=== PATIENT | male | born 1950 ===

== ENCOUNTER 2016-09-16 12:04 | Observation (INO) | payer MEDICARE ==
--- NOTE | 2016-09-16 12:36 | C.PDOC ---
History Of Present Illness 66 y/o male with Hx of HTN and valvular heart disease presents to ER with complaints of Hematuria and patient states blood in urine since a "few hours ago ". Patient denies pain, tenderness or blood in stool. Patient was seen in [facility] for similar. No further complaints at this time. Time Seen by Provider: 09/16/16 12:33 Chief Complaint (Nursing): Male Genitourinary History Per: Patient History/Exam Limitations: no limitations Onset/Duration Of Symptoms: Days Current Symptoms Are (Timing): Still Present Severity: Mild Associated Symptoms: Urinary Symptoms (blood in urine). denies: Fever, Nausea, Vomiting, Diarrhea Past Medical History Reviewed: Historical Data, Nursing Documentation, Vital Signs Vital Signs: Last Vital Signs Temp 97.8 F 09/16/16 23:35 Pulse 59 L 09/17/16 00:20 Resp 20 09/16/16 23:35 BP 119/64 09/16/16 23:35 Pulse Ox 97 09/16/16 23:35 - Medical History PMH: Atrial Fibrillation, CAD, Depression, Diabetes, HTN Surgical History: CABG (1997) - [facility] Procedures DRAINAGE OF ANUS, EXTERNAL APPROACH (05/01/15) Family History: States: Unknown Family Hx, Hypertension - Social History Hx Alcohol Use: No Hx Substance Use: No - Immunization History Hx Tetanus Toxoid Vaccination: Yes Hx Influenza Vaccination: No Hx Pneumococcal Vaccination: No Review Of Systems Except As Marked, All Systems Reviewed And Found Negative. Constitutional: Negative for: Fever, Chills, Sweats Cardiovascular: Negative for: Chest Pain Respiratory: Negative for: Cough, Shortness of Breath Gastrointestinal: Negative for: Nausea, Vomiting, Diarrhea Genitourinary: Positive for: Hematuria. Negative for: Dysuria Neurological: Negative for: Weakness, Numbness Physical Exam - Physical Exam Appears: Well, Non-toxic Skin: Normal Color, Warm Head: Atraumatic, Normacephalic Oral Mucosa: Moist Throat: Normal Neck: Normal ROM Cardiovascular: Rhythm Regular, No Murmur Respiratory: Normal Breath Sounds, No Rales, No Rhonchi, No Wheezing Neurological/Psych: Oriented x3, Normal Speech, Normal Cognition ED Course And Treatment - Laboratory Results Result Diagrams: 09/17/16 08:02 09/16/16 12:53 O2 Sat by Pulse Oximetry: 96 Medical Decision Making Medical Decision Making: gross hematuria. noted similar presentation in dec, where pt had drop in h/h, needed icu, and emergent tranfusion at that time 250: unable to reach dr cummings. called dr cheek, brain surgeon urology, recommends reversal of inr, no bladder irrigation at this time. case discussed with dr mendoza, hospitalist. accepts for admission 345 : received call from dr killian, accepts to his service. hospitalist notified ekg afib 50 known h/o of afib Disposition - Disposition Disposition: HOSPITALIZED Disposition Time: 14:49 Condition: STABLE - Clinical Impression Clinical Impression: Hematuria, Supratherapeutic INR - PA / MEASURING CLERK / Resident Statement MD/DO has reviewed & agrees with the documentation as recorded. MD/DO has examined the patient and agrees with the treatment plan. - Scribe Statement The provider has reviewed the documentation as recorded by the Shayneibmaged [place] All medical record entries made by the Shayneibmaged were at my direction and personally dictated by me. I have reviewed the chart and agree that the record accurately reflects my personal performance of the history, physical exam, medical decision making, and the department course for this patient. I have also personally directed, reviewed, and agree with the discharge instructions and disposition. Decision To Admit - Pt Status Changed To: Hospital Disposition Of: Inpatient - Admit Certification Admit to Inpatient:: After my assessment, the patient will require hospitalization for at least two midnights. This is because of the severity of symptoms shown, intensity of services needed, and/or the medical risk in this patient being treated as an outpatient. - InPatient: Physician Admission Certification: I certify that this patient requires 2 or more midnights of care for the following reason:: pt with supratherpeutic inr, with gross bleeding, needs reversal, h/h monitoring. - . Bed Request Type: Telemetry Admitting Physician: Markus Mendoza Patient Diagnosis: Hematuria, Supratherapeutic INR
[2016-09-16 12:58] LABS: BASO % 0.7 % (0.0-2.0); EOS # 0.1 K/uL (0.0-0.7); EOS % 1.2 % (0.0-4.0); HEMATOCRIT 39.9 % (35.0-51.0); LYMPH % 16.9 % (20.0-40.0); MEAN CELL VOLUME 93.1 fL (80.0-94.0); MEAN CORPUSCULAR HEMOGLOBIN 29.8 pg (27.0-31.0); MEAN PLATELET VOLUME 9.1 fL (7.2-11.7); MONO # 0.6 K/uL (0.0-0.8); RED CELL DISTRIBUTION WIDTH 15.1 % (11.5-14.5)
[2016-09-16 13:07] LABS: CHLORIDE 94 mmol/L (98-107)
[2016-09-16 13:08] LABS: POTASSIUM 3.6 mmol/L (3.6-5.2); SODIUM 139 mmol/L (132-148)
[2016-09-16 13:09] LABS: INR 3.4
[2016-09-16 13:10] LABS: ALB/GLOB RATIO 1.6 (1.0-2.1); AST/SGOT 22 U/L (17-59); BILIRUBIN,TOTAL 0.6 mg/dL (0.2-1.3); BLOOD UREA NITROGEN 40 mg/dL (9-20); CARBON DIOXIDE 35 mmol/L (22-30); GFR AFRICAN-AMERICAN > 60; TOTAL PROTEIN 7.7 g/dL (6.3-8.3)
[2016-09-16 13:11] LABS: ALKALINE PHOSPHATASE 106 U/L (38-126); ALT/SGPT 25 U/L (21-72); CALCIUM 8.9 mg/dl (8.6-10.4); GLUCOSE,RANDOM 112 mg/dL (75-110)
[2016-09-16] MEDS ORDERED: Sodium Chloride 0.9% 500 ML IV ONE (13:15)
[2016-09-16 13:39] LABS: RBC URINE 5862 /hpf (0-3); URINE BILIRUBIN NEGATIVE (NEGATIVE); URINE BLOOD 2+ (NEGATIVE); URINE COLOR Red (YELLOW); URINE GLUCOSE (UA) NORMAL (Normal); URINE KETONE NEGATIVE (NEGATIVE); URINE LEUKOCYTE ESTERASE NEG Leu/uL (Negative); URINE PROTEIN 2+ mg/dL (NEGATIVE); URINE UROBILINOGEN NORMAL mg/dL (0.2-1.0)
[2016-09-16] MEDS ORDERED: Phytonadione 2.5 MG/0.5 TAB TAB PO STA (14:42)
[2016-09-16] MEDS: (Novolin R) Insulin Human Regular 100 units/ml vial SC SCH (21:31)
[2016-09-17] MEDS: (Novolin R) Insulin Human Regular 100 units/ml vial SC SCH ×4 (07:47→23:27)
[2016-09-17 08:12] LABS: BASO % 0.6 % (0.0-2.0); EOS # 0.1 K/uL (0.0-0.7); EOS % 1.6 % (0.0-4.0); HEMATOCRIT 33.7 % (35.0-51.0); LYMPH # 0.9 K/uL (1.0-4.3); LYMPH % 17.3 % (20.0-40.0); MEAN CELL VOLUME 92.1 fL (80.0-94.0); MEAN CORPUSCULAR HEMOGLOBIN 29.9 pg (27.0-31.0); MEAN CORPUSCULAR HGB CONC 32.4 g/dL (33.0-37.0); MEAN PLATELET VOLUME 9.7 fL (7.2-11.7); MONO # 0.7 K/uL (0.0-0.8); MONO % 12.8 % (0.0-10.0); NRBC % 0.1 % (0.0-2.0); RED CELL DISTRIBUTION WIDTH 14.8 % (11.5-14.5); WHITE BLOOD COUNT 5.1 K/uL (4.8-10.8)
[2016-09-17 08:16] LABS: INR 2.1
[2016-09-17] MEDS: Potassium Chloride 10 mEq ER Tab PO SCH (09:25)
[2016-09-17] MEDS: metOLazone 2.5 MG TAB PO SCH (09:25)
[2016-09-17 13:53] LABS: RBC URINE 1 /hpf (0-3); URINE BILIRUBIN NEGATIVE (NEGATIVE); URINE BLOOD NEGATIVE (NEGATIVE); URINE COLOR Yellow (YELLOW); URINE GLUCOSE (UA) NORMAL (Normal); URINE KETONE NEGATIVE (NEGATIVE); URINE LEUKOCYTE ESTERASE 2+ Leu/uL (Negative); URINE PROTEIN NEGATIVE (NEGATIVE); URINE UROBILINOGEN NORMAL mg/dL (0.2-1.0); WBC URINE 42 /hpf (0-5)
[2016-09-17 18:27] VITALS: RESP 20
--- NOTE | 2016-09-17 18:30 | CP.PCM.CON ---
History of Present Illness - History of Present Illness History of Present Illness: Discussed case with ER doc. Pt with second empisode of gross hematuria while on anticoagulation. 1st empisode in May was worked up hematuria resolved after stoping anticoagulation on present admisson PT abnormal Suggest stopping anticoagulation if hematuria fails to stop further workup indicated, [place] Past Patient History - Past Medical History & Family History Past Medical History?: Yes - Past Social History Smoking Status: Light Smoker < 10 Cigarettes Daily - CARDIAC Hx Atrial Fibrillation: Yes Hx Hypertension: Yes - PULMONARY Hx Respiratory Disorders: No - NEUROLOGICAL Hx Neurological Disorder: No - HEENT Hx HEENT Problems: Yes Hx Cataracts: Yes - RENAL Hx Chronic Kidney Disease: No - ENDOCRINE/METABOLIC Hx Endocrine Disorders: Yes Hx Diabetes Mellitus Type 2: Yes - HEMATOLOGICAL/ONCOLOGICAL Hx Blood Disorders: No - INTEGUMENTARY Hx Dermatological Problems: No Other/Comment: Hx Ulcer to right calf (healed) - MUSCULOSKELETAL/RHEUMATOLOGICAL Hx Musculoskeletal Disorders: Yes Hx Falls: Yes - GASTROINTESTINAL Hx Gastrointestinal Disorders: No - GENITOURINARY/GYNECOLOGICAL Hx Genitourinary Disorders: Yes Hx Hematuria: Yes - PSYCHIATRIC Hx Depression: Yes Hx Substance Use: No - SURGICAL HISTORY Hx Coronary Artery Bypass Graft: Yes (1997) - ANESTHESIA Hx Anesthesia: Yes Hx Anesthesia Reactions: No Hx Malignant Hyperthermia: No Meds Allergies/Adverse Reactions: Allergies Allergy/AdvReac Type Severity Reaction Status Date / Time clams Allergy Uncoded 09/16/16 12:09 - Medications Medications: Current Medications Clonazepam (Klonopin) 2 mg PO HS [facility] Last Admin: 09/16/16 21:33 Dose: 2 mg Docusate Sodium (Colace) 100 mg PO DAILY [facility] Last Admin: 09/17/16 09:25 Dose: 100 mg Insulin Human Regular (Novolin R) 0 unit SC [facility] PRN Reason: Protocol Last Admin: 09/17/16 17:29 Dose: Not Given Losartan Potassium (Cozaar) 100 mg PO DAILY [facility] Last Admin: 09/17/16 09:25 Dose: 100 mg Metformin HCl (Glucophage) 500 mg PO DAILY [facility] Last Admin: 09/17/16 09:25 Dose: 500 mg Metolazone (Zaroxolyn) 2.5 mg PO DAILY [facility] Last Admin: 09/17/16 09:25 Dose: 2.5 mg Potassium Chloride (Klor-Con 10) 10 meq PO DAILY [facility] Last Admin: 09/17/16 09:25 Dose: 10 meq Results - Vital Signs Recent Vital Signs: Last Vital Signs Temp 97.6 F 09/17/16 08:00 Pulse 57 L 09/17/16 16:00 Resp 18 09/17/16 08:00 BP 110/63 09/17/16 08:00 Pulse Ox 96 09/17/16 09:55 - Labs Result Diagrams: 09/17/16 08:02 09/16/16 12:53 Labs: Laboratory Results - last 24 hr 09/16/16 09/17/16 09/17/16 21:07 06:28 08:02 WBC 5.1 RBC 3.66 L Hgb 10.9 L Hct 33.7 L MCV 92.1 MCH 29.9 MCHC 32.4 L RDW 14.8 H Plt Count 167 MPV 9.7 Neut % (Auto) 67.7 Lymph % (Auto) 17.3 L [place] % (Auto) 12.8 H Eos % (Auto) 1.6 Baso % (Auto) 0.6 Neut # 3.5 Lymph # 0.9 L [place] # 0.7 Eos # 0.1 Baso # 0.0 PT INR APTT POC Glucose (mg/dL) 197 H 119 H Urine Color Urine Clarity Urine pH Ur Specific [place] Urine Protein Urine Glucose (UA) Urine Ketones Urine Blood Urine Nitrate Urine Bilirubin Urine Urobilinogen Ur Leukocyte Esterase Urine WBC (Auto) Urine RBC (Auto) Ur Squamous Epith Cells Hyaline Casts 09/17/16 09/17/16 09/17/16 08:02 11:38 13:36 WBC RBC Hgb Hct MCV MCH MCHC RDW Plt Count MPV Neut % (Auto) Lymph % (Auto) [place] % (Auto) Eos % (Auto) Baso % (Auto) Neut # Lymph # [place] # Eos # Baso # PT 23.8 H D INR 2.1 D APTT 48 H D POC Glucose (mg/dL) 146 H Urine Color Yellow Urine Clarity Hazy Urine pH 6.0 Ur Specific [place] 1.013 Urine Protein Negative Urine Glucose (UA) Normal Urine Ketones Negative Urine Blood Negative Urine Nitrate Negative Urine Bilirubin Negative Urine Urobilinogen Normal Ur Leukocyte Esterase 2+ H Urine WBC (Auto) 42 H Urine RBC (Auto) 1 Ur Squamous Epith Cells 1 Hyaline Casts 6-10 H 09/17/16 17:21 WBC RBC Hgb Hct MCV MCH MCHC RDW Plt Count MPV Neut % (Auto) Lymph % (Auto) [place] % (Auto) Eos % (Auto) Baso % (Auto) Neut # Lymph # [place] # Eos # Baso # PT INR APTT POC Glucose (mg/dL) 145 H Urine Color Urine Clarity Urine pH Ur Specific [place] Urine Protein Urine Glucose (UA) Urine Ketones Urine Blood Urine Nitrate Urine Bilirubin Urine Urobilinogen Ur Leukocyte Esterase Urine WBC (Auto) Urine RBC (Auto) Ur Squamous Epith Cells Hyaline Casts
--- NOTE | 2016-09-17 18:33 | CP.PCM.HP ---
History of Present Illness - History of Present Illness History of Present Illness: Chief complaint: Hematuria History present illness: 66-year-old male with history of mitral valve replacement, hypertension, depression, anxiety, CAD, diabetes, hypercholesteremia came to the office with the complaining of sudden onset of blood in the urine. Patient is taking Coumadin for his mitral valve mechanical. He was doing well. Currently he started having bright red color urine this morning, and at least 2 more episodes were noted. Patient came to the emergency room because of that. He was having no abdominal pain, no flank pain. He did not have any other major active symptoms. In the past patient was hospitalized because of the coagulopathy secondary to Coumadin toxicity Past medical history: Atrial fibrillation, coronary artery disease, hypertension, diabetes Surgical history: In 1997 patient had a mitral valve replacement, coronary artery bypass grafting , cataract surgery patient also had a history of endocarditis Family history: Father had a history of diabetes, mother diabetes and hypertension, significant family history of diabetes noted. Social history: Findings SOCIALLY, patient continues to smoke 4-5 cigarettes daily. Seen by voice engineer. Also seeing psychiatrist Review of system: Denies any chest pain, but complaining of urinary discomfort, and blood in the urine, no flank pain, denies any vomiting, no fever, no chills On examination: Vital signs reviewed in Chest good air entry bilaterally regular heart sound nontender abdomen CANCER REGISTRY COORDINATOR alert awake oriented 3 no functional neurological deficit Labs reviewed Elevated INR noted. Patient was given vitamin K and FFP in the emergency room. Still having minimal redness in the urine Assessment and recommendation: 64-year-old male with a history of hypertension mitral valve replacement, depression anxiety CAD atrial fibrillation hypercholesterolemia coagulopathy admitted now with the hematuria. We'll continue to monitor the patient. INR to be maintained. Urology evaluation if needed. Discussed with the patient and will follow the patient Present on Admission - Present on Admission Any Indicators Present on Admission: No History of DVT/PE: No History of Uncontrolled Diabetes: No Urinary Catheter: No Decubitus Ulcer Present: No Past Patient History - Past Medical History & Family History Past Medical History?: Yes - Past Social History Smoking Status: Light Smoker < 10 Cigarettes Daily - CARDIAC Hx Atrial Fibrillation: Yes Hx Hypertension: Yes - PULMONARY Hx Respiratory Disorders: No - NEUROLOGICAL Hx Neurological Disorder: No - HEENT Hx HEENT Problems: Yes Hx Cataracts: Yes - RENAL Hx Chronic Kidney Disease: No - ENDOCRINE/METABOLIC Hx Endocrine Disorders: Yes Hx Diabetes Mellitus Type 2: Yes - HEMATOLOGICAL/ONCOLOGICAL Hx Blood Disorders: No - INTEGUMENTARY Hx Dermatological Problems: No Other/Comment: Hx Ulcer to right calf (healed) - MUSCULOSKELETAL/RHEUMATOLOGICAL Hx Musculoskeletal Disorders: Yes Hx Falls: Yes - GASTROINTESTINAL Hx Gastrointestinal Disorders: No - GENITOURINARY/GYNECOLOGICAL Hx Genitourinary Disorders: Yes Hx Hematuria: Yes - PSYCHIATRIC Hx Depression: Yes Hx Substance Use: No - SURGICAL HISTORY Hx Coronary Artery Bypass Graft: Yes (1997) - ANESTHESIA Hx Anesthesia: Yes Hx Anesthesia Reactions: No Hx Malignant Hyperthermia: No Meds Allergies/Adverse Reactions: Allergies Allergy/AdvReac Type Severity Reaction Status Date / Time clams Allergy Uncoded 09/16/16 12:09 Results - Vital Signs Recent Vital Signs: Last Vital Signs Temp 97.8 F 09/17/16 16:00 Pulse 62 09/17/16 16:00 Resp 20 09/17/16 16:00 BP 111/57 L 09/17/16 16:00 Pulse Ox 98 09/17/16 16:00 - Labs Result Diagrams: 09/17/16 08:02 09/16/16 12:53 Labs: Laboratory Results - last 24 hr 09/16/16 09/17/16 09/17/16 21:07 06:28 08:02 WBC 5.1 RBC 3.66 L Hgb 10.9 L Hct 33.7 L MCV 92.1 MCH 29.9 MCHC 32.4 L RDW 14.8 H Plt Count 167 MPV 9.7 Neut % (Auto) 67.7 Lymph % (Auto) 17.3 L Wirt % (Auto) 12.8 H Eos % (Auto) 1.6 Baso % (Auto) 0.6 Neut # 3.5 Lymph # 0.9 L Wirt # 0.7 Eos # 0.1 Baso # 0.0 PT INR APTT POC Glucose (mg/dL) 197 H 119 H Urine Color Urine Clarity Urine pH Ur Specific [place] Urine Protein Urine Glucose (UA) Urine Ketones Urine Blood Urine Nitrate Urine Bilirubin Urine Urobilinogen Ur Leukocyte Esterase Urine WBC (Auto) Urine RBC (Auto) Ur Squamous Epith Cells Hyaline Casts 09/17/16 09/17/16 09/17/16 08:02 11:38 13:36 WBC RBC Hgb Hct MCV MCH MCHC RDW Plt Count MPV Neut % (Auto) Lymph % (Auto) [place]irt % (Auto) Eos % (Auto) Baso % (Auto) Neut # Lymph # [place]irt # Eos # Baso # PT 23.8 H D INR 2.1 D APTT 48 H D POC Glucose (mg/dL) 146 H Urine Color Yellow Urine Clarity Hazy Urine pH 6.0 Ur Specific [place] 1.013 Urine Protein Negative Urine Glucose (UA) Normal Urine Ketones Negative Urine Blood Negative Urine Nitrate Negative Urine Bilirubin Negative Urine Urobilinogen Normal Ur Leukocyte Esterase 2+ H Urine WBC (Auto) 42 H Urine RBC (Auto) 1 Ur Squamous Epith Cells 1 Hyaline Casts 6-10 H 09/17/16 17:21 WBC RBC Hgb Hct MCV MCH MCHC RDW Plt Count MPV Neut % (Auto) Lymph % (Auto) [place] % (Auto) Eos % (Auto) Baso % (Auto) Neut # Lymph # [place] # Eos # Baso # PT INR APTT POC Glucose (mg/dL) 145 H Urine Color Urine Clarity Urine pH Ur Specific [place] Urine Protein Urine Glucose (UA) Urine Ketones Urine Blood Urine Nitrate Urine Bilirubin Urine Urobilinogen Ur Leukocyte Esterase Urine WBC (Auto) Urine RBC (Auto) Ur Squamous Epith Cells Hyaline Casts
[2016-09-18 07:28] LABS: INR 1.8
[2016-09-18] MEDS: (Novolin R) Insulin Human Regular 100 units/ml vial SC SCH ×2 (08:31→12:24)
[2016-09-18 08:59] VITALS: BP 112/68; TEMP 97.7; O2SAT 98
[2016-09-18] MEDS: Potassium Chloride 10 mEq ER Tab PO SCH (09:14)
[2016-09-18] MEDS: metOLazone 2.5 MG TAB PO SCH (09:14)
[2016-09-18 11:44] VITALS: PULSE 70
[2016-09-18 13:31] LABS: RBC URINE 3 /hpf (0-3); URINE BACTERIA FEW (<OCC); URINE BILIRUBIN NEGATIVE (NEGATIVE); URINE BLOOD NEGATIVE (NEGATIVE); URINE COLOR Yellow (YELLOW); URINE GLUCOSE (UA) NORMAL (Normal); URINE KETONE NEGATIVE (NEGATIVE); URINE LEUKOCYTE ESTERASE 3+ Leu/uL (Negative); URINE PROTEIN NEGATIVE (NEGATIVE); URINE UROBILINOGEN NORMAL mg/dL (0.2-1.0); WBC URINE 45 /hpf (0-5)
--- NOTE | 2016-09-18 13:59 | CP.PCM.PN ---
Subjective - Date & Time of Evaluation Date of Evaluation: 09/18/16 Time of Evaluation: 13:57 - Subjective Subjective: Hematuria has abated,voiding clear urine. Suggest no further intervention on this admission pt should have follow up on discharge. Shen Hogan Objective - Vital Signs/Intake and Output Vital Signs (last 24 hours): Temp Pulse Resp BP Pulse Ox 97.7 F 70 20 112/68 98 09/18/16 08:57 09/18/16 10:00 09/18/16 08:57 09/18/16 08:57 09/18/16 08:57 Intake and Output: 09/18/16 09/18/16 06:59 18:59 Intake Total 500 Balance 500 - Medications Medications: Current Medications Clonazepam (Klonopin) 2 mg PO HS [facility] Last Admin: 09/17/16 22:03 Dose: 2 mg Docusate Sodium (Colace) 100 mg PO DAILY [facility] Last Admin: 09/18/16 09:14 Dose: 100 mg Insulin Human Regular (Novolin R) 0 unit SC [facility] PRN Reason: Protocol Last Admin: 09/18/16 12:24 Dose: Not Given Losartan Potassium (Cozaar) 100 mg PO DAILY [facility] Last Admin: 09/18/16 09:14 Dose: 100 mg Metformin HCl (Glucophage) 500 mg PO DAILY [facility] Last Admin: 09/18/16 09:14 Dose: 500 mg Metolazone (Zaroxolyn) 2.5 mg PO DAILY [facility] Last Admin: 09/18/16 09:14 Dose: 2.5 mg Potassium Chloride (Klor-Con 10) 10 meq PO DAILY [facility] Last Admin: 09/18/16 09:14 Dose: 10 meq - Labs Labs: 09/17/16 08:02 PT 20.2 SECONDS (9.7-12.2) H 09/18/16 07:12 INR 1.8 09/18/16 07:12 APTT 45 SECONDS (21-34) H 09/18/16 07:12
--- NOTE | 2016-09-19 13:53 | CON ---
DATE: 09/18/2016 CHIEF COMPLAINT: Hematuria. HISTORY OF PRESENT ILLNESS: The patient had hematuria at home. He is on anticoagulation, began pass ing blood painlessly. He has a history of having hematuria in the past, which was found to be due to aberrant anticoagulation, which he is on because of mitral valve disease. At that time, he was krunal luann conservatively and improved. Now, he returns to the hospital. His coagulation numbers are abnor mal and he is bleeding again. He denies any difficulty in urination, any dysuria or any frequency. REVIEW OF SYSTEMS: RESPIRATORY: The patient has no shortness of breath. CARDIAC: The patient has a murmur due to his artificial valve. He has no cardiomegaly and he is not complaining of any palpitations. LUNGS: Clear bilaterally. There are no rales or rhonchi. HEART: Normal sinus rhythm. There is a murmur due to the valve. GASTROINTESTINAL: The patient has no change in bowel habits. No constipation or diarrhea. GENITOURINARY: The patient has had gross hematuria, but that gross hematuria subsided since his anti coagulation is stopped. He is voiding well with clear yellow urine. EXTREMITIES: Normal. VASCULAR: Normal. NEUROLOGIC: Normal. I have also reviewed the patient's lab work and the progress notes from other practitioners. PHYSICAL EXAMINATION: VITAL SIGNS: Within normal limits. HEENT: Within normal limits. NECK: Supple. There are no bruits, nodes, or masses. CHEST: Clear bilaterally. There are no rales or rhonchi. HEART: Normal sinus rhythm. There is no murmur. ABDOMEN: Soft, nontender. The bladder is not distended. RECTAL: The patient refuses. GENITAL: Testicles, epididymis, and cord are normal. My impression is hematuria secondary to anticoagulation. SUGGEST: The patient should be monitored. If hematuria continues, further workup is indicated. The patient should be referred for urological followup on discharge. Irving Hogan MD cc: [phone] TT: 09/19/2016 13:45:43 Confirmation # [id number] Dictation # [id number]
--- NOTE | 2016-09-21 15:05 | CARD ---
APPROVED REPORT EKG Measurement Heart [id number] <Conclusion> Atrial fibrillation with slow ventricular response Abnormal ECG
== END 2016-09-18 14:08 | disposition home or self-care (01) ==
LOC: C.ER 12:04 → INTOOBSV 14:50 → C.9E 14:50 → C.6T 15:39
PROVIDERS: ADMIT Internal Medicine; ATTEND Internal Medicine
PROC: 30233K1 Transfusion of Nonautologous Frozen Plasma into Peripheral Vein, Percutaneous Approach (ICD-10-PCS; principal; 2016-09-16)
DX: R31.0 Gross hematuria (principal); I48.91 Unspecified atrial fibrillation; I10 Essential (primary) hypertension; T45.515A Adverse effect of anticoagulants, initial encounter; I25.10 Atherosclerotic heart disease of native coronary artery without angina pectoris; E11.9 Type 2 diabetes mellitus without complications; F32.9 Major depressive disorder, single episode, unspecified; Z95.1 Presence of aortocoronary bypass graft; F41.9 Anxiety disorder, unspecified; E78.00 Pure hypercholesterolemia, unspecified; Z95.2 Presence of prosthetic heart valve; Z79.01 Long term (current) use of anticoagulants; F17.210 Nicotine dependence, cigarettes, uncomplicated; Z79.4 Long term (current) use of insulin
CPT/HCPCS: 36415; 36430; 80053; 81001; 82948; 85025; 85610; 85730; 86850; 86900; 93005; 99285; G0378; J7040; P9017

== ENCOUNTER 2016-11-01 06:09 | Day surgery (SDC) | payer MEDICARE ==
[2016-11-01 06:50] VITALS: BMI 28.4
[2016-11-01 07:00] VITALS: O2SAT 100
[2016-11-01] MEDS ORDERED: Propofol 10 mg/ml Inj (20 ML) ONE (07:51)
[2016-11-01] MEDS ORDERED: Lidocaine Hydrochloride 5 ML INJ ONE (07:51)
[2016-11-01] MEDS ORDERED: Lactated Ringer's 500 ML IV SCH (08:00)
--- NOTE | 2016-11-01 08:01 | CP.SDSHP ---
Same Day Surgery H & P - History Proposed Procedure: colonoscopy Pre-Op Diagnosis: h/o colonic polyps - Previous Medical/Surgical History Cardiac: Hypertension, ASHD/CAD, Valvular Heart Disease, Previous HI, Other ( hyperlipidemia, ) Endocrine/Metabolic: Diabetes, Obesity Misc: Anemia Previous Surgical History: S/P MVR. Perirectal abscess drainage - Allergies Allergies: Allergies clams Allergy (Uncoded 09/16/16 12:09) - Physical Exam Vital Signs: Vital Signs 11/01/16 06:49 Temperature 98.4 F Pulse Rate 68 Respiratory 19 Rate Blood Pressure 135/65 O2 Sat by Pulse 100 Oximetry Mental Status: Alert & Oriented x3 Neuro: WNL Heart: Other (Systolic ejection murmur noted 07/10) Lungs: WNL GI: WNL - {Optional Preform as Required} Abdomen: WNL - Impression Impression: h/o colonic polyps Pt. Evaluated Today:Candidate for Anesthesia & Procedure: Yes - Date & Time Date: 11/01/16 Time: 08:03 Short Stay Discharge - Short Stay Discharge Admitting Diagnosis/Reason for Visit: H/O COLON POLYPS / ISCHEMIC HEART Disposition: HOME/ ROUTINE
[2016-11-01 08:28] LABS: INR 2.6
[2016-11-01 11:15] VITALS: RESP 16; TEMP 96.8
[2016-11-01 11:18] VITALS: BP 161/85; PULSE 52
== END 2016-11-01 10:40 | disposition home or self-care (01) ==
LOC: C.ENDO 06:09
PROVIDERS: ATTEND Internal Medicine Gastroenterology
DX: K57.90 Diverticulosis of intestine, part unspecified, without perforation or abscess without bleeding (principal); K64.1 Second degree hemorrhoids; Z86.010 Personal history of colon polyps; I25.9 Chronic ischemic heart disease, unspecified; Z95.0 Presence of cardiac pacemaker
CPT/HCPCS: 36415; 45378; 82948; 85610; 85730; J2704; J7120

== ENCOUNTER 2016-11-14 19:34 | Inpatient (IN) | payer MEDICARE ==
[2016-11-14 19:35] VITALS: BMI 28.4
[2016-11-14] MEDS ORDERED: Sodium Chloride 0.9% 1,000 ML ONE ×2 (19:56→22:02)
--- NOTE | 2016-11-14 20:06 | C.PDOC ---
History Of Present Illness 66M c/o constant pain in his right side for the last 3 days. no exac or reliev fx. has not taken med at home for pain. denies hematuria, n/v/d, fever. he points to his right flank and also RUQ and epigatric regions. Time Seen by Provider: 11/14/16 19:44 Chief Complaint (Nursing): Abdominal Pain Past Medical History Vital Signs: Last Vital Signs Temp 98.9 F 11/14/16 19:51 Pulse 61 11/14/16 23:39 Resp 16 11/14/16 23:39 BP 116/64 11/14/16 23:39 Pulse Ox 97 11/14/16 23:39 - Medical History PMH: Atrial Fibrillation, CAD, Colonic Polyps, Depression, Diabetes, HTN, Hypercholesterolemia Surgical History: CABG (1997), Endoscopy - [facility] Procedures DRAINAGE OF ANUS, EXTERNAL APPROACH (05/01/15) TRANSFUSE NONAUT FROZEN PLASMA IN PERIPH VEIN, PERC (09/16/16) Family History: States: Hypertension, Other Other Family History: nc - Social History Hx Alcohol Use: Yes Hx Substance Use: No - Immunization History Hx Tetanus Toxoid Vaccination: Yes Hx Influenza Vaccination: No Hx Pneumococcal Vaccination: No Review Of Systems Except As Marked, All Systems Reviewed And Found Negative. Constitutional: Negative for: Fever, Chills Cardiovascular: Negative for: Chest Pain Respiratory: Negative for: Cough, Shortness of Breath, Hemoptysis Gastrointestinal: Positive for: Abdominal Pain. Negative for: Nausea, Vomiting Genitourinary: Negative for: Dysuria, Frequency, Hematuria Neurological: Negative for: Weakness, Numbness Physical Exam - Physical Exam Appears: Non-toxic, No Acute Distress Skin: Warm, Dry Eye(s): bilateral: PERRL Nose: No Epistaxis Oral Mucosa: Moist Lips: No Swelling Cardiovascular: Rhythm Regular Respiratory: No Decreased Breath Sounds, No Accessory Muscle Use, No Rales, No Rhonchi, No Stridor, No Wheezing Gastrointestinal/Abdominal: Soft, Tenderness (ruq and epigastric), No Distention , No Guarding, No Rebound Back: No CVA Tenderness, No Paraspinal Tenderness Extremity: Swelling (trace edema ble) Neurological/Psych: Oriented x3, Other (no focal deficits) ED Course And Treatment - Laboratory Results Result Diagrams: 11/14/16 20:10 11/14/16 20:10 O2 Sat by Pulse Oximetry: 96 - CT Scan/US CT abd/pel Other Rad Studies (CT/US): Read By Radiologist, Radiology Report Reviewed CT/US Interpretation: EXAM: CT Abdomen and Pelvis With Intravenous Contrast. CLINICAL HISTORY: 66 years old, male; Pain; Abdominal pain; Flank; Right lower quadrant (rlq). TECHNIQUE: Axial computed tomography images of the abdomen and pelvis with intravenous contrast. This CT. exam was performed using one or more of the following dose reduction techniques: automated. exposure control, adjustment of the mA and/or kV according patient size, and/or use of iterative. reconstruction technique. Coronal and sagittal reformatted images were created and reviewed. CONTRAST: 100 mL of visipaque 320 administered intravenously. COMPARISON: No relevant prior studies available. FINDINGS: Lower thorax: Left basilar atelectasis. The right lung base is clear. Calcified atherosclerotic disease. within the coronary arteries. ABDOMEN: Liver: No acute findings. Gallbladder and bile ducts: The gallbladder is only minimally distended, with a single calcified stone. No surrounding inflammation. No significant intra- or extrahepatic biliary ductal dilation. Pancreas: Enhances homogeneously. No ductal dilation. No discrete mass. Spleen: No acute findings. Adrenals: No acute findings. Kidneys and ureters: No acute findings. No hydronephrosis or renal calculi. No discrete solid mass. PELVIS: Bladder: Thickening of the bladder wall, possibly related to under distention. Reproductive: No acute findings. Appendix: The air filled appendix is of normal caliber (series 3, images 120 - 124; series 601, image. 63) . ABDOMEN and PELVIS: Stomach and bowel: Significant mural thickening with surrounding inflammatory changes identified. within the cecum. The epicenter is at or beyond the ileocecal valve, and is not include the appendix,. which is air- filled and otherwise unremarkable. The remainder of the colon is unremarkable. Peritoneum: As above. Lymph nodes: Scattered enlarged lymph nodes within the retroperitoneum and at the root of the. mesentery, a nonspecific finding. Vasculature: Calcified atherosclerotic disease. Bones: No acute fracture. IMPRESSION: Findings suggesting cecal diverticulitis, without a drainable fluid collection or free perforation. Followup to resolution is recommended, as a malignancy can have a similar appearance. Cholelithiasis. Left basilar atelectasis Medical Decision Making Medical Decision Making: Atrial fibrillation 79, no STEMI Disposition - Disposition Disposition: HOSPITALIZED Disposition Time: 21:45 Condition: STABLE - Clinical Impression Clinical Impression: UTI (urinary tract infection), Diverticulitis
[2016-11-14 20:16] LABS: BASO % 0.3 % (0.0-2.0); EOS % 0.2 % (0.0-4.0); HEMOGLOBIN 11.5 g/dL (12.0-18.0); LYMPH # 1.2 K/uL (1.0-4.3); LYMPH % 8.3 % (20.0-40.0); MEAN CELL VOLUME 94.4 fL (80.0-94.0); MEAN CORPUSCULAR HEMOGLOBIN 29.7 pg (27.0-31.0); MEAN CORPUSCULAR HGB CONC 31.5 g/dL (33.0-37.0); MEAN PLATELET VOLUME 9.8 fL (7.2-11.7); MONO # 1.1 K/uL (0.0-0.8); MONO % 7.5 % (0.0-10.0); NEUT # 11.8 K/uL (1.8-7.0); NEUT % 83.7 % (50.0-75.0); PLATELET COUNT 178 K/uL (130-400); RBC 3.86 Mil/uL (4.40-5.90); RED CELL DISTRIBUTION WIDTH 13.8 % (11.5-14.5)
[2016-11-14 20:21] LABS: INR 4.1
[2016-11-14 20:26] LABS: PROTHROMBIN TIME 48.2 SECONDS (9.7-12.2)
[2016-11-14 20:44] LABS: ALBUMIN 3.5 g/dL (3.5-5.0)
[2016-11-14] MEDS ORDERED: Iodixanol 320 MG/ML 100 ML BOTTLE IV ONE (20:44)
[2016-11-14 20:47] LABS: AST/SGOT 19 U/L (17-59); GFR AFRICAN-AMERICAN 57; GFR NON-AFRICAN AMERICAN 47
[2016-11-14 20:48] LABS: ALB/GLOB RATIO 1.2 (1.0-2.1); ALT/SGPT 31 U/L (21-72); BANDS 1 % (0-2); BLOOD UREA NITROGEN 43 mg/dL (9-20); CALCIUM 8.2 mg/dl (8.6-10.4); LIPASE 17 U/L (23-300); LYMPHOCYTE 8 % (20-40); MONOCYTE 11 % (0-10); NEUTROPHIL 80 % (50-75); PLATELET ESTIMATE NORMAL (NORMAL); TOTAL CELLS COUNTED 100
[2016-11-14 20:49] LABS: HYPOCHROMIC SLIGHT; LARGE PLATELETS PRESENT; MICROCYTOSIS SLIGHT; OVALOCYTES SLIGHT
[2016-11-14] MEDS ORDERED: Potassium Chloride 20 mEq ER Tab PO STA (20:54)
[2016-11-14] MEDS ORDERED: Sodium Chloride 0.9% 1,000 ML IV ONE ×2 (20:54→21:46)
[2016-11-14 21:01] LABS: SQUAMOUS EPITHIAL 3 /hpf (0-5); URINE BACTERIA MOD (<OCC); URINE BILIRUBIN NEGATIVE (NEGATIVE); URINE BLOOD 1+ (NEGATIVE); URINE CLARITY Hazy (Clear); URINE COLOR Yellow (YELLOW); URINE GLUCOSE (UA) NORMAL (Normal); URINE LEUKOCYTE ESTERASE 2+ Leu/uL (Negative); URINE NITRATE POSITIVE (NEGATIVE); URINE PROTEIN NEGATIVE (NEGATIVE); URINE UROBILINOGEN NORMAL mg/dL (0.2-1.0)
[2016-11-14] MEDS ORDERED: Potassium Chloride 20 mEq ER Tab PO ONE (21:03)
[2016-11-14] MEDS ORDERED: cefTRIAXone IV 1 gm in Dextros 50 ML IVPB ONE (21:50)
--- NOTE | 2016-11-14 22:22 | CT ---
EXAM: CT Abdomen and Pelvis With Intravenous Contrast CLINICAL HISTORY: 66 years old, male; Pain; Abdominal pain; Flank; Right lower quadrant (rlq) TECHNIQUE: Axial computed tomography images of the abdomen and pelvis with intravenous contrast. This CT exam was performed using one or more of the following dose reduction techniques: automated exposure control, adjustment of the mA and/or kV according patient size, and/or use of iterative reconstruction technique. Coronal and sagittal reformatted images were created and reviewed. CONTRAST: 100 mL of visipaque 320 administered intravenously. COMPARISON: No relevant prior studies available. FINDINGS: Lower thorax: Left basilar atelectasis. The right lung base is clear. Calcified atherosclerotic disease within the coronary arteries. ABDOMEN: Liver: No acute findings. Gallbladder and bile ducts: The gallbladder is only minimally distended, with a single calcified stone. No surrounding inflammation. No significant intra- or extrahepatic biliary ductal dilation. Pancreas: Enhances homogeneously. No ductal dilation. No discrete mass. Spleen: No acute findings. Adrenals: No acute findings. Kidneys and ureters: No acute findings. No hydronephrosis or renal calculi. No discrete solid mass. PELVIS: Bladder: Thickening of the bladder wall, possibly related to under distention. Reproductive: No acute findings. Appendix: The air filled appendix is of normal caliber (series 3, images 120 - 124; series 601, image 63) . ABDOMEN and PELVIS: Stomach and bowel: Significant mural thickening with surrounding inflammatory changes identified within the cecum. The epicenter is at or beyond the ileocecal valve, and is not include the appendix, which is air-filled and otherwise unremarkable. The remainder of the colon is unremarkable. Peritoneum: As above. Lymph nodes: Scattered enlarged lymph nodes within the retroperitoneum and at the root of the mesentery, a nonspecific finding. Vasculature: Calcified atherosclerotic disease. Bones: No acute fracture. IMPRESSION: Findings suggesting cecal diverticulitis, without a drainable fluid collection or free perforation. Followup to resolution is recommended, as a malignancy can have a similar appearance. Cholelithiasis. Left basilar atelectasis.
[2016-11-14] MEDS ORDERED: metroNIDAZOLE IV 500 mg/100 ml 500 MG/100 ML BAG IVPB STA (22:28)
[2016-11-14] MEDS ORDERED: Ciprofloxacin 400mg/200ml D5W 400 MG/200 ML BAG IVPB STA ×2 (22:28→22:58)
[2016-11-14] MEDS ORDERED: Ciprofloxacin 400mg/200ml D5W 0 MG/0 ML BAG IVPB ONE (22:36)
[2016-11-14] MEDS ORDERED: metroNIDAZOLE IV 500 mg/100 ml 500 MG/100 ML BAG ONE (22:36)
[2016-11-14] MEDS: Sodium Chloride 0.9% 1,000 ML IV SCH (22:42)
[2016-11-14] MEDS ORDERED: Ciprofloxacin 400mg/200ml D5W 400 MG/200 ML BAG IVPB SCH (22:45)
--- NOTE | 2016-11-14 22:47 | CP.PCM.HP ---
History of Present Illness - History of Present Illness History of Present Illness: Chief complaint: Abdominal pain sudden onset History present illness: 66-year-old male with history of mitral valve replacement, hypertension, depression, anxiety, CAD, diabetes, hypercholesteremia, on anticoagulation, recent history of hematoma came to the emergency room with the symptoms of sudden onset of abdominal pain. He started noticing pain over the right quadrant area, suddenly started having yesterday. Evening he started having increasing pain, and associate with vomiting. He was also having some difficulty in urination, discomfort in the urination noted. One episode of vomiting noted, but no nausea. Denies any diarrhea. No leg pain. Currently patient is taking Coumadin Past medical history: Atrial fibrillation, CAD, hypertension, diabetes Surgical history: Patient had a mitral valve replacement in 1997, coronary artery bypass grafting , cataract surgery Family history: Father had a history of diabetes, mother had a history of diabetes hypertension , atrial fibrillation. Family history of diabetes noted Social history: Occasional drinks alcohol. Smokes 4-5 cigars per day. No exercise. Seen by software programmer regularly. Being followed up by software programmer for INR checking Review of system: He has no headache. No visual symptom. Complaining of abdominal pain, associated with the discomfort and nausea. One episode of vomiting. Did not have any diarrhea. Currently not feeling hungry, poor appetite noted, no chills or fever noted. Patient recently had upper endoscopy 1 week ago Vital signs reviewed No neck vein distention noted Chest good air entry bilaterally, no wheezing or rales noted CVS regular heart sound, no murmur noted Patient has abdominal pain, tenderness noted on the right lower quadrant and right upper quadrant region. Bowel movements normal. 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 Assessment and the condition: 64-year-old male with history of mitral valve replacement, hypertension, depression, anxiety, CAD, diabetes, hypercholesteremia, on anticoagulation came to the emergency room today with a possible acute abdomen, secondary to cecal diverticulitis. We'll get a GI evaluation. Cipro and Flagyl ordered IV. Clear liquids. Monitor the INR. PT/PTT checking regularly. maintain the INR more than 3. And will follow the patient GI prophylaxis. Present on Admission - Present on Admission Any Indicators Present on Admission: No History of DVT/PE: No History of Uncontrolled Diabetes: No Urinary Catheter: No Decubitus Ulcer Present: No Past Patient History - Infectious Disease Hx of Infectious Diseases: None - Past Medical History & Family History Past Medical History?: Yes - Past Social History Smoking Status: Light Smoker < 10 Cigarettes Daily - CARDIAC Hx Atrial Fibrillation: Yes Hx Hypercholesterolemia: Yes Hx Hypertension: Yes - PULMONARY Hx Respiratory Disorders: No Hx Tuberculosis: No - HEENT Hx HEENT Problems: Yes Hx Blind: No Hx Cataracts: Yes - RENAL Hx Chronic Kidney Disease: No - ENDOCRINE/METABOLIC Hx Endocrine Disorders: Yes Hx Diabetes Mellitus Type 1: Yes Hx Diabetes Mellitus Type 2: Yes - INTEGUMENTARY Hx Dermatological Problems: Yes Other/Comment: Hx Ulcer to right calf (healed) - MUSCULOSKELETAL/RHEUMATOLOGICAL Hx Musculoskeletal Disorders: Yes Hx Falls: Yes Hx Gout: Yes - GASTROINTESTINAL Hx Gastrointestinal Disorders: Yes - PSYCHIATRIC Hx Depression: Yes Hx Substance Use: No - SURGICAL HISTORY Hx Coronary Artery Bypass Graft: Yes (1997) - ANESTHESIA Hx Anesthesia: Yes Hx Anesthesia Reactions: No Hx Malignant Hyperthermia: No Meds Allergies/Adverse Reactions: Allergies Allergy/AdvReac Type Severity Reaction Status Date / Time clams Allergy Uncoded 11/14/16 19:48 Results - Vital Signs Recent Vital Signs: Last Vital Signs Temp 98.9 F 11/14/16 19:51 Pulse 66 11/14/16 22:06 Resp 20 11/14/16 22:06 BP 103/51 L 11/14/16 22:06 Pulse Ox 96 11/14/16 22:29 - Labs Result Diagrams: 11/14/16 20:10 11/14/16 20:10
[2016-11-14] MEDS: Ciprofloxacin 400mg/200ml D5W 400 MG/200 ML BAG IVPB SCH (23:39)
[2016-11-15] MEDS: metroNIDAZOLE IV 500 mg/100 ml 500 MG/100 ML BAG IVPB SCH ×3 (05:11→21:42)
[2016-11-15] MEDS ORDERED: metroNIDAZOLE IV 500 mg/100 ml 250 MG in Premixed IV 1 EA IVPB SCH (06:00)
[2016-11-15] MEDS: Potassium Chloride 10 mEq ER Tab PO SCH (09:43)
[2016-11-15] MEDS: metOLazone 2.5 MG TAB PO SCH (09:44)
[2016-11-15] MEDS: (Novolin R) Insulin Human Regular 100 units/ml vial SC SCH ×3 (11:57→22:29)
[2016-11-15] MEDS: Ciprofloxacin 400mg/200ml D5W 400 MG/200 ML BAG IVPB SCH ×2 (12:09→23:05)
[2016-11-15] MEDS: Sodium Chloride 0.9% 1,000 ML IV SCH (12:09)
--- NOTE | 2016-11-15 14:53 | CP.PCM.CON ---
History of Present Illness - History of Present Illness History of Present Illness: 66 yo male well known to me admitted with three day h/o RLQ pain. Evaluation in ED shows elevated WBC to 14K and CT Scan shows transmural inflammation in the cecum and muna-cecal area without appendiceal inflammation c/w diverticulitis. Also noted to have diverticluosis on past CT in 2016. Colonoscopy done on 11/01 and no polyps, biopsies or inflammation found, mercado-diverticulosis noted. No N/V , Diarrhea or bleeding. Review of Systems - Cardiovascular Cardiovascular: absent: Chest Pain, Irregular Heart Rhythm - Respiratory Respiratory: absent: Cough, Dyspnea on Exertion, Chest Congestion - Gastrointestinal Gastrointestinal: As Per HPI, Abdominal Pain, Change in Stool Character, Cramping, Heartburn. absent: Change in Bowel Habits - Genitourinary Genitourinary: absent: Dysuria, Hematuria Past Patient History - Infectious Disease Hx of Infectious Diseases: None - Past Medical History & Family History Past Medical History?: Yes - Past Social History Smoking Status: Light Smoker < 10 Cigarettes Daily Alcohol: None Drugs: Denies Home Situation {Lives}: With Family - CARDIAC Hx Cardiac Disorders: Yes (A FIBRILLATION; CAD) Hx Hypercholesterolemia: Yes Hx Hypertension: Yes - PULMONARY Hx Respiratory Disorders: No - NEUROLOGICAL Hx Neurological Disorder: No - HEENT Hx HEENT Problems: Yes Hx Blind: No Hx Cataracts: Yes Hx Deafness: No Hx Difficulty Chewing: No Hx Epistaxis: No Hx Glaucoma: No Hx Macular Degeneration: No Hx Sinusitis: No - RENAL Hx Chronic Kidney Disease: No - ENDOCRINE/METABOLIC Hx Diabetes Mellitus Type 2: Yes - HEMATOLOGICAL/ONCOLOGICAL Hx Blood Disorders: Yes Hx AIDS: No Hx Anemia: Yes Hx Blood Transfusions: Yes Hx Blood Transfusion Reaction: No Hx Bruising: No Hx Cancer: No Hx Chemotherapy: No Hx Cirrhosis: No Hx Gum Bleeding: No Hx Hemophilia: No Hx Hepatitis A: No Hx Hepatitis B: No Hx Hepatitis C: No Hx Human Immunodeficiency Virus (HIV): No Hx Leukemia: No Hx Metastesis: No Hx Shingles: No Hx Sickle Cell Disease: No Hx Unexplained Bleeding: No Hx von Willebrand's Disease: No - INTEGUMENTARY Hx Dermatological Problems: Yes Hx Basil Cell: No Hx Paul: No Hx Cellulitis: Yes Hx Eczema: No Hx Melanoma: No Hx Psoriasis: No Hx Squamous Cell: No Other/Comment: Hx Ulcer to right calf (healed) - MUSCULOSKELETAL/RHEUMATOLOGICAL Hx Falls: Yes - GASTROINTESTINAL Hx Gastrointestinal Disorders: Yes Hx Bowel Surgery: No Hx Clostridium Difficile: No Hx Colitis: No Hx Colostomy: No Hx Constipation: No Hx Crohn's Disease: No Hx Diarrhea: No Hx Diverticulitis: Yes (current admission) Hx Esophageal Varices: No Hx Fatty Liver Disease: No Hx Gall Bladder Disease: No Hx Gastritis: No Hx Gastroesophageal Reflux: No Hx Hemorrhoids: No Hx Ileostomy: No Hx Irritable Bowel: No Hx Liver Failure: No Hx Nausea: No Hx Pancreatitis: No HX Swallowing Problems: No Hx Ulcer: No Hx Vomiting: No - GENITOURINARY/GYNECOLOGICAL Hx Genitourinary Disorders: Yes Hx Bladder Cancer: No Hx Bladder Stone: No Hx Hematuria: Yes Hx Incontinence: No Hx Prostate Cancer: No Hx Prostate Problems: No Hx Reproductive Disorders: No Hx Sexually Transmitted Disorders: No Hx Urinary Tract Infection: No - PSYCHIATRIC Hx Substance Use: No - SURGICAL HISTORY Hx Surgeries: Yes Hx Abdominal Aortic Aneurysm Repair: No Hx Amputation: No Hx Angiogram: No Hx Angioplasty: No Hx Appendectomy: No Hx Arteriovenous Shunt: No Hx Arthroscopy: No Hx Bile Duct Stent: No Hx Breast Biopsy: No Hx Cataract Extraction: No Hx Cardiac Catheterization: No Hx Carotid Endarterectomy: No Hx Section: No Hx Cholecystectomy: No Hx Coronary Artery Bypass Graft: Yes (1997) Hx Coronary Stent: No Hx Dilation and Curettage: No Hx Eye Surgery: No Hx Femoral-Popliteal Bypass Graft: No Hx Hysterectomy: No Hx Joint Replacement: No Hx Kidney Transplant: No Hx Liver Transplant: No Hx Mastectomy: No Hx Musculoskeletal Surgery: No Hx Open Heart Surgery: No Hx Open Reduction Internal Fixation: No Hx Orthopedic Surgery: No Hx Parathyroidectomy: No Hx Penile Implant: No Hx Pulmonary Surgery: No Hx Splenectomy: No Hx Thyroidectomy: No Hx Tonsillectomy: No Hx Tubal Ligation: No Hx Valve Replacement: Yes (MVR) Hx Vascular Surgery: No Hx Vascular Access Device: No - ANESTHESIA Hx Anesthesia: Yes Hx Anesthesia Reactions: No Hx Malignant Hyperthermia: No Has any member of the family had a problem w/ anesthesia?: No Meds Allergies/Adverse Reactions: Allergies Allergy/AdvReac Type Severity Reaction Status Date / Time clams Allergy Uncoded 11/14/16 19:48 - Medications Medications: Current Medications Allopurinol (Zyloprim) 100 mg PO DAILY [facility] Last Admin: 11/15/16 09:44 Dose: 100 mg Clonazepam (Klonopin) 2 mg PO HS [facility] Last Admin: 11/14/16 23:00 Dose: 2 mg Furosemide (Lasix) 40 mg PO DAILY [facility] Last Admin: 11/15/16 09:43 Dose: 40 mg Sodium Chloride (Sodium Chloride 0.9%) 1,000 mls @ 100 mls/hr IV .Q10H [facility] Last Admin: 11/15/16 12:09 Dose: 100 mls/hr Ciprofloxacin (Cipro 400mg/200ml Dsw) 400 mg in 200 mls @ 133 mls/hr IVPB Q12H [facility] Last Admin: 11/15/16 12:09 Dose: 133 mls/hr Metronidazole (Flagyl) 500 mg in 100 mls @ 100 mls/hr IVPB Q8 [facility] Last Admin: 11/15/16 13:54 Dose: 100 mls/hr Insulin Human Regular (Novolin R) 0 unit SC ACHS [facility] PRN Reason: Protocol Last Admin: 11/15/16 11:57 Dose: Not Given Losartan Potassium (Cozaar) 100 mg PO DAILY [facility] Last Admin: 11/15/16 09:43 Dose: 100 mg Metolazone (Zaroxolyn) 2.5 mg PO DAILY [facility] Last Admin: 11/15/16 09:44 Dose: 2.5 mg Potassium Chloride (Klor-Con 10) 10 meq PO DAILY [facility] Last Admin: 11/15/16 09:43 Dose: 10 meq Rosuvastatin Calcium (Crestor) 5 mg PO HS [facility] Last Admin: 11/14/16 23:00 Dose: 5 mg Trazodone HCl (Desyrel) 50 mg PO DAILY [facility] Last Admin: 11/15/16 09:43 Dose: 50 mg Physical Exam - Constitutional Appears: No Acute Distress - Head Exam Head Exam: ATRAUMATIC, NORMOCEPHALIC - Eye Exam Eye Exam: EOMI, PERRL - Respiratory Exam Respiratory Exam: Clear to Auscultation Bilateral, NORMAL BREATHING PATTERN - Cardiovascular Exam Cardiovascular Exam: REGULAR RHYTHM, +S1 - GI/Abdominal Exam GI & Abdominal Exam: Normal Bowel Sounds, Soft, Tenderness. absent: Distended, Firm, Rebound, Rigid Additional comments: Tender to deep palpation in RLQ without rebound or mass. - Rectal Exam Rectal Exam: NORMAL INSPECTION - Extremities Exam Extremities exam: Positive for: normal inspection. Negative for: calf tenderness, pedal edema - Neurological Exam Neurological exam: Alert, Oriented x3 - Psychiatric Exam Psychiatric exam: Normal Affect, Normal Mood - Skin Skin Exam: Dry, Warm Results - Vital Signs Recent Vital Signs: Last Vital Signs Temp 98.5 F 11/15/16 08:25 Pulse 71 11/15/16 08:25 Resp 18 11/15/16 08:25 BP 111/64 11/15/16 09:43 Pulse Ox 98 11/15/16 08:25 - Labs Result Diagrams: 11/16/16 06:06 11/16/16 06:06 Labs: Laboratory Results - last 24 hr 11/15/16 11/15/16 06:08 11:05 POC Glucose (mg/dL) 122 H 150 H - Imaging and Cardiology CT scan - abdomen Status: Image reviewed by me, Report reviewed by me Assessment & Plan (1) Diverticulitis of colon Assessment and Plan: No evidence of perforation post-colonoscopy. Appears to be a cecal colitis vs diverticulitis. Clear liquid diet IV antibiotics until pain free then po for 10 day course Out patient follow up with me. No plans for repeat colonoscopy at this time. Status: Acute (2) RLQ abdominal tenderness Assessment and Plan: as above Status: Acute (3) RLQ abdominal pain Assessment and Plan: as above Status: Acute (4) Reflux esophagitis Assessment and Plan: Place on Protonix for symptom relief and will reassess after discharge. Status: Acute
--- NOTE | 2016-11-15 20:54 | CP.PCM.PN ---
Subjective - Date & Time of Evaluation Date of Evaluation: 11/15/16 Time of Evaluation: 20:53 - Subjective Subjective: 64-year-old male with history of mitral valve replacement, hypertension, depression, anxiety, CAD, diabetes, hypercholesteremia, on anticoagulation came to the emergency room today with a possible acute abdomen, secondary to cecal diverticulitis. On examination: Patient is not in any distress. No abdominal pain. Minimal tenderness in the right lower quadrant noted. No nausea vomiting. He is feeling much better. Poor appetite noted. Currently on IV antibiotic INR not done yet today. Awaiting INR Assessment and the condition: 64-year-old male with history of mitral valve replacement, hypertension, depression, anxiety, CAD, diabetes, hypercholesteremia, on anticoagulation came to the emergency room today with a possible acute abdomen, secondary to cecal diverticulitis. GI eval Cipro and Flagyl ordered IV. Clear liquids. Monitor the INR. PT/PTT checking regularly. maintain the INR around 3+ - 0.5. And will follow the patient GI prophylaxis. Objective - Vital Signs/Intake and Output Vital Signs (last 24 hours): Temp Pulse Resp BP Pulse Ox 97.7 F 77 18 111/64 99 11/15/16 16:00 11/15/16 16:00 11/15/16 16:00 11/15/16 16:00 11/15/16 16:00 - Medications Medications: Current Medications Allopurinol (Zyloprim) 100 mg PO DAILY [facility] Last Admin: 11/15/16 09:44 Dose: 100 mg Clonazepam (Klonopin) 2 mg PO HS [facility] Last Admin: 11/14/16 23:00 Dose: 2 mg Furosemide (Lasix) 40 mg PO DAILY [facility] Last Admin: 11/15/16 09:43 Dose: 40 mg Sodium Chloride (Sodium Chloride 0.9%) 1,000 mls @ 100 mls/hr IV .Q10H [facility] Last Admin: 11/15/16 12:09 Dose: 100 mls/hr Ciprofloxacin (Cipro 400mg/200ml Dsw) 400 mg in 200 mls @ 133 mls/hr IVPB Q12H [facility] Last Admin: 11/15/16 12:09 Dose: 133 mls/hr Metronidazole (Flagyl) 500 mg in 100 mls @ 100 mls/hr IVPB Q8 [facility] Last Admin: 11/15/16 13:54 Dose: 100 mls/hr Insulin Human Regular (Novolin R) 0 unit SC ACHS [facility] PRN Reason: Protocol Last Admin: 11/15/16 18:16 Dose: 3 unit Losartan Potassium (Cozaar) 100 mg PO DAILY [facility] Last Admin: 11/15/16 09:43 Dose: 100 mg Metolazone (Zaroxolyn) 2.5 mg PO DAILY [facility] Last Admin: 11/15/16 09:44 Dose: 2.5 mg Potassium Chloride (Klor-Con 10) 10 meq PO DAILY [facility] Last Admin: 11/15/16 09:43 Dose: 10 meq Rosuvastatin Calcium (Crestor) 5 mg PO HS [facility] Last Admin: 11/14/16 23:00 Dose: 5 mg Trazodone HCl (Desyrel) 50 mg PO DAILY [facility] Last Admin: 11/15/16 09:43 Dose: 50 mg - Labs Labs: PT 48.2 SECONDS (9.7-12.2) H* 11/14/16 20:10 INR 4.1 11/14/16 20:10
[2016-11-15 22:00] LABS: INR 3.4
[2016-11-15 22:05] LABS: PROTHROMBIN TIME 39.7 SECONDS (9.7-12.2)
[2016-11-16] MEDS: metroNIDAZOLE IV 500 mg/100 ml 500 MG/100 ML BAG IVPB SCH ×3 (05:36→21:26)
[2016-11-16 06:25] LABS: ALBUMIN 2.8 g/dL (3.5-5.0)
[2016-11-16 06:28] LABS: ALT/SGPT 26 U/L (21-72); AST/SGOT 13 U/L (17-59); BLOOD UREA NITROGEN 35 mg/dL (9-20); CALCIUM 7.5 mg/dl (8.6-10.4); GFR AFRICAN-AMERICAN > 60; GFR NON-AFRICAN AMERICAN > 60
[2016-11-16 06:32] LABS: BASO % 0.3 % (0.0-2.0); EOS # 0.2 K/uL (0.0-0.7); EOS % 1.9 % (0.0-4.0); HEMOGLOBIN 11.2 g/dL (12.0-18.0); LYMPH # 0.8 K/uL (1.0-4.3); LYMPH % 9.9 % (20.0-40.0); MEAN CELL VOLUME 94.2 fL (80.0-94.0); MEAN CORPUSCULAR HGB CONC 31.9 g/dL (33.0-37.0); MEAN PLATELET VOLUME 9.8 fL (7.2-11.7); MONO # 0.7 K/uL (0.0-0.8); MONO % 9.4 % (0.0-10.0); NEUT # 6.2 K/uL (1.8-7.0); NEUT % 78.5 % (50.0-75.0); PLATELET COUNT 163 K/uL (130-400); RBC 3.73 Mil/uL (4.40-5.90); RED CELL DISTRIBUTION WIDTH 13.8 % (11.5-14.5); WHITE BLOOD COUNT 7.9 K/uL (4.8-10.8)
[2016-11-16 07:58] LABS: EOSINOPHIL 2 % (0-4); LYMPHOCYTE 6 % (20-40); MONOCYTE 3 % (0-10); NEUTROPHIL 89 % (50-75); PLATELET ESTIMATE NORMAL (NORMAL); TOTAL CELLS COUNTED 100
[2016-11-16] MEDS ORDERED: Potassium Chloride 20 mEq/15 ml LIQ UD PO ONE (08:16)
[2016-11-16] MEDS: (Novolin R) Insulin Human Regular 100 units/ml vial SC SCH ×4 (08:27→21:39)
[2016-11-16] MEDS: metOLazone 2.5 MG TAB PO SCH (09:51)
[2016-11-16] MEDS: Potassium Chloride 10 mEq ER Tab PO SCH (09:52)
[2016-11-16 11:05] LABS: C DIFF TOXIN A B NEGATIVE (NEGATIVE)
[2016-11-16 11:19] LABS: FECAL LEUKOCYTES NEGATIVE (NEGATIVE)
[2016-11-16] MEDS: Ciprofloxacin 400mg/200ml D5W 400 MG/200 ML BAG IVPB SCH ×2 (11:39→22:17)
--- NOTE | 2016-11-16 11:44 | CP.PCM.PN ---
Subjective - Date & Time of Evaluation Date of Evaluation: 11/16/16 Time of Evaluation: 11:42 - Subjective Subjective: No pain today, no diarrhea or constipation c/o some epigastric pain and heartburn Objective - Vital Signs/Intake and Output Vital Signs (last 24 hours): Temp Pulse Resp BP Pulse Ox 97.7 F 57 L 18 108/69 97 11/16/16 08:10 11/16/16 08:10 11/16/16 08:10 11/16/16 09:51 11/16/16 08:10 Intake and Output: 11/16/16 11/16/16 06:59 18:59 Output Total 300 Balance -300 - Medications Medications: Current Medications Allopurinol (Zyloprim) 100 mg PO DAILY [facility] Last Admin: 11/16/16 09:51 Dose: 100 mg Clonazepam (Klonopin) 2 mg PO HS [facility] Last Admin: 11/15/16 21:42 Dose: 2 mg Furosemide (Lasix) 40 mg PO DAILY [facility] Last Admin: 11/16/16 09:51 Dose: 40 mg Ciprofloxacin (Cipro 400mg/200ml Dsw) 400 mg in 200 mls @ 133 mls/hr IVPB Q12H [facility] Last Admin: 11/16/16 11:39 Dose: 133 mls/hr Metronidazole (Flagyl) 500 mg in 100 mls @ 100 mls/hr IVPB Q8 [facility] Last Admin: 11/16/16 05:36 Dose: 100 mls/hr Insulin Human Regular (Novolin R) 0 unit SC ACHS [facility] PRN Reason: Protocol Last Admin: 11/16/16 08:27 Dose: Not Given Losartan Potassium (Cozaar) 100 mg PO DAILY [facility] Last Admin: 11/16/16 09:51 Dose: 100 mg Metolazone (Zaroxolyn) 2.5 mg PO DAILY [facility] Last Admin: 11/16/16 09:51 Dose: 2.5 mg Potassium Chloride (Klor-Con 10) 10 meq PO DAILY [facility] Last Admin: 11/16/16 09:52 Dose: Not Given Rosuvastatin Calcium (Crestor) 5 mg PO HS [facility] Last Admin: 11/15/16 21:42 Dose: 5 mg Trazodone HCl (Desyrel) 50 mg PO DAILY [facility] Last Admin: 11/16/16 09:51 Dose: 50 mg Warfarin Sodium (Coumadin) 5 mg PO 1800 [facility] Stop: 11/16/16 18:01 - Labs Labs: 11/16/16 06:06 11/16/16 06:06 PT 39.7 SECONDS (9.7-12.2) H* D 11/15/16 21:45 INR 3.4 11/15/16 21:45 APTT 54 SECONDS (21-34) H 11/15/16 21:45 - Constitutional Appears: No Acute Distress - Head Exam Head Exam: ATRAUMATIC, NORMOCEPHALIC - Eye Exam Eye Exam: EOMI, PERRL - Respiratory Exam Respiratory Exam: NORMAL BREATHING PATTERN - Cardiovascular Exam Cardiovascular Exam: REGULAR RHYTHM, +S1 - GI/Abdominal Exam GI & Abdominal Exam: Soft, Normal Bowel Sounds. absent: Distended, Guarding, Rigid, Tenderness, Mass, Organomegaly, Rebound - Extremities Exam Extremities Exam: Normal Inspection Assessment and Plan (1) Diverticulitis of colon Assessment & Plan: Clinically much improved Advance diet as tolerated Would consider change to po antibiotics and discharge today or tomorrow to outpatient follow up with me in two weeks Antibiotics for an additional ten day course. Status: Acute (2) RLQ abdominal tenderness Status: Resolved (3) RLQ abdominal pain Status: Resolved (4) Reflux esophagitis Assessment & Plan: Continue Protonix po Status: Acute
[2016-11-16] MEDS: Pantoprazole 40 mg EC Tab PO SCH (12:37)
--- NOTE | 2016-11-16 16:04 | CARD ---
APPROVED REPORT EKG Measurement Heart [id number] <Conclusion> Atrial fibrillation Cannot rule out Inferior infarct, age undetermined Abnormal ECG
[2016-11-16 16:49] VITALS: RESP 20
[2016-11-16 17:24] LABS: INR 2.9; PROTHROMBIN TIME 33.9 SECONDS (9.7-12.2)
--- NOTE | 2016-11-16 22:49 | CP.PCM.PN ---
Subjective - Date & Time of Evaluation Date of Evaluation: 11/16/16 Time of Evaluation: 22:49 Objective - Vital Signs/Intake and Output Vital Signs (last 24 hours): Temp Pulse Resp BP Pulse Ox 97.3 F L 69 20 112/67 99 11/16/16 15:46 11/16/16 15:46 11/16/16 15:46 11/16/16 15:46 11/16/16 15:46 - Medications Medications: Current Medications Allopurinol (Zyloprim) 100 mg PO DAILY [facility] Last Admin: 11/16/16 09:51 Dose: 100 mg Clonazepam (Klonopin) 2 mg PO HS [facility] Last Admin: 11/16/16 21:27 Dose: 2 mg Furosemide (Lasix) 40 mg PO DAILY [facility] Last Admin: 11/16/16 09:51 Dose: 40 mg Ciprofloxacin (Cipro 400mg/200ml Dsw) 400 mg in 200 mls @ 133 mls/hr IVPB Q12H [facility] Last Admin: 11/16/16 22:17 Dose: 133 mls/hr Metronidazole (Flagyl) 500 mg in 100 mls @ 100 mls/hr IVPB Q8 [facility] Last Admin: 11/16/16 21:26 Dose: 100 mls/hr Insulin Human Regular (Novolin R) 0 unit SC ACHS [facility] PRN Reason: Protocol Last Admin: 11/16/16 21:39 Dose: Not Given Losartan Potassium (Cozaar) 100 mg PO DAILY [facility] Last Admin: 11/16/16 09:51 Dose: 100 mg Metolazone (Zaroxolyn) 2.5 mg PO DAILY [facility] Last Admin: 11/16/16 09:51 Dose: 2.5 mg Pantoprazole Sodium (Protonix Ec Tab) 40 mg PO DAILY [facility] Last Admin: 11/16/16 12:37 Dose: 40 mg Potassium Chloride (Klor-Con 10) 10 meq PO DAILY [facility] Last Admin: 11/16/16 09:52 Dose: Not Given Rosuvastatin Calcium (Crestor) 5 mg PO HS [facility] Last Admin: 11/16/16 21:27 Dose: 5 mg Trazodone HCl (Desyrel) 50 mg PO DAILY [facility] Last Admin: 11/16/16 09:51 Dose: 50 mg - Labs Labs: 11/16/16 06:06 11/16/16 06:06 PT 33.9 SECONDS (9.7-12.2) H* D 11/16/16 17:08 INR 2.9 D 11/16/16 17:08 APTT 54 SECONDS (21-34) H 11/15/16 21:45
[2016-11-17] MEDS: metroNIDAZOLE IV 500 mg/100 ml 500 MG/100 ML BAG IVPB SCH (06:15)
[2016-11-17 07:42] LABS: BASO % 0.5 % (0.0-2.0); EOS # 0.2 K/uL (0.0-0.7); EOS % 2.5 % (0.0-4.0); HEMOGLOBIN 10.8 g/dL (12.0-18.0); LYMPH # 0.6 K/uL (1.0-4.3); LYMPH % 8.6 % (20.0-40.0); MEAN CORPUSCULAR HGB CONC 32.3 g/dL (33.0-37.0); MEAN PLATELET VOLUME 9.8 fL (7.2-11.7); MONO # 0.7 K/uL (0.0-0.8); MONO % 11.4 % (0.0-10.0); PLATELET COUNT 190 K/uL (130-400); RED CELL DISTRIBUTION WIDTH 13.5 % (11.5-14.5); WHITE BLOOD COUNT 6.5 K/uL (4.8-10.8)
[2016-11-17 07:45] LABS: INR 3.1
[2016-11-17 07:50] LABS: ALBUMIN 2.9 g/dL (3.5-5.0); ALT/SGPT 26 U/L (21-72); AST/SGOT 12 U/L (17-59); BLOOD UREA NITROGEN 34 mg/dL (9-20); CALCIUM 7.6 mg/dl (8.6-10.4); GFR AFRICAN-AMERICAN > 60; GFR NON-AFRICAN AMERICAN > 60
[2016-11-17 07:52] LABS: PROTHROMBIN TIME 36.2 SECONDS (9.7-12.2)
--- NOTE | 2016-11-17 08:16 | CP.PCM.PN ---
Subjective - Date & Time of Evaluation Date of Evaluation: 11/17/16 Time of Evaluation: 08:14 - Subjective Subjective: Patient continues to complain of mild epigastric pain. The right-sided abdominal pain has resolved. He denies having nausea and vomiting. He had a formed bowel movement this morning. Objective - Vital Signs/Intake and Output Vital Signs (last 24 hours): Temp Pulse Resp BP Pulse Ox 98.1 F 80 20 117/59 L 99 11/17/16 04:05 11/17/16 04:05 11/17/16 04:05 11/17/16 04:05 11/17/16 04:05 Intake and Output: 11/17/16 11/17/16 06:59 18:59 Output Total 300 Balance -300 - Medications Medications: Current Medications Allopurinol (Zyloprim) 100 mg PO DAILY [facility] Last Admin: 11/16/16 09:51 Dose: 100 mg Clonazepam (Klonopin) 2 mg PO HS [facility] Last Admin: 11/16/16 21:27 Dose: 2 mg Furosemide (Lasix) 40 mg PO DAILY [facility] Last Admin: 11/16/16 09:51 Dose: 40 mg Ciprofloxacin (Cipro 400mg/200ml Dsw) 400 mg in 200 mls @ 133 mls/hr IVPB Q12H [facility] Last Admin: 11/16/16 22:17 Dose: 133 mls/hr Metronidazole (Flagyl) 500 mg in 100 mls @ 100 mls/hr IVPB Q8 [facility] Last Admin: 11/17/16 06:15 Dose: 100 mls/hr Insulin Human Regular (Novolin R) 0 unit SC ACHS [facility] PRN Reason: Protocol Last Admin: 11/16/16 21:39 Dose: Not Given Losartan Potassium (Cozaar) 100 mg PO DAILY [facility] Last Admin: 11/16/16 09:51 Dose: 100 mg Metolazone (Zaroxolyn) 2.5 mg PO DAILY [facility] Last Admin: 11/16/16 09:51 Dose: 2.5 mg Pantoprazole Sodium (Protonix Ec Tab) 40 mg PO DAILY [facility] Last Admin: 11/16/16 12:37 Dose: 40 mg Potassium Chloride (Klor-Con 10) 10 meq PO DAILY [facility] Last Admin: 11/16/16 09:52 Dose: Not Given Rosuvastatin Calcium (Crestor) 5 mg PO HS [facility] Last Admin: 11/16/16 21:27 Dose: 5 mg Trazodone HCl (Desyrel) 50 mg PO DAILY [facility] Last Admin: 11/16/16 09:51 Dose: 50 mg - Labs Labs: 11/17/16 07:20 11/16/16 06:06 PT 36.2 SECONDS (9.7-12.2) H* 11/17/16 07:20 INR 3.1 11/17/16 07:20 APTT 49 SECONDS (21-34) H D 11/17/16 07:20 - Constitutional Appears: No Acute Distress - Head Exam Head Exam: ATRAUMATIC, NORMOCEPHALIC - Eye Exam Eye Exam: EOMI, PERRL - Neck Exam Neck Exam: absent: Lymphadenopathy, Thyromegaly - Respiratory Exam Respiratory Exam: NORMAL BREATHING PATTERN. absent: Rales, Rhonchi, Wheezes - Cardiovascular Exam Cardiovascular Exam: REGULAR RHYTHM, +S1, +S2. absent: Gallop, Rubs, Murmur - GI/Abdominal Exam GI & Abdominal Exam: Soft, Tenderness, Normal Bowel Sounds. absent: Mass, Organomegaly Additional comments: Mild tenderness to direct palpation in right mid-abdomen, without rebound - Rectal Exam Rectal Exam: Deferred - Extremities Exam Extremities Exam: absent: Calf Tenderness, Pedal Edema Assessment and Plan (1) Diverticulitis of colon Assessment & Plan: Patient states that the right-sided abdominal pain has resolved, though tenderness to palpation persists. The recent colonoscopy 11/01/2016 showed diverticulosis involving the right colon as well as the left colon. The clinical picture is consistent with right-sided diverticulitis. Recommend continuing antibiotics as an outpatient for a total of three weeks. Status: Acute
[2016-11-17 08:18] LABS: ALB/GLOB RATIO 1.2 (1.0-2.1)
[2016-11-17 08:19] VITALS: BP 110/67; PULSE 62; TEMP 97.7; O2SAT 98
[2016-11-17 08:46] LABS: BASOPHIL 1 % (0-2); EOSINOPHIL 1 % (0-4); LYMPHOCYTE 12 % (20-40); MONOCYTE 11 % (0-10); NEUTROPHIL 75 % (50-75); TOTAL CELLS COUNTED 100
[2016-11-17 08:47] LABS: ANISOCYTOSIS SLIGHT; BURR CELLS SLIGHT; HYPOCHROMIC SLIGHT; PLATELET ESTIMATE NORMAL (NORMAL); POIKILOCYTOSIS SLIGHT
[2016-11-17 08:48] LABS: LARGE PLATELETS PRESENT; OVALOCYTES SLIGHT
[2016-11-17] MEDS: (Novolin R) Insulin Human Regular 100 units/ml vial SC SCH ×2 (08:57→12:26)
[2016-11-17] MEDS: Pantoprazole 40 mg EC Tab PO SCH (09:21)
[2016-11-17] MEDS: Potassium Chloride 10 mEq ER Tab PO SCH (09:26)
[2016-11-17] MEDS: metOLazone 2.5 MG TAB PO SCH (09:27)
[2016-11-17] MEDS: Ciprofloxacin 400mg/200ml D5W 400 MG/200 ML BAG IVPB SCH (10:16)
--- NOTE | 2016-11-17 12:12 | CP.PCM.PN ---
Subjective - Date & Time of Evaluation Date of Evaluation: 11/17/16 Time of Evaluation: 12:12 - Subjective Subjective: DISCUSSED DISPO WITH DR. HART THIS MORNING. MAY D/C PT IF TOLERATING PO. PT SEEN BY [facility]. CURRENTLY DENIES ABD PAIN, NAUSEA/VOMITING, CP, SOB. STATES HE HAD A NORMAL BM THIS MORNING AND HAS NO DYSURIA. TOLERATED BREAKFAST WELL. EAGER TO BE D/C. EXAM SHOWS: AAX3; VSS; BS CTA B/L; REG RHYTHM, NO TACHY, NO MURMURS; + BS X4 QUADRANTS, ABD SOFT, ND, NT. WILL D/C PT HOME TODAY WITH CIPRO AND FLAGYL PO X3 WEEKS PER GI RECOMMENDATIONS. PT TO CONTINUE CURRENT COUMADIN DOSE AND TO HAVE INR CHECKED ON SUNDAY, WITH RESULTS SENT TO DR. HART'S OFFICE. ALSO TO F/U WITH GI WITHIN 2 WEEKS. ALL D/C PLANS AND MEDS DISCUSSED AT LENGTH WITH THE PT AND HE IS IN AGREEMENT WITH THE PLAN. NO FURTHER ORDERS. Objective - Vital Signs/Intake and Output Vital Signs (last 24 hours): Temp Pulse Resp BP Pulse Ox 97.7 F 62 20 110/67 98 11/17/16 07:20 11/17/16 07:20 11/17/16 07:20 11/17/16 07:20 11/17/16 07:20 Intake and Output: 11/17/16 11/17/16 06:59 18:59 Intake Total 550 Output Total 300 Balance -300 550 - Medications Medications: Current Medications Allopurinol (Zyloprim) 100 mg PO DAILY [facility] Last Admin: 11/17/16 09:27 Dose: 100 mg Clonazepam (Klonopin) 2 mg PO HS [facility] Last Admin: 11/16/16 21:27 Dose: 2 mg Furosemide (Lasix) 40 mg PO DAILY [facility] Last Admin: 11/17/16 09:26 Dose: Not Given Ciprofloxacin (Cipro 400mg/200ml Dsw) 400 mg in 200 mls @ 133 mls/hr IVPB Q12H [facility] Last Admin: 11/17/16 10:16 Dose: 133 mls/hr Metronidazole (Flagyl) 500 mg in 100 mls @ 100 mls/hr IVPB Q8 [facility] Last Admin: 11/17/16 06:15 Dose: 100 mls/hr Insulin Human Regular (Novolin R) 0 unit SC ACHS [facility] PRN Reason: Protocol Last Admin: 11/17/16 08:57 Dose: 1 unit Losartan Potassium (Cozaar) 100 mg PO DAILY [facility] Last Admin: 11/17/16 09:27 Dose: 100 mg Metolazone (Zaroxolyn) 2.5 mg PO DAILY [facility] Last Admin: 11/17/16 09:27 Dose: Not Given Pantoprazole Sodium (Protonix Ec Tab) 40 mg PO DAILY [facility] Last Admin: 11/17/16 09:21 Dose: 40 mg Potassium Chloride (Klor-Con 10) 10 meq PO DAILY [facility] Last Admin: 11/17/16 09:26 Dose: 10 meq Rosuvastatin Calcium (Crestor) 5 mg PO HS [facility] Last Admin: 11/16/16 21:27 Dose: 5 mg Trazodone HCl (Desyrel) 50 mg PO DAILY [facility] Last Admin: 11/17/16 09:27 Dose: 50 mg - Labs Labs: 11/17/16 07:20 11/17/16 07:20 PT 36.2 SECONDS (9.7-12.2) H* 11/17/16 07:20 INR 3.1 11/17/16 07:20 APTT 49 SECONDS (21-34) H D 11/17/16 07:20
== END 2016-11-17 13:00 | disposition home or self-care (01) | DRG 392 ==
LOC: SUPCPDRO 19:34 → C.ER 19:34 → C.9E 21:41 → C.6T 22:57
PROVIDERS: ADMIT Internal Medicine; ATTEND Internal Medicine
DX: K57.32 Diverticulitis of large intestine without perforation or abscess without bleeding (principal); I48.91 Unspecified atrial fibrillation; I10 Essential (primary) hypertension; N39.0 Urinary tract infection, site not specified; I25.10 Atherosclerotic heart disease of native coronary artery without angina pectoris; K21.0 Gastro-esophageal reflux disease with esophagitis; E11.9 Type 2 diabetes mellitus without complications; Z95.1 Presence of aortocoronary bypass graft; F17.210 Nicotine dependence, cigarettes, uncomplicated

== ENCOUNTER 2016-12-02 13:45 | Emergency (ER) | payer MEDICARE ==
[2016-12-02 13:46] VITALS: BMI 28.4
[2016-12-02 15:09] VITALS: RESP 18
--- NOTE | 2016-12-02 15:10 | C.PDOC ---
History Of Present Illness 66-YEAR-OLD MALE, PRESENTS TO THE EMERGENCY DEPARTMENT WITH COMPLAINTS OF NEW ONSET BLACK STOOL X SINCE DC FROM HOSPITAL. PATIENT STATES HE WAS RECENTLY DC S/ P TX FOR DIVERTICULITIS. ON CIPRO AND FLAGYL. PS COUMADIN DOSE IS SAME USUAL. DENIES ASSOC BLOATING, PAIN, NV, FEVER. DENIES HO PRIOR GI BLEED. PS TAKING PEPTOBISMOL. 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 +BROWN STOOL. NO HEMORRHOIDS REMAINDER NEG Chief Complaint (Nursing): Abdominal Pain History Per: Patient History/Exam Limitations: no limitations Onset/Duration Of Symptoms: Days Current Symptoms Are (Timing): Still Present Past Medical History Reviewed: Historical Data, Nursing Documentation, Vital Signs Vital Signs: Last Vital Signs Temp 98.1 F 12/02/16 15:04 Pulse 60 12/02/16 15:04 Resp 18 12/02/16 15:04 BP 130/79 12/02/16 15:04 Pulse Ox 98 12/02/16 15:37 - Medical History PMH: Anemia, Atrial Fibrillation, CAD, Colonic Polyps, Depression, Diabetes, Diverticulitis (current admission), HTN, Hypercholesterolemia Surgical History: CABG (1997), Endoscopy - [facility] Procedures DRAINAGE OF ANUS, EXTERNAL APPROACH (05/01/15) TRANSFUSE NONAUT FROZEN PLASMA IN PERIPH VEIN, PERC (09/16/16) Family History: States: No Known Family Hx, Hypertension - Social History Hx Alcohol Use: Yes (socially) Hx Substance Use: No - Immunization History Hx Tetanus Toxoid Vaccination: Yes Hx Influenza Vaccination: No Hx Pneumococcal Vaccination: No Review Of Systems Except As Marked, All Systems Reviewed And Found Negative. Constitutional: Negative for: Fever Cardiovascular: Negative for: Chest Pain, Palpitations Respiratory: Negative for: Shortness of Breath Gastrointestinal: Positive for: Melena. 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 +BROWN STOOL. NO HEMORRHOIDS) Extremity: Normal ROM Neurological/Psych: Oriented x3, Normal Speech ED Course And Treatment - Laboratory Results Result Diagrams: 12/02/16 16:27 12/02/16 16:27 O2 Sat by Pulse Oximetry: 98 Progress - Re-Evaluation Re-evaluation Note: 12/02/16 17:09 ASYMPT VSS - Data Reviewed Data Reviewed: Lab, Diagnostic imaging, Old records Disposition Counseled Patient/Family Regarding: Studies Performed, Diagnosis, Need For Followup - Disposition Referrals: YOUR,GI DOCTOR [Other] Disposition: HOME/ ROUTINE Disposition Time: 17:09 Condition: GOOD Additional Instructions: COMPLETE ANTIBIOTICS PRESCRIBED. FOLLOW UP WITH YOUR GI DOCTOR Forms: [facility] (Czech), General Discharge Instructions - Clinical Impression Clinical Impression: Black stool, Elevated INR - Scribe Statement The provider has reviewed the documentation as recorded by the Scribe (Sugey Gooden) All medical record entries made by the Scribe were at my direction and personally dictated by me. I have reviewed the chart and agree that the record accurately reflects my personal performance of the history, physical exam, medical decision making, and the department course for this patient. I have also personally directed, reviewed, and agree with the discharge instructions and disposition.
[2016-12-02 16:48] LABS: INR 4.4
[2016-12-02 16:50] LABS: BASO % 0.6 % (0.0-2.0); EOS # 0.1 K/uL (0.0-0.7); EOS % 0.8 % (0.0-4.0); HEMATOCRIT 36.4 % (35.0-51.0); LYMPH % 15.9 % (20.0-40.0); MEAN CELL VOLUME 93.5 fL (80.0-94.0); MEAN CORPUSCULAR HEMOGLOBIN 30.1 pg (27.0-31.0); MEAN CORPUSCULAR HGB CONC 32.2 g/dL (33.0-37.0); MEAN PLATELET VOLUME 9.8 fL (7.2-11.7); MONO # 0.7 K/uL (0.0-0.8); MONO % 11.4 % (0.0-10.0); WHITE BLOOD COUNT 6.2 K/uL (4.8-10.8)
[2016-12-02 16:58] LABS: CHLORIDE 96 mmol/L (98-107); POTASSIUM 3.3 mmol/L (3.6-5.2); SODIUM 141 mmol/L (132-148)
[2016-12-02 17:00] LABS: GFR AFRICAN-AMERICAN > 60
[2016-12-02 17:01] LABS: ALB/GLOB RATIO 1.3 (1.0-2.1); ALKALINE PHOSPHATASE 69 U/L (38-126); ALT/SGPT 29 U/L (21-72); AST/SGOT 30 U/L (17-59); BILIRUBIN,TOTAL 0.6 mg/dL (0.2-1.3); BLOOD UREA NITROGEN 24 mg/dL (9-20); CARBON DIOXIDE 32 mmol/L (22-30); GLUCOSE,RANDOM 119 mg/dL (75-110)
[2016-12-02 17:02] LABS: CALCIUM 8.3 mg/dl (8.6-10.4)
[2016-12-02 17:45] VITALS: BP 118/73; PULSE 62; TEMP 97.5; O2SAT 100
== END 2016-12-02 17:30 | disposition home or self-care (01) ==
LOC: C.ER 13:45
DX: R19.5 Other fecal abnormalities (principal); R79.1 Abnormal coagulation profile
CPT/HCPCS: 80053; 82948; 85025; 85610; 85730; 99285; G0328

== ENCOUNTER 2016-12-19 13:44 | Inpatient (IN) | payer MEDICARE ==
[2016-12-19 13:45] VITALS: BMI 28.4
--- NOTE | 2016-12-19 14:46 | C.PDOC ---
History Of Present Illness <Dom Shah - Last Filed: 12/19/16 18:47> <Carloz Cordova - Last Filed: 12/20/16 06:19> 66 y/o M c PMHx Anemia, Atrial Fibrillation, CAD, Diabetes, HTN, Hypercholesterolemia p/w dizziness x 4 hours. Describes dizziness as a spinning sensation that comes about suddenly when he moves his head. He also reports associated vomiting and constant, bitemporal headache with these symptoms. He denies fever, chills, trauma, neck stiffness, chest pain, dyspnea, abdominal pain, numbness, weakness. (Dom Shah ) <Dom Shah - Last Filed: 12/19/16 18:47> <Carloz Cordova - Last Filed: 12/20/16 06:19> Time Seen by Provider: 12/19/16 14:36 Chief Complaint (Nursing): Weakness/Neurological Deficit Past Medical History - Medical History PMH: Anemia, Atrial Fibrillation, CAD, Colonic Polyps, Depression, Diabetes, Diverticulitis (current admission), HTN, Hypercholesterolemia Denies: Anxiety, Arthritis, Bipolar Disorder, Cardia Arrhythmia, CHF, Crohn' s Disease, Fractures, Gastritis, Gall Bladder Disease, HIV, Hyperthyroidism, Hypothyroidism, Mitral Valve Prolapse, Osteoporosis, Pancreatitis, Paranoia, Peripheral Edema, Post Traumatic Stress Disorder, Chronic Kidney Disease, Rheumatoid Arthritis, Schizophrenia, Sickle Cell Disease, Sexually Transmitted Disease Surgical History: CABG (1997), Endoscopy Denies: Appendectomy, Carotid Endarterectomy, Cholecystectomy, Coronary Stent , Pacemaker, Tonsillectomy Family History: States: Hypertension - Social History Hx Alcohol Use: Yes (socially) Hx Substance Use: No - Immunization History Hx Tetanus Toxoid Vaccination: Yes Hx Influenza Vaccination: No Hx Pneumococcal Vaccination: No <Dom Shah - Last Filed: 12/19/16 18:47> Review Of Systems Except As Marked, All Systems Reviewed And Found Negative. Constitutional: Negative for: Fever Cardiovascular: Negative for: Chest Pain <Dom Shah - Last Filed: 12/19/16 18:47> Physical Exam <Dom Shah - Last Filed: 12/19/16 18:47> <Carloz Cordova - Last Filed: 12/20/16 06:19> - Physical Exam Additional Physical Exam Comments: Constitutional: Sitting in stretcher, laying still, eyes closed. NAD Head: Normocephalic. Atraumatic. Eyes: PERRL. Positive [place] Hallpike maneuver. ENT: Moist mucous membranes. Neck: Supple. Cardiovascular: Regular rate. Radial pulse 2+ bilaterally. Chest: No tenderness. Respiratory: Clear to auscultation bilaterally. GI: Soft. Nontender. Nondistended. Back: No CVA tenderness. Musculoskeletal: No tenderness or swelling of extremities. Skin: No rash. Neurologic: Alert, no focal deficit. (Dom Shah) ED Course And Treatment - Laboratory Results Result Diagrams: 12/19/16 17:39 12/19/16 17:39 O2 Sat by Pulse Oximetry: 98 (RA) Pulse Ox Interpretation: Normal <Dom Shah - Last Filed: 12/19/16 18:47> - Laboratory Results Result Diagrams: 12/19/16 17:39 12/19/16 17:39 <Carloz Cordova - Last Filed: 12/20/16 06:19> Medical Decision Making <Dom Shah - Last Filed: 12/19/16 18:47> <Carloz Cordova - Last Filed: 12/20/16 06:19> Medical Decision Making: Symptoms consistent with BPPV. Will treat with Meclizine and check CT Head due to headache, which patient states he never gets and on warfarin. PROCEDURE: CT HEAD WITHOUT CONTRAST. HISTORY: headache COMPARISON: None available. TECHNIQUE: Axial computed tomography images were obtained through the head/brain without intravenous contrast. Radiation dose: Total exam DLP = 1038.11 mGy-cm. This CT exam was performed using one or more of the following dose reduction techniques: Automated exposure control, adjustment of the mA and/or kV according to patient size, and/or use of iterative reconstruction technique. FINDINGS: HEMORRHAGE: No intracranial hemorrhage. BRAIN: Diffuse atrophy with prominence of the ventricles and sulci noted. Dense intracranial atherosclerotic calcifications. No mass effect or edema. Right parietal lobe encephalomalacia. Please note that MRI with diffusion imaging is more sensitive in the detection of acute ischemic event. VENTRICLES: No hydrocephalus. CALVARIUM: Unremarkable. PARANASAL SINUSES: Unremarkable as visualized. No significant inflammatory changes. MASTOID AIR CELLS: Unremarkable as visualized. No inflammatory changes. OTHER FINDINGS: None. IMPRESSION: Right parietal lobe encephalomalacia. Nonspecific white matter changes. Generalized atrophy. (Dom Shah) signed over @ 1900 pt non-complaint w Coumadin s/p AVR and h/o recurrent depression, seen by Dr. Fitzgerald regularly pt seen and examined, comfortable, cooperative d/w Dr. Kendrick @ bedside and Crisis Evaluators- ok to adm to his service to restart lovenox/Coumadin and Psych consult w Dr. Fitzgerald in AM (Carloz Cordova) ED OBSERVATION Date of observation admission: 12/19/16 Time of observation admission: 16:45 <Dom Shah - Last Filed: 12/19/16 18:47> <Carloz Cordova - Last Filed: 12/20/16 06:19> - Observation admission statement Patient is being placed in observation because:: Depression (Dom Shah) - Goals of Observation Goals of observation are:: medical clearance and Crisis eval (Dom Shah) - Progress Note Progress Note: 1644 At this time, patient states his dizziness is resolved. He states now that he has not been taking any of his home medications for over a month because he is "ready to go." Daughter at bedside reports decreased appetite, crying. Patient is apathetic in his responses. Will evaluate further medically and then obtain psych eval. 170 FINDINGS: LUNGS: Mild central pulmonary vascular congestive changes PLEURA: No significant pleural effusion identified, no pneumothorax apparent. CARDIOVASCULAR: Sternotomy wires again noted. Heart size is within range of normal. OSSEOUS STRUCTURES: No significant abnormalities. VISUALIZED UPPER ABDOMEN: Normal. OTHER FINDINGS: None. IMPRESSION: Mild central pulmonary vascular congestion. 1821 Medically clear, Crisis notified. 1846 Pending Crisis evaluation. Will sign out to ER night team at change of shift. ( Dom Shah) Disposition <Dom Shah - Last Filed: 12/19/16 18:47> Doctor Will See Patient In The: Hospital Counseled Patient/Family Regarding: Studies Performed, Diagnosis - Disposition Disposition Time: 19:30 <Carloz Cordova - Last Filed: 12/20/16 06:19> - Disposition Disposition: HOSPITALIZED Condition: GOOD - Clinical Impression Clinical Impression: Depression, Anxiety, Subtherapeutic anticoagulation, BPV (benign positional vertigo) - Scribe Statement The provider has reviewed the documentation as recorded by the Scribe <Dom Shah - Last Filed: 12/19/16 18:47> <Carloz Cordova - Last Filed: 12/20/16 06:19> - Scribe Statement Jhon Obregon All medical record entries made by the Scribe were at my direction and personally dictated by me. I have reviewed the chart and agree that the record accurately reflects my personal performance of the history, physical exam, medical decision making, and the department course for this patient. I have also personally directed, reviewed, and agree with the discharge instructions and disposition. (Dom Shah)
--- NOTE | 2016-12-19 16:13 | CT ---
PROCEDURE: CT HEAD WITHOUT CONTRAST. HISTORY: headache COMPARISON: None available. TECHNIQUE: Axial computed tomography images were obtained through the head/brain without intravenous contrast. Radiation dose: Total exam DLP = 1038.11 mGy-cm. This CT exam was performed using one or more of the following dose reduction techniques: Automated exposure control, adjustment of the mA and/or kV according to patient size, and/or use of iterative reconstruction technique. FINDINGS: HEMORRHAGE: No intracranial hemorrhage. BRAIN: Diffuse atrophy with prominence of the ventricles and sulci noted. Dense intracranial atherosclerotic calcifications. No mass effect or edema. Right parietal lobe encephalomalacia. Please note that MRI with diffusion imaging is more sensitive in the detection of acute ischemic event. VENTRICLES: No hydrocephalus. CALVARIUM: Unremarkable. PARANASAL SINUSES: Unremarkable as visualized. No significant inflammatory changes. MASTOID AIR CELLS: Unremarkable as visualized. No inflammatory changes. OTHER FINDINGS: None. IMPRESSION: Right parietal lobe encephalomalacia. Nonspecific white matter changes. Generalized atrophy.
--- NOTE | 2016-12-19 17:04 | RAD ---
HISTORY: cp COMPARISON: Comparison made with prior study 02/09/2016 FINDINGS: LUNGS: Mild central pulmonary vascular congestive changes PLEURA: No significant pleural effusion identified, no pneumothorax apparent. CARDIOVASCULAR: Sternotomy wires again noted. Heart size is within range of normal. OSSEOUS STRUCTURES: No significant abnormalities. VISUALIZED UPPER ABDOMEN: Normal. OTHER FINDINGS: None. IMPRESSION: Mild central pulmonary vascular congestion.
[2016-12-19 17:33] LABS: RBC URINE < 1 /hpf (0-3); URINE BILIRUBIN NEGATIVE (NEGATIVE); URINE BLOOD 1+ (NEGATIVE); URINE COLOR Yellow (YELLOW); URINE GLUCOSE (UA) NORMAL (Normal); URINE KETONE TRACE mg/dL (NEGATIVE); URINE LEUKOCYTE ESTERASE NEG Leu/uL (Negative); URINE PROTEIN 1+ mg/dL (NEGATIVE); URINE UROBILINOGEN NORMAL mg/dL (0.2-1.0); WBC URINE < 1 /hpf (0-5)
[2016-12-19 17:42] LABS: BASO % 0.3 % (0.0-2.0); EOS % 0.3 % (0.0-4.0); HEMATOCRIT 46.2 % (35.0-51.0); LYMPH # 0.5 K/uL (1.0-4.3); MEAN CELL VOLUME 93.4 fL (80.0-94.0); MEAN CORPUSCULAR HEMOGLOBIN 30.7 pg (27.0-31.0); MEAN CORPUSCULAR HGB CONC 32.9 g/dL (33.0-37.0); MEAN PLATELET VOLUME 9.9 fL (7.2-11.7); MONO # 0.3 K/uL (0.0-0.8); MONO % 4.2 % (0.0-10.0); NRBC % 0.1 % (0.0-2.0); PLATELET COUNT 154 K/uL (130-400); RED CELL DISTRIBUTION WIDTH 14.2 % (11.5-14.5); WHITE BLOOD COUNT 7.1 K/uL (4.8-10.8)
[2016-12-19 17:50] LABS: CHLORIDE 100 mmol/L (98-107)
[2016-12-19 17:51] LABS: POTASSIUM 4.3 mmol/L (3.6-5.2); SODIUM 140 mmol/L (132-148)
[2016-12-19 17:53] LABS: ALB/GLOB RATIO 1.3 (1.0-2.1); AST/SGOT 22 U/L (17-59); CARBON DIOXIDE 28 mmol/L (22-30); GFR AFRICAN-AMERICAN > 60; TOTAL PROTEIN 7.6 g/dL (6.3-8.3)
[2016-12-19 17:54] LABS: ALCOHOL SERUM < 10 mg/dl (0-10); ALKALINE PHOSPHATASE 110 U/L (38-126); ALT/SGPT 33 U/L (21-72); BLOOD UREA NITROGEN 12 mg/dL (9-20); CALCIUM 9.1 mg/dl (8.6-10.4); GLUCOSE,RANDOM 149 mg/dL (75-110)
[2016-12-19 19:18] LABS: EOSINOPHIL 1 % (0-4); NEUTROPHIL 86 % (50-75); TOTAL CELLS COUNTED 100
--- NOTE | 2016-12-19 21:00 | CP.PCM.HP ---
History of Present Illness - History of Present Illness History of Present Illness: Chief complaint: Nausea and vomiting. History present illness: 66-year-old male with history of mitral valve replacement, hypertension, depression, anxiety, CAD, diabetes, hypercholesteremia, on anticoagulation, recent history of hematoma came to the emergency room with the symptoms of sudden onset of abdominal pain. Also associated with vomiting. Patient is morning went to his sister's house, and had some orange juice. Following that he started having some epigastric pain, and the nausea, vomiting. Patient recently feeling increasing depression. And at least 20 days he is not taking any of his medications including important medications for his mitral valve replacement, and anticoagulation. Patient is only taking sleeping pills at this time. He is not able to sleep well. Feeling weak tired and the distal fatigability, and depressed. He does not have a symptoms of killing himself at this time. Past medical history: Atrial fibrillation, CAD, hypertension, diabetes Surgical history: Patient had a mitral valve replacement in 1997, coronary artery bypass grafting , cataract surgery Family history: Father had a history of diabetes, mother had a history of diabetes hypertension , atrial fibrillation. Family history of diabetes noted Social history: Occasional drinks alcohol. Smokes 4-5 cigars per day. No exercise. Seen by time lock expert regularly. Being followed up by time lock expert for INR checking Review of system: He has no headache. No visual symptom. Complaining of abdominal pain, associated with the discomfort and nausea. One episode of vomiting. Did not have any diarrhea. Currently not feeling hungry, poor appetite noted, no chills or fever noted. Patient recently had upper endoscopy 1 week ago Vital signs reviewed No neck vein distention noted Chest good air entry bilaterally, no wheezing or rales noted CVS regular heart sound, no murmur noted Patient has abdominal pain, tenderness noted on the right lower quadrant and right upper quadrant region. Bowel movements normal. 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 And also patient is refusing to take medications. Denial. Depression. We'll continue to monitor the labs. Psychiatric evaluation. One-to-one possibly needed if necessary. Continue to monitor the patient. And will follow the patient. Clear liquids. Monitor the INR. PT/PTT checking regularly. maintain the INR more than 3. And will follow the patient GI prophylaxis. Present on Admission - Present on Admission Any Indicators Present on Admission: No History of DVT/PE: No History of Uncontrolled Diabetes: No Urinary Catheter: No Decubitus Ulcer Present: No Past Patient History - Infectious Disease Hx of Infectious Diseases: None - Past Medical History & Family History Past Medical History?: Yes - Past Social History Smoking Status: Light Smoker < 10 Cigarettes Daily - CARDIAC Hx Hypertension: Yes - PULMONARY Hx Respiratory Disorders: No - HEENT Hx HEENT Problems: Yes Hx Blind: No Hx Cataracts: Yes Hx Deafness: No Hx Difficulty Chewing: No Hx Epistaxis: No Hx Glaucoma: No Hx Macular Degeneration: No - RENAL Hx Chronic Kidney Disease: No - ENDOCRINE/METABOLIC Hx Hyperthyroidism: No Hx Hypothyroidism: No - HEMATOLOGICAL/ONCOLOGICAL Hx Human Immunodeficiency Virus (HIV): No - INTEGUMENTARY Hx Dermatological Problems: Yes Hx Basil Cell: No Hx Paul: No Hx Cellulitis: Yes Hx Eczema: No Hx Melanoma: No Hx Psoriasis: No Hx Squamous Cell: No Other/Comment: Hx Ulcer to right calf (healed) - MUSCULOSKELETAL/RHEUMATOLOGICAL Hx Arthritis: No Hx Fractures: No Hx Osteoporosis: No Hx Rheumatoid Arthritis: No - GASTROINTESTINAL Hx Crohn's Disease: No Hx Diverticulitis: Yes (current admission) Hx Gall Bladder Disease: No Hx Gastritis: No Hx Pancreatitis: No - GENITOURINARY/GYNECOLOGICAL Hx Sexually Transmitted Disorders: No - PSYCHIATRIC Hx Anxiety: No Hx Bipolar Disorder: No Hx Depression: Yes Hx Paranoia: No Hx Post Traumatic Stress Disorder: No Hx Schizophrenia: No Hx Substance Use: No - SURGICAL HISTORY Hx Appendectomy: No Hx Carotid Endarterectomy: No Hx Cholecystectomy: No Hx Coronary Artery Bypass Graft: Yes (1997) Hx Coronary Stent: No Hx Tonsillectomy: No - ANESTHESIA Hx Anesthesia: Yes Hx Anesthesia Reactions: No Hx Malignant Hyperthermia: No Meds Allergies/Adverse Reactions: Allergies Allergy/AdvReac Type Severity Reaction Status Date / Time clams Allergy Mild Uncoded 12/02/16 15:02 Results - Vital Signs Recent Vital Signs: Last Vital Signs Temp 97.5 F L 12/19/16 20:20 Pulse 55 L 12/19/16 20:20 Resp 18 12/19/16 20:20 BP 152/69 H 12/19/16 20:20 Pulse Ox 97 12/19/16 20:20 - Labs Result Diagrams: 12/19/16 17:39 12/19/16 17:39 Labs: Laboratory Results - last 24 hr 12/19/16 12/19/16 12/19/16 17:21 17:21 17:39 WBC 7.1 RBC 4.94 Hgb 15.2 D Hct 46.2 MCV 93.4 MCH 30.7 MCHC 32.9 L RDW 14.2 Plt Count 154 MPV 9.9 Neut % (Auto) 88.2 H Lymph % (Auto) 7.0 L Kimble % (Auto) 4.2 Eos % (Auto) 0.3 Baso % (Auto) 0.3 Neut # 6.2 Lymph # 0.5 L Kimble # 0.3 Eos # 0.0 Baso # 0.0 Neutrophils % (Manual) 86 H Lymphocytes % (Manual) 9 L Monocytes % (Manual) 4 Eosinophils % (Manual) 1 Platelet Estimate Normal Sodium Potassium Chloride Carbon Dioxide Anion Gap BUN Creatinine Est GFR ( Amer) Est GFR (Non-Af Amer) Random Glucose Calcium Total Bilirubin AST ALT Alkaline Phosphatase Total Creatine Kinase CK-MB (Mass) Troponin I Total Protein Albumin Globulin Albumin/Globulin Ratio Urine Color Yellow Urine Clarity Clear Urine pH 6.0 Ur Specific Oxford 1.009 Urine Protein 1+ H Urine Glucose (UA) Normal Urine Ketones Trace Urine Blood 1+ H Urine Nitrate Negative Urine Bilirubin Negative Urine Urobilinogen Normal Ur Leukocyte Esterase Neg Urine WBC (Auto) < 1 Urine RBC (Auto) < 1 Ur Squamous Epith Cells < 1 Urine Opiates Screen Negative Urine Methadone Screen Negative Ur Barbiturates Screen Negative Ur Phencyclidine Scrn Negative Ur Amphetamines Screen Negative U Benzodiazepines Scrn Negative U Oth Cocaine Metabols Negative U Cannabinoids Screen Negative Alcohol, Quantitative 12/19/16 17:39 WBC RBC Hgb Hct MCV MCH MCHC RDW Plt Count MPV Neut % (Auto) Lymph % (Auto) Kimble % (Auto) Eos % (Auto) Baso % (Auto) Neut # Lymph # Kimble # Eos # Baso # Neutrophils % (Manual) Lymphocytes % (Manual) Monocytes % (Manual) Eosinophils % (Manual) Platelet Estimate Sodium 140 Potassium 4.3 Chloride 100 Carbon Dioxide 28 Anion Gap 17 BUN 12 Creatinine 0.8 Est GFR ( Amer) > 60 Est GFR (Non-Af Amer) > 60 Random Glucose 149 H Calcium 9.1 Total Bilirubin 1.0 AST 22 ALT 33 Alkaline Phosphatase 110 Total Creatine Kinase 48 L CK-MB (Mass) 0.77 Troponin I 0.0150 Total Protein 7.6 Albumin 4.3 Globulin 3.3 Albumin/Globulin Ratio 1.3 Urine Color Urine Clarity Urine pH Ur Specific Oxford Urine Protein Urine Glucose (UA) Urine Ketones Urine Blood Urine Nitrate Urine Bilirubin Urine Urobilinogen Ur Leukocyte Esterase Urine WBC (Auto) Urine RBC (Auto) Ur Squamous Epith Cells Urine Opiates Screen Urine Methadone Screen Ur Barbiturates Screen Ur Phencyclidine Scrn Ur Amphetamines Screen U Benzodiazepines Scrn U Oth Cocaine Metabols U Cannabinoids Screen Alcohol, Quantitative < 10
[2016-12-19 21:01] LABS: INR 1.3
[2016-12-19] MEDS: Enoxaparin 60 mg Syringe SC SCH (23:49)
[2016-12-20 02:07] VITALS: RESP 20
[2016-12-20] MEDS: metOLazone 2.5 MG TAB PO SCH (09:35)
[2016-12-20] MEDS: Enoxaparin 60 mg Syringe SC SCH ×2 (09:36→21:29)
[2016-12-20 13:55] LABS: INR 1.3
[2016-12-20 18:15] LABS: THYROID STIMULATING HORMONE 1.34 mIU/L (0.46-4.68)
[2016-12-20 18:51] LABS: FOLATE 7.6 ng/mL
--- NOTE | 2016-12-21 03:41 | CON ---
CHIEF COMPLAINT AND REASON FOR CONSULTATION: The patient referred by Dr. Kendrick for evaluation of depression and anxiety. The patient came to the hospital with complaint of dizziness and weakness, did admit that he stopped taking all his medications including the psych medications and non-psych medications stating he is ready to go. The patient has been depressed over the breakup of his marriage. There was a strange relationship with his and having marital problems and also issues with his family and noncompliant with his psych meds. HISTORY OF PRESENT ILLNESS: The patient is a 66-year-old male with history of multiple medical problems, history of diabetes, atrial fibrillation, history of hypertension. The patient was admitted here for dizziness. The patient is referred for co-management of depression as the patient has been refusing to take his medicine for more than 20 days stating he has been depressed and he is ready to go. He is also stressed out over the issues with his . They were for many years but recently . The patient has been coming to my office for outpatient treatment, but seems to be getting more depressed over the breakup of his marriage. His does not want to get back together with him and also the patient has issues with his housing, currently temporarily staying with his mother and has issues with other members of the family. The patient states he has not been eating well, he has not taken his medications. The patient has significant cardiac problems. He has history of CABG in the past, not taking his Coumadin and also stopped taking his other medications. He said he was taking his Klonopin, but his drug screen is negative for benzo. Today, he was seen with his family, daughter and his which the family reported the patient has not been telling them his problems. In one of his recent visits in my office, the patient had not been eating well and had GI bleed and ended up in the hospital. The patient was seen today. He states that he is depressed but not active suicidal ideations. He has agreed to go for inpatient treatment once he is medically cleared. PAST PSYCH HISTORY: History of recurrent depression, history of suicidal ideations in the past with no attempts. He has been followed as an outpatient. He has been admitted in the past. MEDICAL HISTORY: The patient has history of cardiac problems, CAD, atrial fibrillation, diabetes, hypertension, history of diverticulitis, history of CABG in 1997. DRUG/ALCOHOL HISTORY: Denies any. ALLERGIES: THE PATIENT IS ALLERGIC TO CLAMS.. PSYCHOSOCIAL HISTORY: The patient lives with his mother. Disabled secondary to depression followed by Dr. Corley. CURRENT MEDICATIONS: List of current medications include allopurinol, metolazone, Lovenox, Klonopin 2 mg at bedtime, trazodone 50 mg daily, Crestor, and Cozaar. PHYSICAL EXAMINATION: VITAL SIGNS: Temperature is 98.7, pulse rate 69, blood pressure 182/62, respirations 20, oxygen saturation 98%. DIAGNOSTIC DATA: The patient had a CAT scan that showed generalized atrophy, right parietal lobe encephalomalacia and nonspecific white matter changes. LABORATORY DATA: PT is 14.5. INR is 1.3. Liver function tests are within normal limits. Creatinine is 0.8. UA is positive for +1 for protein and also urine +1 for blood. His drug screen is always negative despite the patient on Klonopin 2 mg at bedtime. The patient claims that he is taking it, but his drug screen is reflecting negative. Alcohol is negative also. PHYSICAL EXAMINATION: GENERAL: The patient is alert, seen in his room with his family, looks depressed. Said he has very poor appetite. SKIN: No diaphoresis. HEENT: No headache. No dizziness. NECK: Supple. RESPIRATORY: No dyspnea. CARDIOVASCULAR: No chest pain. GASTROINTESTINAL: Poor appetite. No nausea or vomiting. EXTREMITIES: He is ambulatory, but gait is unsteady. MUSCULOSKELETAL: Feels weak. NEUROLOGIC: Alert and oriented x3. GENITOURINARY: No dysuria. MENTAL STATUS EXAMINATION: Elderly male who looks stated age, oriented x3. He is clinically depressed. Affect is restricted. Speech is slow. Psychomotor retardation. Mood is slightly depressed. Thought process is coherent. Thought content, no overt psychosis. No suicidal or homicidal ideation. Attention and memory seem to be limited. Insight and judgment limited. Impulse control is fair. 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 RECOMMENDATION: The patient is seen, meds reviewed. We will continue the Klonopin 2 mg at bedtime, but we will change the trazodone instead of giving in the morning we will try to giving at night, trazodone is sedating and also we will check his B12, folate and thyroid in the patient with history of recurrent depression. I discussed with him to be more compliant with his meds and also the patient may need janis-psych admission. The patient has significant clinical depression. The patient has history of verbalizing suicidal ideations in the past, but lately he has been more depressed over the breakup of his marriage. Thank you for the consult. Pablo Montez MD MTDD
[2016-12-21 07:05] LABS: HEMATOCRIT 35.7 % (35.0-51.0); INR 1.2; MEAN CELL VOLUME 92.1 fL (80.0-94.0); MEAN CORPUSCULAR HEMOGLOBIN 30.6 pg (27.0-31.0); MEAN CORPUSCULAR HGB CONC 33.2 g/dL (33.0-37.0); MEAN PLATELET VOLUME 9.8 fL (7.2-11.7); RED CELL DISTRIBUTION WIDTH 13.9 % (11.5-14.5); WHITE BLOOD COUNT 5.6 K/uL (4.8-10.8)
[2016-12-21 07:13] LABS: CHLORIDE 100 mmol/L (98-107); SODIUM 137 mmol/L (132-148)
[2016-12-21 07:14] LABS: POTASSIUM 3.5 mmol/L (3.6-5.2)
[2016-12-21 07:16] LABS: ALKALINE PHOSPHATASE 73 U/L (38-126); ALT/SGPT 28 U/L (21-72); AST/SGOT 12 U/L (17-59); BILIRUBIN,TOTAL 0.6 mg/dL (0.2-1.3); BLOOD UREA NITROGEN 15 mg/dL (9-20); CARBON DIOXIDE 31 mmol/L (22-30); GFR AFRICAN-AMERICAN > 60; GLUCOSE,RANDOM 180 mg/dL (75-110); TOTAL PROTEIN 5.5 g/dL (6.3-8.3)
[2016-12-21 07:17] LABS: CALCIUM 8.1 mg/dl (8.6-10.4)
[2016-12-21 07:28] LABS: ALB/GLOB RATIO 1.2 (1.0-2.1)
--- NOTE | 2016-12-21 07:50 | CP.PCM.PN ---
Subjective - Date & Time of Evaluation Date of Evaluation: 12/20/16 Time of Evaluation: 07:50 - Subjective Subjective: Patient is feeling better. But, depression noted. Patient will be seen by psychiatrist as soon. INR is still subtherapeutic. Clinical stable. On examination: HEENT PERRLA, neck supple No thyromegaly was noted and no cervical adenopathy noted Chest bilateral good air entry, no wheezing or rales noted CVS regular heart sound, no murmur Abdomen soft and no organomegaly Extremities no pedal edema, no leg swelling, pedal pulses are good. 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 Assessment and commission: 66 male iritic valve replacement mechanical valve, subtherapeutic INR. On anticoagulation. Depression, psychotic evaluation. Will follow the patient Objective - Vital Signs/Intake and Output Vital Signs (last 24 hours): Temp Pulse Resp BP Pulse Ox 98.1 F 59 L 20 143/77 98 12/21/16 00:00 12/21/16 00:00 12/21/16 00:00 12/21/16 00:00 12/21/16 00:00 Intake and Output: 12/21/16 12/21/16 06:59 18:59 Intake Total 300 Balance 300 - Medications Medications: Current Medications Allopurinol (Zyloprim) 100 mg PO DAILY [facility] Last Admin: 12/20/16 09:36 Dose: 100 mg Clonazepam (Klonopin) 2 mg PO [facility] Last Admin: 12/20/16 21:29 Dose: 2 mg Enoxaparin Sodium (Lovenox) 60 mg SC Q12 [facility] Last Admin: 12/20/16 21:29 Dose: 60 mg Losartan Potassium (Cozaar) 100 mg PO DAILY [facility] Last Admin: 12/20/16 09:36 Dose: 100 mg Metolazone (Zaroxolyn) 2.5 mg PO DAILY [facility] Last Admin: 12/20/16 09:35 Dose: 2.5 mg Pneumococcal Polyvalent Vaccine (Pneumovax 23 Vaccine) 0.5 ml IM .ONCE ONE Stop: 12/22/16 10:01 Rosuvastatin Calcium (Crestor) 5 mg PO [facility] Last Admin: 12/20/16 21:28 Dose: 5 mg Trazodone HCl (Desyrel) 50 mg PO [facility] Last Admin: 12/20/16 21:29 Dose: 50 mg - Labs Labs: 12/21/16 06:51 12/21/16 06:50 PT 13.6 SECONDS (9.7-12.2) H 12/21/16 06:51 INR 1.2 12/21/16 06:51 APTT 38 SECONDS (21-34) H 12/21/16 06:51
[2016-12-21] MEDS: metOLazone 2.5 MG TAB PO SCH (09:42)
[2016-12-21] MEDS: Enoxaparin 60 mg Syringe SC SCH ×2 (09:42→21:28)
--- NOTE | 2016-12-21 12:12 | CP.PCM.PN ---
Subjective - Date & Time of Evaluation Date of Evaluation: 12/21/16 Time of Evaluation: 12:12 - Subjective Subjective: Patient is feeling better. But, depression noted. Patient will be seen by psychiatrist as soon. INR is still subtherapeutic. Clinical stable. On examination: HEENT PERRLA, neck supple No thyromegaly was noted and no cervical adenopathy noted Chest bilateral good air entry, no wheezing or rales noted CVS regular heart sound, no murmur Abdomen soft and no organomegaly Extremities no pedal edema, no leg swelling, pedal pulses are good. 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 Assessment and commission: 66 male iritic valve replacement mechanical valve, subtherapeutic INR. On anticoagulation. Depression, psychotic evaluation. Will follow the patient Patient will be covered the hospitalist from tomorrow Objective - Vital Signs/Intake and Output Vital Signs (last 24 hours): Temp Pulse Resp BP Pulse Ox 98.1 F 63 20 135/68 97 12/21/16 08:00 12/21/16 08:00 12/21/16 08:00 12/21/16 08:00 12/21/16 08:00 Intake and Output: 12/21/16 12/21/16 06:59 18:59 Intake Total 300 Balance 300 - Medications Medications: Current Medications Allopurinol (Zyloprim) 100 mg PO DAILY [facility] Last Admin: 12/21/16 09:42 Dose: 100 mg Clonazepam (Klonopin) 2 mg PO HS [facility] Last Admin: 12/20/16 21:29 Dose: 2 mg Enoxaparin Sodium (Lovenox) 60 mg SC Q12 [facility] Last Admin: 12/21/16 09:42 Dose: 60 mg Losartan Potassium (Cozaar) 100 mg PO DAILY [facility] Last Admin: 12/21/16 09:42 Dose: 100 mg Metolazone (Zaroxolyn) 2.5 mg PO DAILY [facility] Last Admin: 12/21/16 09:42 Dose: 2.5 mg Pneumococcal Polyvalent Vaccine (Pneumovax 23 Vaccine) 0.5 ml IM .ONCE ONE Stop: 12/22/16 10:01 Rosuvastatin Calcium (Crestor) 5 mg PO [facility] Last Admin: 12/20/16 21:28 Dose: 5 mg Trazodone HCl (Desyrel) 50 mg PO [facility] Last Admin: 12/20/16 21:29 Dose: 50 mg - Labs Labs: 12/21/16 06:51 12/21/16 06:50 PT 13.6 SECONDS (9.7-12.2) H 12/21/16 06:51 INR 1.2 12/21/16 06:51 APTT 38 SECONDS (21-34) H 12/21/16 06:51
[2016-12-21] MEDS ORDERED: Potassium Chloride 20 mEq ER Tab PO ONE (16:00)
--- NOTE | 2016-12-21 20:53 | PN ---
DATE: 12/21/2016 SUBJECTIVE: The patient at present is doing much better. He has been more compliant with his medication. The patient also has seen by his family. His family has been visiting him regularly. He states that he might be more interested to go to [facility] for admission of depression. The patient has been depressed before he come to the hospital and stopped taking all of his medication for few weeks including his psych and non-psych medication, because he states he want to , but now he is feeling much better. His also visited him. REVIEW OF SYSTEMS: The patient is alert. At this time, sitting in his room with his family, still looks depressed, but a little better. He is more cooperative at this time. The patient is not verbalizing any ideas that he wants to . Skin: No diaphoresis. HEENT: No headache and no dizziness. Neck: Supple. Respiratory: Dyspnea. Cardiovascular: Chest pain. Gastrointestinal: He is eating better and compliant with medications. No nausea or vomiting. Extremities: The patient is ambulatory. Musculoskeletal: Weakness is improving. Neuro: Alert and oriented x3. He had no urinary problems. PHYSICAL EXAMINATION: MENTAL STATUS EXAMINATION: Elderly male. He looks at his age. Alert and oriented x3. Still clinically depressed, but is doing much better. Affect is reactive. Speech spontaneous. Thought process, coherent. Thought content, no active suicidal ideation, hallucination, or paranoia. Attention and memory seems to be impaired. Insight and judgment is impaired. Impulse control is impaired. VITAL SIGNS: Temperature 97.6, pulse is 59, blood pressure is 173/77, respirations 20, and oxygen sat is 99%. LABORATORY DATA: On review of his labs. His B12 is 485, folate is 7.6, and TSH third generation is 1.34. The patient also is eating much better. IMPRESSION: History of recurrent depression as well as anxiety disorder. PLAN AND RECOMMENDATION: Medications reviewed. The patient to continue current psych medications. The patient is on Klonopin 2 mg at bedtime, trazodone 50 mg at bedtime. Once the patient is cleared by Dr. Kendrick, the patient can be transferred to [facility] for inpatient psych treatment. The patient has been depressed and he needs to be admitted in the hospital. The patient has history of being admitted in the past for depression. Pablo Montez MD [facility] # [id number]
[2016-12-22 08:50] LABS: INR 1.3
[2016-12-22] MEDS: Enoxaparin 60 mg Syringe SC SCH ×2 (09:24→21:54)
[2016-12-22] MEDS: metOLazone 2.5 MG TAB PO SCH (09:24)
[2016-12-22] MEDS ORDERED: Pneumococcal 23-Valent Vaccine IM ONE (10:00)
[2016-12-22 11:41] LABS: BASO % 0.6 % (0.0-2.0); EOS # 0.1 K/uL (0.0-0.7); EOS % 1.2 % (0.0-4.0); HEMATOCRIT 37.5 % (35.0-51.0); LYMPH # 0.9 K/uL (1.0-4.3); LYMPH % 14.7 % (20.0-40.0); MEAN CORPUSCULAR HEMOGLOBIN 29.6 pg (27.0-31.0); MEAN CORPUSCULAR HGB CONC 31.8 g/dL (33.0-37.0); MEAN PLATELET VOLUME 9.8 fL (7.2-11.7); MONO # 0.6 K/uL (0.0-0.8); MONO % 10.9 % (0.0-10.0); NRBC % 0.1 % (0.0-2.0); RED CELL DISTRIBUTION WIDTH 13.9 % (11.5-14.5); WHITE BLOOD COUNT 5.9 K/uL (4.8-10.8)
[2016-12-22 11:48] LABS: CHLORIDE 96 mmol/L (98-107); SODIUM 137 mmol/L (132-148)
[2016-12-22 11:51] LABS: ALB/GLOB RATIO 1.1 (1.0-2.1); ALKALINE PHOSPHATASE 83 U/L (38-126); ALT/SGPT 30 U/L (21-72); AST/SGOT 14 U/L (17-59); BILIRUBIN,TOTAL 0.5 mg/dL (0.2-1.3); BLOOD UREA NITROGEN 16 mg/dL (9-20); CARBON DIOXIDE 31 mmol/L (22-30); GFR AFRICAN-AMERICAN > 60; GLUCOSE,RANDOM 247 mg/dL (75-110); TOTAL PROTEIN 6.1 g/dL (6.3-8.3)
[2016-12-22] MEDS: (Novolin R) Insulin Human Regular 100 units/ml vial SC SCH ×2 (17:20→21:54)
--- NOTE | 2016-12-22 18:33 | CP.PCM.PN ---
Subjective - Date & Time of Evaluation Date of Evaluation: 12/22/16 Time of Evaluation: 09:00 - Subjective Subjective: Medicine Note- Hospitalist Service Patient was seen and examined at bedside. Patient reports that he no longer feels depressed, however he states that among his biggest stressors in his life is that he is essentially homeless. He says he is unable to stay at his mothers assisted living and unable to stay with his brother, though sometimes he sleeps in his brothers car. Patient reports he is willing to take his medications now, and has no suicidal or homicidal ideation No events overnight. Objective - Vital Signs/Intake and Output Vital Signs (last 24 hours): Temp Pulse Resp BP Pulse Ox 97.1 F L 60 20 148/69 98 12/22/16 15:00 12/22/16 15:00 12/22/16 15:00 12/22/16 15:00 12/22/16 15:00 Intake and Output: 12/22/16 12/22/16 06:59 18:59 Intake Total 720 780 Output Total 1500 800 Balance -780 -20 - Medications Medications: Current Medications Allopurinol (Zyloprim) 100 mg PO DAILY [facility] Last Admin: 12/22/16 09:24 Dose: 100 mg Clonazepam (Klonopin) 2 mg PO HS [facility] Last Admin: 12/21/16 21:29 Dose: 2 mg Enoxaparin Sodium (Lovenox) 60 mg SC Q12 [facility] Last Admin: 12/22/16 09:24 Dose: 60 mg Insulin Human Regular (Novolin R) 0 unit SC ACHS [facility] PRN Reason: Protocol Last Admin: 12/22/16 17:20 Dose: 3 unit Losartan Potassium (Cozaar) 100 mg PO DAILY [facility] Last Admin: 12/22/16 09:24 Dose: 100 mg Metolazone (Zaroxolyn) 2.5 mg PO DAILY [facility] Last Admin: 12/22/16 09:24 Dose: 2.5 mg Rosuvastatin Calcium (Crestor) 5 mg PO HS [facility] Last Admin: 12/21/16 21:29 Dose: 5 mg Trazodone HCl (Desyrel) 50 mg PO HS [facility] Last Admin: 12/21/16 21:29 Dose: 50 mg Warfarin Sodium (Coumadin) 10 mg PO ONCE ONE Stop: 12/23/16 18:26 - Labs Labs: 12/22/16 11:33 12/22/16 11:33 PT 15.2 SECONDS (9.7-12.2) H 12/22/16 08:36 INR 1.3 12/22/16 08:36 APTT 38 SECONDS (21-34) H 12/21/16 06:51 - Constitutional Appears: Non-toxic, No Acute Distress - Head Exam Head Exam: ATRAUMATIC, NORMAL INSPECTION, NORMOCEPHALIC - Eye Exam Pupil Exam: NORMAL ACCOMODATION - ENT Exam ENT Exam: Mucous Membranes Moist - Respiratory Exam Respiratory Exam: Clear to Ausculation Bilateral, NORMAL BREATHING PATTERN. absent: Prolonged Expiratory Phase, Rales, Rhonchi, Wheezes - Cardiovascular Exam Cardiovascular Exam: REGULAR RHYTHM, +S1, +S2 - GI/Abdominal Exam GI & Abdominal Exam: Soft, Normal Bowel Sounds. absent: Tenderness, Diminished Bowel Sounds, Hernia, Hyperactive Bowel Sounds, Hypoactive Bowel Sounds - Extremities Exam Extremities Exam: Normal Capillary Refill, Normal Inspection - Neurological Exam Neurological Exam: Alert, Awake, Oriented x3 - Psychiatric Exam Psychiatric exam: Normal Affect, Normal Mood - Skin Skin Exam: Dry, Intact, Normal Color, Warm Assessment and Plan - Assessment and Plan (Free Text) Assessment: Subtherapeutic INR history of mechanical mitral valve replacement INR goal at least 2.5, ideally in the 3 range INR is 1.3 today, given Coumadin 5mg last night. Ordered Coumadin 10mg today f/u tomorrow AM INR Continue Lovenox 60mg SC Q12h Gout Allopurinol 100mg PO Daily Anxiety/ Depression Consult Psych- Dr. Iglesias Klonopin 2mg PO HS Trazodone 50mg PO HS Hypertension Cozaar 100mg PO Daily Metolazone 2.5mg PO Daily Diabetes RISS accucheck Heart Healthy, mod CHO diet Crestor 5mg PO HS Prophylactic Measure On full anticoagulation Protonix 40mg PO Daily Once INR is therapeutic, plan is for Dr. Iglesias to transfer patient to a psych unit, possibly at [place] or [place].
--- NOTE | 2016-12-23 02:00 | PN ---
DATE: 12/22/2016 SUBJECTIVE: The patient seen in his room, still clinically depressed, but was a little brighter. The patient needs to be admitted for inpatient Geropsych admission after being medically cleared. I did speak with the patient's medical attending. The patient is not medically cleared this time. The patient is on Klonopin and Trazodone. He is eating better and still has lots of psychosocial stressors at home especially his housing. PHYSICAL EXAMINATION: VITAL SIGNS: Temperature is 98, pulse is 54, blood pressure is 150/74, respirations 20, oxygen sat is 96%. REVIEW OF SYSTEMS: GENERAL: The patient is seen in his room sitting, alert, oriented x3, but still looks depressed. SKIN: No diaphoresis. HEENT: No headache. No dizziness. NECK: Supple. RESPIRATORY: No dyspnea. No chest pain. CARDIOVASCULAR: No palpitations. GASTROINTESTINAL: He is eating better. EXTREMITIES: The patient is moving extremities. No tremors. MUSCULOSKELETAL: Feels weak. NEUROLOGIC: Alert and oriented x3. GENITOURINARY: No dysuria. MENTAL STATUS EXAMINATION: Elderly male who looks stated age, alert and oriented x3. Mood is still clinically depressed, anxious, affect is reactive. Speech spontaneous. Thought process, coherent. Thought content, verbalizes no active suicidal or homicidal ideation, no psychosis attention and memory seem to be fair. Insight and judgment is fair. Impulse control is fair. IMPRESSION: History of recurrent depression and anxiety disorder. PLAN AND RECOMMENDATION: The patient seen and medications reviewed. Continue present management. The patient continue present psych medications. The patient is awaiting medical clearance. Once the patient is medically cleared, I will try to arrange transportation to go for Geropsych admission, either to [facility] or [facility]. Pablo Montez MD KISHOR
[2016-12-23] MEDS: (Novolin R) Insulin Human Regular 100 units/ml vial SC SCH ×4 (07:42→21:32)
[2016-12-23 08:42] LABS: INR 1.6
[2016-12-23 08:47] LABS: BASO % 0.5 % (0.0-2.0); EOS # 0.1 K/uL (0.0-0.7); HEMATOCRIT 37.5 % (35.0-51.0); LYMPH # 0.7 K/uL (1.0-4.3); LYMPH % 12.4 % (20.0-40.0); MEAN CELL VOLUME 92.6 fL (80.0-94.0); MEAN CORPUSCULAR HEMOGLOBIN 29.6 pg (27.0-31.0); MONO # 0.6 K/uL (0.0-0.8); RED CELL DISTRIBUTION WIDTH 13.7 % (11.5-14.5); WHITE BLOOD COUNT 5.4 K/uL (4.8-10.8)
[2016-12-23 08:52] LABS: CHLORIDE 97 mmol/L (98-107); SODIUM 138 mmol/L (132-148)
[2016-12-23 08:53] LABS: POTASSIUM 3.9 mmol/L (3.6-5.2)
[2016-12-23 08:55] LABS: ALB/GLOB RATIO 1.2 (1.0-2.1); ALKALINE PHOSPHATASE 87 U/L (38-126); ALT/SGPT 40 U/L (21-72); AST/SGOT 28 U/L (17-59); BILIRUBIN,TOTAL 0.7 mg/dL (0.2-1.3); BLOOD UREA NITROGEN 15 mg/dL (9-20); CALCIUM 8.2 mg/dl (8.6-10.4); CARBON DIOXIDE 32 mmol/L (22-30); GFR AFRICAN-AMERICAN > 60; GLUCOSE,RANDOM 173 mg/dL (75-110); TOTAL PROTEIN 6.1 g/dL (6.3-8.3)
[2016-12-23] MEDS: metOLazone 2.5 MG TAB PO SCH (10:05)
[2016-12-23] MEDS: Pantoprazole 40 mg EC Tab PO SCH (10:05)
[2016-12-23] MEDS: Enoxaparin 60 mg Syringe SC SCH ×2 (10:06→21:31)
--- NOTE | 2016-12-23 13:36 | CP.PCM.PN ---
<Stiven Valentine - Last Filed: 12/23/16 13:41> Subjective - Date & Time of Evaluation Date of Evaluation: 12/23/16 Time of Evaluation: 13:27 - Subjective Subjective: PGY1 Note for Dr. Arciniega HPI: Patient seen and examined at bedside. Doing well with no complaints at this time. Sitting up watching TV comfortably with family at bedside. I told him that his INR was increased today but only from 1.3 to 1.6 and we needed to get it to between 2.5-3.5 fofr him to be properly anticoagulated. I told him that we will continue to get his INR daily until the appropriate level was reached. After he is properly anticoagulated we will transfer him to a psych unit per psych. Patient agreed with this plan and did not have any questions at the moment. Does not appear anxious or depressed at this time. Objective - Vital Signs/Intake and Output Vital Signs (last 24 hours): Temp Pulse Resp BP Pulse Ox 98.1 F 69 20 129/66 95 12/23/16 08:00 12/23/16 08:00 12/23/16 08:00 12/23/16 08:00 12/23/16 08:00 - Medications Medications: Current Medications Acetaminophen (Tylenol 325mg Tab) 650 mg PO Q6 PRN PRN Reason: Pain, moderate (4-7) Last Admin: 12/23/16 10:05 Dose: 650 mg Allopurinol (Zyloprim) 100 mg PO DAILY [facility] Last Admin: 12/23/16 10:05 Dose: 100 mg Clonazepam (Klonopin) 2 mg PO HS [facility] Last Admin: 12/22/16 21:54 Dose: 2 mg Enoxaparin Sodium (Lovenox) 60 mg SC Q12 JIM Last Admin: 12/23/16 10:06 Dose: 60 mg Insulin Human Regular (Novolin R) 0 unit SC ACHS JIM PRN Reason: Protocol Last Admin: 12/23/16 12:40 Dose: 2 unit Losartan Potassium (Cozaar) 100 mg PO DAILY [facility] Last Admin: 12/23/16 10:05 Dose: 100 mg Metolazone (Zaroxolyn) 2.5 mg PO DAILY [facility] Last Admin: 12/23/16 10:05 Dose: 2.5 mg Pantoprazole Sodium (Protonix Ec Tab) 40 mg PO DAILY [facility] Last Admin: 12/23/16 10:05 Dose: 40 mg Rosuvastatin Calcium (Crestor) 5 mg PO HS [facility] Last Admin: 12/22/16 21:54 Dose: 5 mg Trazodone HCl (Desyrel) 50 mg PO HS [facility] Last Admin: 12/22/16 21:54 Dose: 50 mg Warfarin Sodium (Coumadin) 10 mg PO 1800 [facility] Stop: 12/23/16 18:01 - Labs Labs: 12/23/16 08:32 12/23/16 08:32 PT 18.8 SECONDS (9.7-12.2) H 12/23/16 08:32 INR 1.6 12/23/16 08:32 APTT 38 SECONDS (21-34) H 12/21/16 06:51 - Constitutional Appears: Well, Non-toxic, No Acute Distress - Head Exam Head Exam: ATRAUMATIC, NORMAL INSPECTION, NORMOCEPHALIC - Eye Exam Eye Exam: EOMI - ENT Exam ENT Exam: Mucous Membranes Moist - Respiratory Exam Respiratory Exam: Clear to Ausculation Bilateral. absent: Rales, Rhonchi, Wheezes, Stridor - GI/Abdominal Exam GI & Abdominal Exam: Soft, Normal Bowel Sounds. absent: Distended, Tenderness - Neurological Exam Neurological Exam: Alert, Awake, Oriented x3 - Psychiatric Exam Psychiatric exam: Normal Affect, Normal Mood. absent: Anxious, Depressed - Skin Skin Exam: Dry, Intact, Normal Color, Warm Assessment and Plan - Assessment and Plan (Free Text) Assessment: Subtherapeutic INR * history of mechanical mitral valve replacement * INR goal at least 2.5 - 3.5 * INR is 1.6 * Coumadin 10mg today * F/U tomorrow AM INR * Continue Lovenox 60mg SC Q12h Gout * Allopurinol 100mg PO Daily Anxiety/ Depression * Psych ([facility]) - Transfer to Psych once INR is therapeutic * Klonopin 2mg PO HS * Trazodone 50mg PO HS Hypertension Cozaar 100mg PO Daily Metolazone 2.5mg PO Daily Diabetes RISS accucheck Heart Healthy, mod CHO diet Crestor 5mg PO HS Prophylactic Measure On full anticoagulation Protonix 40mg PO Daily <Jean Arciniega H - Last Filed: 12/23/16 14:59> Objective - Vital Signs/Intake and Output Vital Signs (last 24 hours): Temp Pulse Resp BP Pulse Ox 98.1 F 69 20 129/66 95 12/23/16 08:00 12/23/16 08:00 12/23/16 08:00 12/23/16 08:00 12/23/16 08:00 Intake and Output: 12/23/16 12/23/16 06:59 18:59 Intake Total 480 Balance 480 - Medications Medications: Current Medications Acetaminophen (Tylenol 325mg Tab) 650 mg PO Q6 PRN PRN Reason: Pain, moderate (4-7) Last Admin: 12/23/16 10:05 Dose: 650 mg Allopurinol (Zyloprim) 100 mg PO DAILY [facility] Last Admin: 12/23/16 10:05 Dose: 100 mg Clonazepam (Klonopin) 2 mg PO HS [facility] Last Admin: 12/22/16 21:54 Dose: 2 mg Enoxaparin Sodium (Lovenox) 60 mg SC Q12 [facility] Last Admin: 12/23/16 10:06 Dose: 60 mg Insulin Human Regular (Novolin R) 0 unit SC ACHS [facility] PRN Reason: Protocol Last Admin: 12/23/16 12:40 Dose: 2 unit Losartan Potassium (Cozaar) 100 mg PO DAILY [facility] Last Admin: 12/23/16 10:05 Dose: 100 mg Metolazone (Zaroxolyn) 2.5 mg PO DAILY [facility] Last Admin: 12/23/16 10:05 Dose: 2.5 mg Pantoprazole Sodium (Protonix Ec Tab) 40 mg PO DAILY [facility] Last Admin: 12/23/16 10:05 Dose: 40 mg Rosuvastatin Calcium (Crestor) 5 mg PO HS [facility] Last Admin: 12/22/16 21:54 Dose: 5 mg Trazodone HCl (Desyrel) 50 mg PO HS [facility] Last Admin: 12/22/16 21:54 Dose: 50 mg Warfarin Sodium (Coumadin) 10 mg PO 1800 [facility] Stop: 12/23/16 18:01 - Labs Labs: 12/23/16 08:32 12/23/16 08:32 PT 18.8 SECONDS (9.7-12.2) H 12/23/16 08:32 INR 1.6 12/23/16 08:32 APTT 38 SECONDS (21-34) H 08/17/17 06:51 Attending/Attestation - Attestation I have personally seen and examined this patient.: Yes I have fully participated in the care of the patient.: Yes I have reviewed all pertinent clinical information, including history, physical exam and plan: Yes Notes (Text): 12/23/16 14:56 Medical Attending: Agree with the above note by the resident. The patient had family members present and so I did not discuss with the patient extensively as he did not appear comfortable with his parents present. At this time we are pending the INR to become theraputic. It is now 1.6. He is getting coumadin for his of MVR. From what I understand the patient may be going to [place] or [facility] for further psychiatric care once he is medically theraputic with his INR thank you Jean Arciniega 12/23/16 14:58
[2016-12-24] MEDS: (Novolin R) Insulin Human Regular 100 units/ml vial SC SCH ×4 (08:19→21:26)
[2016-12-24 08:44] LABS: BASO % 0.6 % (0.0-2.0); EOS # 0.1 K/uL (0.0-0.7); EOS % 1.6 % (0.0-4.0); HEMATOCRIT 36.6 % (35.0-51.0); LYMPH # 0.6 K/uL (1.0-4.3); LYMPH % 14.5 % (20.0-40.0); MEAN CORPUSCULAR HEMOGLOBIN 29.7 pg (27.0-31.0); MEAN CORPUSCULAR HGB CONC 31.9 g/dL (33.0-37.0); MEAN PLATELET VOLUME 10.1 fL (7.2-11.7); MONO # 0.5 K/uL (0.0-0.8); NRBC % 0.1 % (0.0-2.0); RED CELL DISTRIBUTION WIDTH 13.9 % (11.5-14.5); WHITE BLOOD COUNT 4.4 K/uL (4.8-10.8)
[2016-12-24 08:49] LABS: ALB/GLOB RATIO 1.3 (1.0-2.1); ALKALINE PHOSPHATASE 81 U/L (38-126); ALT/SGPT 41 U/L (21-72); AST/SGOT 30 U/L (17-59); BILIRUBIN,TOTAL 0.3 mg/dL (0.2-1.3); BLOOD UREA NITROGEN 17 mg/dL (9-20); CALCIUM 8.2 mg/dl (8.6-10.4); CARBON DIOXIDE 30 mmol/L (22-30); CHLORIDE 97 mmol/L (98-107); GFR AFRICAN-AMERICAN > 60; GLUCOSE,RANDOM 243 mg/dL (75-110); POTASSIUM 3.8 mmol/L (3.6-5.2); SODIUM 135 mmol/L (132-148); TOTAL PROTEIN 5.6 g/dL (6.3-8.3)
[2016-12-24 09:02] LABS: INR 2.4
[2016-12-24] MEDS: Pantoprazole 40 mg EC Tab PO SCH (09:05)
[2016-12-24] MEDS: metOLazone 2.5 MG TAB PO SCH (09:06)
[2016-12-24] MEDS: Enoxaparin 60 mg Syringe SC SCH (09:15)
--- NOTE | 2016-12-24 12:31 | PN ---
DATE: 12/23/2016 SUBJECTIVE: The patient is seen with his mom and his brother. The patient is still awaiting medical clearance. His PT is 18.8, INR is 1.6. The patient's INR numbers appear subtherapeutic as per attending. They are aiming to get between 2.5 and 3.5. The patient is still not at optimum anticoagulation number, but he states that he is not in a [place] to leave. The patient is still willing to go to [facility] clinic after medically cleared for depression. PHYSICAL EXAMINATION VITAL SIGNS: Temperature is 98.1, pulse rate 69, blood pressure 129/66, respirations 20, O2 sat is 95%. GENERAL: The patient is alert, oriented x3, seen with his family. SKIN: No diaphoresis. HEENT: No headache. No dizziness. NECK: Supple. RESPIRATORY: No dyspnea. CARDIOVASCULAR: No chest pain. GASTROINTESTINAL: He is eating well. EXTREMITIES: The patient is ambulatory. MUSCULOSKELETAL: Weakness is improving. NEUROLOGIC: Alert and oriented x3. GENITOURINARY: No dysuria. MENTAL STATUS EXAMINATION: Elderly male who looks stated age, alert and oriented x3. Mood is still depressed. Affect is reactive. Speech is spontaneous. Thought process is coherent. Thought content, no psychosis. No suicidal or homicidal ideation. Attention and memory seem to be fair. Insight and judgment is fair. Impulse control is fair . IMPRESSION: History of recurrent depression and anxiety disorder. PLAN AND RECOMMENDATION: The patient is seen and medication reviewed. The patient is awaiting medical clearance to transferred [facility] once medically cleared. We will continue present psych meds. The patient is on Klonopin 2 mg at bedtime and trazodone 50 mg at bedtime. Pablo Montez MD MTDKira
--- NOTE | 2016-12-24 17:51 | CP.PCM.PN ---
<Stiven Valentine - Last Filed: 12/24/16 17:49> Subjective - Date & Time of Evaluation Date of Evaluation: 12/24/16 Time of Evaluation: 17:49 - Subjective Subjective: PGY1 Note for Dr. Zuniga HPI: Patient seen and examined at bedside. Doing well with no complaints at this time. Patient was wondering wether or not he was going to be transferred to [facility] tomorrow but i told him i was not comfortable with his INR and wanted to wait to see if I could reach a more appropriate therapeutic level. I will recheck the INR tomorrow. He has no other complaints at this time. Sitting up in bed eating. Objective - Vital Signs/Intake and Output Vital Signs (last 24 hours): Temp Pulse Resp BP Pulse Ox 97.6 F 61 20 151/78 H 98 12/24/16 17:38 12/24/16 17:38 12/24/16 17:38 12/24/16 17:38 12/24/16 17:38 Intake and Output: 12/24/16 12/24/16 06:59 18:59 Intake Total 480 Balance 480 - Medications Medications: Current Medications Acetaminophen (Tylenol 325mg Tab) 650 mg PO Q6 PRN PRN Reason: Pain, moderate (4-7) Last Admin: 12/23/16 22:27 Dose: 650 mg Allopurinol (Zyloprim) 100 mg PO DAILY [facility] Last Admin: 12/24/16 09:06 Dose: 100 mg Clonazepam (Klonopin) 2 mg PO HS [facility] Last Admin: 12/23/16 21:31 Dose: 2 mg Enoxaparin Sodium (Lovenox) 60 mg SC Q12 JIM Last Admin: 12/24/16 09:15 Dose: 60 mg Insulin Human Regular (Novolin R) 0 unit SC ACHS [facility]M PRN Reason: Protocol Last Admin: 12/24/16 17:27 Dose: 1 unit Losartan Potassium (Cozaar) 100 mg PO DAILY [facility] Last Admin: 12/24/16 09:05 Dose: 100 mg Metolazone (Zaroxolyn) 2.5 mg PO DAILY [facility] Last Admin: 12/24/16 09:06 Dose: 2.5 mg Pantoprazole Sodium (Protonix Ec Tab) 40 mg PO DAILY [facility] Last Admin: 12/24/16 09:05 Dose: 40 mg Rosuvastatin Calcium (Crestor) 5 mg PO HS [facility] Last Admin: 12/23/16 21:31 Dose: 5 mg Trazodone HCl (Desyrel) 50 mg PO HS [facility] Last Admin: 12/23/16 21:31 Dose: 50 mg Warfarin Sodium (Coumadin) 5 mg PO 1800 [facility] Stop: 12/24/16 18:01 Last Admin: 12/24/16 17:26 Dose: 5 mg - Labs Labs: 12/24/16 08:20 12/24/16 08:20 PT 28.7 SECONDS (9.7-12.2) H D 12/24/16 08:20 INR 2.4 D 12/24/16 08:20 APTT 38 SECONDS (21-34) H 12/21/16 06:51 - Constitutional Appears: Well, Non-toxic, No Acute Distress - Head Exam Head Exam: ATRAUMATIC, NORMAL INSPECTION, NORMOCEPHALIC - Eye Exam Eye Exam: EOMI - ENT Exam ENT Exam: Mucous Membranes Moist - Respiratory Exam Respiratory Exam: Clear to Ausculation Bilateral - Cardiovascular Exam Cardiovascular Exam: Irregular Rhythm Additional comments: afib - GI/Abdominal Exam GI & Abdominal Exam: Soft, Normal Bowel Sounds. absent: Distended, Tenderness - Neurological Exam Neurological Exam: Alert, Awake, Oriented x3 - Psychiatric Exam Psychiatric exam: Normal Affect, Normal Mood - Skin Skin Exam: Dry, Intact, Normal Color, Warm Assessment and Plan - Assessment and Plan (Free Text) Assessment: Subtherapeutic INR * history of mechanical mitral valve replacement * INR goal at least 2.5 - 3.5 * INR is 2.4 * Coumadin 5mg today * F/U tomorrow AM INR Afib * Coumadin * Rate Controlled Gout * Allopurinol 100mg PO Daily Anxiety/ Depression * Psych ([facility]) - Transfer to Psych once INR is therapeutic * Klonopin 2mg PO HS * Trazodone 50mg PO HS Hypertension * Cozaar 100mg PO Daily * Metolazone 2.5mg PO Daily Diabetes * RISS * accucheck * Heart Healthy, mod CHO diet * Crestor 5mg PO HS Prophylactic Measure * On full anticoagulation * Protonix 40mg PO Daily <Fermin Zuniga - Last Filed: 12/24/16 19:25> Objective - Vital Signs/Intake and Output Vital Signs (last 24 hours): Temp Pulse Resp BP Pulse Ox 97.6 F 61 20 151/78 H 98 12/24/16 17:38 12/24/16 17:38 12/24/16 17:38 12/24/16 17:38 12/24/16 17:38 Intake and Output: 12/24/16 12/25/16 18:59 06:59 Intake Total 480 Balance 480 - Medications Medications: Current Medications Acetaminophen (Tylenol 325mg Tab) 650 mg PO Q6 PRN PRN Reason: Pain, moderate (4-7) Last Admin: 12/23/16 22:27 Dose: 650 mg Allopurinol (Zyloprim) 100 mg PO DAILY [facility] Last Admin: 12/24/16 09:06 Dose: 100 mg Clonazepam (Klonopin) 2 mg PO HS [facility] Last Admin: 12/23/16 21:31 Dose: 2 mg Insulin Human Regular (Novolin R) 0 unit SC ACHS JIM PRN Reason: Protocol Last Admin: 12/24/16 17:27 Dose: 1 unit Losartan Potassium (Cozaar) 100 mg PO DAILY [facility] Last Admin: 12/24/16 09:05 Dose: 100 mg Metolazone (Zaroxolyn) 2.5 mg PO DAILY [facility] Last Admin: 12/24/16 09:06 Dose: 2.5 mg Pantoprazole Sodium (Protonix Ec Tab) 40 mg PO DAILY [facility] Last Admin: 12/24/16 09:05 Dose: 40 mg Rosuvastatin Calcium (Crestor) 5 mg PO HS [facility] Last Admin: 12/23/16 21:31 Dose: 5 mg Trazodone HCl (Desyrel) 50 mg PO HS [facility] Last Admin: 12/23/16 21:31 Dose: 50 mg - Labs Labs: 12/24/16 08:20 12/24/16 08:20 PT 28.7 SECONDS (9.7-12.2) H D 12/24/16 08:20 INR 2.4 D 12/24/16 08:20 APTT 38 SECONDS (21-34) H 12/21/16 06:51 Attending/Attestation - Attestation I have personally seen and examined this patient.: Yes I have fully participated in the care of the patient.: Yes I have reviewed all pertinent clinical information, including history, physical exam and plan: Yes Notes (Text): 12/24/16 19:[address] Polo Kendrick Patient was seen and examined at 3:30 PM Upon FULL ROS there are no complaints Exam was unremarkable Assessment: 1). Abdominal Pain with N/V on admission: resolved and tolerating his diet 2). Atrial Fibrillation with Mechanical Mitral Valve: INR 2.4. Discontinue Lovenox. Coumadin 5 mg PO x 1 dose tonight. Goal INR is 2.5 to 3.5 3). HTN 4). Hx CAD ? (as per Dr. Kendrick's H&P) 5). DM 2 6). HLD 7). Depression 8). Gout Once INR is therapeutic 2.5 to 3.5 then will transfer to in-patient psychiatry at either [place] or [facility] as per Psychiatry Dr. Iglesias. Fermin Zuniga D.O.
--- NOTE | 2016-12-25 00:59 | PN ---
DATE: 12/24/2016 SUBJECTIVE: The patient is seen. The patient is still depressed. The patient's INR is now in the therapeutic range of 2.4 and the patient has agreed to advance to the [facility] probably in the morning. His PT is 28.7, INR is 2.4. The patient has lots of stressors. He told me that he has some legal issues and needs to go to court next month. He is also complaining of some issues with his housing. He has agreed to go to [place] for inpatient [facility] admission once he is cleared. PHYSICAL EXAMINATION GENERAL: He is alert, oriented x3, seen in his room with his mother. VITAL SIGNS: Temperature is 98.4, pulse is 61, blood pressure is 163/72, respirations 20, oxygen sat is 96%. SKIN: No diaphoresis. HEENT: No headache. No dizziness. NECK: Supple. RESPIRATORY: No dyspnea. CARDIOVASCULAR: No chest pain. GASTROINTESTINAL: He is eating better. EXTREMITIES: He ambulates with a cane. His gait is unsteady. MUSCULOSKELETAL: Feels weak. NEUROLOGIC: Alert and oriented x3. GENITOURINARY: No urinary problems. MENTAL STATUS EXAMINATION: Elderly male who looks stated age who is oriented x3. Mood is still depressed. Affect is reactive. Speech is spontaneous. Thought process is coherent. Thought content, no psychosis. No suicidal or homicidal ideation. Attention and memory seem to be fair. Insight and judgment is fair. Impulse control is fair. IMPRESSION: History of recurrent depression and anxiety. PLAN AND RECOMMENDATION: The patient is seen and medications reviewed. We will try to transfer him to [facility] in the morning when he is cleared. Pablo Montez MD MTDKira
[2016-12-25 07:25] LABS: BASO % 0.6 % (0.0-2.0); EOS # 0.1 K/uL (0.0-0.7); EOS % 1.5 % (0.0-4.0); HEMATOCRIT 36.2 % (35.0-51.0); LYMPH # 0.8 K/uL (1.0-4.3); LYMPH % 14.8 % (20.0-40.0); MEAN CELL VOLUME 92.6 fL (80.0-94.0); MEAN CORPUSCULAR HEMOGLOBIN 29.8 pg (27.0-31.0); MEAN CORPUSCULAR HGB CONC 32.1 g/dL (33.0-37.0); MEAN PLATELET VOLUME 10.1 fL (7.2-11.7); MONO # 0.6 K/uL (0.0-0.8); MONO % 12.5 % (0.0-10.0); RED CELL DISTRIBUTION WIDTH 13.9 % (11.5-14.5); WHITE BLOOD COUNT 5.2 K/uL (4.8-10.8)
[2016-12-25 07:33] LABS: CHLORIDE 96 mmol/L (98-107)
[2016-12-25 07:34] LABS: POTASSIUM 3.9 mmol/L (3.6-5.2); SODIUM 136 mmol/L (132-148)
[2016-12-25 07:36] LABS: ALB/GLOB RATIO 1.2 (1.0-2.1); ALKALINE PHOSPHATASE 82 U/L (38-126); AST/SGOT 35 U/L (17-59); BILIRUBIN,TOTAL 0.4 mg/dL (0.2-1.3); BLOOD UREA NITROGEN 15 mg/dL (9-20); CARBON DIOXIDE 35 mmol/L (22-30); GFR AFRICAN-AMERICAN > 60; GLUCOSE,RANDOM 257 mg/dL (75-110); TOTAL PROTEIN 5.5 g/dL (6.3-8.3)
[2016-12-25 07:37] LABS: ALT/SGPT 48 U/L (21-72); CALCIUM 8.2 mg/dl (8.6-10.4)
[2016-12-25 07:39] LABS: INR 2.9
[2016-12-25] MEDS: (Novolin R) Insulin Human Regular 100 units/ml vial SC SCH ×2 (08:30→12:12)
[2016-12-25] MEDS: metOLazone 2.5 MG TAB PO SCH (09:47)
[2016-12-25] MEDS: Pantoprazole 40 mg EC Tab PO SCH (09:47)
--- NOTE | 2016-12-25 10:49 | CP.PCM.PN ---
Subjective - Date & Time of Evaluation Date of Evaluation: 12/25/16 Time of Evaluation: 10:30 - Subjective Subjective: Hospitalist Barb covering Dr. Polo Kendrick Patient was seen and examined at 10:30 AM Upon FULL ROS there are no complaints Exam was unremarkable Assessment: 1). Abdominal Pain with N/V on admission: resolved and tolerating his diet 2). Atrial Fibrillation with Mechanical Mitral Valve: INR 2.9. Coumadin 5 mg PO 1x/day. Goal INR is 2.5 to 3.5 3). HTN: Losartan 100 mg PO 1x/day, Meolazone 2.5 mg PO 1x/day, Norvasc 5 mg PO 1x/day added today 12/25/16 4). Hx CAD ? (as per Dr. Kendrick's H&P) 5). DM 1: RISS for now. 6). HLD: Crestor 5 mg PO WHS 7). Depression: Trazodone 50 mg PO HS, Klonopin 2 mg PO HS 8). Gout: Allopurinol 100 mg PO 1x/day 9). Prophylaxis: Tylenol 650 mg PO Q6H PRN Mild Pain, Protonix 40 mg PO 1x/day Patient is medically cleared for [place] In-Patient Psychiatry. Fermin Zuniga D.O. Objective - Vital Signs/Intake and Output Vital Signs (last 24 hours): Temp Pulse Resp BP Pulse Ox 97.9 F 56 L 20 161/69 H 97 12/25/16 07:44 12/25/16 07:44 12/25/16 07:44 12/25/16 07:44 12/25/16 07:44 - Medications Medications: Current Medications Acetaminophen (Tylenol 325mg Tab) 650 mg PO Q6 PRN PRN Reason: Pain, moderate (4-7) Last Admin: 12/23/16 22:27 Dose: 650 mg Allopurinol (Zyloprim) 100 mg PO DAILY [facility] Last Admin: 12/25/16 09:47 Dose: 100 mg Amlodipine Besylate (Norvasc) 5 mg PO DAILY [facility] Clonazepam (Klonopin) 2 mg PO HS [facility] Last Admin: 12/24/16 21:25 Dose: 2 mg Insulin Human Regular (Novolin R) 0 unit SC ACHS JIM PRN Reason: Protocol Last Admin: 12/25/16 08:30 Dose: 3 unit Losartan Potassium (Cozaar) 100 mg PO DAILY [facility] Last Admin: 12/25/16 09:47 Dose: 100 mg Metolazone (Zaroxolyn) 2.5 mg PO DAILY [facility] Last Admin: 12/25/16 09:47 Dose: 2.5 mg Pantoprazole Sodium (Protonix Ec Tab) 40 mg PO DAILY [facility] Last Admin: 12/25/16 09:47 Dose: 40 mg Rosuvastatin Calcium (Crestor) 5 mg PO HS [facility] Last Admin: 12/24/16 21:25 Dose: 5 mg Trazodone HCl (Desyrel) 50 mg PO HS [facility] Last Admin: 12/24/16 21:25 Dose: 50 mg - Labs Labs: 12/25/16 07:08 12/25/16 07:08 PT 33.9 SECONDS (9.7-12.2) H* D 12/25/16 07:08 INR 2.9 D 12/25/16 07:08 APTT 38 SECONDS (21-34) H 12/21/16 06:51
[2016-12-25 12:02] VITALS: BP 135/72; PULSE 68; TEMP 98; O2SAT 98
--- NOTE | 2016-12-25 12:08 | CP.PCM.DIS ---
<Celso Ramires S - Last Filed: 12/25/16 18:25> Provider - Provider Date of Admission: 12/21/16 15:05 Attending physician: James Mac MD Time Spent in preparation of Discharge (in minutes): 31 Diagnosis - Discharge Diagnosis (1) Subtherapeutic international normalized ratio (INR) Status: Acute (2) Anxiety and depression Status: Acute (3) Hypertension Status: Chronic (4) Diabetes Status: Chronic (5) Abdominal pain Status: Acute (6) Dizziness Status: Acute (7) Atrial fibrillation Status: Chronic (8) Prophylactic measure Status: Acute Hospital Course - Lab Results Lab Results: Most Recent Lab Values WBC 5.2 K/uL (4.8-10.8) 12/25/16 07:08 RBC 3.91 Mil/uL (4.40-5.90) L 12/25/16 07:08 Hgb 11.6 g/dL (12.0-18.0) L 12/25/16 07:08 Hct 36.2 % (35.0-51.0) 12/25/16 07:08 MCV 92.6 fL (80.0-94.0) 12/25/16 07:08 MCH 29.8 pg (27.0-31.0) 12/25/16 07:08 MCHC 32.1 g/dL (33.0-37.0) L 12/25/16 07:08 RDW 13.9 % (11.5-14.5) 12/25/16 07:08 Plt Count 146 K/uL (130-400) 12/25/16 07:08 MPV 10.1 fL (7.2-11.7) 12/25/16 07:08 Neut % (Auto) 70.6 % (50.0-75.0) 12/25/16 07:08 Lymph % (Auto) 14.8 % (20.0-40.0) L 12/25/16 07:08 Coke % (Auto) 12.5 % (0.0-10.0) H 12/25/16 07:08 Eos % (Auto) 1.5 % (0.0-4.0) 12/25/16 07:08 Baso % (Auto) 0.6 % (0.0-2.0) 12/25/16 07:08 Neut # 3.7 K/uL (1.8-7.0) 12/25/16 07:08 Lymph # 0.8 K/uL (1.0-4.3) L 12/25/16 07:08 Coke # 0.6 K/uL (0.0-0.8) 12/25/16 07:08 Eos # 0.1 K/uL (0.0-0.7) 12/25/16 07:08 Baso # 0.0 K/uL (0.0-0.2) 12/25/16 07:08 Neutrophils % (Manual) 86 % (50-75) H 12/19/16 17:39 Lymphocytes % (Manual) 9 % (20-40) L 12/19/16 17:39 Monocytes % (Manual) 4 % (0-10) 12/19/16 17:39 Eosinophils % (Manual) 1 % (0-4) 12/19/16 17:39 Platelet Estimate Normal (NORMAL) 12/19/16 17:39 PT 33.9 SECONDS (9.7-12.2) H* D 12/25/16 07:08 INR 2.9 D 12/25/16 07:08 APTT 38 SECONDS (21-34) H 12/21/16 06:51 Sodium 136 mmol/L (132-148) 12/25/16 07:08 Potassium 3.9 mmol/L (3.6-5.2) 12/25/16 07:08 Chloride 96 mmol/L (98-107) L 12/25/16 07:08 Carbon Dioxide 35 mmol/L (22-30) H 12/25/16 07:08 Anion Gap 9 (10-20) L 12/25/16 07:08 BUN 15 mg/dL (9-20) 12/25/16 07:08 Creatinine 0.9 MG/DL (0.8-1.5) 12/25/16 07:08 Est GFR ( Amer) > 60 12/25/16 07:08 Est GFR (Non-Af Amer) > 60 12/25/16 07:08 POC Glucose (mg/dL) 206 mg/dL (65-110) H 12/25/16 11:26 Random Glucose 257 mg/dL (75-110) H 12/25/16 07:08 Calcium 8.2 mg/dl (8.6-10.4) L 12/25/16 07:08 Total Bilirubin 0.4 mg/dL (0.2-1.3) 12/25/16 07:08 AST 35 U/L (17-59) 12/25/16 07:08 ALT 48 U/L (21-72) 12/25/16 07:08 Alkaline Phosphatase 82 U/L (38-126) 12/25/16 07:08 Total Creatine Kinase 48 U/L (55-170) L 12/19/16 17:39 CK-MB (Mass) 0.77 ng/mL (0.0-3.38) 12/19/16 17:39 Troponin I 0.0150 ng/mL (0.00-0.120) 12/19/16 17:39 Total Protein 5.5 g/dL (6.3-8.3) L 12/25/16 07:08 Albumin 3.0 g/dL (3.5-5.0) L 12/25/16 07:08 Globulin 2.6 gm/dL (2.2-3.9) 12/25/16 07:08 Albumin/Globulin Ratio 1.2 (1.0-2.1) 12/25/16 07:08 Vitamin B12 485 pg/mL (239-931) 12/20/16 17:08 Folate 7.6 ng/mL 12/20/16 17:08 TSH 3rd Generation 1.34 mIU/L (0.46-4.68) 12/20/16 17:08 Urine Color Yellow (YELLOW) 12/19/16 17:21 Urine Clarity Clear (Clear) 12/19/16 17:21 Urine pH 6.0 (5.0-8.0) 12/19/16 17:21 Ur Specific [place] 1.009 (1.003-1.030) 12/19/16 17:21 Urine Protein 1+ mg/dL (NEGATIVE) H 12/19/16 17:21 Urine Glucose (UA) Normal mg/dL (Normal) 12/19/16 17:21 Urine Ketones Trace mg/dL (NEGATIVE) 12/19/16 17:21 Urine Blood 1+ (NEGATIVE) H 12/19/16 17:21 Urine Nitrate Negative (NEGATIVE) 12/19/16 17:21 Urine Bilirubin Negative (NEGATIVE) 12/19/16 17:21 Urine Urobilinogen Normal mg/dL (0.2-1.0) 12/19/16 17:21 Ur Leukocyte Esterase Neg Aubrey/uL (Negative) 12/19/16 17:21 Urine WBC (Auto) < 1 /hpf (0-5) 12/19/16 17:21 Urine RBC (Auto) < 1 /hpf (0-3) 12/19/16 17:21 Ur Squamous Epith Cells < 1 /hpf (0-5) 12/19/16 17:21 Urine Opiates Screen Negative (NEGATIVE) 12/19/16 17:21 Urine Methadone Screen Negative (NEGATIVE) 12/19/16 17:21 Ur Barbiturates Screen Negative (NEGATIVE) 12/19/16 17:21 Ur Phencyclidine Scrn Negative (NEGATIVE) 12/19/16 17:21 Ur Amphetamines Screen Negative (NEGATIVE) 12/19/16 17:21 U Benzodiazepines Scrn Negative (NEGATIVE) 12/19/16 17:21 U Oth Cocaine Metabols Negative (NEGATIVE) 12/19/16 17:21 U Cannabinoids Screen Negative (NEGATIVE) 12/19/16 17:21 Alcohol, Quantitative < 10 mg/dl (0-10) 12/19/16 17:39 - Hospital Course Hospital Course: On admission: "66-year-old male with history of mitral valve replacement, hypertension, depression, anxiety, CAD, diabetes, hypercholesteremia, on anticoagulation, recent history of hematoma came to the emergency room with the symptoms of sudden onset of abdominal pain. Also associated with vomiting. Patient is morning went to his sister's house, and had some orange juice. Following that he started having some epigastric pain, and the nausea, vomiting. Patient recently feeling increasing depression. And at least 20 days he is not taking any of his medications including important medications for his mitral valve replacement, and anticoagulation. Patient is only taking sleeping pills at this time. He is not able to sleep well. Feeling weak tired and the distal fatigability, and depressed. He does not have a symptoms of killing himself at this time." Hospital Course: Patient admitted for dizziness and abdominal pain with nausea and vomiting which have since resolved. Patient has a history of noncompliance with medications. Dr. Flores (psychiatry) was consulted due to patient's depression. Dr. Flores recommended transfer to inpatient geriatric psychiatry unit once medically stable. Patient's INR was sub-therapeutic given his history of prosthetic mitral valve placement. At time of discharge, patient's INR was therapeutic at 2.9, and patient is to continue Warfarin 5 mg PO daily. Per Dr. Flores, patient was cleared for discharge from his perspective and was given a script with instructions for [facility] to facilitate his admission. Dr. Flores told us not to give him prescriptions as the patient was to go to [facility] after first stopping by to get change of clothes. Patient was cleared by psychiatry and medically stable from medical team standpoint. Please see Dr. Sylvia Zuniga's 12/25/16 progress note for recommendations for continuation of medications upon arrival to [facility]. This is a summary of the hospital course. For more details, refer to the medical records. - Date & Time of H&P Date of H&P: 12/25/16 Time of H&P: 12:00 Discharge Exam - Head Exam Head Exam: ATRAUMATIC, NORMAL INSPECTION, NORMOCEPHALIC - Eye Exam Eye Exam: EOMI, PERRL - ENT Exam ENT Exam: Mucous Membranes Moist - Respiratory Exam Respiratory Exam: Clear to PA & Lateral. absent: Rales, Rhonchi, Wheezes - Cardiovascular Exam Cardiovascular Exam: Irregular Rhythm, +S1, +S2. absent: Tachycardia - GI/Abdominal Exam GI & Abdominal Exam: Normal Bowel Sounds, Soft. absent: Tenderness - Extremities Exam Extremities exam: pedal pulses present - Neurological Exam Neurological exam: Alert, Oriented x3 - Skin Skin Exam: Dry, Intact, Normal Color, Warm Discharge Plan - Follow Up Plan Condition: STABLE Disposition: HOME/ ROUTINE Instructions: Warfarin (By mouth) Additional Instructions: You are being discharged per Dr. Flores's clearance. Please arrive at [facility] by 4:00 PM today after you worm picker your belongings from home. Per his instruction, you were not discharged with prescriptions because you are to report to [facility] later today. Referrals: Pablo Estrada MD [Staff Provider] - [facility], [Non-Staff] - Laura Vernon MD [Non-Staff] - <Fermin Zuniga - Last Filed: 12/25/16 20:20> Provider - Provider Date of Admission: 12/21/16 15:05 Attending physician: James Mac MD Hospital Course - Lab Results Lab Results: Most Recent Lab Values WBC 5.2 K/uL (4.8-10.8) 12/25/16 07:08 RBC 3.91 Mil/uL (4.40-5.90) L 12/25/16 07:08 Hgb 11.6 g/dL (12.0-18.0) L 12/25/16 07:08 Hct 36.2 % (35.0-51.0) 12/25/16 07:08 MCV 92.6 fL (80.0-94.0) 12/25/16 07:08 MCH 29.8 pg (27.0-31.0) 12/25/16 07:08 MCHC 32.1 g/dL (33.0-37.0) L 12/25/16 07:08 RDW 13.9 % (11.5-14.5) 12/25/16 07:08 Plt Count 146 K/uL (130-400) 12/25/16 07:08 MPV 10.1 fL (7.2-11.7) 12/25/16 07:08 Neut % (Auto) 70.6 % (50.0-75.0) 12/25/16 07:08 Lymph % (Auto) 14.8 % (20.0-40.0) L 12/25/16 07:08 Coke % (Auto) 12.5 % (0.0-10.0) H 12/25/16 07:08 Eos % (Auto) 1.5 % (0.0-4.0) 12/25/16 07:08 Baso % (Auto) 0.6 % (0.0-2.0) 12/25/16 07:08 Neut # 3.7 K/uL (1.8-7.0) 12/25/16 07:08 Lymph # 0.8 K/uL (1.0-4.3) L 12/25/16 07:08 [place] # 0.6 K/uL (0.0-0.8) 12/25/16 07:08 Eos # 0.1 K/uL (0.0-0.7) 12/25/16 07:08 Baso # 0.0 K/uL (0.0-0.2) 12/25/16 07:08 Neutrophils % (Manual) 86 % (50-75) H 12/19/16 17:39 Lymphocytes % (Manual) 9 % (20-40) L 12/19/16 17:39 Monocytes % (Manual) 4 % (0-10) 12/19/16 17:39 Eosinophils % (Manual) 1 % (0-4) 12/19/16 17:39 Platelet Estimate Normal (NORMAL) 12/19/16 17:39 PT 33.9 SECONDS (9.7-12.2) H* D 12/25/16 07:08 INR 2.9 D 12/25/16 07:08 APTT 38 SECONDS (21-34) H 12/21/16 06:51 Sodium 136 mmol/L (132-148) 12/25/16 07:08 Potassium 3.9 mmol/L (3.6-5.2) 12/25/16 07:08 Chloride 96 mmol/L (98-107) L 12/25/16 07:08 Carbon Dioxide 35 mmol/L (22-30) H 12/25/16 07:08 Anion Gap 9 (10-20) L 12/25/16 07:08 BUN 15 mg/dL (9-20) 12/25/16 07:08 Creatinine 0.9 MG/DL (0.8-1.5) 12/25/16 07:08 Est GFR ( Amer) > 60 12/25/16 07:08 Est GFR (Non-Af Amer) > 60 12/25/16 07:08 POC Glucose (mg/dL) 206 mg/dL (65-110) H 12/25/16 11:26 Random Glucose 257 mg/dL (75-110) H 12/25/16 07:08 Calcium 8.2 mg/dl (8.6-10.4) L 12/25/16 07:08 Total Bilirubin 0.4 mg/dL (0.2-1.3) 12/25/16 07:08 AST 35 U/L (17-59) 12/25/16 07:08 ALT 48 U/L (21-72) 12/25/16 07:08 Alkaline Phosphatase 82 U/L (38-126) 12/25/16 07:08 Total Creatine Kinase 48 U/L (55-170) L 12/19/16 17:39 CK-MB (Mass) 0.77 ng/mL (0.0-3.38) 12/19/16 17:39 Troponin I 0.0150 ng/mL (0.00-0.120) 12/19/16 17:39 Total Protein 5.5 g/dL (6.3-8.3) L 12/25/16 07:08 Albumin 3.0 g/dL (3.5-5.0) L 12/25/16 07:08 Globulin 2.6 gm/dL (2.2-3.9) 12/25/16 07:08 Albumin/Globulin Ratio 1.2 (1.0-2.1) 12/25/16 07:08 Vitamin B12 485 pg/mL (239-931) 12/20/16 17:08 Folate 7.6 ng/mL 12/20/16 17:08 TSH 3rd Generation 1.34 mIU/L (0.46-4.68) 12/20/16 17:08 Urine Color Yellow (YELLOW) 12/19/16 17:21 Urine Clarity Clear (Clear) 12/19/16 17:21 Urine pH 6.0 (5.0-8.0) 12/19/16 17:21 Ur Specific [place] 1.009 (1.003-1.030) 12/19/16 17:21 Urine Protein 1+ mg/dL (NEGATIVE) H 12/19/16 17:21 Urine Glucose (UA) Normal mg/dL (Normal) 12/19/16 17:21 Urine Ketones Trace mg/dL (NEGATIVE) 12/19/16 17:21 Urine Blood 1+ (NEGATIVE) H 12/19/16 17:21 Urine Nitrate Negative (NEGATIVE) 12/19/16 17:21 Urine Bilirubin Negative (NEGATIVE) 12/19/16 17:21 Urine Urobilinogen Normal mg/dL (0.2-1.0) 12/19/16 17:21 Ur Leukocyte Esterase Neg Aubrey/uL (Negative) 12/19/16 17:21 Urine WBC (Auto) < 1 /hpf (0-5) 12/19/16 17:21 Urine RBC (Auto) < 1 /hpf (0-3) 12/19/16 17:21 Ur Squamous Epith Cells < 1 /hpf (0-5) 12/19/16 17:21 Urine Opiates Screen Negative (NEGATIVE) 12/19/16 17:21 Urine Methadone Screen Negative (NEGATIVE) 12/19/16 17:21 Ur Barbiturates Screen Negative (NEGATIVE) 12/19/16 17:21 Ur Phencyclidine Scrn Negative (NEGATIVE) 12/19/16 17:21 Ur Amphetamines Screen Negative (NEGATIVE) 12/19/16 17:21 U Benzodiazepines Scrn Negative (NEGATIVE) 12/19/16 17:21 U Oth Cocaine Metabols Negative (NEGATIVE) 12/19/16 17:21 U Cannabinoids Screen Negative (NEGATIVE) 12/19/16 17:21 Alcohol, Quantitative < 10 mg/dl (0-10) 12/19/16 17:39 Attending/Attestation - Attestation I have personally seen and examined this patient.: Yes I have fully participated in the care of the patient.: Yes I have reviewed all pertinent clinical information, including history, physical exam and plan: Yes Notes (Text): 12/25/16 20:19 Please also see my Progress Note Fermin Zuniga D.O.
--- NOTE | 2016-12-26 01:41 | PN ---
DATE: 12/25/2016 SUBJECTIVE: The patient was seen. The patient has been cleared by medicine. 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 The patient states that he will need at least 3 to 5 days of fresh clothes. His brother will pick him up. The patient will go to the emergency room later today. He was given a note for admission. I did contact the psychiatrist at [place] who is willing to admit the patient under her service. The patient will be discharged today and will be going later to the emergency room for admission. His lab result is PT is 33.9 and the patient#s INR is 2.9. REVIEW OF SYSTEMS: GENERAL: The patient is alert and oriented x3, seen in his room. 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 SKIN: No diaphoresis. HEENT: No headache. No dizziness. NECK: Supple. RESPIRATORY: No dyspnea. CARDIOVASCULAR: No chest pain. GASTROINTESTINAL: He is eating better. EXTREMITIES: Ambulates with a cane. MUSCULOSKELETAL: Still feels weak. NEUROLOGIC: Alert and oriented x3. GENITOURINARY: No problems. MENTAL STATUS EXAMINATION: Elderly male who looks stated age, alert, oriented x3. Mood is still depressed. Affect is reactive. Speech is spontaneous. Thought process is coherent. Thought content, no overt psychosis. No suicidal or homicidal ideation. Attention and memory seem to be fair. Insight and judgment are fair. Impulse control is fair. IMPRESSION: History of recurrent depression and anxiety. PLAN AND RECOMMENDATION: The patient seen and medications reviewed. The patient is for admission to [place] today. The patient can be discharged from medicine. His brother will pick him up. 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 The psychiatrist in [place] will be waiting for him between 3 and 4 for the patient's admission. The patient is currently taking trazodone and Klonopin, and I did instruct the nurse not to give him any prescription as the patient will be going directly from the hospital after his trip to home today to [place] for inpatient treatment. The patient is still volunteering for inpatient psych admission. The patient has lots of psychosocial stressors causing his depression. Pablo Montez MD
--- NOTE | 2016-12-28 12:59 | CARD ---
APPROVED REPORT EKG Measurement Heart [id number] <Conclusion> Atrial fibrillation with slow ventricular response Low voltage QRS Septal infarct, age undetermined Abnormal ECG
== END 2016-12-25 13:12 | disposition home or self-care (01) | DRG 885 ==
LOC: C.ER 13:44 → C.9OBSV 16:52 → C.9E 19:27 → C.3T 21:06 → OBSVTOIN 12-21 15:05
PROVIDERS: ADMIT Internal Medicine; ATTEND Internal Medicine
DX: F33.9 Major depressive disorder, recurrent, unspecified (principal); G93.89 Other specified disorders of brain; R79.1 Abnormal coagulation profile; E11.9 Type 2 diabetes mellitus without complications; I10 Essential (primary) hypertension; I25.10 Atherosclerotic heart disease of native coronary artery without angina pectoris; H81.10 Benign paroxysmal vertigo, unspecified ear; I48.91 Unspecified atrial fibrillation; E78.5 Hyperlipidemia, unspecified; F41.9 Anxiety disorder, unspecified; E78.00 Pure hypercholesterolemia, unspecified; M10.9 Gout, unspecified; F17.290 Nicotine dependence, other tobacco product, uncomplicated; Z79.01 Long term (current) use of anticoagulants; Z91.14 Patient's other noncompliance with medication regimen; Z95.2 Presence of prosthetic heart valve; Z95.1 Presence of aortocoronary bypass graft; Z79.4 Long term (current) use of insulin; Z59.0 Homelessness; Z63.0 Problems in relationship with spouse or partner; Z86.010 Personal history of colon polyps

== ENCOUNTER 2017-01-18 13:00 | Emergency (ER) | payer MEDICARE ==
[2017-01-18 13:01] VITALS: BMI 27.7
[2017-01-18 13:25] VITALS: BP 112/69; RESP 18; TEMP 98.2; O2SAT 98
--- NOTE | 2017-01-18 13:32 | C.PDOC ---
History Of Present Illness 66 year old male presents to the ER for a "cyst" bleeding since yesterday. Patient states he is on Coumadin. Denies injury, pain to the area, fever, chills , weakness or numbness. Time Seen by Provider: 01/18/17 13:28 Chief Complaint (Nursing): Abnormal Skin Integrity History Per: Patient History/Exam Limitations: no limitations Onset/Duration Of Symptoms: Days (1) Current Symptoms Are (Timing): Still Present Past Medical History Reviewed: Historical Data, Nursing Documentation, Vital Signs Vital Signs: Last Vital Signs Temp 98.2 F 01/18/17 13:21 Pulse 85 01/18/17 14:04 Resp 18 01/18/17 14:04 BP 112/69 01/18/17 13:21 Pulse Ox 98 01/18/17 14:14 - Medical History PMH: Anemia, Atrial Fibrillation, CAD, Cardia Arrhythmia, Colonic Polyps, Depression, Diverticulitis, HTN, Hypercholesterolemia, Mitral Valve Prolapse Surgical History: CABG (1997), Endoscopy - [facility] Procedures DRAINAGE OF ANUS, EXTERNAL APPROACH (05/01/15) TRANSFUSE NONAUT FROZEN PLASMA IN PERIPH VEIN, PERC (09/16/16) Family History: States: Hypertension - Social History Hx Alcohol Use: Yes Hx Substance Use: No - Immunization History Hx Tetanus Toxoid Vaccination: No Hx Influenza Vaccination: No Hx Pneumococcal Vaccination: No Review Of Systems Except As Marked, All Systems Reviewed And Found Negative. Constitutional: Negative for: Fever, Chills Neurological: Negative for: Weakness, Numbness Physical Exam - Physical Exam Appears: Non-toxic, No Acute Distress Skin: Warm, Dry, No Rash Head: Atraumatic, Normacephalic Oral Mucosa: Moist Chest: Symmetrical, No Tenderness Cardiovascular: Rhythm Regular, No Murmur Respiratory: Normal Breath Sounds, No Rales, No Rhonchi, No Stridor, No Wheezing Gastrointestinal/Abdominal: Normal Exam, Soft, No Tenderness, No Guarding, No Rebound Male Genital: Other ((+) 0.5cm superficial, linear laceration to the middle perineum. No active bleeding at the time.) Neurological/Psych: Oriented x3, Normal Speech, Normal Motor, Normal Sensation ED Course And Treatment O2 Sat by Pulse Oximetry: 98 (RA) Pulse Ox Interpretation: Normal Medical Decision Making Medical Decision Making: Wound care: area cleansed and irrigated with NS, no active bleeding. Bacitracin applied and nonadhesive dressing applied. Patient advised on wound care and to followup with PCP. Disposition Counseled Patient/Family Regarding: Diagnosis, Need For Followup - Disposition Referrals: Art Guerrero [Staff Provider] - Disposition: HOME/ ROUTINE Disposition Time: 13:50 Condition: STABLE Additional Instructions: Por favor, siga con shahid santy principal mantener el philip limpia y cambiar el vendaje 1-2 veces el da... Instructions: Acute Wound Care (ED) Forms: [employer] (Amharic) Print Language: BURKINAN - POA Present On Arrival: None - Clinical Impression Clinical Impression: Encounter for wound care, Laceration - PA / PILLOWCASE CLEANER / Resident Statement MD/DO has reviewed & agrees with the documentation as recorded. - Scribe Statement The provider has reviewed the documentation as recorded by the Scribe Lauren Clifford All medical record entries made by the Scribe were at my direction and personally dictated by me. I have reviewed the chart and agree that the record accurately reflects my personal performance of the history, physical exam, medical decision making, and the department course for this patient. I have also personally directed, reviewed, and agree with the discharge instructions and disposition.
[2017-01-18] MEDS ORDERED: Bacitracin 500 Units/gm Oint Foilpak UD ONE (13:40)
[2017-01-18] MEDS ORDERED: Bacitracin 500 Units/gm Oint Foilpak UD TOP ONE (13:46)
[2017-01-18 14:05] VITALS: PULSE 85
== END 2017-01-18 14:06 | disposition home or self-care (01) ==
LOC: C.ER 13:00
DX: S31.119A Laceration without foreign body of abdominal wall, unspecified quadrant without penetration into peritoneal cavity, initial encounter (principal); X58.XXXA Exposure to other specified factors, initial encounter

== ENCOUNTER 2017-04-04 09:20 | Observation (INO) | payer MEDICARE ==
[2017-04-04 09:21] VITALS: BMI 27.7
--- NOTE | 2017-04-04 09:47 | C.PDOC ---
History Of Present Illness 66 y/o male with multiple PMHx including Mitro valve replacement, HTN, CAD, DM and AFIB presents to ED with complaints of headache for 2 days. Patient states he tripped and fell 2 days ago hitting back of head and has persistent pain since then. Patient reports he fell today again landing on right knee. Patient has prior history of frequent falls and denies loc, vision changes, nausea, vomiting, other injuries or any other complaints at this time. - HPI Chief Complaint (Nursing): Trauma History Per: Patient History/Exam Limitations: no limitations Onset/Duration Of Symptoms: Days, Persistent Past Medical History Reviewed: Historical Data, Nursing Documentation, Vital Signs Vital Signs: Last Vital Signs Temp 98.0 F 04/04/17 09:27 Pulse 72 04/04/17 13:12 Resp 18 04/04/17 13:12 BP 185/87 H 04/04/17 13:12 Pulse Ox 100 04/04/17 13:24 - Medical History PMH: Anemia, Arthritis (R HIP AND R ANKLE), Atrial Fibrillation, CAD, Cardia Arrhythmia, Colonic Polyps, Depression, Diverticulitis, HTN, Hypercholesterolemia, Mitral Valve Prolapse, Schizophrenia Surgical History: CABG (1997), Endoscopy - [facility] Procedures DRAINAGE OF ANUS, EXTERNAL APPROACH (05/01/15) TRANSFUSE NONAUT FROZEN PLASMA IN PERIPH VEIN, PERC (09/16/16) Family History: States: Hypertension - Social History Hx Alcohol Use: No Hx Substance Use: No - Immunization History Hx Tetanus Toxoid Vaccination: No Hx Influenza Vaccination: No Hx Pneumococcal Vaccination: No Review Of Systems Constitutional: Negative for: Fever, Chills Eyes: Negative for: Vision Change Cardiovascular: Negative for: Chest Pain Gastrointestinal: Negative for: Nausea, Vomiting Musculoskeletal: Positive for: Leg Pain (right knee) Skin: Negative for: Rash Neurological: Positive for: Headache. Negative for: Weakness, Numbness Physical Exam - Physical Exam Appears: Non-toxic, No Acute Distress Skin: Normal Color, Warm, Dry, No Rash Head: Atraumatic, Normacephalic Eye(s): bilateral: Normal Inspection, EOMI Nose: Normal Oral Mucosa: Moist Neck: Normal ROM, Supple Chest: Symmetrical Cardiovascular: Rhythm Regular Respiratory: Normal Breath Sounds, No Accessory Muscle Use, No Rales, No Rhonchi , No Wheezing Gastrointestinal/Abdominal: Soft, No Tenderness, No Guarding, No Rebound Extremity: No Tenderness, Capillary Refill (<2 seconds), No Swelling, Other ( Right knee abrasion ) Pulses: Left Dorsalis Pedis: Normal, Right Dorsalis Pedis: Normal Neurological/Psych: Oriented x3, Normal Motor, Normal Sensation Gait: Steady ED Course And Treatment - Laboratory Results Result Diagrams: 04/04/17 10:29 04/04/17 10:29 O2 Sat by Pulse Oximetry: 100 (RA) Pulse Ox Interpretation: Normal - CT Scan/US Head Other Rad Studies (CT/US): Read By Radiologist, Radiology Report Reviewed CT/US Interpretation: PROCEDURE: CT HEAD WITHOUT CONTRAST. HISTORY: R/O Bleed. COMPARISON: 03/06/2017. TECHNIQUE: Axial computed tomography images were obtained through the head/brain without intravenous contrast. Radiation dose: Total exam DLP = 1105.68 mGy-cm. This CT exam was performed using one or more of the following dose reduction techniques: Automated exposure control, adjustment of the mA and/or kV according to patient size, and/or use of iterative reconstruction technique. FINDINGS: HEMORRHAGE: No intracranial hemorrhage. BRAIN: There is redemonstration of focal cystic encephalomalacia in the right posterior parietal lobe. There are mild chronic microangiopathic changes. There is no mass, mass effect or abnormal extra-axial fluid collection. There are coarse atherosclerotic calcifications in the cavernous carotid arteries. VENTRICLES: There is mild age-related global parenchymal volume loss and proportionate enlargement of the ventricles and cortical sulci. CALVARIUM: The skull base and calvarium are normal. PARANASAL SINUSES: Predominantly clear. MASTOID AIR CELLS: Predominantly clear. OTHER FINDINGS: None. IMPRESSION: No acute intracranial abnormality. 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 Progress Note: Tylenol ordered. On re-evaluation , pt notes headache improved. Case discussed with Dr Kendrick, agreed upon observation/. Disposition - Disposition Disposition: HOSPITALIZED Disposition Time: 15:05 Condition: STABLE - Clinical Impression Clinical Impression: Elevated INR, Headache - PA / VP INTEGRATION / Resident Statement MD/DO has reviewed & agrees with the documentation as recorded. - Scribe Statement The provider has reviewed the documentation as recorded by the Shayneibmaged [place] All medical record entries made by the Shayneibmaged were at my direction and personally dictated by me. I have reviewed the chart and agree that the record accurately reflects my personal performance of the history, physical exam, medical decision making, and the department course for this patient. I have also personally directed, reviewed, and agree with the discharge instructions and disposition.
[2017-04-04 10:39] LABS: BASO % 0.4 % (0.0-2.0); EOS % 0.4 % (0.0-4.0); HEMATOCRIT 39.3 % (35.0-51.0); LYMPH # 0.4 K/uL (1.0-4.3); LYMPH % 8.4 % (20.0-40.0); MEAN CELL VOLUME 94.5 fL (80.0-94.0); MEAN CORPUSCULAR HEMOGLOBIN 30.1 pg (27.0-31.0); MEAN CORPUSCULAR HGB CONC 31.9 g/dL (33.0-37.0); MEAN PLATELET VOLUME 9.9 fL (7.2-11.7); MONO # 0.3 K/uL (0.0-0.8); MONO % 7.3 % (0.0-10.0); PLATELET COUNT 163 K/uL (130-400); RED CELL DISTRIBUTION WIDTH 15.4 % (11.5-14.5); WHITE BLOOD COUNT 4.8 K/uL (4.8-10.8)
[2017-04-04 10:50] LABS: INR 4.7
[2017-04-04 11:07] LABS: ALB/GLOB RATIO 1.4 (1.0-2.1); ALKALINE PHOSPHATASE 112 U/L (38-126); ALT/SGPT 46 U/L (21-72); AST/SGOT 25 U/L (17-59); BILIRUBIN,TOTAL 1.3 mg/dL (0.2-1.3); BLOOD UREA NITROGEN 15 mg/dL (9-20); CALCIUM 7.6 mg/dl (8.6-10.4); CARBON DIOXIDE 27 mmol/L (22-30); CHLORIDE 97 mmol/L (98-107); GFR AFRICAN-AMERICAN > 60; GLUCOSE,RANDOM 78 mg/dL (75-110); POTASSIUM 3.9 mmol/L (3.6-5.2); SODIUM 134 mmol/L (132-148); TOTAL PROTEIN 6.5 g/dL (6.3-8.3)
[2017-04-04 11:09] LABS: NEUTROPHIL 82 % (50-75); REACTIVE LYMPHOCYTES 1 % (0-0); TOTAL CELLS COUNTED 100
--- NOTE | 2017-04-04 11:11 | CT ---
PROCEDURE: CT HEAD WITHOUT CONTRAST. HISTORY: R/O Bleed COMPARISON: 03/06/2017. TECHNIQUE: Axial computed tomography images were obtained through the head/brain without intravenous contrast. Radiation dose: Total exam DLP = 1105.68 mGy-cm. This CT exam was performed using one or more of the following dose reduction techniques: Automated exposure control, adjustment of the mA and/or kV according to patient size, and/or use of iterative reconstruction technique. FINDINGS: HEMORRHAGE: No intracranial hemorrhage. BRAIN: There is redemonstration of focal cystic encephalomalacia in the right posterior parietal lobe. There are mild chronic microangiopathic changes. There is no mass, mass effect or abnormal extra-axial fluid collection. There are coarse atherosclerotic calcifications in the cavernous carotid arteries. VENTRICLES: There is mild age-related global parenchymal volume loss and proportionate enlargement of the ventricles and cortical sulci. CALVARIUM: The skull base and calvarium are normal. PARANASAL SINUSES: Predominantly clear. MASTOID AIR CELLS: Predominantly clear. OTHER FINDINGS: None. IMPRESSION: No acute intracranial abnormality. 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
[2017-04-04 20:36] VITALS: RESP 20
--- NOTE | 2017-04-04 23:51 | CP.PCM.HP ---
Past Patient History - Infectious Disease Hx of Infectious Diseases: None - Past Medical History & Family History Past Medical History?: Yes - Past Social History Smoking Status: Never Smoked - CARDIAC Hx Atrial Fibrillation: Yes Hx Cardia Arrhythmia: Yes Hx Hypercholesterolemia: Yes Hx Hypertension: Yes Hx Mitral Valve Prolapse: Yes - PULMONARY Hx Respiratory Disorders: No - HEENT Hx HEENT Problems: Yes Hx Cataracts: Yes (cataraxt sx) - RENAL Hx Chronic Kidney Disease: No - ENDOCRINE/METABOLIC Hx Endocrine Disorders: No Hx Hyperthyroidism: No Hx Hypothyroidism: No - HEMATOLOGICAL/ONCOLOGICAL Hx Anemia: Yes - INTEGUMENTARY Hx Dermatological Problems: Yes Hx Cellulitis: Yes Other/Comment: Hx Ulcer to right calf (healed) - MUSCULOSKELETAL/RHEUMATOLOGICAL Hx Arthritis: Yes (R HIP AND R ANKLE) - GASTROINTESTINAL Hx Diverticulitis: Yes - GENITOURINARY/GYNECOLOGICAL Hx Genitourinary Disorders: No Hx Sexually Transmitted Disorders: No - PSYCHIATRIC Hx Depression: Yes Hx Schizophrenia: Yes Hx Substance Use: No - SURGICAL HISTORY Hx Coronary Artery Bypass Graft: Yes (1997) - ANESTHESIA Hx Anesthesia: Yes Hx Anesthesia Reactions: No Hx Malignant Hyperthermia: No Has any member of the family had a problem w/ anesthesia?: No Meds Allergies/Adverse Reactions: Allergies Allergy/AdvReac Type Severity Reaction Status Date / Time clams Allergy Mild SHORTNESS Uncoded 04/04/17 09:34 OF BREATH Results - Vital Signs Recent Vital Signs: Last Vital Signs Temp 97.7 F 04/04/17 19:30 Pulse 61 04/04/17 19:30 Resp 20 04/04/17 19:30 BP 145/80 04/04/17 19:30 Pulse Ox 100 04/04/17 19:30 - Labs Result Diagrams: 04/04/17 10:29 04/04/17 10:29 Labs: Laboratory Results - last 24 hr 04/04/17 04/04/17 04/04/17 10:29 10:29 10:29 WBC 4.8 RBC 4.16 L Hgb 12.5 D Hct 39.3 MCV 94.5 H MCH 30.1 MCHC 31.9 L RDW 15.4 H Plt Count 163 D MPV 9.9 Neut % (Auto) 83.5 H Lymph % (Auto) 8.4 L Teller % (Auto) 7.3 Eos % (Auto) 0.4 Baso % (Auto) 0.4 Neut # 4.0 Lymph # 0.4 L Teller # 0.3 Eos # 0.0 Baso # 0.0 Neutrophils % (Manual) 82 H Band Neutrophils % 1 Lymphocytes % (Manual) 9 L Reactive Lymphs % 1 H Monocytes % (Manual) 7 Platelet Estimate Normal Anisocytosis (manual) Slight Ovalocytes Slight PT 57.3 H* INR 4.7 APTT 71 H Sodium 134 Potassium 3.9 Chloride 97 L Carbon Dioxide 27 Anion Gap 14 BUN 15 Creatinine 0.9 Est GFR ( Amer) > 60 Est GFR (Non-Af Amer) > 60 POC Glucose (mg/dL) Random Glucose 78 Calcium 7.6 L Total Bilirubin 1.3 AST 25 ALT 46 Alkaline Phosphatase 112 Total Protein 6.5 Albumin 3.7 Globulin 2.8 Albumin/Globulin Ratio 1.4 04/04/17 21:46 WBC RBC Hgb Hct MCV MCH MCHC RDW Plt Count MPV Neut % (Auto) Lymph % (Auto) Teller % (Auto) Eos % (Auto) Baso % (Auto) Neut # Lymph # Teller # Eos # Baso # Neutrophils % (Manual) Band Neutrophils % Lymphocytes % (Manual) Reactive Lymphs % Monocytes % (Manual) Platelet Estimate Anisocytosis (manual) Ovalocytes PT INR APTT Sodium Potassium Chloride Carbon Dioxide Anion Gap BUN Creatinine Est GFR ( Amer) Est GFR (Non-Af Amer) POC Glucose (mg/dL) 122 H Random Glucose Calcium Total Bilirubin AST ALT Alkaline Phosphatase Total Protein Albumin Globulin Albumin/Globulin Ratio
[2017-04-05 07:42] LABS: INR 3.7
[2017-04-05 08:33] VITALS: TEMP 98.4
--- NOTE | 2017-04-05 09:23 | CT ---
PROCEDURE: CT HEAD WITHOUT CONTRAST. HISTORY: trauma COMPARISON: 04/04/2017 TECHNIQUE: Axial computed tomography images were obtained through the head/brain without intravenous contrast. Radiation dose: Total exam DLP = 955.1 MGy-cm. This CT exam was performed using one or more of the following dose reduction techniques: Automated exposure control, adjustment of the mA and/or kV according to patient size, and/or use of iterative reconstruction technique. FINDINGS: HEMORRHAGE: No intracranial hemorrhage. BRAIN: The prior right posterior parietal lobe well demarcated cystic encephalomalacia is unchanged. No interval mass effect, edema or abnormal extra-axial collections. . VENTRICLES: Overall size is commensurate with the degree of mild cerebral atrophy CALVARIUM: Unremarkable. PARANASAL SINUSES: Minimal ethmoidal sinus and maxillary sinus mucosal thickening. MASTOID AIR CELLS: Unremarkable as visualized. No inflammatory changes. OTHER FINDINGS: The vertebrobasilar and supraclinoid internal carotid artery atherosclerotic calcifications are similar/renoted. Punctate bilateral basal ganglionic nonspecific idiopathic calcifications are similar/renoted. There are extensive bile superficial scalp arterial vascular calcifications also suggested -similar IMPRESSION: No interval pathology noted. No interval hemorrhage mass effect midline shift or extra-axial collections. Old right MCA territory infarct with resultant stable right posterior parietal lobe cystic encephalomalacia
[2017-04-05] MEDS ORDERED: metOLazone 2.5 MG TAB PO SCH (10:00)
[2017-04-05] MEDS ORDERED: Potassium Chloride 10 mEq ER Tab PO SCH (10:00)
[2017-04-05 14:58] VITALS: BP 191/93; PULSE 55; O2SAT 98
--- NOTE | 2017-04-05 15:09 | CP.PCM.PN ---
Subjective - Date & Time of Evaluation Date of Evaluation: 04/05/17 Time of Evaluation: 15:04 - Subjective Subjective: PT CLEARED FOR D/C HOME TODAY. SEEN BY DR. HART IN THE MORNING AND CLEARED IF SEEN BY [facility]. SEEN BY [facility] SHE[facility] AND RECS HOME PT VS OUTPATIENT. RX GIVEN TO KATHI OLIVEROS IN CASE PT IS APPROVED FOR HOME PT; RX LEFT FOR PT FOR OUTPATIENT PT IS NOT APPROVED FOR HOME PT. PT TO ALSO HAVE PT/INR CHECKED ON SUNDAY AT DR. BANKS'S OFFICE. HOLD TONIGHT'S DOSE OF COUMADIN. PT VERBALIZES UNDERSTANDING OF ALL D/C PLAN AND INFORMATION. NO FURTHER ORDERS. FRIEND AT BEDSIDE TO TAKE HIM HOME. Objective - Vital Signs/Intake and Output Vital Signs (last 24 hours): Temp Pulse Resp BP Pulse Ox 98.4 F 55 L 20 191/93 H 98 04/05/17 08:32 04/05/17 13:10 04/05/17 08:32 04/05/17 13:10 04/05/17 13:10 Intake and Output: 04/05/17 04/05/17 06:59 18:59 Intake Total 300 Balance 300 - Medications Medications: Current Medications Clonazepam (Klonopin) 2 mg PO HS [facility] Last Admin: 04/04/17 22:12 Dose: 2 mg Clonazepam (Klonopin) 2 mg PO PRN PRN PRN Reason: Anxiety Furosemide (Lasix) 40 mg PO DAILY JIM Last Admin: 04/05/17 09:54 Dose: 40 mg Losartan Potassium (Cozaar) 100 mg PO DAILY JIM Last Admin: 04/05/17 09:54 Dose: 100 mg Metolazone (Zaroxolyn) 2.5 mg PO DAILY JIM Last Admin: 04/05/17 09:54 Dose: 2.5 mg Potassium Chloride (Klor-Con 10) 10 meq PO DAILY JIM Last Admin: 04/05/17 09:47 Dose: 10 meq Rosuvastatin Calcium (Crestor) 5 mg PO DAILY JIM Last Admin: 04/05/17 09:47 Dose: 5 mg Sertraline HCl (Zoloft) 50 mg PO DAILY JIM Last Admin: 04/05/17 09:54 Dose: 50 mg - Labs Labs: 04/04/17 10:29 04/04/17 10:29 PT 43.4 SECONDS (9.7-12.2) H* D 04/05/17 07:14 INR 3.7 D 04/05/17 07:14 APTT 63 SECONDS (21-34) H D 04/05/17 07:14
== END 2017-04-05 15:56 | disposition home or self-care (01) ==
LOC: C.ER 09:20 → C.9E 12:07 → C.3T 18:56
PROVIDERS: ADMIT Internal Medicine; ATTEND Internal Medicine
DX: R51 Headache (principal); R79.1 Abnormal coagulation profile; I10 Essential (primary) hypertension; E11.9 Type 2 diabetes mellitus without complications; Z95.2 Presence of prosthetic heart valve; Z86.010 Personal history of colon polyps
CPT/HCPCS: 36415; 70450; 80053; 82948; 85025; 85610; 85730; 97116; 97162; 99285; G0378; G8978; G8979

== ENCOUNTER 2017-11-21 06:27 | Day surgery (SDC) | payer MEDICARE, OTHER ==
[2017-11-13 10:45] VITALS: BMI 28.5
[2017-11-21] MEDS ORDERED: ceFAZolin 1 gm in NS 1 GM/100 ML BAG IVPB ONE ×2 (07:03→08:04)
[2017-11-21] MEDS ORDERED: Bupivacaine HCl 0.5% PF (30 ml) Inj ONE (07:03)
[2017-11-21] MEDS ORDERED: Midazolam 2 MG/2 ML VIAL ONE (08:14)
[2017-11-21] MEDS ORDERED: Propofol 10 mg/ml Inj (20 ML) ONE (08:14)
[2017-11-21] MEDS ORDERED: Etomidate 20 mg/10ml Inj IV ONE (08:24)
[2017-11-21] MEDS ORDERED: Lactated Ringer's 1,000 ML IV ONE (08:40)
[2017-11-21] MEDS ORDERED: Lidocaine/Epinephrine 1% 1:100000 10 ML IJ ONE (09:05)
--- NOTE | 2017-11-21 09:30 | PCM.SURG1 ---
Surgeon's Initial Post Op Note - Surgeon's Notes Surgeon: xiao Flap Presser: o Type of Anesthesia: IV Sedation Anesthesia Administered By: denise Pre-Operative Diagnosis: right breast mass Operative Findings: cw multiple small hematomas Post-Operative Diagnosis: same Operation Performed: right breast biopsy Specimen/Specimens Removed: 2 contiguous lumps Estimated Blood Loss: EBL {In ML}: 8 Blood Products Given: N/A Drains Used: No Drains Post-Op Condition: Good Date of Surgery/Procedure: 11/21/17 Time of Surgery/Procedure: 09:30
[2017-11-21] MEDS ORDERED: Oxycodone/Acetaminophen 5/325 mg Tab PO PRN (09:32)
[2017-11-21] MEDS ORDERED: Lactated Ringer's 1,000 ML IV SCH (09:45)
[2017-11-21 10:59] VITALS: RESP 16
[2017-11-21 11:25] VITALS: BP 146/57; PULSE 67; TEMP 97.5; O2SAT 100
--- NOTE | 2017-11-22 06:56 | OP ---
PROCEDURE DATE: 11/21/2017 PREOPERATIVE DIAGNOSIS: Right breast mass, suspected chronic hematoma. POSTOPERATIVE DIAGNOSIS: Right breast mass, suspected chronic hematoma. PROCEDURE CARRIED OUT: Right breast biopsy. SURGEON: Sherif Crouch Jr., MD. AEROBICS TEACHER: None. TYPE OF ANESTHESIA: Local with sedation. ANESTHESIA ADMINISTERED BY: Dr. Bolden. INDICATIONS: The patient is an older middle-aged man with a history of mitral valve replacement on Coumadin, who presents with multiple subcutaneous nodules including palpable nodules on the right breast. OPERATIVE FINDINGS: This is consistent with hard residual hematoma. Two lumps were removed from the right breast, contiguous with each other. DESCRIPTION OF PROCEDURE: The patient was given local anesthesia after intravenous antibiotics was administered. The incision was made directly over the lump. This came out in 2 segments. This was sent for examination. It appeared to be filled with some liquified clot, and these were sent together. After hemostasis was obtained, the wound was approximated, and the skin was closed with 5 nylon sutures in a subcuticular fashion. Blood loss to the procedure was 8 mL. Operation carried out was right breast biopsy. Sherif Crouch Jr., MD cc: Art Guerrero MD.
== END 2017-11-21 11:22 | disposition home or self-care (01) ==
LOC: C.SDS 06:27
PROVIDERS: ATTEND Surgery Vascular Surgery
DX: N64.89 Other specified disorders of breast (principal); N63.10 Unspecified lump in the right breast, unspecified quadrant
CPT/HCPCS: 19120; 82948; 88307; J0690; J1885; J2001; J2250; J2704; J3010; J7120; P000X

== ENCOUNTER 2017-12-12 10:23 | Observation (INO) | payer MEDICARE, OTHER ==
[2017-12-12 10:23] VITALS: BMI 28.5
--- NOTE | 2017-12-12 11:11 | C.PDOC ---
History Of Present Illness 67 y/o male presents to ED with complaints of swelling and pain to left buttock area for 2 weeks radiating down to left leg. Patient denies injury, abdominal pain, nausea, vomiting, dysuria or any other complaints at this time. Time Seen by Provider: 12/12/17 10:43 Chief Complaint (Nursing): Medical Clearance History Per: Patient History/Exam Limitations: no limitations Onset/Duration Of Symptoms: Days Current Symptoms Are (Timing): Still Present Past Medical History Reviewed: Historical Data, Nursing Documentation, Vital Signs Vital Signs: Last Vital Signs Temp 98.2 F 12/12/17 10:26 Pulse 62 12/12/17 12:23 Resp 14 12/12/17 12:23 BP 126/61 12/12/17 12:23 Pulse Ox 97 12/12/17 13:00 - Medical History PMH: Anemia, Anxiety, Arthritis (R HIP AND R ANKLE), Atrial Fibrillation, CAD, Cardia Arrhythmia, Colonic Polyps, Depression, Diverticulitis, HTN, Hypercholesterolemia, Mitral Valve Prolapse, Schizophrenia Surgical History: CABG (1997), Endoscopy - [facility] Procedures DRAINAGE OF ANUS, EXTERNAL APPROACH (05/01/15) TRANSFUSE NONAUT FROZEN PLASMA IN PERIPH VEIN, PERC (09/16/16) Family History: States: Hypertension - Social History Hx Alcohol Use: No Hx Substance Use: No - Immunization History Hx Tetanus Toxoid Vaccination: No Hx Influenza Vaccination: No Hx Pneumococcal Vaccination: No Review Of Systems Except As Marked, All Systems Reviewed And Found Negative. Musculoskeletal: Positive for: Back Pain Physical Exam - Physical Exam Appears: Non-toxic, No Acute Distress Skin: Warm, Dry, No Rash, Ecchymosis (to left buttock region ) Head: Atraumatic, Normacephalic Eye(s): bilateral: Normal Inspection Oral Mucosa: Moist Neck: Supple Cardiovascular: Rhythm Regular Respiratory: Normal Breath Sounds, No Rales, No Rhonchi, No Wheezing Gastrointestinal/Abdominal: Normal Exam, Bowel Sounds, Soft Back: No CVA Tenderness, Other (tenderness to left buttock region associated with swelling) Extremity: No Pedal Edema, Capillary Refill (<2 seconds) Pulses: Left Dorsalis Pedis: Normal, Right Dorsalis Pedis: Normal Neurological/Psych: Oriented x3, Normal Motor, Normal Sensation ED Course And Treatment - Laboratory Results Result Diagrams: 12/12/17 11:27 12/12/17 11:27 ECG: Interpreted By Me, Viewed By Me ECG Rhythm: Atrial Fibrillation Rate From EC (BPM) O2 Sat by Pulse Oximetry: 97 (RA) Pulse Ox Interpretation: Normal Medical Decision Making Medical Decision Making: Assessment: Left buttock and hip pain hematoma coagulopathic case s/o to Dr. Lott at 1300 Dr. Kendrick phoned at 1240 p and 1255 p. Awaiting call back Disposition - Disposition Disposition Time: 13:00 Condition: FAIR Forms: [facility] (Greenlandic) - Clinical Impression Clinical Impression: Hematoma, Coagulopathy - Scribe Statement The provider has reviewed the documentation as recorded by the Scribe Jhon Obregon All medical record entries made by the Scribe were at my direction and personally dictated by me. I have reviewed the chart and agree that the record accurately reflects my personal performance of the history, physical exam, medical decision making, and the department course for this patient. I have also personally directed, reviewed, and agree with the discharge instructions and disposition. Physician Patient Turnover Patient Signed Over To: Cynthia Lott Handoff Comments: pending Dr. Kendrick
--- NOTE | 2017-12-12 11:21 | RAD ---
Date of service: 12/12/2017 PROCEDURE: CHEST RADIOGRAPH, 1 VIEW HISTORY: Shortness of breath COMPARISON: 11/13/2017. FINDINGS: LUNGS: The lungs are well inflated and clear. PLEURA: No pneumothorax or pleural fluid seen. CARDIOVASCULAR: The heart is normal in size. Status post median sternotomy. OSSEOUS STRUCTURES: No significant abnormalities. VISUALIZED UPPER ABDOMEN: Normal. OTHER FINDINGS: None. IMPRESSION: No active pulmonary disease.
[2017-12-12 11:38] LABS: BASO % 0.3 % (0.0-2.0); EOS % 0.6 % (0.0-4.0); HEMOGLOBIN 10.6 g/dL (12.0-18.0); LYMPH # 0.7 K/uL (1.0-4.3); LYMPH % 12.1 % (20.0-40.0); MEAN CELL VOLUME 93.8 fL (80.0-94.0); MEAN CORPUSCULAR HEMOGLOBIN 31.4 pg (27.0-31.0); MEAN CORPUSCULAR HGB CONC 33.4 g/dL (33.0-37.0); MEAN PLATELET VOLUME 9.5 fL (7.2-11.7); MONO # 0.6 K/uL (0.0-0.8); NEUT # 4.4 K/uL (1.8-7.0); RBC 3.38 Mil/uL (4.40-5.90); RED CELL DISTRIBUTION WIDTH 14.1 % (11.5-14.5); WHITE BLOOD COUNT 5.8 K/uL (4.8-10.8)
[2017-12-12 11:42] LABS: SQUAMOUS EPITHIAL 1 /hpf (0-5); URINE BILIRUBIN NEGATIVE (NEGATIVE); URINE BLOOD NEGATIVE (NEGATIVE); URINE CLARITY Clear (Clear); URINE COLOR Yellow (YELLOW); URINE GLUCOSE (UA) NORMAL (Normal); URINE LEUKOCYTE ESTERASE NEG Leu/uL (Negative); URINE PROTEIN NEGATIVE (NEGATIVE); URINE UROBILINOGEN NORMAL mg/dL (0.2-1.0)
[2017-12-12 11:45] LABS: INR 4.7
[2017-12-12 11:55] LABS: ALB/GLOB RATIO 1.6 (1.0-2.1); ALBUMIN 3.5 g/dL (3.5-5.0); ALT/SGPT 30 U/L (21-72); AST/SGOT 21 U/L (17-59); BLOOD UREA NITROGEN 18 mg/dL (9-20); CALCIUM 8.7 mg/dl (8.6-10.4); GFR AFRICAN-AMERICAN > 60; GFR NON-AFRICAN AMERICAN > 60
--- NOTE | 2017-12-12 12:20 | CT ---
Date of service: 12/12/2017 PROCEDURE: CT of the Left Hip. HISTORY: buttock pain, swelling and bruising to left hip ar COMPARISON: None available. TECHNIQUE: Contiguous axial images of the left hip were obtained. Coronal and sagittal reformats were generated. This CT exam was performed using one or more of the following dose reduction techniques: Automated exposure control, adjustment of the mA and/or kV according to patient size, and/or use of iterative reconstruction technique. FINDINGS: BONES: There is diffuse bone demineralization. There is no acute displaced fracture or bone destruction. Bone alignment is normal. LEFT HIP JOINT: There is mild degenerative osteoarthrosis in the hip joint with reduced joint space. SOFT TISSUES: There is edema in the gluteus major muscle. There are multifocal high attenuation areas in the gluteus muscle, the largest laterally measures 5.6 x 5.7 cm. There is diffuse subcutaneous edema in the gluteal region. IMPRESSION: 1. Edema in the gluteus major muscle and presumable multifocal acute hematoma, the largest laterally measures 5.6 x 5.7 cm. Diffuse subcutaneous edema in the gluteal region. 2. No acute fracture or dislocation.
[2017-12-13 07:44] LABS: INR 5.1
[2017-12-13 07:46] LABS: BASO % 0.4 % (0.0-2.0); EOS # 0.1 K/uL (0.0-0.7); EOS % 0.9 % (0.0-4.0); HEMOGLOBIN 9.8 g/dL (12.0-18.0); LYMPH # 0.8 K/uL (1.0-4.3); MEAN CORPUSCULAR HEMOGLOBIN 31.8 pg (27.0-31.0); MEAN CORPUSCULAR HGB CONC 33.8 g/dL (33.0-37.0); MEAN PLATELET VOLUME 9.5 fL (7.2-11.7); MONO # 0.7 K/uL (0.0-0.8); MONO % 11.5 % (0.0-10.0); NEUT # 4.8 K/uL (1.8-7.0); NEUT % 75.2 % (50.0-75.0); NRBC % 0.1 % (0.0-2.0); RBC 3.09 Mil/uL (4.40-5.90); RED CELL DISTRIBUTION WIDTH 13.5 % (11.5-14.5); WHITE BLOOD COUNT 6.4 K/uL (4.8-10.8)
[2017-12-13 07:50] LABS: PROTHROMBIN TIME 55.6 SECONDS (9.7-12.2)
[2017-12-13] MEDS: metOLazone 2.5 MG TAB PO SCH (09:17)
[2017-12-13] MEDS: Potassium Chloride 10 mEq ER Tab PO SCH (09:18)
[2017-12-13 14:01] LABS: BASO % 0.3 % (0.0-2.0); EOS # 0.1 K/uL (0.0-0.7); EOS % 0.8 % (0.0-4.0); HEMOGLOBIN 10.7 g/dL (12.0-18.0); LYMPH # 0.7 K/uL (1.0-4.3); LYMPH % 9.7 % (20.0-40.0); MEAN CELL VOLUME 95.1 fL (80.0-94.0); MEAN CORPUSCULAR HEMOGLOBIN 31.5 pg (27.0-31.0); MEAN CORPUSCULAR HGB CONC 33.1 g/dL (33.0-37.0); MEAN PLATELET VOLUME 9.6 fL (7.2-11.7); MONO # 1.1 K/uL (0.0-0.8); MONO % 14.8 % (0.0-10.0); NEUT # 5.4 K/uL (1.8-7.0); NEUT % 74.4 % (50.0-75.0); PLATELET COUNT 166 K/uL (130-400); RBC 3.41 Mil/uL (4.40-5.90); RED CELL DISTRIBUTION WIDTH 14.1 % (11.5-14.5); WHITE BLOOD COUNT 7.2 K/uL (4.8-10.8)
[2017-12-13 14:43] LABS: EOSINOPHIL 1 % (0-4); LYMPHOCYTE 10 % (20-40); MONOCYTE 14 % (0-10); NEUTROPHIL 75 % (50-75); PLATELET ESTIMATE NORMAL (NORMAL); TOTAL CELLS COUNTED 100
[2017-12-13 14:44] LABS: GIANT PLATELETS PRESENT; OVALOCYTES SLIGHT
[2017-12-14 01:22] VITALS: RESP 20
[2017-12-14 01:50] VITALS: O2SAT 100
[2017-12-14 07:05] LABS: BASO % 0.2 % (0.0-2.0); EOS % 0.6 % (0.0-4.0); HEMOGLOBIN 10.2 g/dL (12.0-18.0); LYMPH % 13.9 % (20.0-40.0); MEAN CELL VOLUME 93.8 fL (80.0-94.0); MEAN CORPUSCULAR HEMOGLOBIN 31.8 pg (27.0-31.0); MEAN CORPUSCULAR HGB CONC 33.9 g/dL (33.0-37.0); MEAN PLATELET VOLUME 9.3 fL (7.2-11.7); MONO % 14.2 % (0.0-10.0); NEUT % 71.1 % (50.0-75.0); RBC 3.21 Mil/uL (4.40-5.90); RED CELL DISTRIBUTION WIDTH 13.8 % (11.5-14.5); WHITE BLOOD COUNT 7.1 K/uL (4.8-10.8)
[2017-12-14 07:17] LABS: INR 3.9; PROTHROMBIN TIME 43.2 SECONDS (9.7-12.2)
[2017-12-14 08:22] VITALS: PULSE 84; TEMP 98.4
[2017-12-14] MEDS: Potassium Chloride 10 mEq ER Tab PO SCH (09:29)
[2017-12-14] MEDS: metOLazone 2.5 MG TAB PO SCH (09:29)
[2017-12-14 09:31] VITALS: BP 106/71
--- NOTE | 2017-12-14 10:04 | CP.PCM.HP ---
History of Present Illness - History of Present Illness History of Present Illness: Chief complaint: Pain over the left gluteal area History of present illness: 67-year-old male with a history of mitral valve replacement, hypertension, CAD, diabetes, atrial fibrillation Came to the emergency room with the complaining of increasing pain over the left gluteal area started 2 days ago. He started noticing some gradually increasing in the swelling. He denies any fall, no injury. 2 weeks ago patient had biopsy done to the right pectoralis region. But since the surgery he was doing well. Currently he is taking Coumadin 5 mg daily. In the emergency room he was complaining of pain over the left hip, and underwent a CAT scan showing evidence of large hematoma and the swelling. And associated edema also noted Past medical history: Anemia, osteoarthritis, atrial fibrillation, CAD, mitral valve disease, status post mitral valve replacement.depression Had cardiac surgery in 1997 Allergy no known drug allergy Personal history nonsmoker nonalcoholic History of depression noted. Review of system noted from the chart, denies any chest pain, but complaining of pain over the right thigh Patient able to walk, but complaining of pain over the left gluteal region, swelling noted. Vital signs reviewed No neck vein distention noted Chest good air entry bilaterally, no wheezing or rales noted CVS regular heart sound, no murmur noted Abdomen soft, nontender. 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 Assessment admission: 67-year-old male with a history of mitral valve replacement, hypertension, CAD, diabetes, atrial fibrillation admitted with a coagulopathy state, secondary to Coumadin toxicity, and also recurrent problem. Patient has a large atraumatic left gluteal hematoma, and elevated INR. Patient needs to be monitored closely for worsening hemoglobin drop, may need a transfusion if needed. We will monitor the INR. Will hold Coumadin today. Patient will need Coumadin for mechanical valve. We will closely monitored and will follow the patient Present on Admission - Present on Admission Any Indicators Present on Admission: No History of DVT/PE: No History of Uncontrolled Diabetes: No Urinary Catheter: No Decubitus Ulcer Present: No Past Patient History - Infectious Disease Hx of Infectious Diseases: None - Past Medical History & Family History Past Medical History?: Yes - Past Social History Smoking Status: Never Smoked - CARDIAC Hx Atrial Fibrillation: Yes Hx Cardia Arrhythmia: Yes Hx Hypercholesterolemia: Yes Hx Hypertension: Yes Hx Mitral Valve Prolapse: Yes - PULMONARY Hx Respiratory Disorders: No Hx Tuberculosis: No - HEENT Hx HEENT Problems: Yes Hx Cataracts: Yes (cataraxt sx) - RENAL Hx Chronic Kidney Disease: No - HEMATOLOGICAL/ONCOLOGICAL Hx Anemia: Yes - INTEGUMENTARY Hx Dermatological Problems: Yes Hx Cellulitis: Yes Other/Comment: Hx Ulcer to right calf (healed) - MUSCULOSKELETAL/RHEUMATOLOGICAL Hx Arthritis: Yes (R HIP AND R ANKLE) - GASTROINTESTINAL Hx Diverticulitis: Yes - PSYCHIATRIC Hx Anxiety: Yes Hx Depression: Yes Hx Schizophrenia: Yes Hx Substance Use: No - SURGICAL HISTORY Hx Coronary Artery Bypass Graft: Yes (1997) - ANESTHESIA Hx Anesthesia: Yes Hx Anesthesia Reactions: No Hx Malignant Hyperthermia: No Meds Allergies/Adverse Reactions: Allergies Allergy/AdvReac Type Severity Reaction Status Date / Time clams Allergy Intermediate NAUSEA Uncoded 11/13/17 10:24 Results - Vital Signs Recent Vital Signs: Last Vital Signs Temp 98.4 F 12/14/17 08:00 Pulse 84 12/14/17 08:00 Resp 20 12/14/17 08:00 BP 106/71 12/14/17 09:29 Pulse Ox 100 12/14/17 08:14 - Labs Result Diagrams: 12/14/17 06:59 12/12/17 11:27 Labs: Laboratory Results - last 24 hr 12/13/17 12/13/17 12/13/17 11:12 13:55 16:34 WBC 7.2 RBC 3.41 L Hgb 10.7 L Hct 32.5 L MCV 95.1 H MCH 31.5 H MCHC 33.1 RDW 14.1 Plt Count 166 MPV 9.6 Neut % (Auto) 74.4 Lymph % (Auto) 9.7 L Riley % (Auto) 14.8 H Eos % (Auto) 0.8 Baso % (Auto) 0.3 Neut # (Auto) 5.4 Lymph # (Auto) 0.7 L Riley # (Auto) 1.1 H Eos # (Auto) 0.1 Baso # (Auto) 0.0 Neutrophils % (Manual) 75 Lymphocytes % (Manual) 10 L Monocytes % (Manual) 14 H Eosinophils % (Manual) 1 Platelet Estimate Normal Plt Clumps, EDTA Giant Platelets Present Ovalocytes Slight PT INR APTT POC Glucose (mg/dL) 259 H 154 H 12/13/17 12/14/17 12/14/17 21:24 06:59 06:59 WBC 7.1 RBC 3.21 L Hgb 10.2 L Hct 30.1 L MCV 93.8 MCH 31.8 H MCHC 33.9 RDW 13.8 Plt Count 180 MPV 9.3 Neut % (Auto) 71.1 Lymph % (Auto) 13.9 L Riley % (Auto) 14.2 H Eos % (Auto) 0.6 Baso % (Auto) 0.2 Neut # (Auto) 5.0 Lymph # (Auto) 1.0 Riley # (Auto) 1.0 H Eos # (Auto) 0.0 Baso # (Auto) 0.0 Neutrophils % (Manual) Lymphocytes % (Manual) Monocytes % (Manual) Eosinophils % (Manual) Platelet Estimate Plt Clumps, EDTA Giant Platelets Ovalocytes PT 43.2 H* D INR 3.9 D APTT 65 H D POC Glucose (mg/dL) 242 H
--- NOTE | 2017-12-14 10:05 | CP.PCM.DIS ---
Provider - Provider Date of Admission: 12/12/17 13:11 Attending physician: Sunita Kendrick MD Time Spent in preparation of Discharge (in minutes): 45 Hospital Course - Lab Results Lab Results: Most Recent Lab Values WBC 7.1 K/uL (4.8-10.8) 12/14/17 06:59 RBC 3.21 Mil/uL (4.40-5.90) L 12/14/17 06:59 Hgb 10.2 g/dL (12.0-18.0) L 12/14/17 06:59 Hct 30.1 % (35.0-51.0) L 12/14/17 06:59 MCV 93.8 fL (80.0-94.0) 12/14/17 06:59 MCH 31.8 pg (27.0-31.0) H 12/14/17 06:59 MCHC 33.9 g/dL (33.0-37.0) 12/14/17 06:59 RDW 13.8 % (11.5-14.5) 12/14/17 06:59 Plt Count 180 K/uL (130-400) 12/14/17 06:59 MPV 9.3 fL (7.2-11.7) 12/14/17 06:59 Neut % (Auto) 71.1 % (50.0-75.0) 12/14/17 06:59 Lymph % (Auto) 13.9 % (20.0-40.0) L 12/14/17 06:59 Deuel % (Auto) 14.2 % (0.0-10.0) H 12/14/17 06:59 Eos % (Auto) 0.6 % (0.0-4.0) 12/14/17 06:59 Baso % (Auto) 0.2 % (0.0-2.0) 12/14/17 06:59 Neut # (Auto) 5.0 K/uL (1.8-7.0) 12/14/17 06:59 Lymph # (Auto) 1.0 K/uL (1.0-4.3) 12/14/17 06:59 Deuel # (Auto) 1.0 K/uL (0.0-0.8) H 12/14/17 06:59 Eos # (Auto) 0.0 K/uL (0.0-0.7) 12/14/17 06:59 Baso # (Auto) 0.0 K/uL (0.0-0.2) 12/14/17 06:59 Neutrophils % (Manual) 75 % (50-75) 12/13/17 13:55 Lymphocytes % (Manual) 10 % (20-40) L 12/13/17 13:55 Monocytes % (Manual) 14 % (0-10) H 12/13/17 13:55 Eosinophils % (Manual) 1 % (0-4) 12/13/17 13:55 Platelet Estimate Normal (NORMAL) 12/13/17 13:55 Plt Clumps, EDTA 12/13/17 13:55 Giant Platelets Present 12/13/17 13:55 Ovalocytes Slight 12/13/17 13:55 PT 43.2 SECONDS (9.7-12.2) H* D 12/14/17 06:59 INR 3.9 D 12/14/17 06:59 APTT 65 SECONDS (21-34) H D 12/14/17 06:59 Sodium 144 mmol/L (132-148) 12/12/17 11:27 Potassium 4.7 mmol/L (3.6-5.2) 12/12/17 11:27 Chloride 106 mmol/L (98-107) 12/12/17 11:27 Carbon Dioxide 31 mmol/L (22-30) H 12/12/17 11:27 Anion Gap 11 (10-20) 12/12/17 11:27 BUN 18 mg/dL (9-20) 12/12/17 11:27 Creatinine 1.0 mg/dL (0.8-1.5) 12/12/17 11:27 Est GFR ( Amer) > 60 12/12/17 11:27 Est GFR (Non-Af Amer) > 60 12/12/17 11:27 POC Glucose (mg/dL) 242 mg/dL (65-110) H 12/13/17 21:24 Random Glucose 185 mg/dL (75-110) H 12/12/17 11:27 Calcium 8.7 mg/dl (8.6-10.4) 12/12/17 11:27 Total Bilirubin 0.9 mg/dL (0.2-1.3) 12/12/17 11:27 AST 21 U/L (17-59) 12/12/17 11:27 ALT 30 U/L (21-72) 12/12/17 11:27 Alkaline Phosphatase 87 U/L (38-126) 12/12/17 11:27 Total Creatine Kinase 58 U/L (55-170) 12/12/17 11:27 Troponin I < 0.0120 ng/mL (0.00-0.120) 12/12/17 11:27 Total Protein 5.8 g/dL (6.3-8.3) L 12/12/17 11:27 Albumin 3.5 g/dL (3.5-5.0) 12/12/17 11:27 Globulin 2.3 gm/dL (2.2-3.9) 12/12/17 11:27 Albumin/Globulin Ratio 1.6 (1.0-2.1) 12/12/17 11:27 Urine Color Yellow (YELLOW) 12/12/17 11:27 Urine Clarity Clear (Clear) 12/12/17 11:27 Urine pH 5.0 (5.0-8.0) 12/12/17 11:27 Ur Specific [place] 1.012 (1.003-1.030) 12/12/17 11:27 Urine Protein Negative mg/dL (NEGATIVE) 12/12/17 11:27 Urine Glucose (UA) Normal mg/dL (Normal) 12/12/17 11:27 Urine Ketones Negative mg/dL (NEGATIVE) 12/12/17 11:27 Urine Blood Negative (NEGATIVE) 12/12/17 11:27 Urine Nitrate Negative (NEGATIVE) 12/12/17 11:27 Urine Bilirubin Negative (NEGATIVE) 12/12/17 11:27 Urine Urobilinogen Normal mg/dL (0.2-1.0) 12/12/17 11:27 Ur Leukocyte Esterase Neg Aubrey/uL (Negative) 12/12/17 11:27 Urine WBC (Auto) 1 /hpf (0-5) 12/12/17 11:27 Urine RBC (Auto) 1 /hpf (0-3) 12/12/17 11:27 Ur Squamous Epith Cells 1 /hpf (0-5) 12/12/17 11:27 - Hospital Course Hospital Course: Chief complaint: Pain over the left gluteal area History of present illness: 67-year-old male with a history of mitral valve replacement, hypertension, CAD, diabetes, atrial fibrillation Came to the emergency room with the complaining of increasing pain over the left gluteal area started 2 days ago. He started noticing some gradually increasing in the swelling. He denies any fall, no injury. 2 weeks ago patient had biopsy done to the right pectoralis region. But since the surgery he was doing well. Currently he is taking Coumadin 5 mg daily. In the emergency room he was complaining of pain over the left hip, and underwent a CAT scan showing evidence of large hematoma and the swelling. And associated edema also noted Past medical history: Anemia, osteoarthritis, atrial fibrillation, CAD, mitral valve disease, status post mitral valve replacement.depression Had cardiac surgery in 1997 Allergy no known drug allergy Personal history nonsmoker nonalcoholic History of depression noted. Review of system noted from the chart, denies any chest pain, but complaining of pain over the right thigh Patient able to walk, but complaining of pain over the left gluteal region, swelling noted. Vital signs reviewed No neck vein distention noted Chest good air entry bilaterally, no wheezing or rales noted CVS regular heart sound, no murmur noted Abdomen soft, nontender. 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 Assessment admission: 67-year-old male with a history of mitral valve replacement, hypertension, CAD, diabetes, atrial fibrillation admitted with a coagulopathy state, secondary to Coumadin toxicity, and also recurrent problem. Patient has a large atraumatic left gluteal hematoma, and elevated INR. Patient needs to be monitored closely for worsening hemoglobin drop, may need a transfusion if needed. We will monitor the INR. Will hold Coumadin today. Patient will need Coumadin for mechanical valve. We will closely monitored and will follow the patient Course in the hospital: Patient continues to have a pain and swelling over the left gluteal area, but which was monitored and there was no worsening. Hemoglobin was remaining stable. INR become near therapeutic today, 3.2 noted. Clinically stable. He can be discharged home today. He will follow in next week to repeat INR, monitor the hemoglobin. He will hold off the Coumadin today. Final diagnosis: Atraumatic hematoma secondary to coagulopathy. Elevated INR. Mechanical mitral valve, and the atrial fibrillation. Hypertension. Patient will need to continue monitoring INR, and Coumadin. Will follow the patient next week to repeat the INR, cardiology follow-up recommended Discharge Plan - Follow Up Plan Condition: STABLE Disposition: HOME/ ROUTINE Instructions: Disseminated Intravascular Coagulation (DC)
--- NOTE | 2017-12-14 10:05 | CP.PCM.PN ---
Subjective - Date & Time of Evaluation Date of Evaluation: 12/13/17 Time of Evaluation: 10:05 - Subjective Subjective: Patient is still having pain over the left gluteal region. But the patient is able to walk without any problem. He denies any other major active systemic symptoms Clinical examination unchanged except slight increasing in swelling and tenderness over the left gluteal area. Labs reviewed INR is elevated still, hemoglobin is stable. Assessment and recommendation: 67 male with multiple medical problems admitted with atraumatic left gluteal hematoma. Slight enlargement noted. We will monitor the INR, hemoglobin. If it is therapeutic and stable the hemoglobin is stable possible discharge plan Objective - Vital Signs/Intake and Output Vital Signs (last 24 hours): Temp Pulse Resp BP Pulse Ox 98.4 F 84 20 106/71 100 12/14/17 08:00 12/14/17 08:00 12/14/17 08:00 12/14/17 09:29 12/14/17 08:14 Intake and Output: 12/14/17 12/14/17 06:59 18:59 Intake Total 1640 Balance 1640 - Medications Medications: Current Medications Acetaminophen (Tylenol 325mg Tab) 650 mg PO Q6 PRN PRN Reason: Pain, moderate (4-7) Last Admin: 12/12/17 21:13 Dose: 650 mg Clonazepam (Klonopin) 2 mg PO HS [facility] Last Admin: 12/13/17 21:35 Dose: 2 mg Docusate Sodium (Colace) 100 mg PO TID [facility] Last Admin: 12/14/17 09:29 Dose: 100 mg Furosemide (Lasix) 40 mg PO DAILY [facility] Last Admin: 12/14/17 09:29 Dose: 40 mg Losartan Potassium (Cozaar) 100 mg PO DAILY [facility] Last Admin: 12/14/17 09:29 Dose: 100 mg Metolazone (Zaroxolyn) 2.5 mg PO DAILY [facility] Last Admin: 12/14/17 09:29 Dose: 2.5 mg Pneumococcal Polyvalent Vaccine (Pneumovax 23 Vaccine) 0.5 ml IM .ONCE ONE Stop: 12/15/17 10:01 Potassium Chloride (Klor-Con 10) 10 meq PO DAILY [facility] Last Admin: 12/14/17 09:29 Dose: 10 meq Rosuvastatin Calcium (Crestor) 5 mg PO HS [facility] Last Admin: 12/13/17 21:35 Dose: 5 mg - Labs Labs: 12/14/17 06:59 12/12/17 11:27 PT 43.2 SECONDS (9.7-12.2) H* D 12/14/17 06:59 INR 3.9 D 12/14/17 06:59 APTT 65 SECONDS (21-34) H D 12/14/17 06:59
[2017-12-15] MEDS ORDERED: Pneumococcal 23-Valent Vaccine IM ONE (10:00)
--- NOTE | 2017-12-17 00:13 | CARD ---
APPROVED REPORT Date of service: 12/12/2017 EKG Measurement Heart [id number] <Conclusion> Atrial fibrillation Low voltage QRS Abnormal ECG
== END 2017-12-14 11:00 | disposition home or self-care (01) ==
LOC: C.ER 10:23 → C.9E 13:11 → C.3T 18:01
PROVIDERS: ADMIT Internal Medicine; ATTEND Internal Medicine
DX: S30.0XXA Contusion of lower back and pelvis, initial encounter (principal); T45.515A Adverse effect of anticoagulants, initial encounter; I05.8 Other rheumatic mitral valve diseases; I48.91 Unspecified atrial fibrillation; I10 Essential (primary) hypertension; D64.9 Anemia, unspecified; M16.11 Unilateral primary osteoarthritis, right hip; Z79.01 Long term (current) use of anticoagulants
CPT/HCPCS: 36415; 71045; 73700; 80053; 81001; 82550; 82948; 84484; 85025; 85610; 85730; 93005; 99284; G0378

== ENCOUNTER 2017-12-29 20:18 | Inpatient (IN) | payer MEDICARE, OTHER ==
[2017-12-29 20:18] VITALS: BMI 28.5
[2017-12-29] MEDS ORDERED: Sodium Chloride 0.9% 1,000 ML IV ONE ×2 (20:32→22:28)
--- NOTE | 2017-12-29 20:32 | C.PDOC ---
History Of Present Illness 67-year-old male, presents to the emergency department with complaints of nausea , non-bloody/non-bilious vomiting and non-bloody/watery diarrhea, associated with fever and chills ongoing for the past two weeks. Patient notes 4/10 discomfort. Denies any back pain, dizziness, chest pain, headache, or any other associated symptoms. No other complaints at this time. Time Seen by Provider: 12/29/17 20:32 Chief Complaint (Nursing): Abdominal Pain History Per: Patient History/Exam Limitations: no limitations Current Symptoms Are (Timing): Still Present Pain Scale Rating Of: 4 Past Medical History Reviewed: Historical Data, Nursing Documentation, Vital Signs Vital Signs: Last Vital Signs Temp 100.4 F H 12/29/17 23:44 Pulse 87 12/29/17 23:44 Resp 18 12/29/17 23:44 BP 101/67 12/29/17 23:44 Pulse Ox 98 12/29/17 23:44 - Medical History PMH: Anemia, Anxiety, Arthritis (R HIP AND R ANKLE), Atrial Fibrillation, CAD, Cardia Arrhythmia, Colonic Polyps, Depression, Diverticulitis, HTN, Hypercholesterolemia, Mitral Valve Prolapse, Schizophrenia Denies: Chronic Kidney Disease Surgical History: CABG (1997), Endoscopy - [facility] Procedures DRAINAGE OF ANUS, EXTERNAL APPROACH (05/01/15) TRANSFUSE NONAUT FROZEN PLASMA IN PERIPH VEIN, PERC (09/16/16) Family History: States: Hypertension - Social History Hx Alcohol Use: No Hx Substance Use: No - Immunization History Hx Tetanus Toxoid Vaccination: No Hx Influenza Vaccination: No Hx Pneumococcal Vaccination: No Review Of Systems Constitutional: Negative for: Fever, Chills Cardiovascular: Negative for: Chest Pain, Palpitations Respiratory: Negative for: Shortness of Breath Gastrointestinal: Positive for: Nausea, Vomiting, Abdominal Pain, Diarrhea Musculoskeletal: Negative for: Back Pain Physical Exam - Physical Exam Appears: Non-toxic, No Acute Distress Skin: Normal Color, Warm, Dry, No Rash Head: Atraumatic, Normacephalic Eye(s): bilateral: Normal Inspection Nose: Normal Oral Mucosa: Dry Lips: Normal Appearing Teeth: No Normal Dentition (Poor) Neck: Normal ROM Chest: Symmetrical, Other (CABG scar) Cardiovascular: Rhythm Regular, No Murmur Respiratory: Normal Breath Sounds, No Decreased Breath Sounds, No Accessory Muscle Use Gastrointestinal/Abdominal: Soft, No Tenderness (mild discomfort) Extremity: Normal ROM, No Deformity Neurological/Psych: Oriented x3, Normal Speech ED Course And Treatment - Laboratory Results Result Diagrams: 12/29/17 20:51 12/29/17 20:51 ECG: Interpreted By Me, Viewed By Me ECG Rhythm: Atrial Fibrillation (107), Nonspecific Changes O2 Sat by Pulse Oximetry: 94 Pulse Ox Interpretation: Normal - Radiology CXR: Interpreted by Me, Viewed By Me CXR Interpretation: Yes: Other (cabg, mild vasc congestion). No: Infiltrates, Fracture, Pnemothorax - CT Scan/US CT A/P Other Rad Studies (CT/US): Read By Radiologist, Radiology Report Reviewed CT/US Interpretation: EXAM: CT Abdomen and Pelvis Without Intravenous Contrast. CLINICAL HISTORY: 67 years old, male; Pain; Abdominal pain; Periumbilical. TECHNIQUE: Axial computed tomography images of the abdomen and pelvis without intravenous contrast. All CT. scans at this facility use at least one of these dose optimization techniques: automated exposure. control; mA and/or kV adjustment per patient size (includes targeted exams where dose is matched to. clinical indication); or iterative reconstruction. Coronal and sagittal reformatted images were created and reviewed. COMPARISON: No relevant prior studies available. FINDINGS: Lung bases: Subpleural reticular opacities within the dependent aspect of the lower lobes may. represent subsegmental atelectasis or scarring. Heart: Dense mitral annulus calcification. Left atrial enlargement. ABDOMEN: Liver: The liver is normal in appearance. Gallbladder and bile ducts: There is a laminated gallstone within the gallbladder lumen. No ductal. dilation. Pancreas: The pancreas is normal. No ductal dilation. Spleen: The spleen is normal. Adrenals: Mild bilateral adrenal thickening. No focal nodule. Kidneys and ureters: Bilateral perinephric fat stranding, likely senescent in nature. Renal vascular. calcifications are also present. No nephrolithiasis or hydronephrosis. Stomach and bowel: Normal. No obstruction. No mucosal thickening. PELVIS: Appendix: A normal appendix is identified. Bladder: The urinary bladder is incompletely distended, limiting evaluation. No stones. Reproductive: The prostate gland and seminal vesicles are normal. ABDOMEN and PELVIS: Intraperitoneal space: Normal. No free air. No significant fluid collection. Bones/joints: Median sternotomy wires. Diffuse osseous demineralization. Thoracolumbar. spondylosis. No acute osseous abnormality. No dislocation. Soft tissues: Small fat containing umbilical hernia. Ill-defined hyperdense focus within the left. gluteus rina measuring 5.6 cm x 3.9 cm in axial dimension (axial image 171). Vasculature: Status post coronary artery bypass with severe calcific atherosclerosis of the [place] of. coronary arteries. Mild bilateral ureteral ectasia. The aorta demonstrates moderate atherosclerotic. calcification. No abdominal aortic aneurysm. Lymph nodes: Normal. No enlarged lymph nodes. IMPRESSION: 1. Mild nonspecific ureteral ectasia which can represents sequela of evolving upper urinary tract. infection or mild lateralis obstruction. 2. Small fat containing hernia. 3. Left atrial enlargement. 4. Cholelithiasis. 5. Ill-defined hyperdense focus within the left gluteus rina muscle which may represent an ageindeterminate. hematoma or soft tissue mass. Correlate with history and examination findings. Consider orthopedic consultation and or followup imaging as indicated. 6. Other chronic findings as detailed above. Disposition Discussed With DrRenato: Sunita Kendrick Comment: accepted the pt on his service and took over the care at12:30 AM Doctor Will See Patient In The: Hospital Counseled Patient/Family Regarding: Studies Performed, Diagnosis - Disposition Disposition: HOSPITALIZED Disposition Time: 20:32 Condition: FAIR Forms: [email or web address] (Khmer) - POA Present On Arrival: Poor Glycemic Control - Clinical Impression Clinical Impression: Nausea, Vomiting, Atrial fibrillation, Severe dehydration - Scribe Statement The provider has reviewed the documentation as recorded by the Scribe (Sugey Gooden) All medical record entries made by the Scribe were at my direction and personally dictated by me. I have reviewed the chart and agree that the record accurately reflects my personal performance of the history, physical exam, medical decision making, and the department course for this patient. I have also personally directed, reviewed, and agree with the discharge instructions and disposition. Decision To Admit - Pt Status Changed To: Hospital Disposition Of: Inpatient - Admit Certification Admit to Inpatient:: After my assessment, the patient will require hospitalization for at least two midnights. This is because of the severity of symptoms shown, intensity of services needed, and/or the medical risk in this patient being treated as an outpatient. - InPatient: Physician Admission Certification:: After my assessment, the patient will require hospitalization for at least two midnights. This is because of the severity of symptoms shown, intensity of services needed, and/or the medical risk in this patient being treated as an outpatient. - . Bed Request Type: Regular Admitting Physician: Sunita Kendrick Patient Diagnosis: Nausea, Vomiting, Atrial fibrillation, Severe dehydration
[2017-12-29 20:55] LABS: BASO % 0.1 % (0.0-2.0); EOS % 0.1 % (0.0-4.0); HEMOGLOBIN 11.8 g/dL (12.0-18.0); LYMPH # 0.2 K/uL (1.0-4.3); LYMPH % 1.7 % (20.0-40.0); MEAN CELL VOLUME 92.5 fL (80.0-94.0); MEAN CORPUSCULAR HEMOGLOBIN 30.7 pg (27.0-31.0); MEAN CORPUSCULAR HGB CONC 33.2 g/dL (33.0-37.0); MEAN PLATELET VOLUME 9.8 fL (7.2-11.7); MONO % 8.1 % (0.0-10.0); NEUT # 10.7 K/uL (1.8-7.0); PLATELET COUNT 189 K/uL (130-400); RBC 3.84 Mil/uL (4.40-5.90); RED CELL DISTRIBUTION WIDTH 13.7 % (11.5-14.5); WHITE BLOOD COUNT 11.9 K/uL (4.8-10.8)
[2017-12-29 20:59] LABS: VENOUS BLOOD GAS BASE EXCESS 2.4 mmol/L (0.0-2.0); VENOUS BLOOD GAS PCO2 32 mmHg (40-60); VENOUS BLOOD GAS PO2 47 mm/Hg (30-55)
[2017-12-29 21:08] LABS: INR 2.8; PROTHROMBIN TIME 30.2 SECONDS (9.7-12.2)
[2017-12-29] MEDS ORDERED: Piperacillin/Tazobact 3.375 gm 100 ML IVPB STA (21:08)
[2017-12-29] MEDS ORDERED: Piperacillin/Tazobact 3.375 gm 100 ML IVPB ONE (21:23)
[2017-12-29 21:26] LABS: ALB/GLOB RATIO 1.2 (1.0-2.1); ALBUMIN 3.5 g/dL (3.5-5.0); CALCIUM 8.4 mg/dl (8.6-10.4)
[2017-12-29 21:28] LABS: LYMPHOCYTE 4 % (20-40); MONOCYTE 3 % (0-10); NEUTROPHIL 93 % (50-75); PLATELET ESTIMATE NORMAL (NORMAL); TOTAL CELLS COUNTED 100
[2017-12-30] MEDS: Lactated Ringer's 1,000 ML IV SCH ×4 (02:56→20:30)
--- NOTE | 2017-12-30 09:21 | RAD ---
Date of service: 12/29/2017 PROCEDURE: CHEST RADIOGRAPH, 1 VIEW HISTORY: abd pain COMPARISON: None available. FINDINGS: LUNGS: The right costophrenic sulcus is excluded. Repeat radiograph recommended. No alveolitis appreciated bilaterally. PLEURA: No pneumothorax or pleural fluid seen. CARDIOVASCULAR: Normal. OSSEOUS STRUCTURES: Sternotomy wires reiterated. VISUALIZED UPPER ABDOMEN: Normal. OTHER FINDINGS: None. IMPRESSION: No interval acute cardiopulmonary disease appreciated.
[2017-12-30] MEDS: Potassium Chloride 10 mEq ER Tab PO SCH (10:45)
--- NOTE | 2017-12-30 10:54 | CT ---
Date of service: 12/29/2017 PROCEDURE: CT Abdomen and Pelvis without intravenous contrast HISTORY: abdominal pain COMPARISON: And pelvis CT without contrast 11/14/2016. TECHNIQUE: Helical CT of the abdomen and pelvis was performed without oral or intravenous contrast as per referring physician request. Contrast dose: None Radiation dose: Total exam DLP = 812.23 mGy-cm. This CT exam was performed using one or more of the following dose reduction techniques: Automated exposure control, adjustment of the mA and/or kV according to patient size, and/or use of iterative reconstruction technique. FINDINGS: LOWER THORAX: Cardiomegaly, dense mitral annular calcifications and extensive coronary calcifications are reiterated. No pleural or pericardial effusion at this time. LIVER: Unremarkable. No gross lesion or ductal dilatation. GALLBLADDER AND BILE DUCTS: Cholelithiasis without definite acute gallbladder findings associated. PANCREAS: Unremarkable. No gross lesion or ductal dilatation. SPLEEN: Unremarkable. ADRENALS: Mild bilateral adrenal thickening appreciated. KIDNEYS AND URETERS: Limited streaky perinephric changes, potentially senescent. No hydronephrosis. No solid mass. VASCULATURE: Non aneurysmal aortic iliac atherosclerosis. BOWEL: Unremarkable. No obstruction. No gross mural thickening. APPENDIX: Unremarkable. Normal appendix. PERITONEUM: Unremarkable. No free fluid. No free air. LYMPH NODES: Unremarkable. No enlarged lymph nodes. BLADDER: Urinary bladder is minimally distended limiting the evaluation. No suspicious findings as imaged. REPRODUCTIVE: Unremarkable. BONES: No acute fracture. OTHER FINDINGS: A small area of increased ill defined density seen the left buttocks muscle suspicious for possible recent trauma or may be iatrogenic related to recent injection. Clinically correlate. IMPRESSION: 1. No definitive obstructive uropathy bilaterally although bilateral perinephric streaky changes are appreciate which may be senescent. No radiodense urolithiasis bilaterally. Clinically correlate further. 2. Cholelithiasis. 3. Trace hyperdensity left buttocks muscle may reflect hematoma from recent injection or trauma. Clinically correlate further.
[2017-12-30 11:41] LABS: SQUAMOUS EPITHIAL 1 /hpf (0-5); URINE BACTERIA RARE (<OCC); URINE BILIRUBIN NEGATIVE (NEGATIVE); URINE BLOOD 3+ (NEGATIVE); URINE CLARITY Hazy (Clear); URINE COLOR Yellow (YELLOW); URINE GLUCOSE (UA) NORMAL (Normal); URINE LEUKOCYTE ESTERASE 3+ Leu/uL (Negative); URINE PROTEIN 1+ mg/dL (NEGATIVE); URINE UROBILINOGEN NORMAL mg/dL (0.2-1.0)
[2017-12-30] MEDS ORDERED: Piperacill/Tazo 3.375gm in Dex 3.375 GM/50 ML BAG IVPB SCH (14:45)
[2017-12-30] MEDS: Piperacill/Tazo 3.375gm in Dex 3.375 GM/50 ML BAG IVPB SCH ×2 (16:37→22:32)
[2017-12-30 17:04] LABS: BASO % 0.1 % (0.0-2.0); HEMOGLOBIN 11.8 g/dL (12.0-18.0); LYMPH # 0.3 K/uL (1.0-4.3); LYMPH % 2.9 % (20.0-40.0); MEAN CELL VOLUME 93.6 fL (80.0-94.0); MEAN CORPUSCULAR HEMOGLOBIN 31.2 pg (27.0-31.0); MEAN CORPUSCULAR HGB CONC 33.3 g/dL (33.0-37.0); MEAN PLATELET VOLUME 10.4 fL (7.2-11.7); MONO # 1.1 K/uL (0.0-0.8); MONO % 9.2 % (0.0-10.0); NEUT # 10.3 K/uL (1.8-7.0); NEUT % 87.8 % (50.0-75.0); PLATELET COUNT 194 K/uL (130-400); RED CELL DISTRIBUTION WIDTH 14.2 % (11.5-14.5); WHITE BLOOD COUNT 11.7 K/uL (4.8-10.8)
[2017-12-30 17:19] LABS: ALB/GLOB RATIO 1.1 (1.0-2.1); ALBUMIN 3.3 g/dL (3.5-5.0); CALCIUM 8.3 mg/dl (8.6-10.4)
[2017-12-30] MEDS ORDERED: Potassium Chloride 20 mEq/15 ml LIQ UD PO STA (17:43)
[2017-12-30] MEDS ORDERED: Potassium & Sodium Phosphate PO ONE (17:45)
--- NOTE | 2017-12-30 18:01 | NM ---
Date of service: 12/30/2017 PROCEDURE: Nuclear Medicine Hepatobiliary Scan HISTORY: cholecystitis COMPARISON: None available. TECHNIQUE: 6.0 mCi of technetium 99m Mebrofenin was administered intravenously. Planar images of the abdomen were obtained at 5 min intervals to 60 mins. Delayed images were also obtained. FINDINGS: LIVER: Timely and homogenous uptake. COMMON BILE DUCT: identified at 25 mins. GALLBLADDER: identified at 25 mins. SMALL BOWEL: Identified at 45 mins. IMPRESSION: Normal Hepatobiliary Scan. The cystic duct is patent.
[2017-12-30 18:25] LABS: BANDS 4 % (0-2); LYMPHOCYTE 3 % (20-40); MONOCYTE 8 % (0-10); NEUTROPHIL 84 % (50-75); PLATELET ESTIMATE NORMAL (NORMAL); REACTIVE LYMPHOCYTES 1 % (0-0); TOTAL CELLS COUNTED 100
--- NOTE | 2017-12-30 21:32 | PCM.FALL ---
Post Fall Progress Note - Post Fall Fall Date: 12/30/17 Fall Time: 21:20 Description of Fall: Patient was sitting on toilet and attempted to push door shut. While leaning over, the door did not latch and opened on the other side. Patient feel to his knees. He was able to lift himself off of the floor and sit back on the toilet without incident. Upon Dr. Dhaliwal's arrival, patient was sitting on the toilet with no complaints. - Post Fall Exam Vital Sign: Temp Pulse Resp BP Pulse Ox 98.5 F 110 H 20 107/65 95 12/30/17 17:17 12/30/17 17:17 12/30/17 17:17 12/30/17 17:17 12/30/17 17:17 Skull Exam: Negative for: Scalp wound, Scalp hematoma, Scalp depression, Ridge in skull Ear Exam: Negative for: Bleeding Nose Exam: Negative for: Bleeding Skin Exam: Negative for: Lacerations, Grazes, Bruising Mouth Exam: Negative for: Tongue bitten, Teeth dislodge Chest Exam: Negative for: Difficulty breathing Arm Exam: Negative for: Deformity Leg Exam: Negative for: Deformity Impression/Plan: Patient is stable without signs or symptoms of acute injury. Patient denies any pain, lightheadedness or dizziness. Patient instructed to ask for help to and from bathroom. No indication for further treatment at this time.
--- NOTE | 2017-12-30 21:59 | CP.PCM.HP ---
History of Present Illness - History of Present Illness History of Present Illness: chief complaint: fever and chills History of present illness: 67-year-old male with a history of mitral valve replacement, hypertension, CAD, diabetes, atrial fibrillation Came to the emergency room with Comparing of 2 days of abdominal pain, flank pain, fever, chills. Patient came to the emergency room with increasing symptoms of shaking. 4 days ago I saw the patient the office, at the time he was fine. Patient was recently hospitalized with the gluteal hematoma. Has a multiple hospitalization because of the Coumadin related problems, and also depression. He started having symptoms of shaking, shivering, cough, and also chills and fever. Patient was not able to eat anything by mouth. No vomiting noted, but nausea present. Poor intake noted Past medical history: Anemia, osteoarthritis, atrial fibrillation, CAD, mitral valve disease, status post mitral valve replacement.depression Had cardiac surgery in 1997 Allergy no known drug allergy Personal history nonsmoker nonalcoholic History of depression noted. Review of system noted from the chart, denies any chest pain, but complaining of pain over the right thigh Patient able to walk, but complaining of pain over the left gluteal region, swelling noted. Vital signs reviewed No neck vein distention noted Chest good air entry bilaterally, no wheezing or rales noted CVS regular heart sound, no murmur noted Abdomen soft, nontender. Extremities no pedal edema [place] alert awake oriented -3, no functional neurological deficit CAT scan of the abdomen showing evidence of gallstones Perinephric stranding of the kidneys noted Urine analysis showing evidence of elevated WBC. Blood culture just no reported as positive for gram-negative bacteremia Assessment admission: 67-year-old male with a history of mitral valve replacement, hypertension, CAD, diabetes, atrial fibrillation admitted with a coagulopathy state, secondary to Coumadin toxicity, and also recurrent problem. We will monitor the INR. Agent admitted with a possible acute severe febrile illness, and associated with the possible urinary tract infection. And underlying pyelonephritis cannot be ruled out. Cholecystitis is also possible. HIDA scan which was done, showing evidence of negative for any obstruction. Most likely patient has a gram-negative bacteremia secondary to urinary tract infection. Will get culture of the urine and blood culture. On antibiotic. Also patient is having diarrhea, get C. difficile: Testing. Flagyl. Probiotic. Repeat INR in the morning. Will follow-up the patient Present on Admission - Present on Admission Any Indicators Present on Admission: No History of DVT/PE: No History of Uncontrolled Diabetes: No Urinary Catheter: No Decubitus Ulcer Present: No Past Patient History - Infectious Disease Hx of Infectious Diseases: None - Past Medical History & Family History Past Medical History?: Yes - Past Social History Smoking Status: Current Some Days Smoker - CARDIAC Hx Atrial Fibrillation: Yes Hx Cardia Arrhythmia: Yes Hx Hypercholesterolemia: Yes Hx Hypertension: Yes Hx Mitral Valve Prolapse: Yes - PULMONARY Hx Respiratory Disorders: No Hx Tuberculosis: No - HEENT Hx HEENT Problems: Yes Hx Cataracts: Yes (cataraxt sx) - RENAL Hx Chronic Kidney Disease: No - HEMATOLOGICAL/ONCOLOGICAL Hx Anemia: Yes - INTEGUMENTARY Hx Dermatological Problems: Yes Hx Cellulitis: Yes Other/Comment: Hx Ulcer to right calf (healed) - MUSCULOSKELETAL/RHEUMATOLOGICAL Hx Falls: Yes - GASTROINTESTINAL Hx Diverticulitis: Yes - PSYCHIATRIC Hx Substance Use: No - SURGICAL HISTORY Hx Coronary Artery Bypass Graft: Yes (1997) - ANESTHESIA Hx Anesthesia: Yes Hx Anesthesia Reactions: No Hx Malignant Hyperthermia: No Meds Allergies/Adverse Reactions: Allergies Allergy/AdvReac Type Severity Reaction Status Date / Time clams Allergy Intermediate NAUSEA Uncoded 11/13/17 10:24 Results - Vital Signs Recent Vital Signs: Last Vital Signs Temp 98.5 F 12/30/17 17:17 Pulse 110 H 12/30/17 17:17 Resp 20 12/30/17 17:17 BP 107/65 12/30/17 17:17 Pulse Ox 95 12/30/17 17:17 - Labs Result Diagrams: 12/30/17 16:58 12/30/17 16:58 Labs: Laboratory Results - last 24 hr 12/29/17 12/29/17 12/30/17 11:09 21:58 06:56 WBC RBC Hgb Hct MCV MCH MCHC RDW Plt Count MPV Neut % (Auto) Lymph % (Auto) [place] % (Auto) Eos % (Auto) Baso % (Auto) Neut # (Auto) Lymph # (Auto) [place] # (Auto) Eos # (Auto) Baso # (Auto) Neutrophils % (Manual) Band Neutrophils % Lymphocytes % (Manual) Reactive Lymphs % Monocytes % (Manual) Platelet Estimate Sodium Potassium Chloride Carbon Dioxide Anion Gap BUN Creatinine Est GFR ( Amer) Est GFR (Non-Af Amer) POC Glucose (mg/dL) 185 H 163 H Random Glucose Calcium Phosphorus Magnesium Total Bilirubin AST ALT Alkaline Phosphatase Total Protein Albumin Globulin Albumin/Globulin Ratio Lipase Urine Color Yellow Urine Clarity Hazy Urine pH 5.0 Ur Specific [place] 1.014 Urine Protein 1+ H Urine Glucose (UA) Normal Urine Ketones Negative Urine Blood 3+ H Urine Nitrate Negative Urine Bilirubin Negative Urine Urobilinogen Normal Ur Leukocyte Esterase 3+ H Urine WBC (Auto) 506 H Urine RBC (Auto) 19 H Ur Squamous Epith Cells 1 Urine Bacteria Rare 12/30/17 12/30/17 12/30/17 11:21 16:48 16:58 WBC 11.7 H RBC 3.80 L Hgb 11.8 L Hct 35.6 MCV 93.6 MCH 31.2 H MCHC 33.3 RDW 14.2 Plt Count 194 MPV 10.4 Neut % (Auto) 87.8 H Lymph % (Auto) 2.9 L [place] % (Auto) 9.2 Eos % (Auto) 0.0 Baso % (Auto) 0.1 Neut # (Auto) 10.3 H Lymph # (Auto) 0.3 L [place] # (Auto) 1.1 H Eos # (Auto) 0.0 Baso # (Auto) 0.0 Neutrophils % (Manual) 84 H Band Neutrophils % 4 H Lymphocytes % (Manual) 3 L Reactive Lymphs % 1 H Monocytes % (Manual) 8 Platelet Estimate Normal Sodium Potassium Chloride Carbon Dioxide Anion Gap BUN Creatinine Est GFR ( Amer) Est GFR (Non-Af Amer) POC Glucose (mg/dL) 150 H 169 H Random Glucose Calcium Phosphorus Magnesium Total Bilirubin AST ALT Alkaline Phosphatase Total Protein Albumin Globulin Albumin/Globulin Ratio Lipase Urine Color Urine Clarity Urine pH Ur Specific [place] Urine Protein Urine Glucose (UA) Urine Ketones Urine Blood Urine Nitrate Urine Bilirubin Urine Urobilinogen Ur Leukocyte Esterase Urine WBC (Auto) Urine RBC (Auto) Ur Squamous Epith Cells Urine Bacteria 12/30/17 16:58 WBC RBC Hgb Hct MCV MCH MCHC RDW Plt Count MPV Neut % (Auto) Lymph % (Auto) [place] % (Auto) Eos % (Auto) Baso % (Auto) Neut # (Auto) Lymph # (Auto) Winn # (Auto) Eos # (Auto) Baso # (Auto) Neutrophils % (Manual) Band Neutrophils % Lymphocytes % (Manual) Reactive Lymphs % Monocytes % (Manual) Platelet Estimate Sodium 134 Potassium 3.0 L Chloride 99 Carbon Dioxide 25 Anion Gap 13 BUN 61 H Creatinine 1.6 H Est GFR ( Amer) 53 Est GFR (Non-Af Amer) 44 POC Glucose (mg/dL) Random Glucose 161 H Calcium 8.3 L Phosphorus 2.2 L Magnesium 1.8 Total Bilirubin 2.0 H AST 25 ALT 28 Alkaline Phosphatase 112 Total Protein 6.2 L Albumin 3.3 L Globulin 2.9 Albumin/Globulin Ratio 1.1 Lipase 24 Urine Color Urine Clarity Urine pH Ur Specific [place] Urine Protein Urine Glucose (UA) Urine Ketones Urine Blood Urine Nitrate Urine Bilirubin Urine Urobilinogen Ur Leukocyte Esterase Urine WBC (Auto) Urine RBC (Auto) Ur Squamous Epith Cells Urine Bacteria
[2017-12-30] MEDS: metroNIDAZOLE IV 500 mg/100 ml 250 MG in Premixed IV 1 EA IVPB SCH (22:31)
[2017-12-30] MEDS: Saccharomyces Boulardi 250 mg Cap PO SCH (22:32)
[2017-12-31] MEDS: metroNIDAZOLE IV 500 mg/100 ml 250 MG in Premixed IV 1 EA IVPB SCH ×3 (05:54→21:31)
[2017-12-31] MEDS: Piperacill/Tazo 3.375gm in Dex 3.375 GM/50 ML BAG IVPB SCH ×4 (05:55→23:04)
[2017-12-31] MEDS: Saccharomyces Boulardi 250 mg Cap PO SCH ×3 (06:07→21:32)
[2017-12-31 07:19] LABS: BASO % 0.1 % (0.0-2.0); EOS % 0.1 % (0.0-4.0); HEMOGLOBIN 10.6 g/dL (12.0-18.0); LYMPH # 0.5 K/uL (1.0-4.3); LYMPH % 4.6 % (20.0-40.0); MEAN CELL VOLUME 91.7 fL (80.0-94.0); MEAN CORPUSCULAR HEMOGLOBIN 30.5 pg (27.0-31.0); MEAN CORPUSCULAR HGB CONC 33.3 g/dL (33.0-37.0); MEAN PLATELET VOLUME 9.6 fL (7.2-11.7); MONO # 1.5 K/uL (0.0-0.8); MONO % 13.6 % (0.0-10.0); NEUT # 9.1 K/uL (1.8-7.0); NEUT % 81.6 % (50.0-75.0); PLATELET COUNT 177 K/uL (130-400); RBC 3.46 Mil/uL (4.40-5.90); RED CELL DISTRIBUTION WIDTH 13.7 % (11.5-14.5); WHITE BLOOD COUNT 11.1 K/uL (4.8-10.8)
[2017-12-31] MEDS: Lactated Ringer's 1,000 ML IV SCH ×2 (07:56→17:38)
[2017-12-31 08:14] LABS: INR 3.2
[2017-12-31 09:04] LABS: ALBUMIN 2.6 g/dL (3.5-5.0); CALCIUM 7.9 mg/dl (8.6-10.4)
[2017-12-31 09:34] LABS: BANDS 4 % (0-2); EOSINOPHIL 1 % (0-4); LYMPHOCYTE 4 % (20-40); MONOCYTE 5 % (0-10); NEUTROPHIL 86 % (50-75); TOTAL CELLS COUNTED 100
[2017-12-31 09:37] LABS: PLATELET ESTIMATE NORMAL (NORMAL)
[2017-12-31 09:38] LABS: HYPOCHROMIC SLIGHT; OVALOCYTES SLIGHT; POLYCHROMIC SLIGHT
[2017-12-31] MEDS: Potassium Chloride 10 mEq ER Tab PO SCH (11:48)
[2017-12-31 15:06] LABS: PROTHROMBIN TIME 35.5 SECONDS (9.7-12.2)
--- NOTE | 2017-12-31 19:09 | CP.PCM.PN ---
Subjective - Date & Time of Evaluation Date of Evaluation: 12/31/17 Time of Evaluation: 19:09 - Subjective Subjective: Patient is morning feeling well. Still feeling tired. Diarrhea noted. Feeling hungry. No chest pain Patient vital signs reviewed Clinical examination is unremarkable. Abdominal distention negative. Patient labs reviewed INR reviewed Still therapeutic Assessment: 67 male with a history of depression. Mitral valve replacement mechanical, on Coumadin. Diabetes. Hypertension. History of the recurrent bleeding, hematoma. Now admitted with the possible abdominal process of infection. Gram-negative bacteremia, infectious disease on board. ID of the organism pending. On antibiotic. Advance the diet and will follow-up the patient Objective - Vital Signs/Intake and Output Vital Signs (last 24 hours): Temp Pulse Resp BP Pulse Ox 97.7 F 72 18 132/72 97 12/31/17 15:44 12/31/17 15:44 12/31/17 15:44 12/31/17 15:44 12/31/17 15:44 Intake and Output: 12/31/17 01/01/18 18:59 06:59 Intake Total 750 Balance 750 - Medications Medications: Current Medications Clonazepam (Klonopin) 2 mg PO HS [facility] Last Admin: 12/30/17 22:35 Dose: 2 mg Lactated Ringer's (Lactated Ringer's) 1,000 mls @ 100 mls/hr IV .Q10H [facility] Last Admin: 12/31/17 17:38 Dose: Not Given Piperacillin Sod/Tazobactam Sod (Zosyn 3.375 Gm Iv Premix) 3.375 gm in 50 mls @ 100 mls/hr IVPB Q6H JIM PRN Reason: Protocol Last Admin: 12/31/17 17:38 Dose: 100 mls/hr Metronidazole 250 mg/ (Miscellaneous) 50 mls @ 100 mls/hr IVPB Q8H JIM PRN Reason: Protocol Last Admin: 12/31/17 13:31 Dose: 100 mls/hr Losartan Potassium (Cozaar) 100 mg PO DAILY [facility] Last Admin: 12/30/17 10:45 Dose: 100 mg Pantoprazole Sodium (Protonix Inj) 40 mg IVP DAILY [facility] Last Admin: 12/31/17 11:48 Dose: 40 mg Potassium Chloride (Klor-Con 10) 10 meq PO DAILY [facility] Last Admin: 12/31/17 11:48 Dose: 10 meq Saccharomyces Boulardii (Florastor) 250 mg PO Q8 [facility] Last Admin: 12/31/17 13:31 Dose: 250 mg Trazodone HCl (Desyrel) 50 mg PO HS [facility] Last Admin: 12/30/17 22:31 Dose: Not Given - Labs Labs: 12/31/17 07:09 12/31/17 07:09 PT 35.5 SECONDS (9.7-12.2) H* D 12/31/17 07:09 INR 3.2 12/31/17 07:09 APTT 39 SECONDS (21-34) H 12/31/17 07:09
[2018-01-01] MEDS: Piperacill/Tazo 3.375gm in Dex 3.375 GM/50 ML BAG IVPB SCH ×3 (04:45→16:12)
[2018-01-01] MEDS: Lactated Ringer's 1,000 ML IV SCH ×2 (04:45→10:15)
[2018-01-01] MEDS: metroNIDAZOLE IV 500 mg/100 ml 250 MG in Premixed IV 1 EA IVPB SCH ×3 (06:14→21:05)
[2018-01-01] MEDS: Saccharomyces Boulardi 250 mg Cap PO SCH ×3 (06:14→17:13)
[2018-01-01 07:38] LABS: BASO % 0.1 % (0.0-2.0); EOS # 0.1 K/uL (0.0-0.7); EOS % 0.5 % (0.0-4.0); HEMOGLOBIN 10.8 g/dL (12.0-18.0); LYMPH # 0.5 K/uL (1.0-4.3); LYMPH % 3.8 % (20.0-40.0); MEAN CELL VOLUME 92.7 fL (80.0-94.0); MEAN CORPUSCULAR HGB CONC 33.4 g/dL (33.0-37.0); MEAN PLATELET VOLUME 10.1 fL (7.2-11.7); MONO # 1.5 K/uL (0.0-0.8); MONO % 11.4 % (0.0-10.0); NEUT # 10.9 K/uL (1.8-7.0); NEUT % 84.2 % (50.0-75.0); PLATELET COUNT 226 K/uL (130-400); RBC 3.48 Mil/uL (4.40-5.90); RED CELL DISTRIBUTION WIDTH 14.3 % (11.5-14.5)
[2018-01-01 08:28] LABS: LYMPHOCYTE 5 % (20-40); MONOCYTE 6 % (0-10); NEUTROPHIL 89 % (50-75); TOTAL CELLS COUNTED 100
[2018-01-01 08:29] LABS: HYPOCHROMIC SLIGHT; OVALOCYTES SLIGHT; PLATELET ESTIMATE NORMAL (NORMAL); POLYCHROMIC SLIGHT
[2018-01-01 08:47] LABS: ALBUMIN 2.7 g/dL (3.5-5.0); ALT/SGPT 22 U/L (21-72); AST/SGOT 23 U/L (17-59); BLOOD UREA NITROGEN 42 mg/dL (9-20); CALCIUM 8.4 mg/dl (8.6-10.4); GFR NON-AFRICAN AMERICAN 55
[2018-01-01] MEDS: Potassium Chloride 10 mEq ER Tab PO SCH (09:03)
[2018-01-01 09:52] LABS: ERYTHROCYTE SEDIMENTATION RATE 40 mm/hr (0-15)
--- NOTE | 2018-01-01 15:47 | CP.PCM.CON ---
History of Present Illness - History of Present Illness History of Present Illness: INFECTIOUS DISEASE CONSULTATION AMINTA HERNÁNDEZ MD, FACP 6T 656-A 12/31/2017 CHART REVIEWED PT EXAMINED AND ORDERS WRITTEN 12/31/[address] KAYE chief complaint: fever and chills WITH LOWER ABDOMINAL PAINS WITH DIFFICULTY URINATING History of present illness: 67-year-old male with a history of mitral valve replacement, hypertension, CAD, diabetes, atrial fibrillation. Came to the emergency room with C/C: of 2 days of abdominal pain, flank pain, fever, chills. Patient came to the emergency room with increasing symptoms of shaking [employer]. Patient was recently hospitalized with the gluteal hematoma. Has a multiple hospitalization because of the Coumadin related problems, and also depression. He started having symptoms of shaking, shivering, cough, and also chills and fever. Patient was not able to eat anything by mouth. No vomiting noted, but nausea present. Poor intake noted Past medical history: Anemia, osteoarthritis, atrial fibrillation, CAD, mitral valve disease, status post mitral valve replacement.depression Had cardiac surgery in 1997 Allergy no known drug allergy Personal history nonsmoker nonalcoholic History of depression noted. Review of system noted from the chart, denies any chest pain, but complaining of pain over the right thigh Patient able to walk, but complaining of pain over the left gluteal region, swelling noted. Vital signs reviewed No neck vein distention noted Chest good air entry bilaterally, no wheezing or rales noted CVS regular heart sound, no murmur noted Abdomen soft, nontender. Extremities no pedal edema [employer] alert awake oriented -3, no functional neurological deficit CAT scan of the abdomen showing evidence of gallstones Perinephric stranding of the kidneys noted Urine analysis showing evidence of elevated WBC. Blood culture just no reported as positive for gram-negative bacteremia Assessment admission: 67-year-old male with a history of mitral valve replacement, hypertension, CAD, diabetes, atrial fibrillation admitted with a coagulopathy state, secondary to Coumadin toxicity, and also recurrent problem. We will monitor the INR. Agent admitted with a possible acute severe febrile illness, and associated with the possible urinary tract infection. And underlying pyelonephritis cannot be ruled out. Cholecystitis is also possible. HIDA scan which was done, showing evidence of negative for any obstruction. Most likely patient has a gram-negative bacteremia secondary to urinary tract infection. Will get culture of the urine and blood culture. On antibiotic. Also patient is having diarrhea, get C. difficile: Testing. Flagyl. Probiotic. Repeat INR in the morning. Will follow-up the patient Present on Admission - Present on Admission Any Indicators Present on Admission: No History of DVT/PE: No History of Uncontrolled Diabetes: No Urinary Catheter: No Decubitus Ulcer Present: No Past Patient History - Infectious Disease Hx of Infectious Diseases: None - Past Medical History & Family History Past Medical History?: Yes - Past Social History Smoking Status: Current Some Days Smoker - CARDIAC Hx Atrial Fibrillation: Yes Hx Cardia Arrhythmia: Yes Hx Hypercholesterolemia: Yes Hx Hypertension: Yes Hx Mitral Valve Prolapse: Yes - PULMONARY Hx Respiratory Disorders: No Hx Tuberculosis: No - HEENT Hx HEENT Problems: Yes Hx Cataracts: Yes (cataraxt sx) - RENAL Hx Chronic Kidney Disease: No - HEMATOLOGICAL/ONCOLOGICAL Hx Anemia: Yes - INTEGUMENTARY Hx Dermatological Problems: Yes Hx Cellulitis: Yes Other/Comment: Hx Ulcer to right calf (healed) - MUSCULOSKELETAL/RHEUMATOLOGICAL Hx Falls: Yes - GASTROINTESTINAL Hx Diverticulitis: Yes - PSYCHIATRIC Hx Substance Use: No - SURGICAL HISTORY Hx Coronary Artery Bypass Graft: Yes (1997) - ANESTHESIA Hx Anesthesia: Yes Hx Anesthesia Reactions: No Hx Malignant Hyperthermia: No Meds Allergies/Adverse Reactions: Allergies Allergy/AdvReac Type Severity Reaction Status Date / Time clams Allergy Intermediate NAUSEA Uncoded 11/13/17 10:24 Results - Vital Signs Recent Vital Signs: Last Vital Signs Temp 98.5 F 12/30/17 17:17 Pulse 110 H 12/30/17 17:17 Resp 20 12/30/17 17:17 BP 107/65 12/30/17 17:17 Pulse Ox 95 12/30/17 17:17 - Labs Result Diagrams: 12/30/17 16:58 12/30/17 16:58 Labs: Laboratory Results - last 24 hr 12/29/17 12/29/17 12/30/17 11:09 21:58 06:56 WBC RBC Hgb Hct MCV MCH MCHC RDW Plt Count MPV Neut % (Auto) Lymph % (Auto) [place] % (Auto) Eos % (Auto) Baso % (Auto) Neut # (Auto) Lymph # (Auto) [place] # (Auto) Eos # (Auto) Baso # (Auto) Neutrophils % (Manual) Band Neutrophils % Lymphocytes % (Manual) Reactive Lymphs % Monocytes % (Manual) Platelet Estimate Sodium Potassium Chloride Carbon Dioxide Anion Gap BUN Creatinine Est GFR ( Amer) Est GFR (Non-Af Amer) POC Glucose (mg/dL) 185 H 163 H Random Glucose Calcium Phosphorus Magnesium Total Bilirubin AST ALT Alkaline Phosphatase Total Protein Albumin Globulin Albumin/Globulin Ratio Lipase Urine Color Yellow Urine Clarity Hazy Urine pH 5.0 Ur Specific [place] 1.014 Urine Protein 1+ H Urine Glucose (UA) Normal Urine Ketones Negative Urine Blood 3+ H Urine Nitrate Negative Urine Bilirubin Negative Urine Urobilinogen Normal Ur Leukocyte Esterase 3+ H Urine WBC (Auto) 506 H Urine RBC (Auto) 19 H Ur Squamous Epith Cells 1 Urine Bacteria Rare 12/30/17 12/30/17 12/30/17 11:21 16:48 16:58 WBC 11.7 H RBC 3.80 L Hgb 11.8 L Hct 35.6 MCV 93.6 MCH 31.2 H MCHC 33.3 RDW 14.2 Plt Count 194 MPV 10.4 Neut % (Auto) 87.8 H Lymph % (Auto) 2.9 L [place] % (Auto) 9.2 Eos % (Auto) 0.0 Baso % (Auto) 0.1 Neut # (Auto) 10.3 H Lymph # (Auto) 0.3 L [place] # (Auto) 1.1 H Eos # (Auto) 0.0 Baso # (Auto) 0.0 Neutrophils % (Manual) 84 H Band Neutrophils % 4 H Lymphocytes % (Manual) 3 L Reactive Lymphs % 1 H Monocytes % (Manual) 8 Platelet Estimate Normal Sodium Potassium Chloride Carbon Dioxide Anion Gap BUN Creatinine Est GFR ( Amer) Est GFR (Non-Af Amer) POC Glucose (mg/dL) 150 H 169 H Random Glucose Calcium Phosphorus Magnesium Total Bilirubin AST ALT Alkaline Phosphatase Total Protein Albumin Globulin Albumin/Globulin Ratio Lipase Urine Color Urine Clarity Urine pH Ur Specific [place] Urine Protein Urine Glucose (UA) Urine Ketones Urine Blood Urine Nitrate Urine Bilirubin Urine Urobilinogen Ur Leukocyte Esterase Urine WBC (Auto) Urine RBC (Auto) Ur Squamous Epith Cells Urine Bacteria 12/30/17 16:58 WBC RBC Hgb Hct MCV MCH MCHC RDW Plt Count MPV Neut % (Auto) Lymph % (Auto) [place] % (Auto) Eos % (Auto) Baso % (Auto) Neut # (Auto) Lymph # (Auto) [place] # (Auto) Eos # (Auto) Baso # (Auto) Neutrophils % (Manual) Band Neutrophils % Lymphocytes % (Manual) Reactive Lymphs % Monocytes % (Manual) Platelet Estimate Sodium 134 Potassium 3.0 L Chloride 99 Carbon Dioxide 25 Anion Gap 13 BUN 61 H Creatinine 1.6 H Est GFR ( Amer) 53 Est GFR (Non-Af Amer) 44 POC Glucose (mg/dL) Random Glucose 161 H Calcium 8.3 L Phosphorus 2.2 L Magnesium 1.8 Total Bilirubin 2.0 H AST 25 ALT 28 Alkaline Phosphatase 112 Total Protein 6.2 L Albumin 3.3 L Globulin 2.9 Albumin/Globulin Ratio 1.1 Lipase 24 Urine Color Urine Clarity Urine pH Ur Specific [place] Urine Protein Urine Glucose (UA) Urine Ketones Urine Blood Urine Nitrate Urine Bilirubin Urine Urobilinogen Ur Leukocyte Esterase Urine WBC (Auto) Urine RBC (Auto) Ur Squamous Epith Cells Urine Bacteria Past Patient History - Infectious Disease Hx of Infectious Diseases: None - Past Medical History & Family History Past Medical History?: Yes - Past Social History Smoking Status: Current Some Days Smoker - CARDIAC Hx Cardiac Disorders: Yes (CAD, A-fib, MVP) Hx Hypercholesterolemia: Yes Hx Hypertension: Yes - PULMONARY Hx Respiratory Disorders: No Hx Tuberculosis: No - HEENT Hx HEENT Problems: Yes Hx Cataracts: Yes (cataraxt sx) - RENAL Hx Chronic Kidney Disease: No - HEMATOLOGICAL/ONCOLOGICAL Hx Anemia: Yes - INTEGUMENTARY Hx Dermatological Problems: Yes Hx Cellulitis: Yes Other/Comment: Hx Ulcer to right calf (healed) - MUSCULOSKELETAL/RHEUMATOLOGICAL Hx Arthritis: Yes - GASTROINTESTINAL Hx Diverticulitis: Yes - PSYCHIATRIC Hx Substance Use: No - SURGICAL HISTORY Hx Coronary Artery Bypass Graft: Yes (1997) - ANESTHESIA Hx Anesthesia: Yes Hx Anesthesia Reactions: No Hx Malignant Hyperthermia: No Meds Allergies/Adverse Reactions: Allergies Allergy/AdvReac Type Severity Reaction Status Date / Time clams Allergy Intermediate NAUSEA Uncoded 11/13/17 10:24 - Medications Medications: Current Medications Clonazepam (Klonopin) 2 mg PO HS [facility] Last Admin: 12/31/17 21:31 Dose: 2 mg Lactated Ringer's (Lactated Ringer's) 1,000 mls @ 100 mls/hr IV .Q10H [facility] Last Admin: 01/01/18 10:15 Dose: 100 mls/hr Piperacillin Sod/Tazobactam Sod (Zosyn 3.375 Gm Iv Premix) 3.375 gm in 50 mls @ 100 mls/hr IVPB Q6H JIM PRN Reason: Protocol Last Admin: 01/01/18 10:16 Dose: 100 mls/hr Metronidazole 250 mg/ (Miscellaneous) 50 mls @ 100 mls/hr IVPB Q8H JIM PRN Reason: Protocol Last Admin: 01/01/18 13:30 Dose: 100 mls/hr Losartan Potassium (Cozaar) 100 mg PO DAILY [facility] Last Admin: 12/30/17 10:45 Dose: 100 mg Pantoprazole Sodium (Protonix Inj) 40 mg IVP DAILY [facility] Last Admin: 01/01/18 09:03 Dose: 40 mg Potassium Chloride (Klor-Con 10) 10 meq PO DAILY [facility] Last Admin: 01/01/18 09:03 Dose: 10 meq Saccharomyces Boulardii (Florastor) 250 mg PO Q8 [facility] Last Admin: 01/01/18 13:15 Dose: 250 mg Trazodone HCl (Desyrel) 50 mg PO HS [facility] Last Admin: 12/31/17 21:31 Dose: 50 mg Results - Vital Signs Recent Vital Signs: Last Vital Signs Temp 97.4 F L 01/01/18 07:51 Pulse 73 01/01/18 07:51 Resp 20 01/01/18 07:51 BP 119/70 01/01/18 07:51 Pulse Ox 96 01/01/18 07:51 - Labs Result Diagrams: 01/01/18 07:20 01/01/18 08:28 Labs: Laboratory Results - last 24 hr 12/31/17 12/31/17 12/31/17 06:23 11:51 16:09 WBC RBC Hgb Hct MCV MCH MCHC RDW Plt Count MPV Neut % (Auto) Lymph % (Auto) [place] % (Auto) Eos % (Auto) Baso % (Auto) Neut # (Auto) Lymph # (Auto) [place] # (Auto) Eos # (Auto) Baso # (Auto) Neutrophils % (Manual) Lymphocytes % (Manual) Monocytes % (Manual) Platelet Estimate Polychromasia Hypochromasia (manual) Ovalocytes ESR Sodium Potassium Chloride Carbon Dioxide Anion Gap BUN Creatinine Est GFR ( Amer) Est GFR (Non-Af Amer) POC Glucose (mg/dL) 248 H 300 H 304 H Random Glucose Calcium Total Bilirubin AST ALT Alkaline Phosphatase C-Reactive Protein Total Protein Albumin Globulin Albumin/Globulin Ratio 12/31/17 01/01/18 01/01/18 21:06 06:22 07:20 WBC 13.0 H RBC 3.48 L Hgb 10.8 L Hct 32.2 L MCV 92.7 MCH 31.0 MCHC 33.4 RDW 14.3 Plt Count 226 MPV 10.1 Neut % (Auto) 84.2 H Lymph % (Auto) 3.8 L [place] % (Auto) 11.4 H Eos % (Auto) 0.5 Baso % (Auto) 0.1 Neut # (Auto) 10.9 H Lymph # (Auto) 0.5 L [place] # (Auto) 1.5 H Eos # (Auto) 0.1 Baso # (Auto) 0.0 Neutrophils % (Manual) 89 H Lymphocytes % (Manual) 5 L Monocytes % (Manual) 6 Platelet Estimate Normal Polychromasia Slight Hypochromasia (manual) Slight Ovalocytes Slight ESR 40 H Sodium Potassium Chloride Carbon Dioxide Anion Gap BUN Creatinine Est GFR ( Amer) Est GFR (Non-Af Amer) POC Glucose (mg/dL) 276 H 285 H Random Glucose Calcium Total Bilirubin AST ALT Alkaline Phosphatase C-Reactive Protein Total Protein Albumin Globulin Albumin/Globulin Ratio 01/01/18 01/01/18 08:28 11:17 WBC RBC Hgb Hct MCV MCH MCHC RDW Plt Count MPV Neut % (Auto) Lymph % (Auto) [place] % (Auto) Eos % (Auto) Baso % (Auto) Neut # (Auto) Lymph # (Auto) [place] # (Auto) Eos # (Auto) Baso # (Auto) Neutrophils % (Manual) Lymphocytes % (Manual) Monocytes % (Manual) Platelet Estimate Polychromasia Hypochromasia (manual) Ovalocytes ESR Sodium 137 Potassium 3.5 L Chloride 102 Carbon Dioxide 26 Anion Gap 13 BUN 42 H Creatinine 1.3 Est GFR ( Amer) > 60 Est GFR (Non-Af Amer) 55 POC Glucose (mg/dL) 369 H Random Glucose 268 H Calcium 8.4 L Total Bilirubin 1.2 AST 23 ALT 22 Alkaline Phosphatase 95 C-Reactive Protein 78.00 H Total Protein 5.5 L Albumin 2.7 L Globulin 2.7 Albumin/Globulin Ratio 1.0
--- NOTE | 2018-01-01 16:01 | CP.PCM.PN ---
Subjective - Date & Time of Evaluation Date of Evaluation: 01/01/18 Time of Evaluation: 15:57 - Subjective Subjective: INFECTIOUS DISEASE PROGRESS NOTES AMINTA HERNÁNDEZ MD, FACP 6T 656-A 01/01/2018 CHART REVIEWD PT EXAMINED CASE DISCUSSION NOTED Patient ID feeling BETTER BUT WITH DIARRHEA AN ISSUE Still feeling tired. Feeling hungry. No chest pain Patient vital signs reviewed Clinical examination is unremarkable. Abdominal distention negative. Patient labs reviewed INR reviewed Still therapeutic Assessment: GRAM NEGATIVE BACTEREMIA, SOURCE URINE VS BOWEL COMPLICATING MITRAL VALVE MECHANICAL PLACEMENT. ON COUMADIN DIARRHEA NOTED, HAVE ADJUSTED THE FLORASTOR TO 500 MG PO BID EVEN THOUGH HS C. DIFF IS NEG WILL ADD PO VANCOMYCIN EMPIRICALLY STILL WAITING FOR THE IDENTIFICATION OF THE GRAM NEGATIVE ORGANISM. AMINTA HERNÁNDEZ MD, FACP IND DISEASE PRODUCTION SUPPORT ANALYST. Objective - Vital Signs/Intake and Output Vital Signs (last 24 hours): Temp Pulse Resp BP Pulse Ox 97.4 F L 71 20 144/83 98 01/01/18 15:00 01/01/18 15:00 01/01/18 15:00 01/01/18 15:00 01/01/18 15:00 Intake and Output: 01/01/18 01/01/18 06:59 18:59 Intake Total 800 Balance 800 - Medications Medications: Current Medications Clonazepam (Klonopin) 2 mg PO HS [facility] Last Admin: 12/31/17 21:31 Dose: 2 mg Lactated Ringer's (Lactated Ringer's) 1,000 mls @ 100 mls/hr IV .Q10H [facility] Last Admin: 01/01/18 10:15 Dose: 100 mls/hr Metronidazole 250 mg/ (Miscellaneous) 50 mls @ 100 mls/hr IVPB Q8H [facility] PRN Reason: Protocol Last Admin: 01/01/18 13:30 Dose: 100 mls/hr Piperacillin Sod/Tazobactam Sod (Zosyn 3.375 Gm Iv Premix) 3.375 gm in 50 mls @ 100 mls/hr IVPB Q8H [facility] PRN Reason: Protocol Losartan Potassium (Cozaar) 100 mg PO DAILY [facility] Last Admin: 12/30/17 10:45 Dose: 100 mg Pantoprazole Sodium (Protonix Inj) 40 mg IVP DAILY [facility] Last Admin: 01/01/18 09:03 Dose: 40 mg Potassium Chloride (Klor-Con 10) 10 meq PO DAILY [facility] Last Admin: 01/01/18 09:03 Dose: 10 meq Saccharomyces Boulardii (Florastor) 500 mg PO BID [facility] Trazodone HCl (Desyrel) 50 mg PO [facility] Last Admin: 12/31/17 21:31 Dose: 50 mg - Labs Labs: 01/01/18 07:20 01/01/18 08:28 PT 35.5 SECONDS (9.7-12.2) H* D 12/31/17 07:09 INR 3.2 12/31/17 07:09 APTT 39 SECONDS (21-34) H 12/31/17 07:09
--- NOTE | 2018-01-01 16:50 | CARD ---
APPROVED REPORT Date of service: 12/29/2017 EKG Measurement Heart [id number] <Conclusion> Atrial fibrillation with rapid ventricular response Abnormal ECG
[2018-01-01] MEDS: Vancomycin 125 MG/5 ML SOLN (ORAL/RECTAL) PO SCH ×2 (17:13→21:05)
--- NOTE | 2018-01-01 21:25 | CP.PCM.PN ---
Subjective - Date & Time of Evaluation Date of Evaluation: 01/01/18 Time of Evaluation: 21:25 - Subjective Subjective: Patient feeling well. But he is not eating well, he has a poor appetite. Diarrhea still present. Only 4 times today. No nausea no vomiting no fever Clinic examination otherwise unremarkable except minimal epigastric tenderness. Pedal edema negative Patient's labs reviewed Patient currently an antibiotic antibiotic. Patient is also receiving vancomycin by mouth for possible C. difficile colitis. Assessment: 67-year-old male with a history of mitral valve replacement, mechanical, will recheck the INR tomorrow, may need the Coumadin tomorrow. Atraumatic hematoma involving the pelvis area stable. Now admitted with the gram-negative bacteremia currently source is unclear. ID follow-up appreciated. Continue the current treatment. Will follow the patient Objective - Vital Signs/Intake and Output Vital Signs (last 24 hours): Temp Pulse Resp BP Pulse Ox 97.4 F L 71 20 144/83 98 01/01/18 15:00 01/01/18 15:00 01/01/18 15:00 01/01/18 15:00 01/01/18 15:00 Intake and Output: 01/01/18 01/02/18 18:59 06:59 Intake Total 1100 Balance 1100 - Medications Medications: Current Medications Clonazepam (Klonopin) 2 mg PO HS [facility] Last Admin: 01/01/18 21:05 Dose: 2 mg Metronidazole 250 mg/ (Miscellaneous) 50 mls @ 100 mls/hr IVPB Q8H [facility] PRN Reason: Protocol Last Admin: 01/01/18 21:05 Dose: 100 mls/hr Piperacillin Sod/Tazobactam Sod (Zosyn 3.375 Gm Iv Premix) 3.375 gm in 50 mls @ 100 mls/hr IVPB Q8H [facility] PRN Reason: Protocol Last Admin: 01/01/18 16:12 Dose: 100 mls/hr Losartan Potassium (Cozaar) 100 mg PO DAILY [facility] Last Admin: 12/30/17 10:45 Dose: 100 mg Pantoprazole Sodium (Protonix Inj) 40 mg IVP DAILY [facility] Last Admin: 01/01/18 09:03 Dose: 40 mg Potassium Chloride (Klor-Con 10) 10 meq PO DAILY [facility] Last Admin: 01/01/18 09:03 Dose: 10 meq Saccharomyces Boulardii (Florastor) 500 mg PO BID [facility] Last Admin: 01/01/18 17:13 Dose: 500 mg Trazodone HCl (Desyrel) 50 mg PO HS [facility] Last Admin: 01/01/18 21:05 Dose: 50 mg Vancomycin HCl (Vancocin (Oral Or Rectal Use)) 125 mg PO QID [facility] PRN Reason: Protocol Last Admin: 01/01/18 21:05 Dose: 125 mg - Labs Labs: 01/01/18 07:20 01/01/18 08:28 PT 35.5 SECONDS (9.7-12.2) H* D 12/31/17 07:09 INR 3.2 12/31/17 07:09 APTT 39 SECONDS (21-34) H 12/31/17 07:09
[2018-01-02] MEDS: Piperacill/Tazo 3.375gm in Dex 3.375 GM/50 ML BAG IVPB SCH ×3 (00:54→16:46)
[2018-01-02] MEDS: metroNIDAZOLE IV 500 mg/100 ml 250 MG in Premixed IV 1 EA IVPB SCH ×2 (06:45→14:16)
[2018-01-02 08:57] LABS: BASO % 0.4 % (0.0-2.0); EOS # 0.1 K/uL (0.0-0.7); EOS % 1.2 % (0.0-4.0); HEMOGLOBIN 10.7 g/dL (12.0-18.0); LYMPH # 0.6 K/uL (1.0-4.3); LYMPH % 4.9 % (20.0-40.0); MEAN CELL VOLUME 92.4 fL (80.0-94.0); MEAN CORPUSCULAR HEMOGLOBIN 30.5 pg (27.0-31.0); MONO # 1.4 K/uL (0.0-0.8); NEUT # 9.4 K/uL (1.8-7.0); NEUT % 81.5 % (50.0-75.0); NRBC % 0.1 % (0.0-2.0); PLATELET COUNT 213 K/uL (130-400); RED CELL DISTRIBUTION WIDTH 14.4 % (11.5-14.5); WHITE BLOOD COUNT 11.5 K/uL (4.8-10.8)
[2018-01-02 09:00] LABS: INR 2.8
[2018-01-02 09:13] LABS: ALBUMIN 2.6 g/dL (3.5-5.0); ALT/SGPT 28 U/L (21-72); AST/SGOT 13 U/L (17-59); BLOOD UREA NITROGEN 32 mg/dL (9-20); CALCIUM 8.6 mg/dl (8.6-10.4); GFR NON-AFRICAN AMERICAN 55
[2018-01-02] MEDS: Potassium Chloride 10 mEq ER Tab PO SCH (09:39)
[2018-01-02] MEDS: Vancomycin 125 MG/5 ML SOLN (ORAL/RECTAL) PO SCH ×4 (09:40→22:10)
[2018-01-02] MEDS: Saccharomyces Boulardi 250 mg Cap PO SCH ×2 (09:40→19:26)
[2018-01-02 10:43] LABS: EOSINOPHIL 2 % (0-4); LYMPHOCYTE 3 % (20-40); MONOCYTE 13 % (0-10); NEUTROPHIL 80 % (50-75); PLATELET ESTIMATE NORMAL (NORMAL); REACTIVE LYMPHOCYTES 2 % (0-0); TOTAL CELLS COUNTED 100
[2018-01-02 10:44] LABS: OVALOCYTES SLIGHT
[2018-01-02] MEDS ORDERED: Magnesium Sulfate 1 gm in D5W 1 GM/100 ML BAG IVPB ONE (19:00)
[2018-01-02] MEDS: (Novolin R) Insulin Human Regular 100 units/ml vial SC SCH (22:16)
[2018-01-02] MEDS: (Lantus) Insulin Glargine, Recombinant SC SCH (22:28)
--- NOTE | 2018-01-02 23:31 | CP.PCM.PN ---
Subjective - Date & Time of Evaluation Date of Evaluation: 01/02/18 Time of Evaluation: 23:30 - Subjective Subjective: pt feeling well no BM today chest clear eating better today able to walk clinically no new changes BC ecoli sensitive INR therapeutic continue current treatment will f/u Objective - Vital Signs/Intake and Output Vital Signs (last 24 hours): Temp Pulse Resp BP Pulse Ox 97.2 F L 73 20 154/80 H 99 01/02/18 15:00 01/02/18 15:00 01/02/18 15:00 01/02/18 15:00 01/02/18 15:00 Intake and Output: 01/02/18 01/03/18 18:59 06:59 Intake Total 630 Balance 630 - Medications Medications: Current Medications Clonazepam (Klonopin) 2 mg PO HS [facility] Last Admin: 01/02/18 22:10 Dose: 2 mg Piperacillin Sod/Tazobactam Sod (Zosyn 3.375 Gm Iv Premix) 3.375 gm in 50 mls @ 100 mls/hr IVPB Q8H [facility] PRN Reason: Protocol Last Admin: 01/02/18 16:46 Dose: 100 mls/hr Insulin Glargine (Lantus) 10 unit SC HS [facility] Last Admin: 01/02/18 22:28 Dose: 10 unit Insulin Human Regular (Novolin R) 0 unit SC ACHS [facility] PRN Reason: Protocol Last Admin: 01/02/18 22:16 Dose: Not Given Losartan Potassium (Cozaar) 100 mg PO DAILY [facility] Last Admin: 12/30/17 10:45 Dose: 100 mg Pantoprazole Sodium (Protonix Ec Tab) 40 mg PO DAILY [facility] Potassium Chloride (Klor-Con 10) 10 meq PO DAILY [facility] Last Admin: 01/02/18 09:39 Dose: 10 meq Saccharomyces Boulardii (Florastor) 500 mg PO BID [facility] Last Admin: 01/02/18 19:26 Dose: 500 mg Trazodone HCl (Desyrel) 50 mg PO HS [facility] Last Admin: 01/02/18 22:17 Dose: Not Given Vancomycin HCl (Vancocin (Oral Or Rectal Use)) 125 mg PO QID [facility] PRN Reason: Protocol Last Admin: 01/02/18 22:10 Dose: 125 mg - Labs Labs: 01/02/18 08:36 01/02/18 08:36 PT 31.0 SECONDS (9.7-12.2) H* 01/02/18 08:36 INR 2.8 01/02/18 08:36 APTT 42 SECONDS (21-34) H 01/02/18 08:36
[2018-01-03] MEDS: Piperacill/Tazo 3.375gm in Dex 3.375 GM/50 ML BAG IVPB SCH ×3 (00:46→16:49)
[2018-01-03 07:14] LABS: BASO # 0.1 K/uL (0.0-0.2); BASO % 0.6 % (0.0-2.0); EOS # 0.1 K/uL (0.0-0.7); EOS % 1.2 % (0.0-4.0); HEMOGLOBIN 10.3 g/dL (12.0-18.0); LYMPH # 0.8 K/uL (1.0-4.3); LYMPH % 7.5 % (20.0-40.0); MEAN CELL VOLUME 92.9 fL (80.0-94.0); MEAN CORPUSCULAR HEMOGLOBIN 30.5 pg (27.0-31.0); MEAN CORPUSCULAR HGB CONC 32.8 g/dL (33.0-37.0); MEAN PLATELET VOLUME 9.8 fL (7.2-11.7); MONO # 1.1 K/uL (0.0-0.8); MONO % 9.3 % (0.0-10.0); NEUT # 9.2 K/uL (1.8-7.0); NEUT % 81.4 % (50.0-75.0); PLATELET COUNT 212 K/uL (130-400); RED CELL DISTRIBUTION WIDTH 14.1 % (11.5-14.5); WHITE BLOOD COUNT 11.3 K/uL (4.8-10.8)
[2018-01-03 07:38] LABS: ALB/GLOB RATIO 0.9 (1.0-2.1); ALBUMIN 2.5 g/dL (3.5-5.0); ALT/SGPT 30 U/L (21-72); AST/SGOT 19 U/L (17-59); BLOOD UREA NITROGEN 26 mg/dL (9-20); CALCIUM 8.3 mg/dl (8.6-10.4); GFR NON-AFRICAN AMERICAN > 60
[2018-01-03] MEDS: (Novolin R) Insulin Human Regular 100 units/ml vial SC SCH ×4 (08:10→22:27)
[2018-01-03 08:45] LABS: BANDS 1 % (0-2); EOSINOPHIL 1 % (0-4); LYMPHOCYTE 7 % (20-40); MONOCYTE 6 % (0-10); MYELOCYTE 1 % (0-0); NEUTROPHIL 82 % (50-75); PLATELET ESTIMATE NORMAL (NORMAL); REACTIVE LYMPHOCYTES 2 % (0-0); TOTAL CELLS COUNTED 100
[2018-01-03 08:46] LABS: ANISOCYTOSIS SLIGHT; HYPOCHROMIC SLIGHT; LARGE PLATELETS PRESENT; POIKILOCYTOSIS SLIGHT
[2018-01-03 08:47] LABS: TARGET CELLS SLIGHT
[2018-01-03] MEDS: Saccharomyces Boulardi 250 mg Cap PO SCH ×2 (09:53→19:00)
[2018-01-03] MEDS: Potassium Chloride 10 mEq ER Tab PO SCH (09:54)
[2018-01-03] MEDS: Vancomycin 125 MG/5 ML SOLN (ORAL/RECTAL) PO SCH ×4 (09:54→21:38)
[2018-01-03] MEDS: Pantoprazole 40 mg EC Tab PO SCH (09:54)
[2018-01-03 16:10] VITALS: RESP 20
[2018-01-03 20:07] LABS: INR 2.4; PROTHROMBIN TIME 26.4 SECONDS (9.7-12.2)
--- NOTE | 2018-01-03 20:15 | CP.PCM.PN ---
Subjective - Date & Time of Evaluation Date of Evaluation: 01/03/18 Time of Evaluation: 20:12 - Subjective Subjective: INFECTIOUS DISEASE PROGRESS NOTES AMINTA HERNÁNDEZ MD, FACP 6T 656-A 01/03/2018 CHART REVIEWED PT EXAMINED CASE DISCUSSED CLINICALLY RESPONDING TO EMPIRIC TREATMENT ON REVIEW IT APPEARS HE IS GROWING BLOOD C/S + FOR E. COLI SENSITIVITES NOTED AND ANTIBIOTICS CHANGED ACCORDINGLY-OF NOTE STAFF NEVER NOTIFIED ME PER MY WRITTEN ORDERS. CONTINE ROCEPHIN AND FLAGYL SOURCE STILL BEING TREATED AND WORKED UP ACCORDINGLY. AMINTA HERNÁNDEZ MD, FACP. Objective - Vital Signs/Intake and Output Vital Signs (last 24 hours): Temp Pulse Resp BP Pulse Ox 97.2 F L 107 H 20 152/75 H 100 01/03/18 15:00 01/03/18 15:00 01/03/18 15:00 01/03/18 15:00 01/03/18 15:00 Intake and Output: 01/03/18 01/04/18 18:59 06:59 Intake Total 950 Balance 950 - Medications Medications: Current Medications Clonazepam (Klonopin) 2 mg PO HS [facility] Last Admin: 01/02/18 22:10 Dose: 2 mg Ceftriaxone Sodium 2 gm/ (Sodium Chloride) 100 mls @ 100 mls/hr IVPB DAILY [facility] PRN Reason: Protocol Metronidazole (Flagyl) 500 mg in 100 mls @ 100 mls/hr IVPB Q8H [facility] PRN Reason: Protocol Insulin Glargine (Lantus) 10 unit SC HS [facility] Last Admin: 01/02/18 22:28 Dose: 10 unit Insulin Human Regular (Novolin R) 0 unit SC ACHS [facility] PRN Reason: Protocol Last Admin: 01/03/18 16:49 Dose: 2 units Losartan Potassium (Cozaar) 100 mg PO DAILY [facility] Last Admin: 01/03/18 09:53 Dose: 100 mg Pantoprazole Sodium (Protonix Ec Tab) 40 mg PO DAILY [facility] Last Admin: 01/03/18 09:54 Dose: 40 mg Potassium Chloride (Klor-Con 10) 10 meq PO DAILY [facility] Last Admin: 01/03/18 09:54 Dose: 10 meq Saccharomyces Boulardii (Florastor) 500 mg PO BID [facility] Last Admin: 01/03/18 19:00 Dose: 500 mg Trazodone HCl (Desyrel) 50 mg PO HS [facility] Last Admin: 01/02/18 22:17 Dose: Not Given Vancomycin HCl (Vancocin (Oral Or Rectal Use)) 125 mg PO QID [facility] PRN Reason: Protocol Last Admin: 01/03/18 19:00 Dose: 125 mg - Labs Labs: 01/03/18 06:48 01/03/18 06:48 PT 26.4 SECONDS (9.7-12.2) H 01/03/18 19:52 INR 2.4 01/03/18 19:52 APTT 55 SECONDS (21-34) H D 01/03/18 19:52
[2018-01-03] MEDS: metroNIDAZOLE IV 500 mg/100 ml 500 MG/100 ML BAG IVPB SCH (21:39)
[2018-01-03] MEDS: (Lantus) Insulin Glargine, Recombinant SC SCH (21:41)
[2018-01-04] MEDS: metroNIDAZOLE IV 500 mg/100 ml 500 MG/100 ML BAG IVPB SCH ×2 (06:31→13:56)
[2018-01-04] MEDS: (Novolin R) Insulin Human Regular 100 units/ml vial SC SCH ×4 (08:40→22:27)
[2018-01-04] MEDS ORDERED: cefTRIAXone 2 GM in Sodium Chloride 0.9% 100 ML IVPB SCH (10:00)
[2018-01-04] MEDS: Pantoprazole 40 mg EC Tab PO SCH (10:24)
[2018-01-04] MEDS: Saccharomyces Boulardi 250 mg Cap PO SCH (10:24)
[2018-01-04] MEDS: Vancomycin 125 MG/5 ML SOLN (ORAL/RECTAL) PO SCH ×4 (10:24→22:35)
[2018-01-04] MEDS: Potassium Chloride 10 mEq ER Tab PO SCH (10:24)
[2018-01-04 15:36] VITALS: BP 178/74; PULSE 56; TEMP 97.3; O2SAT 95
== END 2018-01-04 22:37 | disposition home or self-care (01) | DRG 872 ==
LOC: C.ER 20:18 → C.9E 12-30 00:50 → C.6T 12-30 00:50
PROVIDERS: ADMIT Internal Medicine; ATTEND Internal Medicine
DX: R78.81 Bacteremia (principal); B96.89 Other specified bacterial agents as the cause of diseases classified elsewhere; E11.9 Type 2 diabetes mellitus without complications; E78.00 Pure hypercholesterolemia, unspecified; I10 Essential (primary) hypertension; I25.10 Atherosclerotic heart disease of native coronary artery without angina pectoris; I48.91 Unspecified atrial fibrillation; Z95.1 Presence of aortocoronary bypass graft; Z95.2 Presence of prosthetic heart valve

== ENCOUNTER 2018-02-26 07:33 | Day surgery (SDC) | payer MEDICARE, OTHER ==
[2018-02-25 11:38] VITALS: BMI 24.8
[2018-02-26 08:08] VITALS: O2SAT 100
--- NOTE | 2018-02-26 08:28 | CP.SDSHP ---
Same Day Surgery H & P - History Proposed Procedure: Egd Pre-Op Diagnosis: iron deficiency anemia. weight loss. Fecal occult blood loss - Previous Medical/Surgical History Cardiac: Hypertension, ASHD/CAD, Valvular Heart Disease, Arrhythmia, Other (hyperlipidemia) Endocrine/Metabolic: Diabetes, Other (BPH) Neuro: Backaches Misc: Anemia, Other (RA, perirectal abscess, Fatty Liver/ROTHMAN, colon polyps, gallstones) Previous Surgical History: S/P MVR on Coumadin - Allergies Allergies: Allergies clams Allergy (Intermediate, Uncoded 11/13/17 10:24) NAUSEA - Physical Exam Vital Signs: Vital Signs 02/26/18 08:01 Temperature 98.4 F Pulse Rate 80 Respiratory 20 Rate Blood Pressure 111/59 L O2 Sat by Pulse 100 Oximetry Mental Status: Alert & Oriented x3 Neuro: WNL Heart: Other (Thoracotomy scar) Lungs: WNL GI: WNL - Impression Impression: anemia. fecal occult blood loss. Weight loss Pt. Evaluated Today:Candidate for Anesthesia & Procedure: Yes - Date & Time Date: 02/26/18 Time: 08:29 Short Stay Discharge - Short Stay Discharge Admitting Diagnosis/Reason for Visit: WEIGHT LOSS / ANEMIA Disposition: HOME/ ROUTINE
[2018-02-26 08:36] LABS: INR 1.3; PROTHROMBIN TIME 13.8 SECONDS (9.7-12.2)
[2018-02-26] MEDS ORDERED: Propofol 10 mg/ml Inj (20 ML) ONE (09:01)
[2018-02-26 09:38] VITALS: TEMP 98
[2018-02-26 10:42] VITALS: BP 134/68; PULSE 62; RESP 17
== END 2018-02-26 10:35 | disposition home or self-care (01) ==
LOC: C.ENDO 07:33
PROVIDERS: ATTEND Internal Medicine Gastroenterology
DX: K21.9 Gastro-esophageal reflux disease without esophagitis (principal); R19.5 Other fecal abnormalities; D50.9 Iron deficiency anemia, unspecified; R63.4 Abnormal weight loss; K29.70 Gastritis, unspecified, without bleeding; E11.9 Type 2 diabetes mellitus without complications; N40.0 Benign prostatic hyperplasia without lower urinary tract symptoms; I10 Essential (primary) hypertension; E78.49 Other hyperlipidemia; I25.10 Atherosclerotic heart disease of native coronary artery without angina pectoris; Z95.2 Presence of prosthetic heart valve
CPT/HCPCS: 36415; 43239; 82948; 85610; 85730; 88305; 88342; J2001; J2704

== ENCOUNTER 2018-03-27 10:04 | Inpatient (IN) | payer MEDICARE, OTHER ==
[2018-03-27 10:05] VITALS: BMI 24.8
[2018-03-27] MEDS ORDERED: Sodium Chloride 0.9% 500 ML IV ONE (10:45)
--- NOTE | 2018-03-27 11:11 | C.PDOC ---
History Of Present Illness 67 year old male, whose past medical history includes diabetes and heart surgery (compliant with Coumadin), presents to the ED for evaluation after noticing blood in his urine this morning. Patient also complains of feeling weakness and fatigue. He denies fever, chills, chest pain, shortness of breath, nausea and vomiting. Time Seen by Provider: 03/27/18 10:21 Chief Complaint (Nursing): Male Genitourinary History Per: Patient History/Exam Limitations: no limitations Onset/Duration Of Symptoms: Hrs Current Symptoms Are (Timing): Still Present Associated Symptoms: Urinary Symptoms. denies: Fever, Chills, Nausea, Vomiting, Chest Pain Additional History Per: Patient Past Medical History Reviewed: Historical Data, Nursing Documentation, Vital Signs Vital Signs: Last Vital Signs Temp 98.6 F 03/27/18 10:09 Pulse 142 H 03/27/18 10:09 Resp 32 H 03/27/18 10:09 BP 151/67 H 03/27/18 10:09 Pulse Ox 97 03/27/18 10:09 - Medical History PMH: Anemia, Anxiety, Arthritis, Atrial Fibrillation, CAD, Cardia Arrhythmia, Colonic Polyps, Depression, Diverticulitis, HTN, Hypercholesterolemia, Mitral Valve Prolapse, Schizophrenia Denies: Chronic Kidney Disease Surgical History: CABG (1997), Endoscopy - [facility] Procedures DRAINAGE OF ANUS, EXTERNAL APPROACH (05/01/15) TRANSFUSE NONAUT FROZEN PLASMA IN PERIPH VEIN, PERC (09/16/16) Family History: States: Hypertension - Social History Hx Alcohol Use: No Hx Substance Use: No - Immunization History Hx Tetanus Toxoid Vaccination: No Hx Influenza Vaccination: No Hx Pneumococcal Vaccination: No Review Of Systems Constitutional: Positive for: Weakness, Other (fatigue). Negative for: Fever, Chills Cardiovascular: Negative for: Chest Pain Respiratory: Negative for: Shortness of Breath Gastrointestinal: Negative for: Nausea, Vomiting Genitourinary: Positive for: Hematuria Physical Exam - Physical Exam Appears: Non-toxic, No Acute Distress Skin: Normal Color, Warm, Dry, Other (patient is febrile with temperature of 101.2F) Head: Atraumatic, Normacephalic Eye(s): bilateral: Normal Inspection Oral Mucosa: Moist Neck: Supple Chest: Symmetrical, No Deformity, No Tenderness Cardiovascular: Rhythm Regular, No Murmur Respiratory: Normal Breath Sounds, No Rales, No Rhonchi, No Wheezing Gastrointestinal/Abdominal: Soft, No Tenderness, No Guarding, No Rebound Male Genital: Normal Inspection, No Testicular Tenderness, No Inguinal Tendern ess, No Scrotal Swelling, Circumcised Extremity: Normal ROM, Capillary Refill (less than 2 seconds ) Neurological/Psych: Oriented x3, Normal Speech, Normal Cognition ED Course And Treatment - Laboratory Results Result Diagrams: 03/27/18 11:08 03/27/18 11:08 ECG: Interpreted By Me, Viewed By Me ECG Rhythm: Atrial Fibrillation, R BBB (incomplete ), Nonspecific Changes (ST/T wave) Interpretation Of ECG: Atrial fibrillation at 115bpm. Incomplete right bundle branch block. Nonspecific ST/T wave changes. Rate From EC O2 Sat by Pulse Oximetry: 97 (on RA) Pulse Ox Interpretation: Normal - Other Rad CXR X-Ray: Viewed By Me, Read By Radiologist Interpretation: Date of service: 03/27/2018. PROCEDURE: CHEST RADIOGRAPH, 1 VIEW. HISTORY: SOB. COMPARISON: 12/29/2017. FINDINGS: LUNGS: Clear. PLEURA: No pneumothorax or pleural fluid seen. CARDIOVASCULAR: Minimal atherosclerotic calcification is noted at the aortic arch. Normal heart size. Sternotomy wires are noted. No congestive change. OSSEOUS STRUCTURES: No significant abnormalities. VISUALIZED UPPER ABDOMEN: Normal. OTHER FINDINGS: None. IMPRESSION: No active disease. Medical Decision Making Medical Decision Making: Assessment: hematuria Plan: * bloodwork * urinalysis * EKG * CXR * Flu Swab * Tylenol PO * IV Fluids * reassess and disposition Progress: Bloodwork, urinalysis, EKG, CXR, Flu swab ordered and reviewed. Tylenol PO and IV Fluids given. 1158: Case discussed with Dr. Kendrick. Will admit patient for hypokalemia and hypomagnesemia. 1200: Code sepsis called. Disposition Discussed With : Sunita Kendrick Doctor Will See Patient In The: Hospital Counseled Patient/Family Regarding: Studies Performed, Diagnosis - Disposition Disposition: HOSPITALIZED Disposition Time: 11:57 Condition: FAIR - Clinical Impression Clinical Impression: Pyelonephritis - Scribe Statement The provider has reviewed the documentation as recorded by the Scribe (Parvin Zuniga) Provider Attestation: All medical record entries made by the Scribe were at my direction and personally dictated by me. I have reviewed the chart and agree that the record accurately reflects my personal performance of the history, physical exam, medical decision making, and the department course for this patient. I have also personally directed, reviewed, and agree with the discharge instructions and disposition.
[2018-03-27 11:12] LABS: BASO # 0.1 K/uL (0.0-0.2); HEMOGLOBIN 12.6 g/dL (12.0-18.0); LYMPH # 0.1 K/uL (1.0-4.3); LYMPH % 1.1 % (20.0-40.0); MEAN CELL VOLUME 91.1 fL (80.0-94.0); MEAN CORPUSCULAR HEMOGLOBIN 30.2 pg (27.0-31.0); MEAN CORPUSCULAR HGB CONC 33.1 g/dL (33.0-37.0); MEAN PLATELET VOLUME 9.7 fL (7.2-11.7); MONO # 1.4 K/uL (0.0-0.8); MONO % 11.2 % (0.0-10.0); NEUT # 10.8 K/uL (1.8-7.0); NEUT % 86.7 % (50.0-75.0); PLATELET COUNT 155 K/uL (130-400); RBC 4.18 Mil/uL (4.40-5.90); RED CELL DISTRIBUTION WIDTH 13.3 % (11.5-14.5); WHITE BLOOD COUNT 12.5 K/uL (4.8-10.8)
[2018-03-27 11:16] LABS: SQUAMOUS EPITHIAL 5 /hpf (0-5); URINE BACTERIA OCC (<OCC); URINE BILIRUBIN 2+ (NEGATIVE); URINE BLOOD 3+ (NEGATIVE); URINE CLARITY Turbid (Clear); URINE COLOR Amber (YELLOW); URINE GLUCOSE (UA) 1+ mg/dL (Normal); URINE LEUKOCYTE ESTERASE 3+ Leu/uL (Negative); URINE PROTEIN 2+ mg/dL (NEGATIVE); WBC CLUMPS FEW /hpf
[2018-03-27 11:19] LABS: VENOUS BLOOD GAS BASE EXCESS 1.3 mmol/L (0.0-2.0); VENOUS BLOOD GAS PCO2 36 mmHg (40-60); VENOUS BLOOD GAS PO2 16 mm/Hg (30-55); VENOUS BLOOD PH 7.45 (7.32-7.43)
--- NOTE | 2018-03-27 11:23 | RAD ---
Date of service: 03/27/2018 PROCEDURE: CHEST RADIOGRAPH, 1 VIEW HISTORY: SOB COMPARISON: 12/29/2017 FINDINGS: LUNGS: Clear. PLEURA: No pneumothorax or pleural fluid seen. CARDIOVASCULAR: Minimal atherosclerotic calcification is noted at the aortic arch. Normal heart size. Sternotomy wires are noted. No congestive change. OSSEOUS STRUCTURES: No significant abnormalities. VISUALIZED UPPER ABDOMEN: Normal. OTHER FINDINGS: None. IMPRESSION: No active disease.
[2018-03-27 11:27] LABS: PROTHROMBIN TIME 41.8 SECONDS (9.7-12.2)
[2018-03-27 11:28] LABS: INR 3.8
[2018-03-27 11:34] LABS: ALB/GLOB RATIO 1.2 (1.0-2.1); ALBUMIN 3.6 g/dL (3.5-5.0); CALCIUM 8.2 mg/dl (8.6-10.4)
[2018-03-27] MEDS ORDERED: Sodium Chloride 0.9% 1,000 ML IV ONE (11:42)
[2018-03-27] MEDS ORDERED: Magnesium Sulfate 1 gm in D5W 1 GM/100 ML BAG IVPB ONE ×2 (11:43→11:53)
[2018-03-27 11:45] LABS: TROPONIN I 0.034 ng/mL (0.00-0.120)
[2018-03-27] MEDS ORDERED: cefTRIAXone 1 gm 1 GM/100 ML BAG IVPB ONE (11:52)
[2018-03-27] MEDS ORDERED: Potassium Chloride 20 mEq ER Tab PO STA (11:56)
[2018-03-27 12:20] LABS: BANDS 1 % (0-2); LYMPHOCYTE 8 % (20-40); MONOCYTE 5 % (0-10); NEUTROPHIL 86 % (50-75); PLATELET ESTIMATE NORMAL (NORMAL); TOTAL CELLS COUNTED 100
[2018-03-27] MEDS ORDERED: Potassium Chloride 20 mEq ER Tab PO ONE (12:28)
[2018-03-27 13:45] LABS: VENOUS BLOOD GAS BASE EXCESS -0.3 mmol/L (0.0-2.0); VENOUS BLOOD GAS PCO2 32 mmHg (40-60); VENOUS BLOOD GAS PO2 54 mm/Hg (30-55); VENOUS BLOOD PH 7.46 (7.32-7.43)
[2018-03-27] MEDS: Piperacill/Tazo 2.25gm in Dex 2.25 GM/50 ML BAG IVPB SCH (20:00)
[2018-03-27] MEDS: Sodium Chloride 0.9% 1,000 ML IV SCH (20:50)
--- NOTE | 2018-03-27 21:56 | CP.PCM.HP ---
History of Present Illness - History of Present Illness History of Present Illness: chief complaint: fever and chills History of present illness: 67-year-old male with a history of mitral valve replacement, hypertension, CAD, diabetes, atrial fibrillation Came to the emergency room with c/o 3 days of abdominal pain, flank pain, fever, chills. Patient came to the emergency room with increasing symptoms of shaking. Patient initially started having symptoms of chills. He was also having difficult time in going to the bathroom. Suprapubic pain noted. Also noted to have a left flank pain. Slowly his urine output got worse, he is noticed foul-smelling urine associated with the pain and some discomfort in the suprapubic region. On the day of admission patient was having increasing chills fever and weakness. He was not able to eat well. Episode of vomiting noted. Past medical history: Anemia, osteoarthritis, atrial fibrillation, CAD, mitral valve disease, status post mitral valve replacement,depression Had cardiac surgery in 1997 Allergy no known drug allergy Personal history nonsmoker nonalcoholic History of depression noted. Review of system noted from the chart, denies any chest pain, but complaining of pain over the right thigh Patient able to walk, but complaining of pain over the left gluteal region, swelling noted. Vital signs reviewed No neck vein distention noted Chest good air entry bilaterally, no wheezing or rales noted CVS regular heart sound, no murmur noted Abdomen soft, nontender. Extremities no pedal edema [employer] alert awake oriented -3, no functional neurological deficit CAT scan of the abdomen showing evidence of gallstones Perinephric stranding of the kidneys noted Urine analysis showing evidence of highly elevated WBC. Assessment admission: 67-year-old male with a history of mitral valve replacement, hypertension, CAD, diabetes, atrial fibrillation admitted with a coagulopathy state, secondary to Coumadin toxicity, and also recurrent problem. admitted with a possible acute severe febrile illness, and associated with the possible urinary tract infection. And underlying pyelonephritis cannot be ruled out. Given the patient's a high WBC, also urinary analysis showing very high levels of WBC in the range of pyuria, and also febrile illness most likely patient has acute severe urinary tract infection, associate with the urosepsis. And bacteremia cannot be ruled out. Patient decided is Rocephin. We'll start the patient on Zosyn. Cultures pending. Will get infectious disease evaluation. Continue to monitor the INR. On Coumadin. Will follow-up the patient Present on Admission - Present on Admission Any Indicators Present on Admission: No History of DVT/PE: No History of Uncontrolled Diabetes: No Urinary Catheter: No Decubitus Ulcer Present: No Past Patient History - Infectious Disease Hx of Infectious Diseases: None - Past Medical History & Family History Past Medical History?: Yes - Past Social History Smoking Status: Light Smoker < 10 Cigarettes Daily - CARDIAC Hx Atrial Fibrillation: Yes Hx Cardia Arrhythmia: Yes Hx Hypercholesterolemia: Yes Hx Hypertension: Yes Hx Mitral Valve Prolapse: Yes - PULMONARY Hx Respiratory Disorders: No Hx Tuberculosis: No - HEENT Hx HEENT Problems: Yes Hx Cataracts: Yes (cataraxt sx) Hx Glaucoma: Yes - RENAL Hx Chronic Kidney Disease: No - HEMATOLOGICAL/ONCOLOGICAL Hx Anemia: Yes - INTEGUMENTARY Hx Dermatological Problems: Yes Hx Cellulitis: Yes - MUSCULOSKELETAL/RHEUMATOLOGICAL Hx Arthritis: Yes - GASTROINTESTINAL Hx Diverticulitis: Yes - PSYCHIATRIC Hx Anxiety: Yes Hx Depression: Yes Hx Schizophrenia: Yes Hx Substance Use: No - SURGICAL HISTORY Hx Coronary Artery Bypass Graft: Yes (1997) - ANESTHESIA Hx Anesthesia: Yes Hx Anesthesia Reactions: No Hx Malignant Hyperthermia: No Meds Allergies/Adverse Reactions: Allergies Allergy/AdvReac Type Severity Reaction Status Date / Time clams Allergy Intermediate NAUSEA Uncoded 11/13/17 10:24 Results - Vital Signs Recent Vital Signs: Last Vital Signs Temp 98.3 F 03/27/18 17:01 Pulse 70 03/27/18 17:01 Resp 20 03/27/18 17:01 BP 122/68 03/27/18 17:01 Pulse Ox 97 03/27/18 18:23 - Labs Result Diagrams: 03/28/18 07:20 03/28/18 07:20 Labs: Laboratory Results - last 24 hr 03/27/18 03/27/18 03/27/18 10:15 10:41 10:45 WBC RBC Hgb Hct MCV MCH MCHC RDW Plt Count MPV Neut % (Auto) Lymph % (Auto) [place] % (Auto) Eos % (Auto) Baso % (Auto) Neut # (Auto) Lymph # (Auto) [place] # (Auto) Eos # (Auto) Baso # (Auto) Neutrophils % (Manual) Band Neutrophils % Lymphocytes % (Manual) Monocytes % (Manual) Platelet Estimate PT INR APTT pO2 16 L VBG pH 7.45 H VBG pCO2 36 L VBG HCO3 24.0 VBG Total CO2 26.1 VBG O2 Sat (Calc) 25.3 L VBG Base Excess 1.3 VBG Potassium 3.6 Sodium 138.0 Chloride 99.0 Glucose 328 H Lactate 4.2 H* Blood Gas Comments High lac Crit Value Called To Marie de luna Crit Value Called By Yesenia tony Crit Value Read Back Y Blood Gas Notified Time 1117 Potassium Carbon Dioxide Anion Gap BUN Creatinine Est GFR ( Amer) Est GFR (Non-Af Amer) POC Glucose (mg/dL) 295 H 321 H Random Glucose Calcium Magnesium Total Bilirubin AST ALT Alkaline Phosphatase Troponin I NT-Pro-B Natriuret Pep Total Protein Albumin Globulin Albumin/Globulin Ratio Lipase TSH 3rd Generation Venous Blood Potassium 3.6 Urine Color Urine Clarity Urine pH Ur Specific Stites Urine Protein Urine Glucose (UA) Urine Ketones Urine Blood Urine Nitrate Urine Bilirubin Urine Urobilinogen Ur Leukocyte Esterase Urine WBC (Auto) Urine RBC (Auto) Urine WBC Clumps (Auto) Ur Squamous Epith Cells Urine Bacteria Influenza Typ A,B (EIA) 03/27/18 03/27/18 03/27/18 11:08 11:08 11:08 WBC 12.5 H D RBC 4.18 L Hgb 12.6 Hct 38.1 MCV 91.1 D MCH 30.2 MCHC 33.1 RDW 13.3 Plt Count 155 MPV 9.7 Neut % (Auto) 86.7 H Lymph % (Auto) 1.[address] [place] % (Auto) 11.2 H Eos % (Auto) 0.0 Baso % (Auto) 1.0 Neut # (Auto) 10.8 H Lymph # (Auto) 0.[address] [place] # (Auto) 1.4 H Eos # (Auto) 0.0 Baso # (Auto) 0.1 Neutrophils % (Manual) 86 H Band Neutrophils % 1 Lymphocytes % (Manual) 8 L Monocytes % (Manual) 5 Platelet Estimate Normal PT INR APTT pO2 VBG pH VBG pCO2 VBG HCO3 VBG Total CO2 VBG O2 Sat (Calc) VBG Base Excess VBG Potassium Sodium 136 Chloride 96 L Glucose Lactate Blood Gas Comments Crit Value Called To Crit Value Called By Crit Value Read Back Blood Gas Notified Time Potassium 3.2 L Carbon Dioxide 22 Anion Gap 21 H BUN 37 H Creatinine 1.7 H Est GFR ( Amer) 49 Est GFR (Non-Af Amer) 41 POC Glucose (mg/dL) Random Glucose 324 H Calcium 8.2 L Magnesium 1.1 L Total Bilirubin 2.4 H AST 25 ALT 24 Alkaline Phosphatase 97 Troponin I 0.0340 NT-Pro-B Natriuret Pep 5990 H Total Protein 6.6 Albumin 3.6 Globulin 3.0 Albumin/Globulin Ratio 1.2 Lipase 19 L TSH 3rd Generation 2.64 Venous Blood Potassium Urine Color Urine Clarity Urine pH Ur Specific Stites Urine Protein Urine Glucose (UA) Urine Ketones Urine Blood Urine Nitrate Urine Bilirubin Urine Urobilinogen Ur Leukocyte Esterase Urine WBC (Auto) Urine RBC (Auto) Urine WBC Clumps (Auto) Ur Squamous Epith Cells Urine Bacteria Influenza Typ A,B (EIA) Negative for flu a/b 03/27/18 03/27/18 03/27/18 11:08 11:08 13:40 WBC RBC Hgb Hct MCV MCH MCHC RDW Plt Count MPV Neut % (Auto) Lymph % (Auto) [place] % (Auto) Eos % (Auto) Baso % (Auto) Neut # (Auto) Lymph # (Auto) [place] # (Auto) Eos # (Auto) Baso # (Auto) Neutrophils % (Manual) Band Neutrophils % Lymphocytes % (Manual) Monocytes % (Manual) Platelet Estimate PT 41.8 H INR 3.8 H* APTT 58 H pO2 54 VBG pH 7.46 H VBG pCO2 32 L VBG HCO3 24.5 VBG Total CO2 23.8 VBG O2 Sat (Calc) 93.6 H VBG Base Excess -0.3 L VBG Potassium 3.2 L Sodium 137.0 Chloride 104.0 Glucose 345 H Lactate 1.5 Blood Gas Comments Crit Value Called To Crit Value Called By Crit Value Read Back Blood Gas Notified Time Potassium Carbon Dioxide Anion Gap BUN Creatinine Est GFR ( Amer) Est GFR (Non-Af Amer) POC Glucose (mg/dL) Random Glucose Calcium Magnesium Total Bilirubin AST ALT Alkaline Phosphatase Troponin I NT-Pro-B Natriuret Pep Total Protein Albumin Globulin Albumin/Globulin Ratio Lipase TSH 3rd Generation Venous Blood Potassium 3.2 L Urine Color Rani Urine Clarity Turbid Urine pH 5.0 Ur Specific Stites 1.011 Urine Protein 2+ H Urine Glucose (UA) 1+ H Urine Ketones Negative Urine Blood 3+ H Urine Nitrate Negative Urine Bilirubin 2+ H Urine Urobilinogen 2.0 Ur Leukocyte Esterase 3+ H Urine WBC (Auto) 2280 H Urine RBC (Auto) 326 H Urine WBC Clumps (Auto) Few H Ur Squamous Epith Cells 5 Urine Bacteria Occ H Influenza Typ A,B (EIA)
[2018-03-27] MEDS ORDERED: Magnesium Sulfate 1 gm in D5W 1 GM/100 ML BAG IVPB SCH (22:00)
[2018-03-28] MEDS: Piperacill/Tazo 2.25gm in Dex 2.25 GM/50 ML BAG IVPB SCH ×4 (01:00→20:00)
[2018-03-28] MEDS: Sodium Chloride 0.9% 1,000 ML IV SCH ×2 (05:50→09:15)
[2018-03-28 07:24] LABS: BASO % 0.2 % (0.0-2.0); EOS % 0.1 % (0.0-4.0); HEMOGLOBIN 11.2 g/dL (12.0-18.0); LYMPH # 0.4 K/uL (1.0-4.3); LYMPH % 3.8 % (20.0-40.0); MEAN CELL VOLUME 90.4 fL (80.0-94.0); MEAN CORPUSCULAR HEMOGLOBIN 30.8 pg (27.0-31.0); MEAN PLATELET VOLUME 9.7 fL (7.2-11.7); MONO # 1.3 K/uL (0.0-0.8); MONO % 12.1 % (0.0-10.0); NEUT # 9.2 K/uL (1.8-7.0); NEUT % 83.8 % (50.0-75.0); PLATELET COUNT 145 K/uL (130-400); RBC 3.66 Mil/uL (4.40-5.90); RED CELL DISTRIBUTION WIDTH 13.4 % (11.5-14.5)
[2018-03-28 07:48] LABS: INR 4.6; PROTHROMBIN TIME 50.7 SECONDS (9.7-12.2)
[2018-03-28 08:07] LABS: ALB/GLOB RATIO 1.1 (1.0-2.1); ALBUMIN 3.1 g/dL (3.5-5.0); CALCIUM 7.8 mg/dl (8.6-10.4)
[2018-03-28 09:49] LABS: ANISOCYTOSIS SLIGHT; BANDS 2 % (0-2); HYPOCHROMIC SLIGHT; LYMPHOCYTE 3 % (20-40); MONOCYTE 8 % (0-10); NEUTROPHIL 87 % (50-75); PLATELET ESTIMATE NORMAL (NORMAL); POLYCHROMIC SLIGHT; TOTAL CELLS COUNTED 100; TOXIC GRANULATION PRESENT
[2018-03-28 09:50] LABS: LARGE PLATELETS PRESENT
--- NOTE | 2018-03-28 10:30 | US ---
Date of service: 03/27/2018 PROCEDURE: Ultrasound of the Kidneys HISTORY: Pyelonephritis COMPARISON: None available. TECHNIQUE: Sonogram of the kidneys. FINDINGS: RIGHT KIDNEY: Measures: 11.6 x 5.5 x 5.8 cm. Normal in size, contour and echogenicity. This suspicious for nonobstructing calculus at the lower pole of the right kidney measures 5 millimeter. No evidence of hydronephrosis or suspicious mass. LEFT KIDNEY: Measures: 12 x 5.6 x 4.75 cm. Normal in size, contour and echogenicity. No stone, solid mass lesion or hydronephrosis visualized. OTHER FINDINGS: None. IMPRESSION: Suspicious for 5 millimeter nonobstructing calculus at the lower pole of the right kidney.
--- NOTE | 2018-03-28 15:33 | CARD ---
APPROVED REPORT Date of service: 03/27/2018 EKG Measurement Heart [id number] <Conclusion> Atrial fibrillation with rapid ventricular response Low voltage QRS Incomplete right bundle branch block Abnormal QRS-T angle, consider primary T wave abnormality Abnormal ECG
[2018-03-28] MEDS ORDERED: (Novolog) Insulin Aspart, Recombinant 100 u/ml 10 ml vial SC SCH ×3 (18:00→22:00)
[2018-03-28] MEDS: (Novolog) Insulin Aspart, Recombinant 100 u/ml 10 ml vial SC SCH (21:41)
[2018-03-28] MEDS ORDERED: (Lantus) Insulin Glargine, Recombinant SC SCH (22:00)
--- NOTE | 2018-03-28 22:28 | PCM.FALL ---
Post Fall Progress Note - Post Fall Fall Date: 03/28/18 Fall Time: 22:16 Description of Fall: Patient could not locate urinal at bedside and wanted to walk to the restroom. He typically uses a cane, but did not think he needed it for a short distance. Using the chairs along the wall for support, he made his way over to the restroom. His R leg gave out and he slid to the floor, using the wall and chairs to slow his descent. He fell on his R buttock without hitting his head or having loss of consciousness. - Post Fall Exam Vital Sign: Temp Pulse Resp BP Pulse Ox 97.7 F 88 20 147/72 98 03/28/18 16:32 03/28/18 16:32 03/28/18 16:32 03/28/18 16:32 03/28/18 16:32 Eye Exam: Positive for: Pupils equal, Pupils reactive Ear Exam: Negative for: Discharge, Bleeding Nose Exam: Negative for: Discharge, Bleeding Skin Exam: Negative for: Lacerations, Grazes, Bruising (no bruising blooming) Mouth Exam: Negative for: Tongue bitten, Teeth dislodge Neck Exam: Negative for: Tenderness, Weakness Spinal Exam: Negative for: Tenderness, Weakness Chest Exam: Negative for: Difficulty breathing Abdomen Exam: Negative for: Tenderness Pelvic Exam: Negative for: Tenderness (no tenderness on palpation of hip or pelvis.) Leg Exam: Negative for: Alteration in range of movement (full ROM on passive exam, poor musculature - his normal ROM on active exam) Impression/Plan: educated patient to call for help if he would like to move out of bed Bed alarm and fall precautions urinal and cane locations reinforced no imaging at this time
[2018-03-28] MEDS: (Lantus) Insulin Glargine, Recombinant SC SCH (22:37)
--- NOTE | 2018-03-28 22:44 | CP.PCM.PN ---
Subjective - Date & Time of Evaluation Date of Evaluation: 03/28/18 Time of Evaluation: 22:43 - Subjective Subjective: pt had a fall resident note noted pt in the past had fall and big hematoma will to dt pelvis and abd high inr hold coumadin fall precautions Objective - Vital Signs/Intake and Output Vital Signs (last 24 hours): Temp Pulse Resp BP Pulse Ox 97.7 F 88 20 147/72 98 03/28/18 16:32 03/28/18 16:32 03/28/18 16:32 03/28/18 16:32 03/28/18 16:32 Intake and Output: 03/28/18 03/29/18 18:59 06:59 Intake Total 680 Balance 680 - Medications Medications: Current Medications Clonazepam (Klonopin) 2 mg PO HS [facility] Last Admin: 03/28/18 21:40 Dose: 2 mg Piperacillin Sod/Tazobactam Sod (Zosyn 2.25 Gm Iv Premix) 2.25 gm in 50 mls @ 100 mls/hr IVPB Q6H [facility]; Protocol Last Admin: 03/28/18 20:00 Dose: 100 mls/hr Sodium Chloride (Sodium Chloride 0.9%) 1,000 mls @ 40 mls/hr IV .Q24H [facility] Last Admin: 03/28/18 09:15 Dose: 40 mls/hr Insulin Aspart (Novolog) 0 unit SC ACHS [facility]; Protocol Last Admin: 03/28/18 21:41 Dose: Not Given Insulin Glargine (Lantus) 10 unit SC HS [facility] Last Admin: 03/28/18 22:37 Dose: 10 units Rosuvastatin Calcium (Crestor) 5 mg PO HS [facility] Last Admin: 03/28/18 21:40 Dose: 5 mg Sertraline HCl (Zoloft) 50 mg PO DAILY [facility] Last Admin: 03/28/18 10:15 Dose: 50 mg Warfarin Sodium (Coumadin) 5 mg PO ONCE@1830 ONE Stop: 03/28/18 18:31 - Labs Labs: 03/28/18 07:20 03/28/18 07:20 PT 50.7 SECONDS (9.7-12.2) H D 03/28/18 07:20 INR 4.6 H* 03/28/18 07:20 APTT 56 SECONDS (21-34) H 03/28/18 07:20
[2018-03-29] MEDS: Sodium Chloride 0.9% 1,000 ML IV SCH ×2 (02:00→11:00)
[2018-03-29] MEDS: Piperacill/Tazo 2.25gm in Dex 2.25 GM/50 ML BAG IVPB SCH ×2 (02:15→07:42)
[2018-03-29] MEDS: (Novolog) Insulin Aspart, Recombinant 100 u/ml 10 ml vial SC SCH ×3 (07:47→17:05)
[2018-03-29 09:14] VITALS: RESP 20
--- NOTE | 2018-03-29 14:08 | CT ---
Date of service: 03/29/2018 PROCEDURE: CT Abdomen and Pelvis without intravenous contrast HISTORY: fall hematoma COMPARISON: 02/22/2018 TECHNIQUE: Technique. Contrast dose: Radiation dose: Total exam DLP = 1194.06 mGy-cm. This CT exam was performed using one or more of the following dose reduction techniques: Automated exposure control, adjustment of the mA and/or kV according to patient size, and/or use of iterative reconstruction technique. FINDINGS: LOWER THORAX: Small left pleural effusion/pleural thickening. LIVER: Unremarkable. No gross lesion or ductal dilatation. GALLBLADDER AND BILE DUCTS: Gallstones. PANCREAS: Unremarkable. No gross lesion or ductal dilatation. SPLEEN: Unremarkable. ADRENALS: Unremarkable. No mass. KIDNEYS AND URETERS: Bilateral perinephric fat infiltration likely due to old inflammatory change. No hydronephrosis. No solid mass. VASCULATURE: Unremarkable. No aortic aneurysm. No aortic atherosclerotic calcification or mural plaque present. BOWEL: Unremarkable. No obstruction. No gross mural thickening. APPENDIX: Unremarkable. Normal appendix. PERITONEUM: Unremarkable. No free fluid. No free air. LYMPH NODES: Unremarkable. No enlarged lymph nodes. BLADDER: Unremarkable. REPRODUCTIVE: Unremarkable. BONES: No acute fracture. OTHER FINDINGS: None. IMPRESSION: No evidence of fracture or hematoma.
[2018-03-29] MEDS ORDERED: Meropenem 500 MG in Sodium Chloride 0.9% 100 ML IVPB SCH ×2 (16:00→18:00)
--- NOTE | 2018-03-29 17:45 | CP.PCM.CON ---
History of Present Illness - History of Present Illness History of Present Illness: 67 year old male, whose past medical history includes diabetes and heart surgery (compliant with Coumadin), presents to the ED for evaluation after noticing blood in his urine this morning. Patient also complains of feeling weakness and fatigue. He denies fever, chills, chest pain, shortness of breath, nausea and vomiting. Merrem started + ESBL Urine Blood recc Imaging eval - Medical History PMH: Anemia, Anxiety, Arthritis, Atrial Fibrillation, CAD, Cardia Arrhythmia, Colonic Polyps, Depression, Diverticulitis, HTN, Hypercholesterolemia, Mitral Valve Prolapse, Schizophrenia Denies: Chronic Kidney Disease Surgical History: CABG (1997), Endoscopy Review of Systems - Review of Systems All systems: reviewed and no additional remarkable complaints except Past Patient History - Infectious Disease Hx of Infectious Diseases: None - Past Medical History & Family History Past Medical History?: Yes - Past Social History Smoking Status: Light Smoker < 10 Cigarettes Daily - CARDIAC Hx Atrial Fibrillation: Yes Hx Cardia Arrhythmia: Yes Hx Hypercholesterolemia: Yes Hx Hypertension: Yes Hx Mitral Valve Prolapse: Yes - PULMONARY Hx Respiratory Disorders: No Hx Tuberculosis: No - HEENT Hx HEENT Problems: Yes Hx Cataracts: Yes (cataraxt sx) Hx Glaucoma: Yes - RENAL Hx Chronic Kidney Disease: No - HEMATOLOGICAL/ONCOLOGICAL Hx Anemia: Yes - INTEGUMENTARY Hx Dermatological Problems: Yes Hx Cellulitis: Yes - MUSCULOSKELETAL/RHEUMATOLOGICAL Hx Arthritis: Yes - GASTROINTESTINAL Hx Diverticulitis: Yes - PSYCHIATRIC Hx Anxiety: Yes Hx Depression: Yes Hx Schizophrenia: Yes Hx Substance Use: No - SURGICAL HISTORY Hx Coronary Artery Bypass Graft: Yes (1997) - ANESTHESIA Hx Anesthesia: Yes Hx Anesthesia Reactions: No Hx Malignant Hyperthermia: No Meds Allergies/Adverse Reactions: Allergies Allergy/AdvReac Type Severity Reaction Status Date / Time clams Allergy Intermediate NAUSEA Uncoded 11/13/17 10:24 - Medications Medications: Current Medications Clonazepam (Klonopin) 2 mg PO HS [facility] Last Admin: 03/28/18 21:40 Dose: 2 mg Glipizide (Glucotrol) 5 mg PO ACB [facility] Last Admin: 03/29/18 07:42 Dose: 5 mg Sodium Chloride (Sodium Chloride 0.9%) 1,000 mls @ 40 mls/hr IV .Q24H [facility] Last Admin: 03/29/18 11:00 Dose: Not Given Meropenem 500 mg/ Sodium (Chloride) 100 mls @ 100 mls/hr IVPB Q8H [facility]; Protocol Stop: 04/05/18 16:01 Last Admin: 03/29/18 15:52 Dose: 100 mls/hr Insulin Aspart (Novolog) 0 unit SC [facility]; Protocol Last Admin: 03/29/18 17:05 Dose: 6 unit Insulin Glargine (Lantus) 10 unit SC [facility] Last Admin: 03/28/18 22:37 Dose: 10 units Rosuvastatin Calcium (Crestor) 5 mg PO HS [facility] Last Admin: 03/28/18 21:40 Dose: 5 mg Sertraline HCl (Zoloft) 50 mg PO [facility] Physical Exam - Constitutional Appears: Chronically Ill - Head Exam Head Exam: NORMAL INSPECTION - Eye Exam Eye Exam: absent: Scleral icterus - ENT Exam ENT Exam: Mucous Membranes Dry - Neck Exam Neck exam: Negative for: Lymphadenopathy - Respiratory Exam Respiratory Exam: Decreased Breath Sounds, Clear to Auscultation Bilateral - Cardiovascular Exam Cardiovascular Exam: REGULAR RHYTHM, +S1, +S2 - GI/Abdominal Exam GI & Abdominal Exam: Diminished Bowel Sounds, Soft. absent: Tenderness - Rectal Exam Rectal Exam: Deferred - Exam Exam: NORMAL INSPECTION - Extremities Exam Extremities exam: Negative for: calf tenderness, pedal edema - Back Exam Back exam: absent: CVA tenderness (L), CVA tenderness (R) - Neurological Exam Neurological exam: Alert, Altered, CN II-XII Intact, Reflexes Normal - Psychiatric Exam Psychiatric exam: Depressed - Skin Skin Exam: Dry Results - Vital Signs Recent Vital Signs: Last Vital Signs Temp 98.2 F 03/29/18 16:36 Pulse 84 03/29/18 16:36 Resp 20 03/29/18 16:36 BP 138/68 03/29/18 16:36 Pulse Ox 94 L 03/29/18 16:36 - Labs Result Diagrams: 03/28/18 07:20 03/28/18 07:20 Labs: Laboratory Results - last 24 hr 03/28/18 03/29/18 03/29/18 21:21 07:44 10:58 POC Glucose (mg/dL) 220 H 208 H 195 H 03/29/18 16:15 POC Glucose (mg/dL) 257 H Assessment & Plan (1) Infection due to ESBL-producing Escherichia coli Status: Acute (2) Pyelonephritis Status: Acute (3) Abdominal pain Status: Acute (4) Depression Status: Acute - Assessment and Plan (Free Text) Assessment: sepsis/ bacteremia chronic pyelo ? abscess consider eval IV rx for min 3 weeks
[2018-03-29] MEDS ORDERED: Meropenem 1 GM in Sodium Chloride 0.9% 100 ML IVPB SCH (18:00)
[2018-03-29] MEDS: (Lantus) Insulin Glargine, Recombinant SC SCH (21:07)
[2018-03-30] MEDS: Meropenem 500 MG in Sodium Chloride 0.9% 100 ML IVPB SCH ×4 (00:02→23:41)
[2018-03-30] MEDS: (Novolog) Insulin Aspart, Recombinant 100 u/ml 10 ml vial SC SCH ×4 (07:54→21:33)
[2018-03-30] MEDS: Sodium Chloride 0.9% 1,000 ML IV SCH (08:58)
--- NOTE | 2018-03-30 10:56 | CP.PCM.PN ---
Subjective - Date & Time of Evaluation Date of Evaluation: 03/30/18 Time of Evaluation: 10:56 - Subjective Subjective: Afebrile today. Feeling slightly better No pain noted. Denies any diarrhea Vital signs stable. Chest good air entry. Regular heart sound. Mild the left flank pain noted Blood cultures and urine culture showing evidence of ESBL Escherichia coli Patient is currently on meropenem as per ID. We'll check labs today. INR to be checked. Coumadin will be placed if the INR subtherapeutic. Will follow-up the patient Objective - Vital Signs/Intake and Output Vital Signs (last 24 hours): Temp Pulse Resp BP Pulse Ox 98.7 F 71 20 155/89 H 96 03/30/18 07:40 03/30/18 07:40 03/30/18 07:40 03/30/18 07:40 03/30/18 07:40 Intake and Output: 03/30/18 03/30/18 06:59 18:59 Intake Total 1190 Output Total 500 Balance 690 - Medications Medications: Current Medications Clonazepam (Klonopin) 2 mg PO HS [facility] Last Admin: 03/29/18 21:06 Dose: 2 mg Glipizide (Glucotrol) 5 mg PO ACB [facility] Last Admin: 03/30/18 07:55 Dose: 5 mg Sodium Chloride (Sodium Chloride 0.9%) 1,000 mls @ 40 mls/hr IV .Q24H [facility] Last Admin: 03/30/18 08:58 Dose: Not Given Meropenem 500 mg/ Sodium (Chloride) 100 mls @ 100 mls/hr IVPB Q8H [facility]; Protocol Last Admin: 03/30/18 07:56 Dose: 100 mls/hr Insulin Aspart (Novolog) 0 unit SC ACHS [facility]; Protocol Last Admin: 03/30/18 07:54 Dose: 4 unit Insulin Glargine (Lantus) 10 unit SC HS [facility] Last Admin: 03/29/18 21:07 Dose: 10 units Rosuvastatin Calcium (Crestor) 5 mg PO HS [facility] Last Admin: 03/29/18 21:07 Dose: 5 mg Sertraline HCl (Zoloft) 50 mg PO HS [facility] Last Admin: 03/29/18 21:07 Dose: 50 mg - Labs Labs: 03/28/18 07:20 03/28/18 07:20 PT 50.7 SECONDS (9.7-12.2) H D 03/28/18 07:20 INR 4.6 H* 03/28/18 07:20 APTT 56 SECONDS (21-34) H 03/28/18 07:20
--- NOTE | 2018-03-30 10:56 | CP.PCM.PN ---
Subjective - Date & Time of Evaluation Date of Evaluation: 03/29/18 Time of Evaluation: 22:00 - Subjective Subjective: Patient had a fall yesterday. Following that CAT scan of the abdomen and pelvis chest done. There was no evidence of any acute fracture or hematoma noted. CAT scan of the abdomen and also revealing perinephric fat infiltrate on both kidneys possible old inflammatory changes gallstones noted. On examination: Vital signs stable. Saturation 94% in room air Chest good air entry regular heart sound nontender abdomen. Blood culture showing evidence of gram-negative bacteremia currently pending sensitivity. We'll continue the current antibiotic infectious disease follow-up and will follow-up the patient Objective - Vital Signs/Intake and Output Vital Signs (last 24 hours): Temp Pulse Resp BP Pulse Ox 98.7 F 71 20 155/89 H 96 03/30/18 07:40 03/30/18 07:40 03/30/18 07:40 03/30/18 07:40 03/30/18 07:40 Intake and Output: 03/30/18 03/30/18 06:59 18:59 Intake Total 1190 Output Total 500 Balance 690 - Medications Medications: Current Medications Clonazepam (Klonopin) 2 mg PO HS [facility] Last Admin: 03/29/18 21:06 Dose: 2 mg Glipizide (Glucotrol) 5 mg PO ACB [facility] Last Admin: 03/30/18 07:55 Dose: 5 mg Sodium Chloride (Sodium Chloride 0.9%) 1,000 mls @ 40 mls/hr IV .Q24H [facility] Last Admin: 03/30/18 08:58 Dose: Not Given Meropenem 500 mg/ Sodium (Chloride) 100 mls @ 100 mls/hr IVPB Q8H [facility]; Protocol Last Admin: 03/30/18 07:56 Dose: 100 mls/hr Insulin Aspart (Novolog) 0 unit SC ACHS [facility]; Protocol Last Admin: 03/30/18 07:54 Dose: 4 unit Insulin Glargine (Lantus) 10 unit SC HS [facility] Last Admin: 03/29/18 21:07 Dose: 10 units Rosuvastatin Calcium (Crestor) 5 mg PO HS [facility] Last Admin: 03/29/18 21:07 Dose: 5 mg Sertraline HCl (Zoloft) 50 mg PO HS [facility] Last Admin: 03/29/18 21:07 Dose: 50 mg - Labs Labs: 03/28/18 07:20 03/28/18 07:20 PT 50.7 SECONDS (9.7-12.2) H D 03/28/18 07:20 INR 4.6 H* 03/28/18 07:20 APTT 56 SECONDS (21-34) H 03/28/18 07:20
[2018-03-30 14:06] LABS: BASO # 0.1 K/uL (0.0-0.2); BASO % 0.6 % (0.0-2.0); EOS # 0.1 K/uL (0.0-0.7); EOS % 0.8 % (0.0-4.0); HEMOGLOBIN 10.5 g/dL (12.0-18.0); LYMPH # 0.7 K/uL (1.0-4.3); MEAN CELL VOLUME 90.3 fL (80.0-94.0); MEAN CORPUSCULAR HEMOGLOBIN 30.5 pg (27.0-31.0); MEAN CORPUSCULAR HGB CONC 33.8 g/dL (33.0-37.0); MEAN PLATELET VOLUME 9.4 fL (7.2-11.7); MONO # 1.1 K/uL (0.0-0.8); MONO % 10.6 % (0.0-10.0); NEUT # 8.3 K/uL (1.8-7.0); PLATELET COUNT 180 K/uL (130-400); RBC 3.46 Mil/uL (4.40-5.90); RED CELL DISTRIBUTION WIDTH 13.4 % (11.5-14.5); WHITE BLOOD COUNT 10.2 K/uL (4.8-10.8)
[2018-03-30 14:13] LABS: INR 2.4; PROTHROMBIN TIME 26.8 SECONDS (9.7-12.2)
[2018-03-30 14:14] LABS: ALBUMIN 2.6 g/dL (3.5-5.0); ALT/SGPT 25 U/L (21-72); AST/SGOT 18 U/L (17-59); BLOOD UREA NITROGEN 29 mg/dL (9-20); CALCIUM 7.8 mg/dl (8.6-10.4); GFR NON-AFRICAN AMERICAN > 60
[2018-03-30 15:34] LABS: BANDS 2 % (0-2); EOSINOPHIL 1 % (0-4); LYMPHOCYTE 9 % (20-40); MONOCYTE 3 % (0-10); NEUTROPHIL 85 % (50-75); TOTAL CELLS COUNTED 100
[2018-03-30 15:35] LABS: GIANT PLATELETS PRESENT; LARGE PLATELETS PRESENT; PLATELET ESTIMATE NORMAL (NORMAL)
--- NOTE | 2018-03-30 17:11 | CP.PCM.PN ---
Subjective - Date & Time of Evaluation Date of Evaluation: 03/30/18 Time of Evaluation: 08:00 - Subjective Subjective: afebrile on Merrem for ESBL sepsis / bacteremia/ pyelonephritis Objective - Vital Signs/Intake and Output Vital Signs (last 24 hours): Temp Pulse Resp BP Pulse Ox 98.7 F 71 20 155/89 H 96 03/30/18 07:40 03/30/18 07:40 03/30/18 07:40 03/30/18 07:40 03/30/18 07:40 Intake and Output: 03/30/18 03/30/18 06:59 18:59 Intake Total 1190 280 Output Total 500 Balance 690 280 - Medications Medications: Current Medications Clonazepam (Klonopin) 2 mg PO HS [facility] Last Admin: 03/29/18 21:06 Dose: 2 mg Glipizide (Glucotrol) 5 mg PO ACB [facility] Last Admin: 03/30/18 07:55 Dose: 5 mg Meropenem 500 mg/ Sodium (Chloride) 100 mls @ 100 mls/hr IVPB Q8H [facility]; Protocol Last Admin: 03/30/18 07:56 Dose: 100 mls/hr Insulin Aspart (Novolog) 0 unit SC [facility]; Protocol Last Admin: 03/30/18 11:47 Dose: 6 unit Insulin Glargine (Lantus) 10 unit SC [facility] Last Admin: 03/29/18 21:07 Dose: 10 units Rosuvastatin Calcium (Crestor) 5 mg PO HS [facility] Last Admin: 03/29/18 21:07 Dose: 5 mg Sertraline HCl (Zoloft) 50 mg PO [facility] Last Admin: 03/29/18 21:07 Dose: 50 mg - Labs Labs: 03/30/18 13:53 03/30/18 13:53 PT 26.8 SECONDS (9.7-12.2) H D 03/30/18 13:53 INR 2.4 D 03/30/18 13:53 APTT 40 SECONDS (21-34) H D 03/30/18 13:53 - Constitutional Appears: Non-toxic, Cachectic - Head Exam Head Exam: NORMOCEPHALIC - Eye Exam Eye Exam: PERRL - ENT Exam ENT Exam: Mucous Membranes Dry - Cardiovascular Exam Cardiovascular Exam: REGULAR RHYTHM, +S1, +S2 - GI/Abdominal Exam GI & Abdominal Exam: Distended, Soft. absent: Tenderness - Rectal Exam Rectal Exam: Deferred - Exam Exam: absent: NORMAL INSPECTION - Extremities Exam Extremities Exam: absent: Pedal Edema - Back Exam Back Exam: absent: CVA tenderness (L), CVA tenderness (R), paraspinal tenderness - Neurological Exam Neurological Exam: Alert, Awake - Psychiatric Exam Psychiatric exam: Depressed - Skin Skin Exam: Dry Assessment and Plan (1) Infection due to ESBL-producing Escherichia coli Status: Acute (2) Pyelonephritis Status: Acute (3) Abdominal pain Status: Acute (4) Depression Status: Acute - Assessment and Plan (Free Text) Assessment: will likely need 3 weeks IV rx consider eval
[2018-03-30 17:41] LABS: SQUAMOUS EPITHIAL 1 /hpf (0-5); URINE BACTERIA RARE (<OCC); URINE BILIRUBIN NEGATIVE (NEGATIVE); URINE BLOOD 3+ (NEGATIVE); URINE CLARITY Clear (Clear); URINE COLOR Yellow (YELLOW); URINE GLUCOSE (UA) NORMAL (Normal); URINE LEUKOCYTE ESTERASE 1+ Leu/uL (Negative); URINE PROTEIN 1+ mg/dL (NEGATIVE); URINE UROBILINOGEN NORMAL mg/dL (0.2-1.0)
[2018-03-30] MEDS: (Lantus) Insulin Glargine, Recombinant SC SCH (21:33)
[2018-03-31] MEDS: (Novolog) Insulin Aspart, Recombinant 100 u/ml 10 ml vial SC SCH ×4 (07:57→21:59)
[2018-03-31] MEDS: Meropenem 500 MG in Sodium Chloride 0.9% 100 ML IVPB SCH ×3 (07:58→23:27)
--- NOTE | 2018-03-31 14:19 | CP.PCM.PN ---
Subjective - Date & Time of Evaluation Date of Evaluation: 03/31/18 Time of Evaluation: 14:19 - Subjective Subjective: Patient today feeling well. He has no fever. He is eating good. No diarrhea noted. Denies any chest pain or shortness of breath Vital signs: Temperature afebrile. Heart rate 77. Blood pressure 155/88 respiration 20 saturation 97% Chest good air entry regular heart sound nontender abdomen no pedal edema Assessment: 67-year-old male with a history of depression with anxiety hypertension mitral valve replacement. Atrial fibrillation on anticoagulation. Patient admitted with the ESBL Escherichia coli bacteremia, associated with a sepsis and septicemia. Improving at this time. Patient will need [address] PICC line. Home infusion possibly. Will discuss with the patient and the adoption social worker Objective - Vital Signs/Intake and Output Vital Signs (last 24 hours): Temp Pulse Resp BP Pulse Ox 97.8 F 77 20 155/88 H 97 03/31/18 07:51 03/31/18 07:51 03/31/18 07:51 03/31/18 07:51 03/31/18 07:51 Intake and Output: 03/31/18 03/31/18 06:59 18:59 Intake Total 300 Balance 300 - Medications Medications: Current Medications Clonazepam (Klonopin) 2 mg PO HS [facility] Last Admin: 03/30/18 21:33 Dose: 2 mg Glipizide (Glucotrol) 5 mg PO ACB [facility] Last Admin: 03/31/18 07:58 Dose: 5 mg Meropenem 500 mg/ Sodium (Chloride) 100 mls @ 100 mls/hr IVPB Q8H [facility]; Protocol Last Admin: 03/31/18 07:58 Dose: 100 mls/hr Insulin Aspart (Novolog) 0 unit SC [facility]; Protocol Last Admin: 03/31/18 11:55 Dose: 10 unit Insulin Glargine (Lantus) 10 unit SC [facility] Last Admin: 03/30/18 21:33 Dose: 10 units Rosuvastatin Calcium (Crestor) 5 mg PO HS [facility] Last Admin: 03/30/18 21:34 Dose: 5 mg Sertraline HCl (Zoloft) 50 mg PO HS [facility] Last Admin: 03/30/18 21:34 Dose: 50 mg - Labs Labs: 03/30/18 13:53 03/30/18 13:53 PT 26.8 SECONDS (9.7-12.2) H D 03/30/18 13:53 INR 2.4 D 03/30/18 13:53 APTT 40 SECONDS (21-34) H D 03/30/18 13:53
[2018-03-31 17:30] LABS: INR 1.9; PROTHROMBIN TIME 20.7 SECONDS (9.7-12.2)
[2018-03-31] MEDS: (Lantus) Insulin Glargine, Recombinant SC SCH (21:58)
[2018-04-01 08:28] VITALS: O2SAT 96
[2018-04-01] MEDS: Meropenem 500 MG in Sodium Chloride 0.9% 100 ML IVPB SCH (08:45)
[2018-04-01] MEDS: (Novolog) Insulin Aspart, Recombinant 100 u/ml 10 ml vial SC SCH ×3 (08:46→17:04)
[2018-04-01 13:31] LABS: INR 1.7; PROTHROMBIN TIME 19.1 SECONDS (9.7-12.2)
[2018-04-01 15:53] VITALS: BP 169/76; PULSE 69; TEMP 98.3
--- NOTE | 2018-04-01 17:48 | CP.PCM.PN ---
Subjective - Date & Time of Evaluation Date of Evaluation: 04/01/18 Time of Evaluation: 17:48 - Subjective Subjective: alert and orientedx3, no acute distress. Objective - Vital Signs/Intake and Output Vital Signs (last 24 hours): Temp Pulse Resp BP Pulse Ox 98.3 F 69 20 169/76 H 96 04/01/18 15:52 04/01/18 15:52 04/01/18 15:52 04/01/18 15:52 04/01/18 15:52 Intake and Output: 04/01/18 04/01/18 06:59 18:59 Intake Total 400 630 Balance 400 630 - Medications Medications: Current Medications Clonazepam (Klonopin) 2 mg PO HS [facility] Last Admin: 03/31/18 21:59 Dose: 2 mg Glipizide (Glucotrol) 5 mg PO ACB [facility] Last Admin: 04/01/18 08:45 Dose: 5 mg Insulin Aspart (Novolog) 0 unit SC [facility]; Protocol Last Admin: 04/01/18 17:04 Dose: 6 unit Insulin Glargine (Lantus) 10 unit SC HS [facility] Last Admin: 03/31/18 21:58 Dose: 10 units Rosuvastatin Calcium (Crestor) 5 mg PO HS [facility] Last Admin: 03/31/18 21:58 Dose: 5 mg Sertraline HCl (Zoloft) 50 mg PO HS [facility] Last Admin: 03/31/18 21:59 Dose: 50 mg - Labs Labs: 03/30/18 13:53 03/30/18 13:53 PT 19.1 SECONDS (9.7-12.2) H 04/01/18 13:15 INR 1.7 04/01/18 13:15 APTT 39 SECONDS (21-34) H 03/31/18 17:12 Assessment and Plan - Assessment and Plan (Free Text) Assessment: Patient with UTI, sepsis, seen and examined. Alert and oriented x3, denies pain or distress. Outpatient infusion or 3 weeks invanz arranged by the piano case maker. Prescription given, all process done as per piano case maker. Patient has a midline for 3 weeks of invanz infusion as per DR López. Advised to follow up with PMD in 1 week.
== END 2018-04-01 18:11 | disposition home or self-care (01) | DRG 872 ==
LOC: C.ER 10:04 → C.9E 11:55 → C.3T 15:18
PROVIDERS: ADMIT Internal Medicine; ATTEND Internal Medicine
PROC: 05H633Z Insertion of Infusion Device into Left Subclavian Vein, Percutaneous Approach (ICD-10-PCS; principal; 2018-04-01)
DX: A41.9 Sepsis, unspecified organism (principal); N12 Tubulo-interstitial nephritis, not specified as acute or chronic; B96.20 Unspecified Escherichia coli [E. coli] as the cause of diseases classified elsewhere; E11.9 Type 2 diabetes mellitus without complications; F20.9 Schizophrenia, unspecified; F32.9 Major depressive disorder, single episode, unspecified; I10 Essential (primary) hypertension; I25.10 Atherosclerotic heart disease of native coronary artery without angina pectoris; I48.91 Unspecified atrial fibrillation; Z16.12 Extended spectrum beta lactamase (ESBL) resistance; Z95.1 Presence of aortocoronary bypass graft; Z95.2 Presence of prosthetic heart valve; F17.210 Nicotine dependence, cigarettes, uncomplicated; Z79.4 Long term (current) use of insulin

== ENCOUNTER 2018-05-12 13:38 | Emergency (ER) | payer MEDICARE ==
[2018-05-12 13:39] VITALS: BMI 27.3
[2018-05-12 14:01] VITALS: O2SAT 100
[2018-05-12] MEDS ORDERED: Sodium Chloride 0.9% 500 ML IV ONE (15:12)
--- NOTE | 2018-05-12 15:42 | C.PDOC ---
History Of Present Illness 67 year old male presents to the emergency department with complaints of feeling lightheaded since being discharged at [facility] [place] on 05/06/18. Patient states that he was admitted there for a seizure/syncope. Patient states that he did fall today after slipping on his tile floor at home while wearing socks. He denies other complaints at this time. Time Seen by Provider: 05/12/18 14:10 Chief Complaint (Nursing): Dizziness/Lightheaded History Per: Patient History/Exam Limitations: no limitations Onset/Duration Of Symptoms: Days (6) Current Symptoms Are (Timing): Still Present Past Medical History Reviewed: Historical Data, Nursing Documentation, Vital Signs Vital Signs: Last Vital Signs Temp 97.3 F L 05/12/18 13:59 Pulse 89 05/12/18 13:59 Resp 20 05/12/18 13:59 BP 159/80 H 05/12/18 13:59 Pulse Ox 100 05/12/18 13:59 - Medical History PMH: Anemia, Anxiety, Arthritis, Atrial Fibrillation, Benign Prostatic Hyperplasia, CAD, Cardia Arrhythmia, Colonic Polyps, Depression, Diverticulitis, HTN, Hypercholesterolemia, Mitral Valve Prolapse, Chronic Kidney Disease, Schizophrenia Surgical History: CABG (1997), Endoscopy - [facility] Procedures DRAINAGE OF ANUS, EXTERNAL APPROACH (05/01/15) INSERTION OF INFUSION DEV INTO L SUBCLAV VEIN, PERC APPROACH (03/27/18) TRANSFUSE NONAUT FROZEN PLASMA IN PERIPH VEIN, PERC (09/16/16) ULTRASONOGRAPHY OF HEART WITH AORTA, TRANSESOPHAGEAL (05/02/18) Family History: States: Hypertension - Social History Hx Alcohol Use: Yes Hx Substance Use: No - Immunization History Hx Tetanus Toxoid Vaccination: No Hx Influenza Vaccination: No Hx Pneumococcal Vaccination: No Review Of Systems Constitutional: Negative for: Fever, Chills Cardiovascular: Positive for: Light Headedness Gastrointestinal: Negative for: Nausea, Vomiting, Abdominal Pain Neurological: Negative for: Weakness, Numbness, Headache Physical Exam - Physical Exam Appears: Non-toxic, In Acute Distress (crying) Skin: Normal Color, Warm, Dry Head: Atraumatic, Normacephalic Eye(s): bilateral: Normal Inspection, PERRL, EOMI Neck: Normal, Supple Cardiovascular: Rhythm Regular, Murmur (4/6 systolic murmur) Respiratory: Normal Breath Sounds, No Rales, No Rhonchi, No Wheezing Gastrointestinal/Abdominal: Soft, No Tenderness, No Guarding, No Rebound Back: Normal Inspection, No Vertebral Tenderness, No Paraspinal Tenderness Neurological/Psych: Oriented x3, Normal Speech, Normal Cognition Gait: Steady ED Course And Treatment - Laboratory Results Result Diagrams: 05/12/18 15:35 05/12/18 15:35 Interpretation Of ECG: Atrial fibrillation at 76bpm, normal axis, right bunble branch block, no acute st/t wave changes. O2 Sat by Pulse Oximetry: 100 (RA) Pulse Ox Interpretation: Normal Progress Note: Plan: EKG. CMP. CBC. NaCl IV Fluids. Pending call from Dr. Kendrick. Prior EKG reviewed, patient has a history of A-fib. Disposition Counseled Patient/Family Regarding: Studies Performed, Diagnosis, Need For Followup - Disposition Referrals: Sunita Kendrick MD [Staff Provider] - Disposition: HOME/ ROUTINE Disposition Time: 17:45 Condition: STABLE Additional Instructions: FOLLOW UP WITH DR KENDRICK IN 1-2 DAYS RETURN TO ER IF YOUR SYMPTOMS WORSEN Instructions: Dizziness, Nonvertigo, (DC) Forms: [facility] (Slovenian), General Discharge Instructions Print Language: ROMANIAN - Clinical Impression Clinical Impression: Light-headed - Scribe Statement The provider has reviewed the documentation as recorded by the Scribe (Roderick Schmitt) Provider Attestation: All medical record entries made by the Scribe were at my direction and pe rsonally dictated by me. I have reviewed the chart and agree that the record accurately reflects my personal performance of the history, physical exam, medical decision making, and the department course for this patient. I have also personally directed, reviewed, and agree with the discharge instructions and disposition.
[2018-05-12 15:48] LABS: BASO % 0.6 % (0.0-2.0); EOS # 0.1 K/uL (0.0-0.7); EOS % 1.1 % (0.0-4.0); LYMPH % 19.1 % (20.0-40.0); MEAN CELL VOLUME 94.1 fL (80.0-94.0); MEAN CORPUSCULAR HGB CONC 31.9 g/dL (33.0-37.0); MEAN PLATELET VOLUME 9.6 fL (7.2-11.7); MONO # 0.6 K/uL (0.0-0.8); NEUT # 3.6 K/uL (1.8-7.0); NEUT % 68.2 % (50.0-75.0); RBC 4.2 Mil/uL (4.40-5.90)
[2018-05-12 15:50] LABS: WHITE BLOOD COUNT 5.3 K/uL (4.8-10.8)
[2018-05-12 15:51] LABS: HEMOGLOBIN 12.6 g/dL (12.0-18.0)
[2018-05-12] MEDS ORDERED: Sodium Chloride 0.9% 1,000 ML ONE (16:01)
[2018-05-12 16:06] LABS: ALB/GLOB RATIO 1.4 (1.0-2.1); ALBUMIN 3.9 g/dL (3.5-5.0); ALT/SGPT 28 U/L (21-72); AST/SGOT 29 U/L (17-59); BLOOD UREA NITROGEN 24 mg/dL (9-20); CALCIUM 9.4 mg/dl (8.6-10.4); GFR NON-AFRICAN AMERICAN > 60
[2018-05-12 16:58] LABS: PROTHROMBIN TIME 59.1 SECONDS (9.7-12.2)
[2018-05-12 16:59] LABS: INR 5.4
--- NOTE | 2018-05-12 17:41 | CT ---
Date of service: 05/12/2018 PROCEDURE: CT HEAD WITHOUT CONTRAST. HISTORY: dizziness COMPARISON: Noncontrast head CT 01/26/18 TECHNIQUE: Axial computed tomography images were obtained through the head/brain without intravenous contrast. Radiation dose: Total exam DLP = 1228.34 mGy-cm. This CT exam was performed using one or more of the following dose reduction techniques: Automated exposure control, adjustment of the mA and/or kV according to patient size, and/or use of iterative reconstruction technique. FINDINGS: HEMORRHAGE: No intracranial hemorrhage. BRAIN: Diffuse atrophy with prominence of the ventricles and sulci noted. No mass effect or edema. Intracranial atherosclerosis. Right parietal encephalomalacia re-identified. Scattered periventricular and subcortical white matter hypodensities, which are nonspecific, but often seen with chronic microvascular ischemic disease. Please note that MRI with diffusion imaging is more sensitive in the detection of acute ischemic event. VENTRICLES: No hydrocephalus. CALVARIUM: Unremarkable. PARANASAL SINUSES: Unremarkable as visualized. No significant inflammatory changes. MASTOID AIR CELLS: Unremarkable as visualized. No inflammatory changes. OTHER FINDINGS: None. IMPRESSION: Right parietal encephalomalacia. Nonspecific white matter changes. Generalized atrophy.
[2018-05-12 17:47] VITALS: BP 184/86; PULSE 77; RESP 16; TEMP 97.6
--- NOTE | 2018-05-13 16:08 | CARD ---
APPROVED REPORT Date of service: 05/12/2018 EKG Measurement Heart [id number] <Conclusion> Atrial fibrillation Incomplete right bundle branch block Abnormal ECG
== END 2018-05-12 18:28 | disposition home or self-care (01) ==
LOC: C.ER 13:38
DX: R42 Dizziness and giddiness (principal); E78.00 Pure hypercholesterolemia, unspecified; I25.10 Atherosclerotic heart disease of native coronary artery without angina pectoris; I48.91 Unspecified atrial fibrillation; I12.9 Hypertensive chronic kidney disease with stage 1 through stage 4 chronic kidney disease, or unspecified chronic kidney disease; N18.9 Chronic kidney disease, unspecified
CPT/HCPCS: 70450; 80053; 82948; 85025; 85610; 85730; 93005; 96360; 99285; J7040

== ENCOUNTER → 2018-06-17 | Day surgery (SDC) | payer MEDICARE ==
--- NOTE | 2018-06-19 06:18 | VASCLAB ---
DATE: 06/17/2018 TILT TABLE TEST REFERRING PHYSICIAN: Matesu Corley MD SECONDARY ART TEACHER: Mateus Corley MD DESCRIPTION OF PROCEDURE: The patient was brought to the wharf laborer and was put on the tilt-table. The test was performed in the usual routine protocol. Blood pressure and heart rate response were monitored at 30 degrees for 5 minutes and 30 minutes at 60 degrees. There was a 51 mmHg slow drop in blood pressure and 12 beats per minute slow drop in heart rate during the test. The patient offered no complaint during the procedure. 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 Mateus Corley MD
== END | disposition home or self-care (01) ==
LOC: C.CATHLAB 06:57
PROVIDERS: ATTEND Internal Medicine
DX: E11.43 Type 2 diabetes mellitus with diabetic autonomic (poly)neuropathy (principal); R55 Syncope and collapse

== ENCOUNTER 2018-06-21 11:55 | Inpatient (IN) | payer MEDICARE ==
[2018-06-21 11:59] VITALS: BMI 27.6
[2018-06-21 12:49] LABS: MONO # 0.9 K/uL (0.0-0.8)
[2018-06-21 12:55] LABS: BASO % 0.5 % (0.0-2.0); EOS % 0.4 % (0.0-4.0); LYMPH # 0.7 K/uL (1.0-4.3); LYMPH % 8.7 % (20.0-40.0); MEAN CELL VOLUME 93.9 fL (80.0-94.0); MEAN CORPUSCULAR HEMOGLOBIN 29.3 pg (27.0-31.0); MEAN CORPUSCULAR HGB CONC 31.2 g/dL (33.0-37.0); MEAN PLATELET VOLUME 9.3 fL (7.2-11.7); MONO % 10.4 % (0.0-10.0); NEUT # 6.6 K/uL (1.8-7.0); NRBC % 0.1 % (0.0-2.0); RBC 2.31 Mil/uL (4.40-5.90); RED CELL DISTRIBUTION WIDTH 14.8 % (11.5-14.5)
[2018-06-21 12:57] LABS: HEMOGLOBIN 6.8 g/dL (12.0-18.0); PLATELET COUNT 316 K/uL (130-400); WHITE BLOOD COUNT 8.3 K/uL (4.8-10.8)
--- NOTE | 2018-06-21 12:59 | RAD ---
Date of service: 06/21/2018 PROCEDURE: CHEST RADIOGRAPH, 1 VIEW HISTORY: SOB COMPARISON: 03/27/2018. FINDINGS: LUNGS: The lungs are well inflated and clear. PLEURA: No pneumothorax or pleural effusion. CARDIOVASCULAR: The heart is normal in size. Status post median sternotomy. There are aortic atherosclerotic calcifications present. OSSEOUS STRUCTURES: Within normal limits for the patient's age. VISUALIZED UPPER ABDOMEN: Normal. OTHER FINDINGS: None. IMPRESSION: No active pulmonary disease.
[2018-06-21 13:05] LABS: ALB/GLOB RATIO 1.3 (1.0-2.1); ALBUMIN 3.4 g/dL (3.5-5.0); ALT/SGPT 16 U/L (21-72); AST/SGOT 23 U/L (17-59); BLOOD UREA NITROGEN 37 mg/dL (9-20); GFR NON-AFRICAN AMERICAN 47
[2018-06-21 13:17] LABS: TOTAL CELLS COUNTED 100
[2018-06-21 13:18] LABS: LYMPHOCYTE 8 % (20-40); MONOCYTE 8 % (0-10); NEUTROPHIL 84 % (50-75); OVALOCYTES SLIGHT; PLATELET ESTIMATE NORMAL (NORMAL)
--- NOTE | 2018-06-21 13:34 | C.PDOC ---
History Of Present Illness 68yo male with hx of hypertension, CAD, AFib, is sent to ER by Dr. Kendrick for evaluation due to abnormal labs. Patient states he went to Dr. Kendrick for evaluation due to spontaneous ecchymosis. Patient denies any history of blood disorders or clotting disorders; he also denies any known precipitant for his symptoms. No pain, chest pain, shortness of breath or other complaints. PMD: Dr. Kendrick Time Seen by Provider: 06/21/18 12:05 Chief Complaint (Nursing): Abnormal Labs History Per: Patient Past Medical History Reviewed: Historical Data, Nursing Documentation, Vital Signs Vital Signs: Last Vital Signs Temp 98 F 06/21/18 11:59 Pulse 100 H 06/21/18 11:59 Resp 18 06/21/18 11:59 BP 112/70 06/21/18 11:59 Pulse Ox 100 06/21/18 11:59 - Medical History PMH: Anemia, Anxiety, Arthritis, Atrial Fibrillation, Benign Prostatic Hyperplasia, CAD, Cardia Arrhythmia (A-FIB), Colonic Polyps, Depression, Diverticulitis, HTN, Hypercholesterolemia, Mitral Valve Prolapse, Chronic Kidney Disease, Schizophrenia Surgical History: CABG (1997), Endoscopy - [facility] Procedures DRAINAGE OF ANUS, EXTERNAL APPROACH (05/01/15) INSERTION OF INFUSION DEV INTO L SUBCLAV VEIN, PERC APPROACH (03/27/18) TRANSFUSE NONAUT FROZEN PLASMA IN PERIPH VEIN, PERC (09/16/16) ULTRASONOGRAPHY OF HEART WITH AORTA, TRANSESOPHAGEAL (05/02/18) Family History: States: Hypertension - Social History Hx Alcohol Use: Yes Hx Substance Use: No - Immunization History Hx Tetanus Toxoid Vaccination: No Hx Influenza Vaccination: No Hx Pneumococcal Vaccination: No Review Of Systems Except As Marked, All Systems Reviewed And Found Negative. Constitutional: Negative for: Fever, Chills Cardiovascular: Negative for: Chest Pain Respiratory: Negative for: Shortness of Breath Skin: Positive for: Bruising Physical Exam - Physical Exam Appears: Non-toxic, No Acute Distress Skin: Ecchymosis (diffusely present on the entire body; non-tender) Head: Atraumatic, Normacephalic Eye(s): bilateral: Normal Inspection Neck: Normal ROM, Supple Chest: Symmetrical Cardiovascular: Rhythm Regular Respiratory: Normal Breath Sounds Gastrointestinal/Abdominal: Normal Exam, Soft Back: Normal Inspection Extremity: Normal ROM, No Pedal Edema, No Deformity Neurological/Psych: Oriented x3 ED Course And Treatment - Laboratory Results Result Diagrams: 06/21/18 12:42 06/21/18 12:42 Lab Results: Troponin I < 0.0120 ng/mL (0.00-0.120) 06/21/18 12:42 Total Bilirubin 1.4 mg/dL (0.2-1.3) H 06/21/18 12:42 AST 23 U/L (17-59) 06/21/18 12:42 ALT 16 U/L (21-72) L D 06/21/18 12:42 Alkaline Phosphatase 83 U/L (38-126) 06/21/18 12:42 Total Protein 6.1 g/dL (6.3-8.3) L 06/21/18 12:42 Albumin 3.4 g/dL (3.5-5.0) L 06/21/18 12:42 Globulin 2.6 gm/dL (2.2-3.9) 06/21/18 12:42 Albumin/Globulin Ratio 1.3 (1.0-2.1) 06/21/18 12:42 O2 Sat by Pulse Oximetry: 100 (RA) Pulse Ox Interpretation: Normal - Other Rad CXR X-Ray: Read By Radiologist Interpretation: LUNGS: The lungs are well inflated and clear. PLEURA: No pneumothorax or pleural effusion. CARDIOVASCULAR: The heart is normal in size. Status post median sternotomy. There are aortic atherosclerotic calcifications present. OSSEOUS STRUCTURES: Within normal limits for the patient's age. VISUALIZED UPPER ABDOMEN: Normal. OTHER FINDINGS: None. IMPRESSION: No active pulmonary disease. Medical Decision Making Medical Decision Makinyo male with abnormal labs Plan: -- Labs -- EKG -- CXR 1330 Labs reviewed, patient noted to be anemic; hemoglobin of 6.[address] Kendrick, and patient to be admitted to OBS-TELE Plan of care discussed with patient, who is agreeable. 1656 - patient seen by Dr. Rojas and will upgrade to icu Disposition Counseled Patient/Family Regarding: Studies Performed, Diagnosis - Disposition Disposition: HOSPITALIZED Disposition Time: 13:43 Condition: FAIR - Clinical Impression Clinical Impression: Anemia, Chest pain, Coagulopathy - Scribe Statement The provider has reviewed the documentation as recorded by the Scribe Eloise Mayra Provider Attestation: All medical record entries made by the Thien were at my direction and personally dictated by me. I have reviewed the chart and agree that the record accurately reflects my personal performance of the history, physical exam, medical decision making, and the department course for this patient. I have also personally directed, reviewed, and agree with the discharge instructions and disposition.
[2018-06-21 14:00] LABS: INR 11.2; PROTHROMBIN TIME 123.4 SECONDS (9.7-12.2)
--- NOTE | 2018-06-21 16:36 | CP.PCM.HP ---
History of Present Illness - History of Present Illness History of Present Illness: chief complaint: Abnormal labs, weakness, unstable gait History of present illness: 68-year-old male with a history of mitral valve replacement, hypertension, CAD, diabetes, atrial fibrillation Patient was recently hospitalized with t possible endocarditis. Patient took antibiotic at that time. But following that episode, patient hospitalized at [facility] [place] with the suspected thrombus in the mitral and also placed on anticoagulation with high INR target. Patient was taking Coumadin 6 milligrams daily. Patient came to the office yesterday, at that time he was complaining of multiple ecchymotic skin lesions, and also he was feeling weak, tired, fatigue, unable to walk. He was using cane for walking, but difficult time in getting up. I did labs yesterday, INR was noted to be 8.8, immediately I called the patient to go to the emergency . Patient in the emergency was noted to have elevated INR, anemia. Is feeling weak, tired, sick, shortness of breath. Past medical history: Anemia, osteoarthritis, atrial fibrillation, CAD, mitral valve disease, status post mitral valve replacement,d epression Had cardiac surgery in 1997 Allergy no known drug allergy Personal history nonsmoker nonalcoholic History of depression noted. Review of system noted from the chart, denies any chest pain, Multiple skin ecchymotic skin lesion, and the subcutaneous the bleeding hamartomas noted in the different sites. Also combining of pain in the bilateral legs. And also the chest area. Vital signs reviewed No neck vein distention noted Chest good air entry bilaterally, no wheezing or rales noted CVS regular heart sound, no murmur noted Abdomen soft, nontender. 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 Elevated INR level noted. Hemoglobin level is 6.8. Patient is mildly tachycardic asymptomatic Assessment admission: 67-year-old male with a history of mitral valve replacement, hypertension, CAD, diabetes, atrial fibrillation admitted with a coagulopathy state, secondary to Coumadin toxicity, and also recurrent problem. Patient now with this admitted secondary to severe coagulopathy. Severe anemia. Multiple sub-q bleeding. Internal bleeding cannot be ruled out. Patient is at high risk for thromboembolic episodes. At the same time. Patient is also having difficult time in controlling the INR. INR levels should be 2.5 to 3.5. Patient was taking 6 milligram of Coumadin. At this time will discontinue the Coumadin. Will get cardiology valuation. Hematology well patient. Close monitoring. Protonix intravenously pain Glucose monitoring. Transfusion with the blood and the Plasma. Continue to monitor. Clinical condition. Prognosis guarded. Patient is at high risk for thromboembolic episode. Will follow the patient Present on Admission - Present on Admission Any Indicators Present on Admission: No History of DVT/PE: No History of Uncontrolled Diabetes: No Urinary Catheter: No Decubitus Ulcer Present: No Past Patient History - Infectious Disease Hx of Infectious Diseases: None - Past Medical History & Family History Past Medical History?: Yes - Past Social History Smoking Status: Light Smoker < 10 Cigarettes Daily - CARDIAC Hx Atrial Fibrillation: Yes Hx Cardia Arrhythmia: Yes (A-FIB) Hx Hypercholesterolemia: Yes Hx Hypertension: Yes Hx Mitral Valve Prolapse: Yes - PULMONARY Hx Respiratory Disorders: No Hx Tuberculosis: No - HEENT Hx HEENT Problems: Yes Hx Cataracts: Yes Hx Glaucoma: Yes - RENAL Hx Chronic Kidney Disease: Yes - HEMATOLOGICAL/ONCOLOGICAL Hx Anemia: Yes - INTEGUMENTARY Hx Dermatological Problems: Yes Other/Comment: skin graft - MUSCULOSKELETAL/RHEUMATOLOGICAL Hx Arthritis: Yes - GASTROINTESTINAL Hx Diverticulitis: Yes - PSYCHIATRIC Hx Anxiety: Yes Hx Depression: Yes Hx Schizophrenia: Yes Hx Substance Use: No - SURGICAL HISTORY Hx Coronary Artery Bypass Graft: Yes (1997) - ANESTHESIA Hx Anesthesia: Yes Hx Anesthesia Reactions: No Hx Malignant Hyperthermia: No Meds Allergies/Adverse Reactions: Allergies Allergy/AdvReac Type Severity Reaction Status Date / Time No Known Allergies Allergy Verified 06/21/18 11:58 Results - Vital Signs Recent Vital Signs: Last Vital Signs Temp 98.3 F 06/21/18 16:25 Pulse 80 06/21/18 16:25 Resp 20 06/21/18 16:25 BP 116/55 L 06/21/18 16:25 Pulse Ox 99 06/21/18 16:25 - Labs Result Diagrams: 06/21/18 12:42 06/21/18 12:42 Labs: Laboratory Results - last 24 hr 06/21/18 06/21/18 06/21/18 12:42 12:42 12:42 WBC 8.3 D RBC 2.31 L Hgb 6.8 L D Hct 21.7 L MCV 93.9 MCH 29.3 MCHC 31.2 L RDW 14.8 H Plt Count 316 D MPV 9.3 Neut % (Auto) 80.0 H Lymph % (Auto) 8.7 L [place] % (Auto) 10.4 H Eos % (Auto) 0.4 Baso % (Auto) 0.5 Neut # (Auto) 6.6 Lymph # (Auto) 0.7 L [place] # (Auto) 0.9 H Eos # (Auto) 0.0 Baso # (Auto) 0.0 Neutrophils % (Manual) 84 H Lymphocytes % (Manual) 8 L Monocytes % (Manual) 8 Platelet Estimate Normal Ovalocytes Slight PT INR APTT Sodium 136 Potassium 3.7 Chloride 99 Carbon Dioxide 28 Anion Gap 12 BUN 37 H Creatinine 1.5 Est GFR ( Amer) 57 Est GFR (Non-Af Amer) 47 Random Glucose 243 H D Calcium 8.0 L Total Bilirubin 1.4 H AST 23 ALT 16 L D Alkaline Phosphatase 83 Troponin I < 0.0120 Total Protein 6.1 L Albumin 3.4 L Globulin 2.6 Albumin/Globulin Ratio 1.3 Blood Type O POSITIVE Antibody Screen Negative 06/21/18 13:23 WBC RBC Hgb Hct MCV MCH MCHC RDW Plt Count MPV Neut % (Auto) Lymph % (Auto) [place] % (Auto) Eos % (Auto) Baso % (Auto) Neut # (Auto) Lymph # (Auto) [place] # (Auto) Eos # (Auto) Baso # (Auto) Neutrophils % (Manual) Lymphocytes % (Manual) Monocytes % (Manual) Platelet Estimate Ovalocytes PT 123.4 H INR 11.2 H* APTT 125 H* Sodium Potassium Chloride Carbon Dioxide Anion Gap BUN Creatinine Est GFR ( Amer) Est GFR (Non-Af Amer) Random Glucose Calcium Total Bilirubin AST ALT Alkaline Phosphatase Troponin I Total Protein Albumin Globulin Albumin/Globulin Ratio Blood Type Antibody Screen
[2018-06-21] MEDS: (Novolin R) Insulin Human Regular 100 units/ml vial SC SCH ×2 (16:51→22:00)
--- NOTE | 2018-06-21 17:12 | CP.PCM.CON ---
<Rosario Alvarado - Last Filed: 06/21/18 18:01> History of Present Illness - History of Present Illness History of Present Illness: Rosario Alvarado DO, PGY-2: ICU Consult Note for Dr. Rojas 68 year old with a past medical history significant for rheumatic heart disease with MV replacement in 1997 on Coumadin 6 mg daily, DM II, possible seizure disorder, who was recently diagnosed and treated at [facility] for cardiac thrombi observed on SHALOM. He denies taking any new medications. He denies having any falls. He denies melena or hematochezia. He denies fever chills, nausea or vomiting. He does report increasing his warfarin dosage to 6 mg daily since the beginning of the new year. He reports having bruised appearance in the periorbital skin, left greater than right since Sunday of this week. He reports he had teeth taken out in the past and only at that time had a similar periorbital ecchymosis. He denies headache, unilateral weakness or numbness. PMD: Dr. Kendrick PSH: Mitral valve replacement via sternotomy Allergies: Denies Social: Smokes 4 cigarettes a day since teenage years till now; denies alcohol or illicit drug use Family history: significant for heart disease and DM II Review of Systems - Review of Systems All systems: reviewed and no additional remarkable complaints except (as per HPI) Past Patient History - Infectious Disease Hx of Infectious Diseases: None - Past Medical History & Family History Past Medical History?: Yes - Past Social History Smoking Status: Light Smoker < 10 Cigarettes Daily - CARDIAC Hx Atrial Fibrillation: Yes Hx Cardia Arrhythmia: Yes (A-FIB) Hx Hypercholesterolemia: Yes Hx Hypertension: Yes Hx Mitral Valve Prolapse: Yes - PULMONARY Hx Respiratory Disorders: No Hx Tuberculosis: No - HEENT Hx HEENT Problems: Yes Hx Cataracts: Yes Hx Glaucoma: Yes - RENAL Hx Chronic Kidney Disease: Yes - HEMATOLOGICAL/ONCOLOGICAL Hx Anemia: Yes - INTEGUMENTARY Hx Dermatological Problems: Yes Other/Comment: skin graft - MUSCULOSKELETAL/RHEUMATOLOGICAL Hx Arthritis: Yes - GASTROINTESTINAL Hx Diverticulitis: Yes - PSYCHIATRIC Hx Anxiety: Yes Hx Depression: Yes Hx Schizophrenia: Yes Hx Substance Use: No - SURGICAL HISTORY Hx Coronary Artery Bypass Graft: Yes (1997) - ANESTHESIA Hx Anesthesia: Yes Hx Anesthesia Reactions: No Hx Malignant Hyperthermia: No Meds Allergies/Adverse Reactions: Allergies Allergy/AdvReac Type Severity Reaction Status Date / Time No Known Allergies Allergy Verified 06/21/18 11:58 - Medications Medications: Current Medications Insulin Human Regular (Novolin R) 0 unit SC ACHS [facility]; Protocol Last Admin: 06/21/18 16:51 Dose: Not Given Pantoprazole Sodium (Protonix Inj) 40 mg IVP Q12H [facility] Last Admin: 06/21/18 16:50 Dose: 40 mg Physical Exam - Constitutional Appears: Well, Non-toxic, No Acute Distress - Head Exam Head Exam: ATRAUMATIC, NORMOCEPHALIC - Eye Exam Additional comments: periorbital ecchymosis, left greater than right - ENT Exam ENT Exam: Mucous Membranes Moist, Normal Oropharynx - Neck Exam Neck exam: Positive for: Normal Inspection - Respiratory Exam Respiratory Exam: Clear to Auscultation Bilateral, NORMAL BREATHING PATTERN. absent: Accessory Muscle Use - Cardiovascular Exam Cardiovascular Exam: RRR - GI/Abdominal Exam GI & Abdominal Exam: Normal Bowel Sounds. absent: Guarding, Rebound - Extremities Exam Extremities exam: Negative for: calf tenderness Additional comments: 1/4 edema - Neurological Exam Neurological exam: Alert, CN II-XII Intact, Oriented x3 - Psychiatric Exam Psychiatric exam: Normal Affect, Normal Mood - Skin Skin Exam: Dry, Intact, Normal Color, Warm Results - Vital Signs Recent Vital Signs: Last Vital Signs Temp 98.3 F 06/21/18 16:25 Pulse 80 06/21/18 16:25 Resp 20 06/21/18 16:25 BP 116/55 L 06/21/18 16:25 Pulse Ox 100 06/21/18 16:56 - Labs Result Diagrams: 06/21/18 12:42 06/21/18 12:42 Labs: Laboratory Results - last 24 hr 06/21/18 06/21/18 06/21/18 12:42 12:42 12:42 WBC 8.3 D RBC 2.31 L Hgb 6.8 L D Hct 21.7 L MCV 93.9 MCH 29.3 MCHC 31.2 L RDW 14.8 H Plt Count 316 D MPV 9.3 Neut % (Auto) 80.0 H Lymph % (Auto) 8.7 L Divide % (Auto) 10.4 H Eos % (Auto) 0.4 Baso % (Auto) 0.5 Neut # (Auto) 6.6 Lymph # (Auto) 0.7 L Divide # (Auto) 0.9 H Eos # (Auto) 0.0 Baso # (Auto) 0.0 Neutrophils % (Manual) 84 H Lymphocytes % (Manual) 8 L Monocytes % (Manual) 8 Platelet Estimate Normal Ovalocytes Slight PT INR APTT Sodium 136 Potassium 3.7 Chloride 99 Carbon Dioxide 28 Anion Gap 12 BUN 37 H Creatinine 1.5 Est GFR ( Amer) 57 Est GFR (Non-Af Amer) 47 POC Glucose (mg/dL) Random Glucose 243 H D Calcium 8.0 L Total Bilirubin 1.4 H AST 23 ALT 16 L D Alkaline Phosphatase 83 Troponin I < 0.0120 Total Protein 6.1 L Albumin 3.4 L Globulin 2.6 Albumin/Globulin Ratio 1.3 Blood Type O POSITIVE Antibody Screen Negative 06/21/18 06/21/18 13:23 16:33 WBC RBC Hgb Hct MCV MCH MCHC RDW Plt Count MPV Neut % (Auto) Lymph % (Auto) Divide % (Auto) Eos % (Auto) Baso % (Auto) Neut # (Auto) Lymph # (Auto) Divide # (Auto) Eos # (Auto) Baso # (Auto) Neutrophils % (Manual) Lymphocytes % (Manual) Monocytes % (Manual) Platelet Estimate Ovalocytes PT 123.4 H INR 11.2 H* APTT 125 H* Sodium Potassium Chloride Carbon Dioxide Anion Gap BUN Creatinine Est GFR ( Amer) Est GFR (Non-Af Amer) POC Glucose (mg/dL) 139 H Random Glucose Calcium Total Bilirubin AST ALT Alkaline Phosphatase Troponin I Total Protein Albumin Globulin Albumin/Globulin Ratio Blood Type Antibody Screen Assessment & Plan - Assessment and Plan (Free Text) Assessment: 68 year old male with a past medical history significant for DM, smoking, rheumatic heart disease with mitral valve replacement in 1997 on Coumadin who presented with spontaneous ecchymosis in the periorbital region and was found to have an INR of 11 and a hemoglobin of 6.8. Patient will be admitted to the ICU for closer monitoring and neurochecks q2h. We will administer 2 units of FFP to correct his INR and 1 unit PRBCs to correct for his anemia. We will check reticulocyte count. Clinically, there is no active sign of bleeding at this time hence there is no need for PTC. CT of the head was ordered and showed no intracranial hemmorhage. We will continue his home insulin for his diabetes. We will hold off on Coumadin and aspirin at this time. We will continue his Zoloft for depression and Clonazepam HS for his anxiety and to prevent any kind of benodiazepine withdrawal. Lasix for his CHF. We agree with consulting hematology and cardiology. He will be on Protonix 40 q12h for GI prophylaxis given the high likelihood of occult GI bleeding in the setting of a supratherapeutic INR. We will monitor him closely while in the ICU. Case was reviewed and discussed with attending physician, Dr. Davila <Bryson Rojas - Last Filed: 06/21/18 18:22> Meds - Medications Medications: Current Medications Clonazepam (Klonopin) 2 mg PO HS [facility] Furosemide (Lasix) 40 mg PO BID [facility] Glimepiride (Amaryl) 2 mg PO BIDCC [facility] Insulin Human Regular (Novolin R) 0 unit SC ACHS [facility]; Protocol Last Admin: 06/21/18 16:51 Dose: Not Given Levetiracetam (Keppra) 500 mg PO DAILY [facility] Losartan Potassium (Cozaar) 100 mg PO DAILY [facility] Magnesium Oxide (Mag-Ox) 400 mg PO DAILY [facility] Pantoprazole Sodium (Protonix Inj) 40 mg IVP Q12H [facility] Last Admin: 06/21/18 16:50 Dose: 40 mg Sertraline HCl (Zoloft) 50 mg PO DAILY [facility] Results - Vital Signs Recent Vital Signs: Last Vital Signs Temp 98.3 F 06/21/18 16:25 Pulse 80 06/21/18 16:25 Resp 20 06/21/18 16:25 BP 116/55 L 06/21/18 16:25 Pulse Ox 100 06/21/18 16:56 - Labs Result Diagrams: 06/21/18 12:42 06/21/18 12:42 Labs: Laboratory Results - last 24 hr 06/21/18 06/21/18 06/21/18 12:42 12:42 12:42 WBC 8.3 D RBC 2.31 L Hgb 6.8 L D Hct 21.7 L MCV 93.9 MCH 29.3 MCHC 31.2 L RDW 14.8 H Plt Count 316 D MPV 9.3 Neut % (Auto) 80.0 H Lymph % (Auto) 8.7 L Divide % (Auto) 10.4 H Eos % (Auto) 0.4 Baso % (Auto) 0.5 Neut # (Auto) 6.6 Lymph # (Auto) 0.7 L Divide # (Auto) 0.9 H Eos # (Auto) 0.0 Baso # (Auto) 0.0 Neutrophils % (Manual) 84 H Lymphocytes % (Manual) 8 L Monocytes % (Manual) 8 Platelet Estimate Normal Ovalocytes Slight PT INR APTT Sodium 136 Potassium 3.7 Chloride 99 Carbon Dioxide 28 Anion Gap 12 BUN 37 H Creatinine 1.5 Est GFR ( Amer) 57 Est GFR (Non-Af Amer) 47 POC Glucose (mg/dL) Random Glucose 243 H D Calcium 8.0 L Total Bilirubin 1.4 H AST 23 ALT 16 L D Alkaline Phosphatase 83 Troponin I < 0.0120 Total Protein 6.1 L Albumin 3.4 L Globulin 2.6 Albumin/Globulin Ratio 1.3 Blood Type O POSITIVE Antibody Screen Negative 06/21/18 06/21/18 13:23 16:33 WBC RBC Hgb Hct MCV MCH MCHC RDW Plt Count MPV Neut % (Auto) Lymph % (Auto) Divide % (Auto) Eos % (Auto) Baso % (Auto) Neut # (Auto) Lymph # (Auto) Divide # (Auto) Eos # (Auto) Baso # (Auto) Neutrophils % (Manual) Lymphocytes % (Manual) Monocytes % (Manual) Platelet Estimate Ovalocytes PT 123.4 H INR 11.2 H* APTT 125 H* Sodium Potassium Chloride Carbon Dioxide Anion Gap BUN Creatinine Est GFR ( Amer) Est GFR (Non-Af Amer) POC Glucose (mg/dL) 139 H Random Glucose Calcium Total Bilirubin AST ALT Alkaline Phosphatase Troponin I Total Protein Albumin Globulin Albumin/Globulin Ratio Blood Type Antibody Screen Attending/Attestation - Attestation I have personally seen and examined this patient.: Yes I have fully participated in the care of the patient.: Yes I have reviewed all pertinent clinical information: Yes Notes (Text): 06/21/18 18:21 Patient seen and examined 68-year-old male admitted to intensive care unit for coagulopathy and anemia Patient with history of rheumatic mitral valve replacement in 1997 and on Coumadin since then Recently he was diagnosed with 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
--- NOTE | 2018-06-21 17:24 | CT ---
Date of service: 06/21/2018 PROCEDURE: CT HEAD WITHOUT CONTRAST. HISTORY: Bleeding COMPARISON: Comparison made with prior CT scan of the brain dated 05/12/2018. TECHNIQUE: Axial computed tomography images were obtained through the head/brain without intravenous contrast. Radiation dose: Total exam DLP = 1217.8 mGy-cm. This CT exam was performed using one or more of the following dose reduction techniques: Automated exposure control, adjustment of the mA and/or kV according to patient size, and/or use of iterative reconstruction technique. FINDINGS: HEMORRHAGE: No acute parenchymal, subarachnoid or extra-axial hemorrhage. 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 There appear to be a few scattered chronic bilateral basal nuclei lacunar type infarcts as well. Note that the possibility of a small hyperacute infarct not excluded. Moderate central volume loss evidenced by disproportionate enlargement of the ventricles as compared the sulci. VENTRICLES: No change small calcification left of posterior parietal periventricular white matter possibly representing dystrophic type calcification. Unremarkable. No hydrocephalus. CALVARIUM: There are no acute calvarial fractures. Numerous scalp calcifications consistent suggesting underlying IDDM however clinical correlation recommended. PARANASAL SINUSES: Unremarkable as visualized. No significant inflammatory changes. MASTOID AIR CELLS: Unremarkable as visualized. No inflammatory changes. OTHER FINDINGS: None. IMPRESSION: No acute intracranial hemorrhage. 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 There appear to be a few scattered chronic bilateral basal nuclei lacunar type infarcts as well. Note that the possibility of a small hyperacute infarct not excluded. Moderate central volume loss evidenced by disproportionate enlargement of the ventricles as compared the sulci.
[2018-06-22] MEDS ORDERED: Digoxin 500 mcg/2ml (0.5 mg/2ml) Inj IVP ONE (04:39)
[2018-06-22 06:22] LABS: BASO % 0.6 % (0.0-2.0); EOS # 0.1 K/uL (0.0-0.7); EOS % 1.7 % (0.0-4.0); HEMOGLOBIN 7.1 g/dL (12.0-18.0); LYMPH % 16.8 % (20.0-40.0); MEAN CELL VOLUME 90.4 fL (80.0-94.0); MEAN CORPUSCULAR HEMOGLOBIN 29.2 pg (27.0-31.0); MEAN CORPUSCULAR HGB CONC 32.3 g/dL (33.0-37.0); MEAN PLATELET VOLUME 8.7 fL (7.2-11.7); MONO # 0.9 K/uL (0.0-0.8); NEUT # 3.9 K/uL (1.8-7.0); NEUT % 65.9 % (50.0-75.0); NRBC % 0.1 % (0.0-2.0); RBC 2.42 Mil/uL (4.40-5.90); RED CELL DISTRIBUTION WIDTH 15.1 % (11.5-14.5)
[2018-06-22 06:44] LABS: ALB/GLOB RATIO 1.3 (1.0-2.1); ALT/SGPT 21 U/L (21-72); AST/SGOT 19 U/L (17-59); BLOOD UREA NITROGEN 40 mg/dL (9-20); CALCIUM 7.6 mg/dl (8.6-10.4); GFR NON-AFRICAN AMERICAN 55
[2018-06-22 07:04] LABS: INR 4.6
[2018-06-22 07:15] LABS: PROTHROMBIN TIME 50.8 SECONDS (9.7-12.2)
[2018-06-22] MEDS: (Novolin R) Insulin Human Regular 100 units/ml vial SC SCH ×4 (08:30→22:04)
[2018-06-22] MEDS: Magnesium Oxide 400 mg Tab UD PO SCH (09:21)
[2018-06-22 09:41] LABS: BASO % 0.6 % (0.0-2.0); EOS # 0.1 K/uL (0.0-0.7); EOS % 1.3 % (0.0-4.0); LYMPH # 0.7 K/uL (1.0-4.3); LYMPH % 10.4 % (20.0-40.0); MEAN CELL VOLUME 90.9 fL (80.0-94.0); MEAN CORPUSCULAR HEMOGLOBIN 29.7 pg (27.0-31.0); MEAN CORPUSCULAR HGB CONC 32.7 g/dL (33.0-37.0); MEAN PLATELET VOLUME 8.7 fL (7.2-11.7); MONO # 0.8 K/uL (0.0-0.8); MONO % 13.1 % (0.0-10.0); NEUT # 4.8 K/uL (1.8-7.0); NEUT % 74.6 % (50.0-75.0); RBC 2.7 Mil/uL (4.40-5.90); RED CELL DISTRIBUTION WIDTH 15.1 % (11.5-14.5); WHITE BLOOD COUNT 6.4 K/uL (4.8-10.8)
[2018-06-22] MEDS ORDERED: metOLazone 2.5 MG TAB PO SCH (10:00)
[2018-06-22] MEDS ORDERED: Potassium Chloride 20 mEq ER Tab PO ONE (10:17)
[2018-06-22] MEDS: Magnesium Sulfate 1 gm in D5W 1 GM/100 ML BAG IVPB SCH ×3 (10:38→15:00)
[2018-06-22] MEDS ORDERED: Potassium Chloride 20 mEq/15 ml LIQ UD PO ONE (15:02)
--- NOTE | 2018-06-22 16:06 | CP.PCM.PN ---
Subjective - Date & Time of Evaluation Date of Evaluation: 06/22/18 Time of Evaluation: 12:00 - Subjective Subjective: Patient walking around, denies any dizziness, denies any black stool. Objective - Vital Signs/Intake and Output Vital Signs (last 24 hours): Temp Pulse Resp BP Pulse Ox 98.3 F 76 13 130/62 83 L 06/22/18 04:40 06/22/18 11:01 06/22/18 11:01 06/22/18 11:01 06/22/18 11:01 Intake and Output: 06/22/18 06/22/18 06:59 18:59 Intake Total 2220 480 Output Total 1150 600 Balance 1070 -120 - Medications Medications: Current Medications Clonazepam (Klonopin) [address] [facility] Last Admin: 06/21/18 22:30 Dose: 2 mg Furosemide (Lasix) 40 mg PO BID [facility] Last Admin: 06/22/18 09:21 Dose: [facility] Last Admin: 06/22/18 08:05 Dose: 2 mg Insulin Human Regular (Novolin R) 0 unit SC [facility]; Protocol Last Admin: 06/22/18 12:30 Dose: 4 u Levetiracetam (Keppra) 500 mg PO DAILY [facility] Last Admin: 06/22/18 09:21 Dose: 500 mg Losartan Potassium (Cozaar) 100 mg PO DAILY [facility] Last Admin: 06/22/18 09:21 Dose: 100 mg Magnesium Oxide (Mag-Ox) 400 mg PO DAILY [facility] Last Admin: 06/22/18 09:21 Dose: 400 mg Pantoprazole Sodium (Protonix Inj) 40 mg IVP Q12H [facility] Last Admin: 06/22/18 04:40 Dose: 40 mg Sertraline HCl (Zoloft) 50 mg PO DAILY [facility] Last Admin: 06/22/18 09:21 Dose: 50 mg - Labs Labs: 06/22/18 09:37 06/22/18 06:18 PT 50.8 SECONDS (9.7-12.2) H D 06/22/18 06:18 INR 4.6 H* D 06/22/18 06:18 APTT 58 SECONDS (21-34) H D 06/22/18 06:18 - Constitutional Appears: Well, Non-toxic, No Acute Distress - Head Exam Additional comments: (+)periorbital ecchymosis - Eye Exam Eye Exam: EOMI, PERRL - Respiratory Exam Respiratory Exam: Clear to Ausculation Bilateral, NORMAL BREATHING PATTERN. absent: Rales, Wheezes, Respiratory Distress, Stridor - Cardiovascular Exam Cardiovascular Exam: Clicks, REGULAR RHYTHM, +S1, +S2, Murmur - GI/Abdominal Exam GI & Abdominal Exam: Normal Bowel Sounds - Extremities Exam Extremities Exam: Pedal Edema Additional comments: chronic hyperpigmentation c/w venous stasis - Neurological Exam Neurological Exam: Alert, Awake, Oriented x3 - Skin Skin Exam: Intact, Warm Assessment and Plan - Assessment and Plan (Free Text) Assessment: 68 y/o male with pmx of rheumatic heart disease s/p MV replacement in 1997 on Coumadin 6 mg daily, DM II, possible seizure disorder admitted to ICU for hypercoagulable state. -High : INR: slowly improving, continue to hold coumadin, no active bleeding -Anemia: s/p PRBC transfusion -COPD: patient active smoking, strongely advsied to stop smoking -continue dvt/pud ppx -Patient remains hemodynamically stable
--- NOTE | 2018-06-22 20:53 | CP.PCM.CON ---
History of Present Illness - History of Present Illness History of Present Illness: 68 year old male with a history of DM, rheumatic hear disease requiring MV replacement, on anticoagulation, recent cardiac thrombus with increase in his target INR, admitted with coumadin toxicity, diffuse ecchymosis, and anemia. The patient notes to bruising very easily for the past few days and went to his PMDs office who sent him to the ER. In the ER he was found to have a hgb of 6.8 and INR of 11. His INR currently is improved. The patient denies headache and further abnormal bleeding/bruising. Past medical history; DM, Rheumatic heart disease with MV replacement, cardiasc thrombus. Past surgical history: MV replacement Family history: Denies hematologic and oncologic problems Social history: 5 cigarettes daily, denies alcohol, and illicit drug use. Allergies: NKA Review of systems: All remaining review of systems including HEENT, cardiovascular, respiratory, gastrointestinal, genitourinary, musculoskeletal, dermatologic, neurologic, and psychiatric are negative unless mentioned in the HPI. Past Patient History - Infectious Disease Hx of Infectious Diseases: None - Past Medical History & Family History Past Medical History?: Yes - Past Social History Smoking Status: Light Smoker < 10 Cigarettes Daily - CARDIAC Hx Atrial Fibrillation: Yes Hx Cardia Arrhythmia: Yes (A-FIB) Hx Hypercholesterolemia: Yes Hx Hypertension: Yes Hx Mitral Valve Prolapse: Yes - PULMONARY Hx Respiratory Disorders: No Hx Tuberculosis: No - HEENT Hx HEENT Problems: Yes Hx Cataracts: Yes Hx Glaucoma: Yes - RENAL Hx Chronic Kidney Disease: Yes - HEMATOLOGICAL/ONCOLOGICAL Hx Anemia: Yes - INTEGUMENTARY Hx Dermatological Problems: Yes Other/Comment: skin graft - MUSCULOSKELETAL/RHEUMATOLOGICAL Hx Arthritis: Yes - GASTROINTESTINAL Hx Diverticulitis: Yes - PSYCHIATRIC Hx Anxiety: Yes Hx Depression: Yes Hx Schizophrenia: Yes Hx Substance Use: No - SURGICAL HISTORY Hx Coronary Artery Bypass Graft: Yes (1997) - ANESTHESIA Hx Anesthesia: Yes Hx Anesthesia Reactions: No Hx Malignant Hyperthermia: No Meds Allergies/Adverse Reactions: Allergies Allergy/AdvReac Type Severity Reaction Status Date / Time No Known Allergies Allergy Verified 06/21/18 11:58 - Medications Medications: Current Medications Clonazepam (Klonopin) 2 mg PO HS [facility] Last Admin: 06/21/18 22:30 Dose: 2 mg Furosemide (Lasix) 40 mg PO BID [facility] Last Admin: 06/22/18 17:41 Dose: 40 mg Glimepiride (Amaryl) 2 mg PO BIDCC [facility] Last Admin: 06/22/18 17:40 Dose: 2 mg Insulin Human Regular (Novolin R) 0 unit SC [facility]; Protocol Last Admin: 06/22/18 17:28 Dose: Not Given Levetiracetam (Keppra) 500 mg PO DAILY [facility] Last Admin: 06/22/18 09:21 Dose: 500 mg Losartan Potassium (Cozaar) 100 mg PO DAILY [facility] Last Admin: 06/22/18 09:21 Dose: 100 mg Magnesium Oxide (Mag-Ox) 400 mg PO DAILY [facility] Last Admin: 06/22/18 09:21 Dose: 400 mg Pantoprazole Sodium (Protonix Inj) 40 mg IVP Q12H [facility] Last Admin: 06/22/18 17:30 Dose: 40 mg Sertraline HCl (Zoloft) 50 mg PO DAILY [facility] Last Admin: 06/22/18 09:21 Dose: 50 mg Physical Exam - Head Exam Head Exam: ATRAUMATIC - Eye Exam Additional comments: right periorbital ecchymosis - ENT Exam ENT Exam: Mucous Membranes Dry - Respiratory Exam Respiratory Exam: NORMAL BREATHING PATTERN - Cardiovascular Exam Cardiovascular Exam: +S1, +S2 - GI/Abdominal Exam GI & Abdominal Exam: Normal Bowel Sounds - Extremities Exam Extremities exam: Positive for: normal inspection Additional comments: diffuse ecchymosis - Neurological Exam Neurological exam: Oriented x3 - Psychiatric Exam Psychiatric exam: Normal Affect, Normal Mood - Skin Skin Exam: Warm Results - Vital Signs Recent Vital Signs: Last Vital Signs Temp 97.7 F 06/22/18 16:00 Pulse 84 06/22/18 18:01 Resp 17 06/22/18 18:01 BP 134/54 L 06/22/18 18:01 Pulse Ox 98 06/22/18 18:01 - Labs Result Diagrams: 06/22/18 09:37 06/22/18 06:18 Labs: Laboratory Results - last 24 hr 06/21/18 06/21/18 06/22/18 12:42 20:47 06:18 WBC 6.0 RBC 2.42 L Hgb 7.1 L Hct 21.8 L MCV 90.4 D MCH 29.2 MCHC 32.3 L RDW 15.1 H Plt Count 226 MPV 8.7 Neut % (Auto) 65.9 Lymph % (Auto) 16.8 L [place] % (Auto) 15.0 H Eos % (Auto) 1.7 Baso % (Auto) 0.6 Neut # (Auto) 3.9 Lymph # (Auto) 1.0 [place] # (Auto) 0.9 H Eos # (Auto) 0.1 Baso # (Auto) 0.0 PT INR APTT Sodium Potassium Chloride Carbon Dioxide Anion Gap BUN Creatinine Est GFR ( Amer) Est GFR (Non-Af Amer) POC Glucose (mg/dL) 315 H Random Glucose Calcium Phosphorus Magnesium Total Bilirubin AST ALT Alkaline Phosphatase Total Protein Albumin Globulin Albumin/Globulin Ratio Blood Type O POSITIVE Antibody Screen Negative 06/22/18 06/22/18 06/22/18 06:18 06:18 07:44 WBC RBC Hgb Hct MCV MCH MCHC RDW Plt Count MPV Neut % (Auto) Lymph % (Auto) [place] % (Auto) Eos % (Auto) Baso % (Auto) Neut # (Auto) Lymph # (Auto) [place] # (Auto) Eos # (Auto) Baso # (Auto) PT 50.8 H D INR 4.6 H* D APTT 58 H D Sodium 137 Potassium 3.5 L Chloride 101 Carbon Dioxide 33 H Anion Gap 7 L BUN 40 H Creatinine 1.3 Est GFR ( Amer) > 60 Est GFR (Non-Af Amer) 55 POC Glucose (mg/dL) 172 H Random Glucose 162 H D Calcium 7.6 L Phosphorus 3.0 Magnesium 1.3 L Total Bilirubin 1.4 H AST 19 ALT 21 D Alkaline Phosphatase 76 Total Protein 5.4 L Albumin 3.0 L Globulin 2.4 Albumin/Globulin Ratio 1.3 Blood Type Antibody Screen 06/22/18 06/22/18 06/22/18 09:37 11:28 15:55 WBC 6.4 RBC 2.70 L Hgb 8.0 L Hct 24.6 L MCV 90.9 MCH 29.7 MCHC 32.7 L RDW 15.1 H Plt Count 245 MPV 8.7 Neut % (Auto) 74.6 Lymph % (Auto) 10.4 L [place] % (Auto) 13.1 H Eos % (Auto) 1.3 Baso % (Auto) 0.6 Neut # (Auto) 4.8 Lymph # (Auto) 0.7 L [place] # (Auto) 0.8 Eos # (Auto) 0.1 Baso # (Auto) 0.0 PT INR APTT Sodium Potassium Chloride Carbon Dioxide Anion Gap BUN Creatinine Est GFR ( Amer) Est GFR (Non-Af Amer) POC Glucose (mg/dL) 309 H 101 Random Glucose Calcium Phosphorus Magnesium Total Bilirubin AST ALT Alkaline Phosphatase Total Protein Albumin Globulin Albumin/Globulin Ratio Blood Type Antibody Screen Assessment & Plan (1) Coagulopathy Assessment and Plan: secondary to coumadin improved with holding coumadin Status: Acute (2) Anemia Assessment and Plan: secondary to ecchymosis will check retic count, b12, folate, ferritin transfusion support PRN Status: Acute (3) Ecchymosis Assessment and Plan: diffuse, secondary to coagulopathy Thank you for this interesting consult. Status: Acute
--- NOTE | 2018-06-22 23:23 | CARD ---
APPROVED REPORT Date of service: 06/22/2018 EXAM: Two-dimensional and M-mode echocardiogram with Doppler and color Doppler. Other Information Quality : GoodRhythm : INDICATION Chest Pain MITRAL VALVE THROMBUS RISK FACTORS Hypertension Diabetes 2D DIMENSIONS IVSd1.7 (0.7-1.1cm)LVDd3.7 (3.9-5.9cm) LVOT Diameter2.0 (1.8-2.4cm)PWd1.8 (0.7-1.1cm) LVDs2.6 (2.5-4.0cm)FS (%) 30.2 % LVEF (%)58.4 (>50%) M-Mode DIMENSIONS Left Atrium (MM)6.51 (2.5-4.0cm)Aortic Root3.25 (2.2-3.7cm) Aortic Cusp Exc.1.26 (1.5-2.0cm) Aortic Valve AoV Peak Xlxhzugn689.3cm/sAoV VTI44.1cmAO Peak GR.19mmHg LVOT Peak Estsnmzx10.7cm/sLVOT VTI20.95cmAO Mean GR.8mmHg KALIA (VMAX)1.29uc9GEL (VTI)1.49cm2 Mitral Valve MV E Peak Gr.23mmHgMV E Mean Gr.7mmHgMV LRX20aj MVA (PHT)2.39cm2 Pulmonary Valve PV Peak Wjokohjb75.6cm/sPV Peak Grad.3mmHg Tricuspid Valve TR Peak Yqspwlap725yr/sTR Peak Gr.06dpGbHIVD41hoEe LEFT VENTRICLE The left ventricle is normal size. There is moderate concentric left ventricular hypertrophy. The left ventricular function is normal. The left ventricular ejection fraction is within the normal range. About 65% No regional wall motion abnormalities noted. The left ventricular diastolic function is indeterminate No left ventricle thrombus noted on this study. There is no ventricular septal defect visualized. There is no left ventricular aneurysm. There is no mass noted in the left ventricle. RIGHT VENTRICLE The right ventricle is normal size. There is normal right ventricular wall thickness. The right ventricular systolic function is normal. ATRIA The left atrium size is normal. The right atrium size is normal. The interatrial septum is intact with no evidence for an atrial septal defect. AORTIC VALVE The aortic valve is mildly thickened, with mildly reduced opening. Valve area calculation sis 1.4 cm2. but loosk better. peak gradient is 22 mm Hg. No aortic regurgitation is present. There is no aortic valvular stenosis. There is no aortic valvular vegetation. MITRAL VALVE Mechanical mitral valve appears normal. Peak gradient 22 mm Hg. . There is no mitral valve regurgitation noted. TRICUSPID VALVE The tricuspid valve is normal in structure and function. There is mild tricuspid valve regurgitation noted. There is no tricuspid valve prolapse or vegetation. There is no tricuspid valve stenosis. PULMONIC VALVE The pulmonary valve is normal in structure and function. There is no pulmonic valvular regurgitation. There is no pulmonic valvular stenosis. GREAT VESSELS The aortic root is normal in size. The ascending aorta is normal in size. The pulmonary artery is normal. The IVC is normal in size and collapses >50% with inspiration. PERICARDIAL EFFUSION The pericardium appears normal. There is no pleural effusion. <Conclusion> Normal left ventricular systolic function. Moderately increased wall thickness. Mild aortis stenosis. Mechanical mitral valve appears normal.
[2018-06-23 05:16] LABS: BASO % 0.5 % (0.0-2.0); EOS # 0.2 K/uL (0.0-0.7); EOS % 3.3 % (0.0-4.0); HEMOGLOBIN 7.3 g/dL (12.0-18.0); LYMPH # 0.9 K/uL (1.0-4.3); LYMPH % 16.6 % (20.0-40.0); MEAN CELL VOLUME 91.2 fL (80.0-94.0); MEAN CORPUSCULAR HEMOGLOBIN 29.2 pg (27.0-31.0); MONO # 0.7 K/uL (0.0-0.8); MONO % 12.2 % (0.0-10.0); NEUT # 3.7 K/uL (1.8-7.0); NEUT % 67.4 % (50.0-75.0); RBC 2.5 Mil/uL (4.40-5.90); RED CELL DISTRIBUTION WIDTH 15.3 % (11.5-14.5); WHITE BLOOD COUNT 5.5 K/uL (4.8-10.8)
[2018-06-23 05:58] LABS: INR 5.6
[2018-06-23 06:12] LABS: ALB/GLOB RATIO 1.3 (1.0-2.1); ALBUMIN 3.3 g/dL (3.5-5.0); ALT/SGPT 20 U/L (21-72); AST/SGOT 18 U/L (17-59); BLOOD UREA NITROGEN 35 mg/dL (9-20); CALCIUM 8.4 mg/dl (8.6-10.4); GFR NON-AFRICAN AMERICAN > 60
[2018-06-23 07:19] LABS: FERRITIN 48.6 ng/mL
[2018-06-23 07:49] LABS: FOLATE 11.5 ng/mL
[2018-06-23] MEDS: (Novolin R) Insulin Human Regular 100 units/ml vial SC SCH ×4 (08:05→21:36)
[2018-06-23] MEDS: Magnesium Oxide 400 mg Tab UD PO SCH (09:07)
[2018-06-23] MEDS: Magnesium Sulfate 1 gm in D5W 1 GM/100 ML BAG IVPB SCH ×2 (09:07→09:43)
--- NOTE | 2018-06-23 10:18 | CP.PCM.CON ---
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 Kendrick for evaluation due to abnormal labs. Patient states he went to Dr. Kendrick for evaluation due to spontaneous ecchymosis. Patient denies any history of blood disorders or clotting disorders; he also denies any known precipitant for his symptoms. No pain, chest pain, shortness of breath or other complaints. Review of Systems - Constitutional Constitutional: absent: As Per HPI, Anorexia, Chills, Daytime Sleepiness, Excessive Sweating, Fatigue, Fever, Frequent Falls, Headache, Increased Appet ite, Lethargy, Malaise, Night Sweats, Snoring, Sleep Apnea, Weight Gain, Weight Loss, Weakness, Other - EENT Eyes: absent: As Per HPI, Blind Spots, Blurred Vision, Change in Vision, Decreased Night Vision, Diplopia, Discharge, Dry Eye, Exophthalmos, Floaters, I rritation, Itchy Eyes, Loss of Peripheral Vision, Pain, Photophobia, Requires Corrective Lenses, Sees Flashes, Spots in Vision, Tunnel Vision, Other Visual Disturbances, Loss of Vision, Other Ears: absent: As Per HPI, Decreased Hearing, Ear Discharge, Ear Pain, Tinnitus, Abnormal Hearing, Disequilibrium, Dizziness, Other Nose/Mouth/Throat: absent: As Per HPI, Epistaxis, Nasal Congestion, Nasal Discharge, Nasal Obstruction, Nasal Trauma, Nose Pain, Post Nasal Drip, Sinus Pain, Sinus Pressure, Bleeding Gums, Change in Voice, Dental Pain, Dry Mouth, Dysphagia, Halitosis, Hoarsness, Lip Swelling, Mouth Lesions, Mouth Pain, Odynophagia, Sore Throat, Throat Swelling, Tongue Swelling, Facial Pain, Neck Pain, Neck Mass, Other - Cardiovascular Cardiovascular: absent: As Per HPI, Acrocyanosis, Chest Pain, Chest Pain at Rest, Chest Pain with Activity, Claudication, Diaphoresis, Dyspnea, Dyspnea on Exertion, Edema, Irregular Heart Rhythm, Pain Radiating to Arm/Neck/Jaw, Leg Edema, Leg Ulcers, Lightheadedness, Orthopnea, Palpitations, Paroxysmal Nocturnal Dyspnea, Pedal Edema, Radiating Pain, Rapid Heart Rate, Slow Heart Rate, Syncope, Other - Respiratory Respiratory: absent: As Per HPI, Cough, Dyspnea, Hemoptysis, Dyspnea on Exertion, Wheezing, Snoring, Stridor, Pain on Inspiration, Chest Congestion, Excessive Mucous Production, Change in Mucous Color, Pain with Coughing, Other - Gastrointestinal Gastrointestinal: absent: As Per HPI, Abdominal Pain, Belching, Bloating, Change in Bowel Habits, Change in Stool Character, Coffee Ground Emesis, Constipation, Cramping, Diarrhea, Dyspepsia, Dysphagia, Early Satiety, Excessive Flatus, Fecal Incontinence, Heartburn, Hematemesis, Hematochezia, Loose Stools, Melena, Nausea, Odynophagia, Temesmus, Vomiting, Other - Musculoskeletal Musculoskeletal: absent: As Per HPI, Abnormal Gait, Arthralgias, Atrophy, Back Pain, Deformity, Joint Swelling, Limited Range of Motion, Loss of Height, Muscle Cramps, Muscle Weakness, Myalgias, Neck Pain, Numbness, Radiating Pain into Limb, Stiffness, Tingling, Other Past Patient History - Infectious Disease Hx of Infectious Diseases: None - Past Medical History & Family History Past Medical History?: Yes - Past Social History Smoking Status: Light Smoker < 10 Cigarettes Daily - CARDIAC Hx Atrial Fibrillation: Yes Hx Cardia Arrhythmia: Yes (A-FIB) Hx Hypercholesterolemia: Yes Hx Hypertension: Yes Hx Mitral Valve Prolapse: Yes - PULMONARY Hx Respiratory Disorders: No Hx Tuberculosis: No - HEENT Hx HEENT Problems: Yes Hx Cataracts: Yes Hx Glaucoma: Yes - RENAL Hx Chronic Kidney Disease: Yes - HEMATOLOGICAL/ONCOLOGICAL Hx Anemia: Yes - INTEGUMENTARY Hx Dermatological Problems: Yes Other/Comment: skin graft - MUSCULOSKELETAL/RHEUMATOLOGICAL Hx Arthritis: Yes - GASTROINTESTINAL Hx Diverticulitis: Yes - PSYCHIATRIC Hx Anxiety: Yes Hx Depression: Yes Hx Schizophrenia: Yes Hx Substance Use: No - SURGICAL HISTORY Hx Coronary Artery Bypass Graft: Yes (1997) - ANESTHESIA Hx Anesthesia: Yes Hx Anesthesia Reactions: No Hx Malignant Hyperthermia: No Meds Allergies/Adverse Reactions: Allergies Allergy/AdvReac Type Severity Reaction Status Date / Time No Known Allergies Allergy Verified 06/21/18 11:58 - Medications Medications: Current Medications Clonazepam (Klonopin) 2 mg PO HS [facility] Last Admin: 06/22/18 22:02 Dose: 2 mg Furosemide (Lasix) 40 mg PO BID [facility] Last Admin: 06/23/18 09:09 Dose: 40 mg Glimepiride (Amaryl) 2 mg PO BIDCC [facility] Last Admin: 06/23/18 08:05 Dose: 2 mg Insulin Human Regular (Novolin R) [address] [facility]; Protocol Last Admin: 06/23/18 08:05 Dose: 2 u Levetiracetam (Keppra) 500 mg PO DAILY [facility] Last Admin: 06/23/18 09:07 Dose: 500 mg Losartan Potassium (Cozaar) 100 mg PO DAILY [facility] Last Admin: 06/22/18 09:21 Dose: 100 mg Magnesium Oxide (Mag-Ox) 400 mg PO DAILY [facility] Last Admin: 06/23/18 09:07 Dose: 400 mg Pantoprazole Sodium (Protonix Inj) 40 mg IVP Q12H [facility] Last Admin: 06/23/18 05:02 Dose: 40 mg Sertraline HCl (Zoloft) 50 mg PO DAILY [facility] Last Admin: 06/23/18 09:07 Dose: 50 mg Physical Exam - Constitutional Appears: Non-toxic - Head Exam Head Exam: NORMAL INSPECTION - Eye Exam Eye Exam: absent: Scleral icterus Additional comments: periorbital ecchymosis - ENT Exam ENT Exam: Mucous Membranes Moist - Neck Exam Neck exam: Positive for: Full Rom - Respiratory Exam Respiratory Exam: Decreased Breath Sounds - Cardiovascular Exam Cardiovascular Exam: REGULAR RHYTHM - GI/Abdominal Exam GI & Abdominal Exam: Normal Bowel Sounds, Soft - Rectal Exam Rectal Exam: Deferred, Bloody Stool Results - Vital Signs Recent Vital Signs: Last Vital Signs Temp 97.8 F 06/23/18 10:02 Pulse 92 H 06/23/18 10:02 Resp 20 06/23/18 10:02 BP 102/58 L 06/23/18 10:02 Pulse Ox 100 06/23/18 08:00 - Labs Result Diagrams: 06/23/18 05:12 06/23/18 05:12 Labs: Laboratory Results - last 24 hr 06/21/18 06/22/18 06/22/18 12:42 11:28 15:55 WBC RBC Hgb Hct MCV MCH MCHC RDW Plt Count MPV Neut % (Auto) Lymph % (Auto) [place] % (Auto) Eos % (Auto) Baso % (Auto) Neut # (Auto) Lymph # (Auto) [place] # (Auto) Eos # (Auto) Baso # (Auto) Retic Count PT INR APTT Sodium Potassium Chloride Carbon Dioxide Anion Gap BUN Creatinine Est GFR ( Amer) Est GFR (Non-Af Amer) POC Glucose (mg/dL) 309 H 101 Random Glucose Calcium Phosphorus Magnesium Ferritin Total Bilirubin AST ALT Alkaline Phosphatase Total Protein Albumin Globulin Albumin/Globulin Ratio Vitamin B12 Folate Blood Type O POSITIVE Antibody Screen Negative 06/22/18 06/23/18 06/23/18 22:12 05:12 05:12 WBC 5.5 RBC 2.50 L Hgb 7.3 L Hct 22.8 L MCV 91.2 MCH 29.2 MCHC 32.0 L RDW 15.3 H Plt Count 260 MPV 8.0 Neut % (Auto) 67.4 Lymph % (Auto) 16.6 L [place] % (Auto) 12.2 H Eos % (Auto) 3.3 Baso % (Auto) 0.5 Neut # (Auto) 3.7 Lymph # (Auto) 0.9 L [place] # (Auto) 0.7 Eos # (Auto) 0.2 Baso # (Auto) 0.0 Retic Count PT INR APTT Sodium 138 Potassium 3.7 Chloride 100 Carbon Dioxide 33 H Anion Gap 9 L BUN 35 H Creatinine 1.2 Est GFR ( Amer) > 60 Est GFR (Non-Af Amer) > 60 POC Glucose (mg/dL) 207 H Random Glucose 174 H Calcium 8.4 L Phosphorus 3.4 Magnesium 1.4 L Ferritin 48.6 Total Bilirubin 1.8 H AST 18 ALT 20 L Alkaline Phosphatase 79 Total Protein 5.8 L Albumin 3.3 L Globulin 2.5 Albumin/Globulin Ratio 1.3 Vitamin B12 283 Folate 11.5 Blood Type Antibody Screen 06/23/18 06/23/18 06/23/18 05:12 05:12 07:53 WBC RBC Hgb Hct MCV MCH MCHC RDW Plt Count MPV Neut % (Auto) Lymph % (Auto) [place] % (Auto) Eos % (Auto) Baso % (Auto) Neut # (Auto) Lymph # (Auto) [place] # (Auto) Eos # (Auto) Baso # (Auto) Retic Count 4.5 H PT 62.0 H D INR 5.6 H* D APTT 69 H D Sodium Potassium Chloride Carbon Dioxide Anion Gap BUN Creatinine Est GFR ( Amer) Est GFR (Non-Af Amer) POC Glucose (mg/dL) 239 H Random Glucose Calcium Phosphorus Magnesium Ferritin Total Bilirubin AST ALT Alkaline Phosphatase Total Protein Albumin Globulin Albumin/Globulin Ratio Vitamin B12 Folate Blood Type Antibody Screen Assessment & Plan - Assessment and Plan (Free Text) Assessment: Coumadin toxicity Afib MVR T2dm Plan: Agree with fresh frozen plasma Monitor PT/INR - Date & Time Date: 06/21/18 Time: 08:00
--- NOTE | 2018-06-23 15:55 | CP.PCM.PN ---
Subjective - Date & Time of Evaluation Date of Evaluation: 06/22/18 Time of Evaluation: 15:55 - Subjective Subjective: Patient is morning feeling well. His INR and hemoglobin is still on the high side. Received blood transfusion as well as FFP. Patient is feeling well otherwise. No chest pain or shortness of breath noted. On examination: Vital signs stable. Chest good air entry Heart sounds are regular Soft abdomen. Patient has a multiple ecchymotic skin lesions, periorbital hematoma. Labs reviewed Assessment and recommendation: 68-year-old male with a history of mitral valve replacement. Coagulopathy. Mitral valve thrombus. On anticoagulation. Coumadin toxicity. Severe anemia secondary to hematoma and bleeding. Stable at this time. We will continue to monitor. Awaiting for telemetry bed. Objective - Vital Signs/Intake and Output Vital Signs (last 24 hours): Temp Pulse Resp BP Pulse Ox 97.6 F 89 18 124/53 L 97 06/23/18 12:00 06/23/18 12:00 06/23/18 12:00 06/23/18 12:00 06/23/18 12:00 Intake and Output: 06/23/18 06/23/18 06:59 18:59 Intake Total 325 Output Total 1800 Balance -1800 325 - Medications Medications: Current Medications Clonazepam (Klonopin) 2 mg PO HS [facility] Last Admin: 06/22/18 22:02 Dose: 2 mg Furosemide (Lasix) 40 mg PO BID [facility] Last Admin: 06/23/18 09:09 Dose: 40 mg Glimepiride (Amaryl) 2 mg PO BIDCC [facility] Last Admin: 06/23/18 08:05 Dose: 2 mg Insulin Human Regular (Novolin R) 0 unit SC [facility]; Protocol Last Admin: 06/23/18 11:39 Dose: 3 u Levetiracetam (Keppra) 500 mg PO DAILY [facility] Last Admin: 06/23/18 09:07 Dose: 500 mg Losartan Potassium (Cozaar) 100 mg PO DAILY [facility] Last Admin: 06/23/18 11:15 Dose: 100 mg Magnesium Oxide (Mag-Ox) 400 mg PO DAILY [facility] Last Admin: 06/23/18 09:07 Dose: 400 mg Pantoprazole Sodium (Protonix Inj) 40 mg IVP Q12H [facility] Last Admin: 06/23/18 05:02 Dose: 40 mg Sertraline HCl (Zoloft) 50 mg PO DAILY [facility] Last Admin: 06/23/18 09:07 Dose: 50 mg - Labs Labs: 06/23/18 05:12 06/23/18 05:12 PT 62.0 SECONDS (9.7-12.2) H D 06/23/18 05:12 INR 5.6 H* D 06/23/18 05:12 APTT 69 SECONDS (21-34) H D 06/23/18 05:12
--- NOTE | 2018-06-23 15:58 | CP.PCM.PN ---
Subjective - Date & Time of Evaluation Date of Evaluation: 06/23/18 Time of Evaluation: 15:57 - Subjective Subjective: Patient is morning feeling well. His INR and hemoglobin is still on the high side. Received blood transfusion as well as FFP. Patient is feeling well otherwise. No chest pain or shortness of breath noted. 1 more unit of blood was given today On examination: Vital signs stable. Chest good air entry Heart sounds are regular Soft abdomen. Patient has a multiple ecchymotic skin lesions, periorbital hematoma. Labs reviewed Assessment and recommendation: 68-year-old male with a history of mitral valve replacement. Coagulopathy. Mitral valve thrombus. On anticoagulation. Coumadin toxicity. Severe anemia secondary to hematoma and bleeding. Stable at this time. We will continue to monitor. Awaiting for telemetry bed. Objective - Vital Signs/Intake and Output Vital Signs (last 24 hours): Temp Pulse Resp BP Pulse Ox 97.6 F 89 18 124/53 L 97 06/23/18 12:00 06/23/18 12:00 06/23/18 12:00 06/23/18 12:00 06/23/18 12:00 Intake and Output: 06/23/18 06/23/18 06:59 18:59 Intake Total 325 Output Total 1800 Balance -1800 325 - Medications Medications: Current Medications Clonazepam (Klonopin) 2 mg PO HS [facility] Last Admin: 06/22/18 22:02 Dose: 2 mg Furosemide (Lasix) 40 mg PO BID [facility] Last Admin: 06/23/18 09:09 Dose: [facility] Admin: 06/23/18 08:05 Dose: 2 mg Insulin Human Regular (Novolin R) 0 unit SC [facility]; Protocol Last Admin: 06/23/18 11:39 Dose: 3 u Levetiracetam (Keppra) 500 mg PO DAILY [facility] Last Admin: 06/23/18 09:07 Dose: 500 mg Losartan Potassium (Cozaar) 100 mg PO DAILY [facility] Last Admin: 06/23/18 11:15 Dose: 100 mg Magnesium Oxide (Mag-Ox) 400 mg PO DAILY [facility] Last Admin: 06/23/18 09:07 Dose: 400 mg Pantoprazole Sodium (Protonix Inj) 40 mg IVP Q12H [facility] Last Admin: 06/23/18 05:02 Dose: 40 mg Sertraline HCl (Zoloft) 50 mg PO DAILY [facility] Last Admin: 06/23/18 09:07 Dose: 50 mg - Labs Labs: 06/23/18 05:12 06/23/18 05:12 PT 62.0 SECONDS (9.7-12.2) H D 06/23/18 05:12 INR 5.6 H* D 06/23/18 05:12 APTT 69 SECONDS (21-34) H D 06/23/18 05:12
--- NOTE | 2018-06-23 21:32 | CP.PCM.PN ---
Subjective - Date & Time of Evaluation Date of Evaluation: 06/23/18 Time of Evaluation: 20:00 - Subjective Subjective: No complaints s/p 1U PRBC today Objective - Vital Signs/Intake and Output Vital Signs (last 24 hours): Temp Pulse Resp BP Pulse Ox 98.1 F 83 15 125/68 100 06/23/18 20:00 06/23/18 18:00 06/23/18 18:00 06/23/18 17:07 06/23/18 16:00 Intake and Output: 06/23/18 06/24/18 18:59 06:59 Intake Total 1475 Output Total 1450 Balance 25 - Medications Medications: Current Medications Clonazepam (Klonopin) 2 mg PO HS [facility] Last Admin: 06/23/18 21:07 Dose: 2 mg Furosemide (Lasix) 40 mg PO BID [facility] Last Admin: 06/23/18 17:07 Dose: 40 mg Glimepiride (Amaryl) 2 mg PO CCTID [facility] Last Admin: 06/23/18 17:05 Dose: 2 mg Insulin Human Regular (Novolin R) 0 unit SC [facility]; Protocol Last Admin: 06/23/18 17:07 Dose: 4 u Levetiracetam (Keppra) 500 mg PO DAILY [facility] Last Admin: 06/23/18 09:07 Dose: 500 mg Losartan Potassium (Cozaar) 100 mg PO DAILY [facility] Last Admin: 06/23/18 11:15 Dose: 100 mg Magnesium Oxide (Mag-Ox) 400 mg PO DAILY [facility] Last Admin: 06/23/18 09:07 Dose: 400 mg Metformin HCl (Glucophage) 500 mg PO BID [facility] Last Admin: 06/23/18 17:10 Dose: 500 mg Pantoprazole Sodium (Protonix Inj) 40 mg IVP Q12H [facility] Last Admin: 06/23/18 17:05 Dose: 40 mg Sertraline HCl (Zoloft) 50 mg PO DAILY [facility] Last Admin: 06/23/18 09:07 Dose: 50 mg - Labs Labs: 06/23/18 05:12 06/23/18 05:12 PT 62.0 SECONDS (9.7-12.2) H D 06/23/18 05:12 INR 5.6 H* D 06/23/18 05:12 APTT 69 SECONDS (21-34) H D 06/23/18 05:12 - Head Exam Additional comments: periorbital ecchymosis - Eye Exam Additional comments: periorbital ecchymosis - ENT Exam ENT Exam: Mucous Membranes Dry - Respiratory Exam Respiratory Exam: NORMAL BREATHING PATTERN - Cardiovascular Exam Cardiovascular Exam: +S1, +S2 - GI/Abdominal Exam GI & Abdominal Exam: Normal Bowel Sounds Assessment and Plan (1) Coagulopathy Assessment & Plan: anticoagulation s/p FFP coumadin on hold; goal INR 2.5-3.5 Status: Acute (2) Anemia Assessment & Plan: borderline iron and B12 will start IV iron will hold off on IM B12 supplementation given coagulopathy; will supplement PO Status: Acute (3) Ecchymosis Assessment & Plan: secondary to coagulopathy Status: Acute
[2018-06-24 05:44] LABS: BASO % 0.5 % (0.0-2.0); EOS # 0.2 K/uL (0.0-0.7); EOS % 2.5 % (0.0-4.0); HEMOGLOBIN 8.5 g/dL (12.0-18.0); LYMPH # 1.1 K/uL (1.0-4.3); LYMPH % 16.6 % (20.0-40.0); MEAN CELL VOLUME 91.4 fL (80.0-94.0); MEAN CORPUSCULAR HEMOGLOBIN 29.6 pg (27.0-31.0); MEAN CORPUSCULAR HGB CONC 32.4 g/dL (33.0-37.0); MONO # 0.7 K/uL (0.0-0.8); MONO % 11.1 % (0.0-10.0); NEUT # 4.5 K/uL (1.8-7.0); NEUT % 69.3 % (50.0-75.0); NRBC % 0.1 % (0.0-2.0); RBC 2.87 Mil/uL (4.40-5.90); RED CELL DISTRIBUTION WIDTH 15.6 % (11.5-14.5); WHITE BLOOD COUNT 6.5 K/uL (4.8-10.8)
[2018-06-24 05:58] LABS: ALB/GLOB RATIO 1.3 (1.0-2.1); ALBUMIN 3.3 g/dL (3.5-5.0); ALT/SGPT 19 U/L (21-72); AST/SGOT 17 U/L (17-59); BLOOD UREA NITROGEN 35 mg/dL (9-20); CALCIUM 8.4 mg/dl (8.6-10.4); GFR NON-AFRICAN AMERICAN > 60
[2018-06-24 06:08] LABS: INR 4.7
[2018-06-24] MEDS: (Novolin R) Insulin Human Regular 100 units/ml vial SC SCH ×4 (07:40→22:00)
[2018-06-24] MEDS: Magnesium Sulfate 1 gm in D5W 1 GM/100 ML BAG IVPB SCH ×2 (07:42→08:39)
[2018-06-24] MEDS: Magnesium Oxide 400 mg Tab UD PO SCH (10:36)
[2018-06-24] MEDS: Ferric Sodium Gluconat Complex 62.5 mg/5 ml Vial IVPB SCH (10:41)
--- NOTE | 2018-06-24 15:53 | CP.PCM.PN ---
Subjective - Date & Time of Evaluation Date of Evaluation: 06/23/18 Time of Evaluation: 10:00 - Subjective Subjective: no gross bleeding INR 5.6 Hgb 7.3 ecchymosis still notable Objective - Vital Signs/Intake and Output Vital Signs (last 24 hours): Temp Pulse Resp BP Pulse Ox 97.4 F L 87 18 143/64 99 06/24/18 12:00 06/24/18 14:59 06/24/18 12:00 06/24/18 12:00 06/24/18 12:00 Intake and Output: 06/24/18 06/24/18 06:59 18:59 Output Total 600 Balance -600 - Medications Medications: Current Medications Clonazepam (Klonopin) 2 mg PO HS [facility] Last Admin: 06/23/18 21:07 Dose: 2 mg Cyanocobalamin (Vitamin B12 1000 Mcg Tab) 1,000 mcg PO DAILY [facility] Last Admin: 06/24/18 10:36 Dose: 1,000 mcg Ferric Sodium Gluconate Complex (Ferrlecit) 125 mg IVPB DAILY [facility] Stop: 07/02/18 10:01 Last Admin: 06/24/18 10:41 Dose: 125 mg Furosemide (Lasix) 40 mg PO DAILY [facility] Glimepiride (Amaryl) 2 mg PO CCTID [facility] Last Admin: 06/24/18 12:54 Dose: 2 mg Vancomycin HCl 1 gm/ Sodium (Chloride) 250 mls @ 167 mls/hr IVPB Q24H [facility]; Protocol Stop: 07/01/18 18:00 Insulin Human Regular (Novolin R) 0 unit SC [facility]; Protocol Last Admin: 06/24/18 12:50 Dose: 6 u Levetiracetam (Keppra) 500 mg PO DAILY [facility] Last Admin: 06/24/18 10:36 Dose: 500 mg Losartan Potassium (Cozaar) 100 mg PO DAILY [facility] Last Admin: 06/23/18 11:15 Dose: 100 mg Magnesium Oxide (Mag-Ox) 400 mg PO DAILY [facility] Last Admin: 06/24/18 10:36 Dose: 400 mg Metformin HCl (Glucophage) 500 mg PO BID [facility] Last Admin: 06/24/18 10:36 Dose: 500 mg Pantoprazole Sodium (Protonix Inj) 40 mg IVP Q12H [facility] Last Admin: 06/24/18 05:18 Dose: 40 mg Sertraline HCl (Zoloft) 50 mg PO DAILY [facility] Last Admin: 06/24/18 10:36 Dose: 50 mg - Labs Labs: 06/24/18 05:40 06/24/18 05:40 PT 52.0 SECONDS (9.7-12.2) H D 06/24/18 05:40 INR 4.7 H* 06/24/18 05:40 APTT 69 SECONDS (21-34) H D 06/23/18 05:12 - Constitutional Appears: Non-toxic - Eye Exam Eye Exam: absent: Scleral icterus Additional comments: periorbital ecchymosis - ENT Exam ENT Exam: Mucous Membranes Moist - Neck Exam Neck Exam: Full ROM - Respiratory Exam Respiratory Exam: NORMAL BREATHING PATTERN - Cardiovascular Exam Cardiovascular Exam: REGULAR RHYTHM - GI/Abdominal Exam GI & Abdominal Exam: Soft - Exam External exam: NORMAL EXTERNAL EXAM - Extremities Exam Extremities Exam: absent: Pedal Edema - Neurological Exam Neurological Exam: Alert Assessment and Plan - Assessment and Plan (Free Text) Assessment: Coumadin toxicity causing: severe anemia ecchymosis Afib Hx of Mitral valve replacement(anticoagulation on hold) Mitral valve thrombus T2dm Plan: Hemonc on board Resume Coumadin when ok with Hematology
--- NOTE | 2018-06-24 17:39 | RAD ---
Date of service: 06/24/2018 HISTORY: r/o pna COMPARISON: 06/21/2018 FINDINGS: LUNGS: No active pulmonary disease. PLEURA: No significant pleural effusion identified, no pneumothorax apparent. CARDIOVASCULAR: Atherosclerotic calcifications identified primarily aortic arch. No radiographic findings to suggest acute or significant cardiovascular disease. Incidental Finding(s): Postoperative changes related to sternotomy. OSSEOUS STRUCTURES: No significant abnormalities. VISUALIZED UPPER ABDOMEN: Normal. OTHER FINDINGS: None. IMPRESSION: No active disease. No significant interval change compared to the prior examination(s).
--- NOTE | 2018-06-24 18:16 | CP.PCM.CON ---
History of Present Illness - History of Present Illness History of Present Illness: INFECTIOUS DISEASE CONSULT; HPI; 68 year old with a past medical history significant for rheumatic heart disease with MV replacement in 1997 on Coumadin 6 mg daily, DM II, possible seizure disorder, who was recently diagnosed and treated at [facility] for cardiac thrombi / ? VEGETATIONS observed on SHALOM. PATIENT WAS ADMITTED THERE FOR TIA/ SYNCOPAL EPISODE. PATIENT WAS THEN PLACED ON iv VANCOMYCIN/iv CEFEPIME BY DR ANDUJAR X 6WEEKS ON 05/03/18 Patient states he recently completed his IV antibiotics as outpatient about a month ago. BACK IN MAR 2018, PT DEVELOPED E.COLI BACTEREMIA/AND PYELONEPHRITIS AND TREATED WITH 3 WEEKS IV MERREM. PATIENT WAS ADMITTED HERE SENT BY PMD ON 06/21/18, HIS INR WAS REPORTED 11.6 AND HE WAS DEVELOPING PERIORBITAL ECCHYMOSIS AND GENERALIZED BRUISES ON HIS EXTREMITIES. PATIENT DENIES ANY MELENA OR HEMATOCHEZIA.PATIENT PRESENT. INR IS 4.6. PATIENT DENIES ANY FEVER OR CHILLS. PATIENT DENIES ANY CHEST PAIN OR SHORTNESS OF BREATH. dENIES ANY DYSPNEA ON EXERTION. PATIENT PRESENTLY DENIES ANY DIZZINESS, RECENT FALLS. INFECTIOUS DISEASE CONSULTATION REQUESTED BY PMD FOR EVALUATION OF/AND COMPLETION OF PREVIOUS PROSTHEIC MITRAL VALVE ENDOCARDITIS. patient presently not on any antibiotics and his WBC count is 6.5. Echo 05/03: LV fx normal 60-65%, mild to moderate mitral regurgitation. Multiple echogenic structures attached to leaflets of mechanical mitral valves (both leaflets) less mobile towards ventricular surface, largest being 1.3/2.9 cm with multiple jets of mild to moderate MR, C/w possible thrombus. Mild-mod tricuspid regurgitation. Velocity in LINDA less than 0.4 m/s. PSH: Mitral valve replacement ( METALLIC VALVE ) via sternotomy 1997. ON COUMADIN. Allergies: Denies Social: Smokes 4 cigarettes a day since teenage years till now; denies alcohol or illicit drug use Family history: significant for heart disease and DM II ALLERGY; NKA PMD:Dr. Kendrick Review of Systems - Constitutional Constitutional: absent: Chills, Fever, Frequent Falls, Headache - EENT Eyes: absent: Change in Vision, Floaters Nose/Mouth/Throat: absent: Bleeding Gums - Cardiovascular Cardiovascular: Pedal Edema (1+). absent: Chest Pain - Gastrointestinal Gastrointestinal: absent: Abdominal Pain, Coffee Ground Emesis, Melena - Genitourinary Genitourinary: absent: Dysuria, Hematuria - Neurological Neurological: absent: Disequilibrium, Dizziness, Focal Weakness, Weakness - Hematologic/Lymphatic Hematologic: As Per HPI, Easy Bruising Past Patient History - Infectious Disease Hx of Infectious Diseases: None - Past Medical History & Family History Past Medical History?: Yes - Past Social History Smoking Status: Light Smoker < 10 Cigarettes Daily - CARDIAC Hx Atrial Fibrillation: Yes Hx Cardia Arrhythmia: Yes (A-FIB) Hx Hypercholesterolemia: Yes Hx Hypertension: Yes Hx Mitral Valve Prolapse: Yes - PULMONARY Hx Respiratory Disorders: No Hx Tuberculosis: No - HEENT Hx HEENT Problems: Yes Hx Cataracts: Yes Hx Glaucoma: Yes - RENAL Hx Chronic Kidney Disease: Yes - HEMATOLOGICAL/ONCOLOGICAL Hx Anemia: Yes - INTEGUMENTARY Hx Dermatological Problems: Yes Other/Comment: skin graft - MUSCULOSKELETAL/RHEUMATOLOGICAL Hx Arthritis: Yes - GASTROINTESTINAL Hx Diverticulitis: Yes - PSYCHIATRIC Hx Anxiety: Yes Hx Depression: Yes Hx Schizophrenia: Yes Hx Substance Use: No - SURGICAL HISTORY Hx Coronary Artery Bypass Graft: Yes (1997) - ANESTHESIA Hx Anesthesia: Yes Hx Anesthesia Reactions: No Hx Malignant Hyperthermia: No Meds Allergies/Adverse Reactions: Allergies Allergy/AdvReac Type Severity Reaction Status Date / Time No Known Allergies Allergy Verified 06/21/18 11:58 - Medications Medications: Current Medications Clonazepam (Klonopin) 2 mg PO HS [facility] Last Admin: 06/23/18 21:07 Dose: 2 mg Cyanocobalamin (Vitamin B12 1000 Mcg Tab) 1,000 mcg PO DAILY [facility] Last Admin: 06/24/18 10:36 Dose: 1,000 mcg Ferric Sodium Gluconate Complex (Ferrlecit) 125 mg IVPB DAILY [facility] Stop: 07/02/18 10:01 Last Admin: 06/24/18 10:41 Dose: 125 mg Furosemide (Lasix) 40 mg PO DAILY [facility] Glimepiride (Amaryl) 2 mg PO CCTID [facility] Last Admin: 06/24/18 17:33 Dose: 2 mg Insulin Human Regular (Novolin R) 0 unit [facility]; Protocol Last Admin: 06/24/18 17:33 Dose: 2 u Levetiracetam (Keppra) 500 mg PO DAILY [facility] Last Admin: 06/24/18 10:36 Dose: 500 mg Losartan Potassium (Cozaar) 100 mg PO DAILY [facility] Last Admin: 06/24/18 17:32 Dose: 100 mg Magnesium Oxide (Mag-Ox) 400 mg PO DAILY [facility] Last Admin: 06/24/18 10:36 Dose: 400 mg Metformin HCl (Glucophage) 500 mg PO BID [facility] Last Admin: 06/24/18 17:34 Dose: 500 mg Pantoprazole Sodium (Protonix Inj) 40 mg IVP Q12H [facility] Last Admin: 06/24/18 17:32 Dose: 40 mg Sertraline HCl (Zoloft) 50 mg PO DAILY [facility] Last Admin: 06/24/18 10:36 Dose: 50 mg Physical Exam - Constitutional Appears: No Acute Distress - Head Exam Head Exam: NORMAL INSPECTION - Eye Exam Eye Exam: EOMI, PERRL - ENT Exam ENT Exam: Normal Oropharynx - Neck Exam Neck exam: Positive for: Normal Inspection - Respiratory Exam Respiratory Exam: Rales (few basilar rales), NORMAL BREATHING PATTERN (.). absent: Chest Wall Tenderness (anterior chest sternotomy wound well-healed.) - Cardiovascular Exam Cardiovascular Exam: REGULAR RHYTHM, +S1, +S2 (valve sounds crisp.) - GI/Abdominal Exam GI & Abdominal Exam: Hypoactive Bowel Sounds, Normal Bowel Sounds, Soft. absent: Organomegaly - Extremities Exam Extremities exam: Positive for: normal capillary refill, pedal edema (1+), pedal pulses present. Negative for: calf tenderness - Neurological Exam Neurological exam: Alert, CN II-XII Intact, Normal Gait, Oriented x3, Reflexes Normal - Psychiatric Exam Psychiatric exam: Normal Mood - Skin Skin Exam: Normal Color, Rash (periorbital ecchymosisand generalized bruising over arms.) Results - Vital Signs Recent Vital Signs: Last Vital Signs Temp 97.4 F L 06/24/18 12:00 Pulse 87 06/24/18 14:59 Resp 18 06/24/18 12:00 BP 143/64 06/24/18 12:00 Pulse Ox 99 06/24/18 12:00 - Labs Result Diagrams: 06/24/18 05:40 06/24/18 05:40 Labs: Laboratory Results - last 24 hr 06/23/18 06/24/18 06/24/18 21:34 05:40 05:40 WBC 6.5 RBC 2.87 L Hgb 8.5 L Hct 26.3 L MCV 91.4 MCH 29.6 MCHC 32.4 L RDW 15.6 H Plt Count 295 MPV 8.0 Neut % (Auto) 69.3 Lymph % (Auto) 16.6 L Stevens % (Auto) 11.1 H Eos % (Auto) 2.5 Baso % (Auto) 0.5 Neut # (Auto) 4.5 Lymph # (Auto) 1.1 Stevens # (Auto) 0.7 Eos # (Auto) 0.2 Baso # (Auto) 0.0 PT INR Sodium 139 Potassium 3.4 L Chloride 99 Carbon Dioxide 33 H Anion Gap 10 BUN 35 H Creatinine 1.1 Est GFR ( Amer) > 60 Est GFR (Non-Af Amer) > 60 POC Glucose (mg/dL) 179 H Random Glucose 162 H Calcium 8.4 L Phosphorus 3.4 Magnesium 1.4 L Total Bilirubin 1.7 H AST 17 ALT 19 L Alkaline Phosphatase 88 Total Protein 5.9 L Albumin 3.3 L Globulin 2.6 Albumin/Globulin Ratio 1.3 06/24/18 06/24/18 06/24/18 05:40 07:16 11:17 WBC RBC Hgb Hct MCV MCH MCHC RDW Plt Count MPV Neut % (Auto) Lymph % (Auto) Stevens % (Auto) Eos % (Auto) Baso % (Auto) Neut # (Auto) Lymph # (Auto) Stevens # (Auto) Eos # (Auto) Baso # (Auto) PT 52.0 H D INR 4.7 H* Sodium Potassium Chloride Carbon Dioxide Anion Gap BUN Creatinine Est GFR ( Amer) Est GFR (Non-Af Amer) POC Glucose (mg/dL) 192 H 402 H* Random Glucose Calcium Phosphorus Magnesium Total Bilirubin AST ALT Alkaline Phosphatase Total Protein Albumin Globulin Albumin/Globulin Ratio 06/24/18 16:39 WBC RBC Hgb Hct MCV MCH MCHC RDW Plt Count MPV Neut % (Auto) Lymph % (Auto) Stevens % (Auto) Eos % (Auto) Baso % (Auto) Neut # (Auto) Lymph # (Auto) Stevens # (Auto) Eos # (Auto) Baso # (Auto) PT INR Sodium Potassium Chloride Carbon Dioxide Anion Gap BUN Creatinine Est GFR ( Amer) Est GFR (Non-Af Amer) POC Glucose (mg/dL) 214 H Random Glucose Calcium Phosphorus Magnesium Total Bilirubin AST ALT Alkaline Phosphatase Total Protein Albumin Globulin Albumin/Globulin Ratio - Imaging and Cardiology Chest x-ray Status: Report reviewed by me (chest x-ray 06/24/18 no active disease.) 2-D echo Status: Report reviewed by me Assessment & Plan (1) Warfarin-induced coagulopathy Assessment and Plan: PATIENT INR TODAY IS 4.6. aNTICOAGULATION PER HEMATOLOGY/PMD. Status: Acute (2) Hx of prosthetic mitral valve Assessment and Plan: HX OFF PROSTHETIC MITRAL VALVE REPLACEMENT SINCE 1997. pATIENT RECENTLY TREATED 6 WEEKS FOR PRESUMPTIVE PROSTHETIC VALVE ENDOCARDITIS oN SHALOM FINDINGS CONSISTENT WITH THROMBUS VERSUS VEGETATIONS ON MITRAL VALVES. REPEAT 2-D ECHO. 06/21/18 UNREMARKABLE WITH MECHANICAL VALVE APPEARS NORMAL. NORMAL EJECTION FRACTION OF 65%. nORMAL LVSF. ( . See full report. ) Patient presently stable and ambulating well. Patient does not need any further antibiotics. Monitor for any fevers or any new murmurs. Monitor closely for any new TIAs/or CVA. WILL FOLLOW WITH YOU WHILE PATIENT IN HOSPITAL. RECULTURE IF PT SPIKES FEVER AND NOTIFY ME. CASE DISCUSSED WITH PMD DR KENDRICK. Status: Acute (3) Anemia Status: Acute (4) Coumadin toxicity Status: Acute (5) Hx of diabetes mellitus Status: Chronic
[2018-06-24 19:39] VITALS: O2SAT 97
[2018-06-25] MEDS ORDERED: Vancomycin 750mg/NS 150 ml 150 ML IVPB SCH (05:00)
[2018-06-25 06:08] LABS: BASO % 0.5 % (0.0-2.0); EOS # 0.2 K/uL (0.0-0.7); EOS % 3.1 % (0.0-4.0); HEMOGLOBIN 8.4 g/dL (12.0-18.0); LYMPH # 1.1 K/uL (1.0-4.3); LYMPH % 17.3 % (20.0-40.0); MEAN CELL VOLUME 92.1 fL (80.0-94.0); MEAN CORPUSCULAR HEMOGLOBIN 29.8 pg (27.0-31.0); MEAN CORPUSCULAR HGB CONC 32.3 g/dL (33.0-37.0); MEAN PLATELET VOLUME 8.6 fL (7.2-11.7); MONO # 0.7 K/uL (0.0-0.8); MONO % 11.8 % (0.0-10.0); NEUT # 4.2 K/uL (1.8-7.0); NEUT % 67.3 % (50.0-75.0); NRBC % 0.1 % (0.0-2.0); RBC 2.83 Mil/uL (4.40-5.90); RED CELL DISTRIBUTION WIDTH 15.7 % (11.5-14.5); WHITE BLOOD COUNT 6.2 K/uL (4.8-10.8)
[2018-06-25 06:21] LABS: INR 3.7
[2018-06-25 06:26] LABS: PROTHROMBIN TIME 40.2 SECONDS (9.7-12.2)
[2018-06-25 06:38] LABS: ALB/GLOB RATIO 1.5 (1.0-2.1); ALBUMIN 3.3 g/dL (3.5-5.0); ALT/SGPT 18 U/L (21-72); AST/SGOT 17 U/L (17-59); BLOOD UREA NITROGEN 38 mg/dL (9-20); CALCIUM 8.5 mg/dl (8.6-10.4); GFR NON-AFRICAN AMERICAN 51
[2018-06-25 09:20] VITALS: RESP 15; TEMP 98.4
[2018-06-25 09:22] VITALS: BP 124/66; PULSE 82
[2018-06-25] MEDS: Ferric Sodium Gluconat Complex 62.5 mg/5 ml Vial IVPB SCH (10:00)
[2018-06-25] MEDS: Magnesium Oxide 400 mg Tab UD PO SCH (10:03)
[2018-06-25] MEDS: (Novolin R) Insulin Human Regular 100 units/ml vial SC SCH ×3 (10:06→17:03)
--- NOTE | 2018-06-25 21:19 | CP.PCM.PN ---
Subjective - Date & Time of Evaluation Date of Evaluation: 06/24/18 Time of Evaluation: 13:00 - Subjective Subjective: Feeling better Objective - Vital Signs/Intake and Output Vital Signs (last 24 hours): Temp Pulse Resp BP Pulse Ox 98.4 F 82 15 124/66 97 06/25/18 04:00 06/25/18 08:00 06/25/18 08:00 06/25/18 04:24 06/25/18 04:00 - Labs Labs: 06/25/18 05:57 06/25/18 05:57 PT 40.2 SECONDS (9.7-12.2) H D 06/25/18 05:57 INR 3.7 H* D 06/25/18 05:57 APTT 64 SECONDS (21-34) H D 06/25/18 05:57 - Head Exam Head Exam: ATRAUMATIC - ENT Exam ENT Exam: Mucous Membranes Dry - Respiratory Exam Respiratory Exam: NORMAL BREATHING PATTERN - Cardiovascular Exam Cardiovascular Exam: +S1, +S2 - GI/Abdominal Exam GI & Abdominal Exam: Normal Bowel Sounds Assessment and Plan (1) Coagulopathy Assessment & Plan: secondary to anticoagulation s/p FFP INR improved Status: Acute (2) Anemia Assessment & Plan: b12 and iron deficiency on supplementation Status: Acute (3) Ecchymosis Assessment & Plan: secondary to anticoagulation Status: Acute
== END 2018-06-25 17:36 | disposition home or self-care (01) | DRG 813 ==
LOC: C.ER 11:55 → C.9E 13:41 → C.6T 16:07 → C.9E 17:13 → C.9I 17:17 → OBSVTOIN 17:18
PROVIDERS: ADMIT Internal Medicine; ATTEND Internal Medicine
PROC: 30233K1 Transfusion of Nonautologous Frozen Plasma into Peripheral Vein, Percutaneous Approach (ICD-10-PCS; principal; 2018-06-21)
PROC: 30233N1 Transfusion of Nonautologous Red Blood Cells into Peripheral Vein, Percutaneous Approach (ICD-10-PCS; 2018-06-21)
DX: D68.32 Hemorrhagic disorder due to extrinsic circulating anticoagulants (principal); D62 Acute posthemorrhagic anemia; I13.0 Hypertensive heart and chronic kidney disease with heart failure and stage 1 through stage 4 chronic kidney disease, or unspecified chronic kidney disease; T45.515A Adverse effect of anticoagulants, initial encounter; E11.22 Type 2 diabetes mellitus with diabetic chronic kidney disease; E78.00 Pure hypercholesterolemia, unspecified; F17.210 Nicotine dependence, cigarettes, uncomplicated; F20.9 Schizophrenia, unspecified; F32.9 Major depressive disorder, single episode, unspecified; F41.9 Anxiety disorder, unspecified; G40.909 Epilepsy, unspecified, not intractable, without status epilepticus; I25.10 Atherosclerotic heart disease of native coronary artery without angina pectoris; I48.91 Unspecified atrial fibrillation; I50.9 Heart failure, unspecified; I08.1 Rheumatic disorders of both mitral and tricuspid valves; J44.9 Chronic obstructive pulmonary disease, unspecified; N18.9 Chronic kidney disease, unspecified; L98.9 Disorder of the skin and subcutaneous tissue, unspecified; R23.3 Spontaneous ecchymoses; Z79.01 Long term (current) use of anticoagulants; Z79.4 Long term (current) use of insulin; Z95.1 Presence of aortocoronary bypass graft; Z95.2 Presence of prosthetic heart valve

== ENCOUNTER 2018-08-06 11:17 | Outpatient (CLI) | payer MEDICARE | END 2018-08-06 11:18 | disposition home or self-care (01) | LOC: C.LAB 11:17 | DX: I10 Essential (primary) hypertension (principal); I25.10 Atherosclerotic heart disease of native coronary artery without angina pectoris; Z79.01 Long term (current) use of anticoagulants ==

== ENCOUNTER 2018-08-30 08:21 | Outpatient (CLI) | payer MEDICARE | END 2018-08-30 08:22 | disposition home or self-care (01) | LOC: C.CTH 08:21 | DX: Z95.2 Presence of prosthetic heart valve (principal); I10 Essential (primary) hypertension; E11.9 Type 2 diabetes mellitus without complications; W19.XXXS Unspecified fall, sequela ==

== ENCOUNTER 2018-10-01 11:09 | Emergency (ER) | payer MEDICARE ==
[2018-10-01 11:19] VITALS: BMI 26.3
[2018-10-01 11:21] VITALS: PULSE 78; O2SAT 94
--- NOTE | 2018-10-01 11:29 | C.PDOC ---
History Of Present Illness 68 year old male presents to ED s/p fall that occurred 2 weeks ago. Patient fell on his left side and injured his left hip. He notes pain with movement and uses a cane normally. Patient has PMHx of diabetes. Patient also complains of corns to the bottom of the feet. Patient notes a blister to the right side of his foot. He states that he sees his metal work duct installer regularly and has an appointment with him next week. He notes that he has been walking more because his car broke down. He has no history of diabetes wounds or amputation. He does wear diabetic shoes with socks. He denies loss of consciousness, head injury, weakness, or numbness. Denies drainage from wounds or any fevers. No other complaints at this time. Time Seen by Provider: 10/01/18 11:26 Chief Complaint (Nursing): Lower Extremity Problem/Injury History Per: Patient History/Exam Limitations: no limitations Onset/Duration Of Symptoms: Other (2 weeks) Current Symptoms Are (Timing): Still Present - Hip Description Of Injury: Fell Past Medical History Reviewed: Historical Data, Nursing Documentation, Vital Signs Vital Signs: Last Vital Signs Temp 98.7 F 10/01/18 11:17 Pulse 78 10/01/18 11:17 Resp 20 10/01/18 11:17 BP 134/74 10/01/18 11:17 Pulse Ox 94 L 10/01/18 11:17 - Medical History PMH: Anemia, Anxiety, Arthritis, Atrial Fibrillation, Benign Prostatic Hyperplasia, CAD, Cardia Arrhythmia (A-FIB), Colonic Polyps, Depression, Diverticulitis, HTN, Hypercholesterolemia, Mitral Valve Prolapse, Chronic Kidney Disease, Schizophrenia Surgical History: CABG (1997), Endoscopy - [facility] Procedures DRAINAGE OF ANUS, EXTERNAL APPROACH (05/01/15) INSERTION OF INFUSION DEV INTO L SUBCLAV VEIN, PERC APPROACH (03/27/18) TRANSFUSE NONAUT FROZEN PLASMA IN PERIPH VEIN, PERC (06/21/18) TRANSFUSE NONAUT RED BLOOD CELLS IN PERIPH VEIN, PERC (06/21/18) ULTRASONOGRAPHY OF HEART WITH AORTA, TRANSESOPHAGEAL (05/02/18) Family History: States: Hypertension - Social History Hx Alcohol Use: No Hx Substance Use: No - Immunization History Hx Tetanus Toxoid Vaccination: No Hx Influenza Vaccination: No Hx Pneumococcal Vaccination: No Review Of Systems Except As Marked, All Systems Reviewed And Found Negative. Constitutional: Negative for: Chills, Weakness, Malaise Cardiovascular: Negative for: Light Headedness Respiratory: Negative for: Shortness of Breath Gastrointestinal: Negative for: Vomiting Musculoskeletal: Positive for: Leg Pain (left hip pain ), Foot Pain (blister to the right side of the left foot) Physical Exam - Physical Exam Appears: Well, Non-toxic, No Acute Distress Skin: Normal Color, Warm, Dry Head: Atraumatic, Normacephalic Eye(s): bilateral: Normal Inspection Oral Mucosa: Moist Neck: Normal ROM, Supple Chest: Symmetrical, No Deformity Cardiovascular: Rhythm Regular Respiratory: Normal Breath Sounds Back: No Vertebral Tenderness, No Decreased ROM Extremity: Normal ROM, Tenderness (mild tenderness to the left lateral hip, mild tenderness to the mid-femur, no ecchymosis, ankle non-tender), Capillary Refill (<2 seconds), No Deformity, Other (Frazer to the plantar aspect of MTP joint of both feet; non-tender, no swelling, non-erythematous Left foot; right foot has an intact blister, no erythema, no induration, no fluctuance, no discharge. there is mild tenderness and swelling present) Pulses: Left Dorsalis Pedis: Normal, Right Dorsalis Pedis: Normal Neurological/Psych: Oriented x3, Normal Speech, Normal Cognition, Normal Motor, Normal Sensation Gait: With Assistance (of a cane) ED Course And Treatment O2 Sat by Pulse Oximetry: 94 (in RA) Pulse Ox Interpretation: Normal - Other Rad Left hip x-ray w/ Pelvis X-Ray: Interpreted by Me, Viewed By Me Interpretation: Degenerative changes. No fracture or dislocation. Left femur X-ray X-Ray: Interpreted by Me, Viewed By Me Interpretation: No fracture or dislocation. Left femur xray X-Ray: Read By Radiologist Interpretation: Accession No. : [id number]. Patient Name / ID : ACACIA VALLEJO / [id number]. Exam Date : 10/01/2018 11:47:32 ( Approved ). Study Comment : Sex / Age : M / 68Y. Creator : Devin Martino MD. Dictator : Devin Martino MD. Marine Surveyor : Linux Unix Engineer : Devin Martino MD. Approver2 : Report Date : 10/01/2018 12:31:48. My Comment : . Left femur four views. HISTORY: Leg pain. COMPARISON: None available. FINDINGS: Moderate narrowing of the left hip joint space with subchondral sclerosis. No evidence of acute displaced fracture or dislocation. Prominent vascular calcifications. IMPRESSION: Negative acute. If pain persists, consider MRI. Left hip/pelvis xray X-Ray: Read By Radiologist Interpretation: Accession No. : [id number]. Patient Name / ID : ACACIA VALLEJO / [id number]. Exam Date : 10/01/2018 11:40:44 ( Approved ). Study Comment : Sex / Age : M / 68Y. Creator : Devin Martino MD. Dictator : Devin Martino MD. Marine Surveyor : Linux Unix Engineer : Devin Martino MD. Approver2 : Report Date : 10/01/2018 12:24:22. My Comment : . Pelvis and left hip three views. HISTORY: Fall. Hip pain. COMPARISON: None available. FINDINGS: Left hip: Moderate narrowing of the left hip joint space with subchondral sclerosis. No evidence of acute displaced fracture or dislocation. Prominent vascular calcifications. Moderate degenerative changes of the right hip joint space. Degenerative changes in the lower lumbar spine and pubic symphysis. IMPRESSION: Negative acute. If pain persists, consider MRI. Medical Decision Making Medical Decision Making: Initial plan: Xray of the left hip/pelvis ordered as well as xray of the left femur. Wound care ordered to the RLE to be performed by ED RN. 10/01/18 1245 Xrays negative for fracture. Patient advised of findings. Wound care performed to the left foot by ED RN. Protective, padded dressing applied. Patient encouraged on RICE method of treatment. Will follow-up with PMD/ortho. Patient instructed on wound care to the LLE and will prescribed PO antibiotic and topical antibiotic. Patient has follow-up appointment with his metal work duct installer in 1 week. Patient will return with any worsening pain, swelling, bruising or difficulty walking. Will also return with any increased redness, fevers, or discharge from wounds. Patient on warfarin and aware antibiotics may alter INR levels. Disposition Counseled Patient/Family Regarding: Studies Performed, Diagnosis, Need For Followup, Rx Given - Disposition Referrals: FAMILY PROVIDER,DILLON [Family Provider] - Clark Joyner III, MD [Staff Provider] - Disposition: HOME/ ROUTINE Disposition Time: 12:55 Condition: GOOD Additional Instructions: Follow-up with your PMD, orthopedist and metal work duct installer. Apply ice to area of pain from your fall. You may take tylenol for pain. Wash your feet daily with warm soapy water. Take medications as prescribed. Wear a protective, padded bandage to your feet and comfortable, supportive shoes with socks. Return if symptoms worsen or persist. Prescriptions: Amoxicillin/Clavulanate [Augmentin 875 MG-125 MG] 1 tab PO BID #20 tab Mupirocin 2% Cream [Bactroban Cream] 1 applic TOP BID #1 tube Instructions: Wound Care (DC), Contusion (DC) Forms: [employer] (Ukrainian), General Discharge Instructions Print Language: WALLISIAN - Clinical Impression Clinical Impression: Contusion, hip and thigh, Wound of foot
--- NOTE | 2018-10-01 12:28 | RAD ---
Pelvis and left hip three views HISTORY: Fall. Hip pain. COMPARISON: None available. FINDINGS: Left hip: Moderate narrowing of the left hip joint space with subchondral sclerosis. No evidence of acute displaced fracture or dislocation. Prominent vascular calcifications. Moderate degenerative changes of the right hip joint space. Degenerative changes in the lower lumbar spine and pubic symphysis. IMPRESSION: Negative acute. If pain persists, consider MRI.
--- NOTE | 2018-10-01 12:35 | RAD ---
Left femur four views HISTORY: Leg pain. COMPARISON: None available. FINDINGS: Moderate narrowing of the left hip joint space with subchondral sclerosis. No evidence of acute displaced fracture or dislocation. Prominent vascular calcifications. IMPRESSION: Negative acute. If pain persists, consider MRI.
[2018-10-01 13:09] VITALS: BP 137/84; RESP 18; TEMP 98.4
== END 2018-10-01 13:09 | disposition home or self-care (01) ==
LOC: C.ER 11:09
DX: S70.02XA Contusion of left hip, initial encounter (principal); S90.921A Unspecified superficial injury of right foot, initial encounter; W19.XXXA Unspecified fall, initial encounter; E78.00 Pure hypercholesterolemia, unspecified; I12.9 Hypertensive chronic kidney disease with stage 1 through stage 4 chronic kidney disease, or unspecified chronic kidney disease; N18.9 Chronic kidney disease, unspecified; F20.9 Schizophrenia, unspecified; I25.10 Atherosclerotic heart disease of native coronary artery without angina pectoris; E11.9 Type 2 diabetes mellitus without complications; I48.91 Unspecified atrial fibrillation; N40.0 Benign prostatic hyperplasia without lower urinary tract symptoms